=== PATIENT | female | born 1965 | race Caucasian/White ===

== ENCOUNTER 2017-05-16 00:21 | Emergency (ER) | payer BC, OTHER ==
[~2017-05-16] VITALS: Ht 149.9 cm; Wt 63.5 kg
[~2017-05-16 00:21] MED LIST: ACETAMINOPHEN325 M1 PO; AMITIZA8 MCG PO; AMOXICILLIN500 MG PO; AMPHETAMINE SAL10 MG PO; BENADRYL25 MG PO; BIOTIN5 MG PO; BUTALB-ACETAMI1 EACH PO; CANE1 EACH MISC; CETIRIZINE HCL10 MG PO; CHLORPROMAZINE25 MG PO; COREG3.125 MG PO; CYCLOBENZAPRINE10 MG PO; CYMBALTA20 MG PO; DICLOFENAC SODI75 MG PO; DULOXETINE HCL60 MG PO; ESTROVEN ENERG1 EACH PO; GABAPENTIN300 MG PO; IBUPROFEN600 MG PO; KEPPRA500 MG PO; LEVETIRACETAM1000 MG PO; LEVETIRACETAM500 MG PO; LEVOTHYROXINE88 MCG PO; LEVOXYL25 MCG PO; LIDODERM700 MG TOP; LOMOTIL TABLET1 EACH PO; LORATADINE10 MG PO; MELOXICAM15 MG PO; MULTIVITAMINS1 EAC7 PO; MULTIVITAMINS1 EAC8 PO; NAPROXEN500 MG PO; NITROFURANTOIN100 MG PO; NORCO 5-325 TA1 EACH PO; POTASSIUM CHLO10 MEQ PO; PREDNISONE20 MG PO; PROMETHAZINE HC25 M1 PO; RANITIDINE HCL150 MG PO; RANITIDINE HCL300 MG PO; SUMATRIPTAN SU100 MG PO; SUMATRIPTAN SUC50 MG PO; TRAMADOL HCL50 MG PO; TRAZODONE HCL100 MG PO; TRIAMCINOLONE A15 G3 TOP; TRIAMCINOLONE A15 GM TOP; VENTOLIN HFA18 GM IH; VITAMIN B-121000 MCG PO; VITAMIN C500 M1 PO; ZITHROMAX250 MG PO; ZOFRAN ODT4 MG PO
[2017-05-16] MEDS ORDERED: ZANAFLEX4 MG PO (00:46)
[2017-05-16] MEDS ORDERED: RIZATRIPTAN10 M1 PO (00:46)
--- NOTE | 2017-05-16 15:33 | EKG ---
[facility] [address] [place] [address] Signed Sinus bradycardia Moderate voltage criteria for LVH, may be normal variant Borderline ECG When compared with ECG of 26-NOV-2016 21:39, Vent. rate has decreased BY 32 BPM Confirmed by FIFI IBRAHIM MD ([id number]) on 05/16/2017 3:33:26 PM Electronically Signed By: FIFI IBRAHIM MD 05/16/17 1533 PATIENT NAME: DOMINIQUE CARMICHAEL Electrocardiogram DATE OF : 61 PHYSICIAN: FIFI IBRAHIM MD REPORT #: [id number] REPORT IS CONFIDENTIAL AND NOT TO BE RELEASED WITHOUT AUTHORIZATION
[2017-09-03] MEDS ORDERED: DICLOFENAC SODI75 MG PO (21:14)
== END 2017-05-16 02:59 | disposition home or self-care (01) ==
LOC: ED 00:21
DX: M79.622 Pain in left upper arm (principal); Z87.891 Personal history of nicotine dependence; Z88.1 Allergy status to other antibiotic agents; Z88.8 Allergy status to other drugs, medicaments and biological substances; Z79.899 Other long term (current) drug therapy
CPT/HCPCS: 80053; 81001; 84484; 85025; 93005; 93010; 96360; 99284; J7030

== ENCOUNTER 2017-07-23 11:36 | Emergency (ER) | payer BC ==
[~2017-07-23] VITALS: Ht 149.9 cm; Wt 59.9 kg
[~2017-07-23 11:36] MED LIST changes: +RIZATRIPTAN10 M1 PO; +ZANAFLEX4 MG PO
[2017-07-23] MEDS ORDERED: PERCOCET 5-3251 EACH PO (15:18)
[2017-07-23] MEDS ORDERED: ZOFRAN ODT4 MG PO (15:18)
[2017-09-03] MEDS ORDERED: DICLOFENAC SODI75 MG PO (21:14)
== END 2017-07-23 15:28 | disposition home or self-care (01) ==
LOC: ED 11:36
DX: G43.909 Migraine, unspecified, not intractable, without status migrainosus (principal); I25.2 Old myocardial infarction; G40.909 Epilepsy, unspecified, not intractable, without status epilepticus; Z98.51 Tubal ligation status; Z88.1 Allergy status to other antibiotic agents; Z88.8 Allergy status to other drugs, medicaments and biological substances; Z79.899 Other long term (current) drug therapy
CPT/HCPCS: 70450; 96372; 99284; J3030

== ENCOUNTER 2017-08-02 15:52 | Emergency (ER) | payer BC ==
[~2017-08-02] VITALS: Ht 149.9 cm; Wt 59.9 kg
[~2017-08-02 15:52] MED LIST changes: +PERCOCET 5-3251 EACH PO
[2017-08-02] MEDS ORDERED: LEVOTHYROXINE125 MCG PO (16:11)
[2017-08-02] MEDS ORDERED: METHYLPREDNISOLO4 M1 PO (17:09)
[2017-08-02] MEDS ORDERED: KETOROLAC TROME10 MG PO (17:09)
[2017-09-03] MEDS ORDERED: DICLOFENAC SODI75 MG PO (21:14)
== END 2017-08-02 17:18 | disposition home or self-care (01) ==
LOC: ED 15:52
DX: G89.29 Other chronic pain (principal); M79.671 Pain in right foot; G40.909 Epilepsy, unspecified, not intractable, without status epilepticus; F90.9 Attention-deficit hyperactivity disorder, unspecified type; K21.9 Gastro-esophageal reflux disease without esophagitis; Z98.51 Tubal ligation status; Z88.8 Allergy status to other drugs, medicaments and biological substances; Z88.1 Allergy status to other antibiotic agents; Z91.048 Other nonmedicinal substance allergy status; Z79.899 Other long term (current) drug therapy
CPT/HCPCS: 73630; 99283

== ENCOUNTER → 2017-09-03 | Emergency (ER) | payer BC ==
[~2017-09-03] VITALS: Ht 152.4 cm; Wt 61.2 kg
[~2017-09-03] MED LIST changes: +KETOROLAC TROME10 MG PO; +LEVOTHYROXINE125 MCG PO; +METHYLPREDNISOLO4 M1 PO
--- OUTSIDE RECORDS SUMMARY | ~2017-09-03 | XMS | Clinical Summary ---
Demographics + + + | Address | [address] | | | [place] [address] | + + + | Home Phone | | + + + | Preferred Language | Unknown | + + + | Marital Status | Single | + + + | Sabianism Affiliation | LUTHERAN | + + + | Race | White | + + + | Ethnic Group | Not or | + + + Author + + + | Author | [facility] | + + + | Organization | [facility] | + + + | Address | Unknown | + + + | Phone | Unavailable | + + + Support + + +---------+ + | Name | Relationship | Address | Phone | + + +---------+ + | AMOL DONNA | ECON | Unknown | | + + +---------+ + Care Team Providers + +------+ + | Care Java Security Engineer Name | Role | Phone | + +------+ + PP | Unavailable | + +------+ + Allergies + + + + + + | Active Allergy | Reactions | Severity | Noted | Comments | | | | | Date | | + + + + + + | Ciprofloxacin | | | 08/06/20 | | | | | | 12 | | + + + + + + | Prochlorperazine | | | 08/06/20 | | | | | | 12 | | + + + + + + Current Medications + + +-------+---------+------+------+-------+ | Prescription | Sig. | Disp. | Refills | Star | End | Statu | | | | | | t | Date | s | | | | | | Date | | | + + +-------+---------+------+------+-------+ | DULoxetine | Take 60 mg by mouth | | | | | Activ | | (CYMBALTA) 60 mg | Daily. | | | | | e | | capsule | | | | | | | + + +-------+---------+------+------+-------+ | levetiracetam | Take 500 mg by mouth | | | | | Activ | | (KEPPRA) 500 mg | 2 Times Daily. | | | | | e | | tablet | | | | | | | + + +-------+---------+------+------+-------+ | levothyroxine | Take 25 mcg by mouth | | | | | Activ | | (SYNTHROID) 25 mcg | Every Morning | | | | | e | | tablet | (Before Breakfast). | | | | | | + + +-------+---------+------+------+-------+ | amoxicillin | Take 500 mg by mouth | | | | | Activ | | (AMOXIL) 500 mg | 3 Times Daily. | | | | | e | | capsule | | | | | | | + + +-------+---------+------+------+-------+ | | Take 1 tablet by | | | | | Activ | | HYDROcodone-acetamin | mouth Every 4 Hours. | | | | | e | | ophen (VICODIN) | | | | | | | | 5-500 mg Tab | | | | | | | + + +-------+---------+------+------+-------+ | traZODone | Take 50 mg by mouth | | | | | Activ | | (DESYREL) 50 mg | At Bedtime. | | | | | e | | tablet | | | | | | | + + +-------+---------+------+------+-------+ | potassium chloride | Take 10 mEq by mouth | | | | | Activ | | (KLOR-CON M) 10 mEq | 2 Times Daily. | | | | | e | | tablet ER | | | | | | | + + +-------+---------+------+------+-------+ | cyclobenzaprine | Take 10 mg by mouth | | | | | Activ | | (FLEXERIL) 10 mg | 3 Times Daily As | | | | | e | | tablet | Needed. | | | | | | + + +-------+---------+------+------+-------+ | docusate sodium | Take 100 mg by mouth | | | | | Activ | | (COLACE) 100 mg | 2 Times Daily. | | | | | e | | capsule | | | | | | | + + +-------+---------+------+------+-------+ | ranitidine | Take 150 mg by mouth | | | | | Activ | | (ZANTAC) 75 mg | 2 Times Daily. | | | | | e | | tablet | | | | | | | + + +-------+---------+------+------+-------+ | carvedilol (COREG) | Take 25 mg by mouth | | | | | Activ | | 25 mg tablet | 2 Times Daily (with | | | | | e | | | Meals). | | | | | | + + +-------+---------+------+------+-------+ | aspirin 81 mg | Take 81 mg by mouth | | | | | Activ | | chewable tablet | Daily. | | | | | e | + + +-------+---------+------+------+-------+ | naproxen | Take 375 mg by mouth | | | | | Activ | | (NAPROSYN) 375 mg | 2 Times Daily (with | | | | | e | | tablet | Meals). | | | | | | + + +-------+---------+------+------+-------+ Active Problems Not on file Social History + +-------+ +--------+------+ | Tobacco Use | Types | Packs/Day | Years | Date | | | | | Used | | + +-------+ +--------+------+ | Never Smoker | | | | | + +-------+ +--------+------+ + + +---------+ + | Alcohol Use | Drinks/We | oz/Week | Comments | | | ek | | | + + +---------+ + | Yes | | | occasionally | + + +---------+ + + + + | Sex Assigned at | Date Recorded | | | | + + + | Not on file | | + + + Last Filed Vital Signs + + + + | Vital Sign | Reading | Time Taken | + + + + | Blood Pressure | 136/97 | 08/06/2012 1:45 AM PDT | + + + + | Pulse | 82 | 08/06/2012 1:45 AM PDT | + + + + | Temperature | 37 C (98.6 F) | 08/06/2012 1:45 AM PDT | + + + + | Respiratory Rate | 16 | 08/06/2012 1:45 AM PDT | + + + + | Oxygen Saturation | 100% | 08/06/2012 1:45 AM PDT | + + + + | Inhaled Oxygen | - | - | | Concentration | | | + + + + | Weight | - | - | + + + + | Height | - | - | + + + + | Body Mass Index | - | - | + + + + Plan of Treatment + + + + + | Health Maintenance | Due Date | Last Done | Comments | + + + + + | HIV Screening | | | | | | 8 | | | + + + + + | Tetanus | | | | | | 2 | | | + + + + + | Cervical Cancer | | | | | Screening | 4 | | | + + + + + | Breast Cancer | | | | | Screening | 3 | | | + + + + + | Colon Cancer | | | | | Screening | 3 | | | + + + + + | IMM Influenza (#1) | | | | | | 7 | | | + + + + + Results Not on filefrom Last 3 Months"
--- OUTSIDE RECORDS SUMMARY | ~2017-09-03 | XMS | Clinical Summary ---
Demographics + + + | Address | [address] | | | [place] [address] | + + + | Home Phone | | + + + | Preferred Language | Unknown | + + + | Marital Status | Single | + + + | Bahai Affiliation | SYNAGOGUE | + + + | Race | [...] Team Providers + +------+ + | Care Cut Out Worker Name | Role | Phone | [...]
== END ==
LOC: ED 18:27
DX: M25.512 Pain in left shoulder (principal); G89.29 Other chronic pain; I95.1 Orthostatic hypotension; I25.2 Old myocardial infarction; Z79.84 Long term (current) use of oral hypoglycemic drugs; Z91.048 Other nonmedicinal substance allergy status; Z88.1 Allergy status to other antibiotic agents; Z88.8 Allergy status to other drugs, medicaments and biological substances; Z98.890 Other specified postprocedural states; Z98.51 Tubal ligation status; Z79.52 Long term (current) use of systemic steroids; Z79.899 Other long term (current) drug therapy; R56.9 Unspecified convulsions; K21.9 Gastro-esophageal reflux disease without esophagitis
CPT/HCPCS: 73030; 80053; 81001; 85025; 96361; 96374; 99283; J1885; J7030

== ENCOUNTER 2018-01-09 20:59 | Emergency (ER) | payer BC ==
[~2018-01-09] VITALS: Ht 152.4 cm; Wt 60.3 kg
--- OUTSIDE RECORDS SUMMARY | ~2018-01-09 | XMS | Clinical Summary ---
Demographics + + + | Address | [address] | | | [place] [address] | + + + | Home Phone | | + + + | Preferred Language | Unknown | + + + | Marital Status | Single | + + + | Zoroastrian Affiliation | ANABAPTIST | + + + | Race | [...] Phone | + + +---------+ + | RUEL CARMICHAEL | ECON | Unknown | | + + +---------+ + Care Team Providers + +------+ + | Care Oil Dipper Name | Role | Phone | + [...] | + + + + + | Hep C Ab Screening | | | | | | 3 | | | + + [...]
--- OUTSIDE RECORDS SUMMARY | ~2018-01-09 | XMS | Clinical Summary ---
Demographics + + + | Address | [address] | | | [place] [address] | + + + | Home Phone | | + + + | Preferred Language | Unknown | + + + | Marital Status | Single | + + + | Religion Affiliation | SHINTO | + + + | Race | [...] Team Providers + +------+ + | Care Boiler Room Operator Name | Role | Phone | [...]
[2018-01-09] MEDS ORDERED: GUAIFENESIN AC473 ML PO (22:10)
[2018-01-09] MEDS ORDERED: ZITHROMAX250 MG PO (22:10)
[2018-01-09] MEDS ORDERED: BENZONATATE100 MG PO (22:10)
[2018-01-10] MEDS ORDERED: PREDNISONE10 MG PO (01:56)
== END 2018-01-10 02:29 | disposition home or self-care (01) ==
LOC: ED 20:59
DX: J20.9 Acute bronchitis, unspecified (principal); J67.9 Hypersensitivity pneumonitis due to unspecified organic dust; K21.9 Gastro-esophageal reflux disease without esophagitis; F20.9 Schizophrenia, unspecified; Z87.891 Personal history of nicotine dependence; Z88.0 Allergy status to penicillin; Z88.8 Allergy status to other drugs, medicaments and biological substances; Z88.1 Allergy status to other antibiotic agents; Z79.899 Other long term (current) drug therapy
CPT/HCPCS: 71046; 87502; 94640; 99283; J7512

== ENCOUNTER 2018-12-01 23:01 | Emergency (ER) | payer BC ==
[~2018-12-01] VITALS: Ht 152.4 cm; Wt 66.7 kg
[~2018-12-01 23:01] MED LIST changes: +BENZONATATE100 MG PO; +GUAIFENESIN AC473 ML PO; +PREDNISONE10 MG PO
--- OUTSIDE RECORDS SUMMARY | 2018-12-01 23:04 | XMS ---
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 No recent Security Events currently on file CRITERIA MET - Group Notification CARE PROVIDERS LIAM PORTER Nurse Practitioner: Family Current PHONE: [phone] Oneil Reyez Internal Medicine: Pulmonary Disease 08/15/2018-Current PHONE: Unknown QUITA MURPHY Family Medicine: Geriatric Medicine Current PHONE: Unknown PCP_Unattributed Primary Care Current PHONE: Unknown LIAM PORTER Primary Care 10/25/2016-Current PHONE: [phone] PANCHO OVERTON Primary Care 10/25/2016-Current PHONE: [phone] DR QUITA MURPHY Primary Care 01/22/2017-Current PHONE: [phone] Teofilo has no Care Guidelines for this patient. Mary VISIT COUNT (12 MO.) Javi Finch TOTAL 3 NOTE: Visits indicate total known visits. 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
== END 2018-12-02 02:30 | disposition home or self-care (01) ==
LOC: ED 23:01
DX: R10.11 Right upper quadrant pain (principal); F90.9 Attention-deficit hyperactivity disorder, unspecified type; I25.2 Old myocardial infarction; K21.9 Gastro-esophageal reflux disease without esophagitis; Z88.0 Allergy status to penicillin; Z88.1 Allergy status to other antibiotic agents; Z91.09 Other allergy status, other than to drugs and biological substances; Z88.8 Allergy status to other drugs, medicaments and biological substances; Z79.899 Other long term (current) drug therapy
CPT/HCPCS: 74176; 76705; 80053; 81001; 83690; 85025; 99284-25; J1885; J2405

== ENCOUNTER 2019-02-19 22:48 | Emergency (ER) | payer BC ==
[~2019-02-19] VITALS: Ht 152.4 cm; Wt 62.1 kg
--- OUTSIDE RECORDS SUMMARY | ~2019-02-19 | XMS | Encounter Summary ---
Demographics + + + | Address | [address] | | | [place] [address] | + + + | Home Phone | | + + + | Preferred Language | Unknown | + + + | Marital Status | Single | + + + | Christian Affiliation | 1009 | + + + | Race | Unknown | + + + | Ethnic Group | Unknown | + + + Author + + + | Author | [facility] | | | and [place] | + + + | Organization | [facility] | | | and [place] | + + + | Address | Unknown | + + + | Phone | Unavailable | + + + Support + + + + + | Name | Relationship | Address | Phone | + + + + + | Magalys Hurley | ECON | [address] | | | | | [place] [address] | | + + + + + Care Team Providers + +------+ + | Care Head Charger Name | Role | Phone | + +------+ + | Aisha Carrington DO | PCP | Unavailable | + +------+ + Reason for Visit + + + | Reason | Comments | + + + | Medication Refill | | + + + Encounter Details +--------+--------+ + + + | Date | Type | Department | Care Team | Description | +--------+--------+ + + + | 02/01/ | Refill | [facility] | Aisha Carrington, | Medication Refill | | 2019 | | [facility] | DO [address] | | | | | CLIN[address] | [place] [address] | | | | | DR [place], | [phone] | | | | | [place] [address] | | | | | | [phone] | | | +--------+--------+ + + + [...] on file | | + + + + + + + | Job Start Date | Occupation | Industry | + + + + | Not on file | Not on file | Not on file | + + + + + + + + | Travel History | Travel Start | Travel End | + + + + + + | No recent travel history available. | + + documented as of this encounter Plan of Treatment +--------+---------+ + + + | Date | Type | Specialty | Care Team | Description | +--------+---------+ + + + | 03/07/ | Office | Neurology | Brock Hammond MD | | | 2019 | Visit | | [address] | | | | | | [place] | | | | | | [phone] | | | | | | | | +--------+---------+ + + + documented as of this encounter Visit Diagnoses Not on filedocumented in this encounter"
--- OUTSIDE RECORDS SUMMARY | ~2019-02-19 | XMS | Encounter Summary ---
Demographics + + + | Address | [address] | | | [place] [address] | + + + | Home Phone | | + + + | Preferred Language | Unknown | + + + | Marital Status | Single | + + + | Quaker Affiliation | 1009 | + + + | Race | Unknown | + + + | Ethnic Group | Unknown | + + + Author + + + | Author | [facility] | | | and [place] | + + + | Organization | [facility] | | [...] [place] | | | | | [place] [address] | | + + + + + Care Team Providers + +------+ + | Care Aerial Hurricane Hunter Name | Role | Phone | + [...] [id number] | | | | | [place] [address] | | | | | | [phone] | | | +--------+--------+ + + + [...] [place] | | | | | | [address] | | | | | | | | +--------+---------+ + + + documented as of this encounter Visit Diagnoses Not on filedocumented in this encounter"
--- OUTSIDE RECORDS SUMMARY | ~2019-02-19 | XMS | Encounter Summary ---
Demographics + + + | Address | [address] | | | [place] [address] | + + + | Home Phone [...] [address] | | | | | [place] [address] | | + + + + + Care Team Providers + +------+ + | Care Acls Nurse Name | Role | Phone | + [...] [id number] | | | | | [place] [address] | | | | | | [phone] | | | +--------+--------+ + + + [...] [place] | | | | | | [address] | | | | | | | | +--------+---------+ + + + documented as of this encounter Visit Diagnoses Not on filedocumented in this encounter"
--- OUTSIDE RECORDS SUMMARY | ~2019-02-19 | XMS | Encounter Summary ---
Demographics + + + | Address | [address] | | | [place] [address] | + + + | Home Phone [...] [place] | | | | | [place] [address] | | + + + + + Care Team Providers + +------+ + | Care Casing Tier Name | Role | Phone | + +------+ + | Aisha Carringotn DO | PCP | Unavailable | + [...] [id number] | | | | | [place] [address] | | | | | | [phone] | | | +--------+--------+ + + + [...] [place] | | | | | | [address] | | | | | | | | +--------+---------+ + + + documented as of this encounter Visit Diagnoses Not on filedocumented in this encounter"
--- OUTSIDE RECORDS SUMMARY | ~2019-02-19 | XMS | Encounter Summary ---
Demographics + + + | Address | [address] | | | [place] [address] | + + + | Home Phone [...] [place] | | | | | [place] [address] | | + + + + + Care Team Providers + +------+ + | Care Linseed Cake Trimmer Name | Role | Phone | [...] [id number] | | | | | [place] [address] | | | | | | [phone] | | | +--------+--------+ + + + [...] [place] | | | | | | [address] | | | | | | | | +--------+---------+ + + + documented as of this encounter Visit Diagnoses Not on filedocumented in this encounter"
--- OUTSIDE RECORDS SUMMARY | ~2019-02-19 | XMS | Clinical Summary ---
Demographics + + + | Address | [address] | | | [place] [address] | + + + | Home Phone | | + + + | Preferred Language | Unknown | + + + | Marital Status | Single | + + + | Spiritism Affiliation | Unknown | + + + | Race | Unknown | + + + | Ethnic Group | Unknown | + + + Author + + + | Author | [id number] | + + + | Organization | [facility] | + + + | Address | Unknown | + + + | Phone | Unavailable | + + + Support + + +---------+ + | Name | Relationship | Address | Phone | + + +---------+ + | Message,Detailed | ECON | Unknown | | + + +---------+ + Care Team Providers + +------+ + | Care Dust Collector Attendant Name | Role | Phone | + +------+ + | Galen Portillo MD | PP | | + +------+ + Allergies + + + + + + | Active Allergy | Reactions | Severity | Noted | Comments | | | | | Date | | + + + + + + | Ciprofloxacin | Other (See Comments) | Medium | 03/17/20 | Angry | | | | | 16 | | + + + + + + | Prochlorperazine | Anxiety, Agitation, | Medium | 03/17/20 | | | | Hallucinations | | 16 | | + + + + + + Current Medications + + +-------+---------+------+------+-------+ | Prescription | Sig. | Disp. | Refills | Star | End | Statu | | | | | | t | Date | s | | | | | | Date | | | + + +-------+---------+------+------+-------+ | betamethasone | Apply topically 2 | | | | | Activ | | dipropionate | (two) times daily. | | | | | e | | (DIPROLENE) 0.05 % | | | | | | | | ointment | | | | | | | + + +-------+---------+------+------+-------+ | Biotin 5 MG CAPS | Take by mouth. | | | | | Activ | | | | | | | | e | + + +-------+---------+------+------+-------+ | cyclobenzaprine | Take 10 mg by mouth | | | | | Activ | | (FLEXERIL) 10 MG | 3 (three) times | | | | | e | | tablet | daily as needed for | | | | | | | | Muscle spasms. | | | | | | + + +-------+---------+------+------+-------+ | DULoxetine | Take 60 mg by mouth | | | | | Activ | | (CYMBALTA) [address] | daily. | | | | | e | | capsule | | | | | | | + + +-------+---------+------+------+-------+ | diclofenac | Take 75 mg by mouth | | | | | Activ | | (VOLTAREN) 75 MG EC | 2 (two) times daily. | | | | | e | | tablet | | | | | | | + + +-------+---------+------+------+-------+ | cetirizine | Take 10 mg by mouth | | | | | Activ | | (ZYRTEC) 10 MG | daily. | | | | | e | | tablet | | | | | | | + + +-------+---------+------+------+-------+ | lubiprostone | Take 8 mcg by mouth | | | | | Activ | | (AMITIZA) 8 MCG | 2 (two) times daily | | | | | e | | capsule | with meals. | | | | | | + + +-------+---------+------+------+-------+ | levothyroxine | Take by mouth every | | | | | Activ | | (SYNTHROID) 100 MCG | morning before | | | | | e | | tablet | breakfast. | | | | | | + + +-------+---------+------+------+-------+ | levETIRAcetam | Take 500 mg by mouth | | | | | Activ | | (KEPPRA) 500 MG | 2 (two) times | | | | | e | | tablet | daily. | | | | | | + + +-------+---------+------+------+-------+ | ranitidine | Take by mouth | | | | | Activ | | (ZANTAC) 300 MG | nightly. | | | | | e | | tablet | | | | | | | + + +-------+---------+------+------+-------+ | | Take 1 capsule by | | | | | Activ | | butalbital-acetamino | mouth every 4 (four) | | | | | e | | phen-caffeine | hours as needed for | | | | | | | (FIORICET WITH | Headaches. | | | | | | | CODEINE) | | | | | | | | [phone] MG per | | | | | | | | capsule | | | | | | | + + +-------+---------+------+------+-------+ Active Problems No known active problems Social History + +-------+ +--------+------+ | Tobacco [...] + + + | Blood Pressure | - | - | + + + + | Pulse | - | - | + + + + | Temperature | - | - | + + + + | Respiratory Rate | - | - | + + + + | Oxygen Saturation | - | - | + + + + | Inhaled Oxygen | - | - | | Concentration | | | + + + + | Weight | 59 kg (130 lb) | 04/17/2016 9:22 AM PDT | + + + + | Height | 149.9 cm (4' 11") | 04/17/2016 9:22 AM PDT | + + + + | Body Mass Index | 26.26 | 04/17/2016 9:22 AM PDT | + + + + Plan of Treatment + + + + + | Health Maintenance | Due Date | Last Done | Comments | + + + + + | Vaccine: | | | | | Dtap/Tdap/Td (1 - | 2 | | | | Tdap) | | | | + + + + + | Cervical Cancer | | | | | Screening (Pap) | 3 | | | + + + + + | Breast Cancer | | | | | Screening | 3 | | | | (Mammogram) | | | | + + + + + | Colon Cancer | | | | | Screening | 3 | | | | (Colonoscopy) | | | | + + + + + | Vaccine: Zoster (1 | | | | | of 2) | 3 | | | + + + + + | Vaccine: Influenza | | | | | (Season Ended) | 9 | | | + + + + + Results Not on filefrom Last 3 Months Insurance + +--------+ +------+-------+---------+ | Payer | Benefi | Subscriber | Type | Phone | Address | | | t Plan | ID | | | | | | / | | | | | | | Group | | | | | + +--------+ +------+-------+---------+ | [employer] | [employer]DS | [id number] | | | | | | HEALTH | | | | | | | PLAN | | | | | + +--------+ +------+-------+---------+ + +--------+ +--------+ + + | Guarantor Name | Accoun | Relation to | Date | Phone | Billing Address | | | t Type | Patient | of | | | | | | | | | | + +--------+ +--------+ + + | KOKI RAZA | Person | Self [birth year] Work: | [address] | | | al/James | | [phone] | [phone] | [place] | | | juliet | | | [address] Home: | [address] | | | | | | | | | | | | [phone] | | | | | | [phone] | | + +--------+ +--------+ + +
--- OUTSIDE RECORDS SUMMARY | ~2019-02-19 | XMS | Encounter Summary ---
Demographics + + + | Address | [address] | | | [place] [address] | + + + | Home Phone [...] [place] | | | | | [place] [address] | | + + + + + Care Team Providers + +------+ + | Care Picking Belt Operator Name | Role | Phone | [...] [id number] | | | | | [place] [address] | | | | | | [phone] | | | +--------+--------+ + + + [...] [place] | | | | | | [address] | | | | | | | | +--------+---------+ + + + documented as of this encounter Visit Diagnoses Not on filedocumented in this encounter"
--- OUTSIDE RECORDS SUMMARY | ~2019-02-19 | XMS | Encounter Summary ---
Demographics + + + | Address | [address] | | | [place] [address] | + + + | Home Phone [...] [place] | | | | | [place] [address] | | + + + + + Care Team Providers + +------+ + | Care School Psychologist Name | Role | Phone | + [...] [id number] | | | | | [place] [address] | | | | | | [phone] | | | +--------+--------+ + + + [...] [place] | | | | | | [address] | | | | | | | | +--------+---------+ + + + documented as of this encounter Visit Diagnoses Not on filedocumented in this encounter"
--- OUTSIDE RECORDS SUMMARY | ~2019-02-19 | XMS | Clinical Summary ---
Demographics + + + | Address | [address] | | | [place] [address] | + + + | Home Phone [...] | | | | | [place] [address] | | + + + + + Care Team Providers + +------+ + | Care It Support Specialist Name | Role | Phone | + +------+ + | Aisha Carrington DO | PP | Unavailable | + +------+ + [...] + + + +---------+------+------+-------+ | gabapentin | Take 1 tablet by | 90 | 4 | 02/2 | | Activ | | (NEURONTIN) 600 MG | mouth 3 times daily. | tablet | | 8/20 | | e | | tablet | | | | 18 | | | + + + +---------+------+------+-------+ [...] tablet by | 30 | 11 | 04/2 | | Activ | | (SYNTHROID) 125 mcg | mouth once daily | tablet | | 7/20 | | e | | tablet | | | | 18 | | | + + + +---------+------+------+-------+ | tiZANidine | take 1 tablet by | 30 | 0 | 04/2 | | Activ | | (ZANAFLEX) 4 mg | mouth three times a | tablet | | 7/20 | | e | | tablet | day for 10 days MAY | | | 18 | | | | | CUT TABLETS IN HALF | | | | | | + + + +---------+------+------+-------+ | DULoxetine | take 1 capsule by | 60 | 11 | 04/1 | | Activ | | (CYMBALTA) [address] | mouth twice a day | capsule | | 0/20 | | e | | capsule | | | | 19 | | | + + + +---------+------+------+-------+ | levETIRAcetam | take 1 tablet by | 60 | 0 | 04/1 | | Activ | | (KEPPRA) 500 mg | mouth twice a day | tablet | | 0/20 | | e | | tablet | | | | 19 | | | + + + +---------+------+------+-------+ | SUMAtriptan | take 1 tablet by | 12 | 0 | 04/1 | | Activ | | (IMITREX) 100 mg | mouth AT ONSET OF | tablet | | 3/20 | | e | | tablet | HEADACHE may repeat | | | 19 | | | | | ONCE AFTER 45 | | | | | | | | MINUTES; not more | | | | | | | | than 2 tablets daily | | | | | | + + + +---------+------+------+-------+ | DULoxetine | take 1 capsule by | 60 | 11 | 02/2 | 04/1 | Disco | | (CYMBALTA) [address] | mouth twice a day | capsule | | 7/20 | 0/20 | ntinu | | capsule | | | | 18 | 19 | ed | + + + +---------+------+------+-------+ | levETIRAcetam | take 1 tablet by | 60 | 0 | 02/1 | 04/ | Disco | | (KEPPRA) 500 mg | mouth twice a day | tablet | | 1/20 | 0/20 | ntinu | | tablet | | | | 19 | 19 | ed | + + + +---------+------+------+-------+ | SUMAtriptan | take 1 tablet by | 12 | 0 | 02/1 | 04/1 | Disco | | (IMITREX) 100 mg | mouth AT ONSET OF | tablet | | 20 | 3/20 | ntinu | | tablet | HEADACHE MAY REPEAT | | | 19 | 19 | ed | | | ONCE AFTER 45 | | | | | | | | MINUTES; MAXIMUM OF | | | | | | | | 2 TABLETS DAILY | | | | | | + + + +---------+------+------+-------+ Active Problems + + + | Problem | Noted Date | + + + | Chronic anemia [...] | 10/28/2015 | + + + | Essential hypertension [...] + + + + + | Overview: 04/12/17: Currently on Keppra 500 mg BID. She | | has been seizure free x 1 year. | + + + + + | GERD (gastroesophageal reflux disease) | 03/25/2011 | + + + | Hypothyroid | 03/25/2011 | + + + | Migraine | 03/25/2011 | + + + + + | Overview: 04/12/18: Sumatriptan ineffective. Transition to | | Rizatriptan. | + + + + + | Unspecified hearing loss, unspecified ear | 03/25/2011 | + + + Encounters +--------+--------+ + + + | Date | Type | Specialty | Care Team | Description | +--------+--------+ + + + | 02/04/ | Refill | | Brock Hammond MD | Medication Refill | | 2018 | | | | | +--------+--------+ + + + | 02/01/ | Refill | | Brock Hammond MD | Medication Refill | | 2018 | | | | | +--------+--------+ + + + | 02/01/ | Refill | | Aisha Carrington, | Medication Refill | | 2018 | | | DO | | +--------+--------+ + + + | 12/04/ | Refill | | Brock Hammond MD | Medication Refill | | 2018 | | | | | +--------+--------+ + + + from Last 3 Months Immunizations + + + + | Name | Dates Previously Given | Next Due | + + + + | INFLUENZA PF | 10/08/2010, 08/01/2008 | | | TRIVALENT(PED/ADOL/A | | | | DULT)PRADEEPKT | | | + + + + [...] recent travel history available. | + + Last Filed Vital Signs + + + + | Vital Sign | Reading | Time Taken | + + + + | Blood Pressure | 110/80 | 07/21/20171355 PDT | + + + + | Pulse | 82 | 07/21/20171355 PDT | + + + + | Temperature | 36.1 C (97 F) | 03/23/20171302 PDT | + + + + | Respiratory Rate | 18 | 07/21/20171355 PDT | + + + + | Oxygen Saturation | 98% | 07/21/20171355 PDT | + + + + | Inhaled Oxygen | - | - | | Concentration | | | + + + + | Weight | 59.7 kg (131 lb 9.9 | 07/21/20171355 PDT | | | oz) | | + + + + | Height | 152 cm (4' 11.84") | 07/21/20171355 PDT | + + + + | Body Mass Index | 25.84 | 07/21/20171355 PDT | + + + + Plan of Treatment +--------+---------+ + + + | Date | Type | Specialty | Care Team | Description | +--------+---------+ + + + | 03/07/ | Office | | Brock Hammond MD | | | 2019 | Visit | | [address] | | | | | | [place] | | | | | | [address] | | | | | | | | +--------+---------+ + + + + + + + + | Health Maintenance | Due Date | Last Done | Comments | + + + + + | Hepatitis C | | | | | Screening | 3 | | | + + + + + | Primary Care | | | | | Outreach (Intense | 3 | | | | Risk) | | | | + + + [...] + + + | Vaccine: | | 08/01/2008 | | | Dtap/Tdap/Td (2 - | 8 | | | | Td) | | | | + + + + + | Breast Cancer | | 03/03/2017 | | | Screening (Ages | 9 | | | | 50-74) | | | | + + + + + | Vaccine: Influenza | | 10/08/2010, 08/01/2008 | | | (Season Ended) | 9 [...] +-------+--------+ +--------+-------+---------+------+ | BCBS | BCBS | [id number] | 10/25/19 | | | PPO | [...] Person | Self | [birth year] | [address] | | | barb/James | | 1965 | [phone] | | | [place] | | | [address] (Home) | [place] [address] | + +--------+ +--------+ + + Advance Directives Patient has advance care planning documents on file. For more information, please contact:[facility] [place] [address]
--- OUTSIDE RECORDS SUMMARY | ~2019-02-19 | XMS | Clinical Summary ---
Demographics + + + | Address | [address] | | | [place] [address] | + + + | Home Phone [...] | | | | | [place] [address] | | + + + + + Care Team Providers + +------+ + | Care Data Compiler Name | Role | Phone | + [...] [place] | | | | | | [address] | | | | | | | [...] +-------+--------+ +--------+-------+---------+------+ | BCBS | BCBS | [id number] | 10/25/19 | | | PPO | [...] | | 7 (Home) | [place] [address] | + +--------+ +--------+ + + Advance Directives Patient has advance care planning documents on file. For more information, please contact:[facility] and [facility] [place] [address]
--- OUTSIDE RECORDS SUMMARY | ~2019-02-19 | XMS | Encounter Summary ---
Demographics + + + | Address | [address] | | | [place] [address] | + + + | Home Phone [...] HU | | | | | [place] [address] | | + + + + + Care Team Providers + +------+ + | Care Pocket Setter Lockstitch Name | Role | Phone | + [...] | CLINIC [address] | [place] [address] | | | | | [address] [place], | [phone] | | | | | [place] [address] | | | | | | [phone] | | | +--------+--------+ + + + [...] [place] | | | | | | [phone] | | | | | | | | +--------+---------+ + + + documented as of this encounter Visit Diagnoses Not on filedocumented in this encounter"
--- OUTSIDE RECORDS SUMMARY | ~2019-02-19 | XMS | Clinical Summary ---
Demographics + + + | Address | [address] | | | [place] [address] | + + + | Home Phone | | + + + | Preferred Language | Unknown | + + + | Marital Status | Single | + + + | Evangelical Affiliation | Unknown | + + + | Race | Unknown | + + + | Ethnic Group | Unknown | + + + Author + + + | Author | [facility] [employer] | + + + | Organization | [facility] [employer] | + + + | Address | Unknown | + + + | Phone | Unavailable | + + + Support + + +---------+ + | Name | Relationship | Address | Phone | + + +---------+ + | Message,Detailed | ECON | Unknown | | + + +---------+ + Care Team Providers + +------+ + | Care Motor Vehicle Light Assembler Name | Role | Phone | [...] | | | | | | | [phone] MG per | | | | | [...] | [employer] | ODS | [id number] | | | | | | HEALTH [...] [place] | | | [address]: | [phone] | | | | | | | | | | | | [phone] | | | | | | [phone] | | + +--------+ +--------+ + +
--- OUTSIDE RECORDS SUMMARY | 2019-02-19 22:50 | XMS ---
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 No recent Security Events currently on file CRITERIA MET - Group Notification - [facility] CARE PROVIDERS LIAM PORTER Nurse Practitioner: Family Current PHONE: [phone] PRATIK PALMER Nurse Practitioner: Family Current PHONE: Unknown Oneil Reyez Internal Medicine: Pulmonary Disease 08/15/2018-Current PHONE: Unknown QUITA MURPHY Family Medicine: Geriatric Medicine Current PHONE: Unknown KATHERINE Christy Primary Care Current PHONE: Unknown LIAM PORTER Primary Care 10/25/2016-Current PHONE: [phone] PANCHO OVERTON Primary Care 10/25/2016-Current PHONE: [phone] DR QUITA MURPHY Primary Care 01/22/2017-Current PHONE: [phone] Teofilo has no Care Guidelines for this patient. Care History Medical/Surgical 12/02/2018 [facility] - Patient is currently established with [facility]. If patient is seen in the ED during business hours. Please contact [facility] at [facility]. Care Recommendation: This patient has had 5 or more Emergency Department visits in the last 12 months.\T\nbsp; Patient requires education on the scope and purpose of the ED as an acute care provider not a Primary Care Provider and should not be utilized for chronic conditions.\T\nbsp; These are guidelines and the provider should exercise clinical judgment when providing care. E.D. VISIT COUNT (12 MO.) 3 SHAILA Finch TOTAL 3 NOTE: Visits indicate total known visits. ED/UCC VISIT TRACKING (12 MO.) 02/19/2019 22:48 [facility] [place] TYPE: Emergency COMPLAINT: - L RIB PAIN 12/01/2018 23:02 [facility] [place] TYPE: Emergency COMPLAINT: - FLANK PAIN,NAUSEA DIAGNOSES: - Other fci (current) drug therapy - Right upper quadrant pain - Other allergy status, other than to drugs and biological substances - Attention-deficit hyperactivity disorder, unspecified type - Allergy status to other drugs, medicaments and biological substances status - Old myocardial infarction - Gastro-esophageal reflux disease without esophagitis - Allergy status to penicillin - Allergy status to other antibiotic agents status 08/14/2018 23:25 [facility] [place] TYPE: Emergency COMPLAINT: - HEAD/NECK PAIN,NON INJURY DIAGNOSES: - Gastro-esophageal reflux disease without esophagitis - long-term (current) use of oral hypoglycemic drugs - Other nonmedicinal substance allergy status - Allergy status to penicillin - Allergy status to other antibiotic agents status - Cervicalgia - Pain in left shoulder - Other fci (current) drug therapy - Attention-deficit hyperactivity disorder, unspecified type INPATIENT VISIT TRACKING (12 MO.) No inpatient visits to display in this time frame [id number]
[2019-02-19] MEDS ORDERED: ZOFRAN4 MG PO (23:08)
[2019-02-19] MEDS ORDERED: NAPROXEN500 MG PO (23:56)
[2019-02-19] MEDS ORDERED: TRAMADOL HCL50 MG PO (23:56)
== END 2019-02-20 00:11 | disposition home or self-care (01) ==
LOC: ED 22:48
DX: S29.012A Strain of muscle and tendon of back wall of thorax, initial encounter (principal); I25.2 Old myocardial infarction; F90.9 Attention-deficit hyperactivity disorder, unspecified type; K21.9 Gastro-esophageal reflux disease without esophagitis; E03.9 Hypothyroidism, unspecified; Z87.891 Personal history of nicotine dependence; Z88.0 Allergy status to penicillin; Z88.8 Allergy status to other drugs, medicaments and biological substances; Z88.1 Allergy status to other antibiotic agents; Z91.09 Other allergy status, other than to drugs and biological substances; Z79.899 Other long term (current) drug therapy; X58.XXXA Exposure to other specified factors, initial encounter; Y93.E2 Activity, laundry
CPT/HCPCS: 71101; 99283-25

== ENCOUNTER 2019-04-10 22:54 | Emergency (ER) | payer BC ==
[~2019-04-10] VITALS: Ht 152.4 cm; Wt 62.1 kg
[~2019-04-10 22:54] MED LIST changes: +ZOFRAN4 MG PO
--- OUTSIDE RECORDS SUMMARY | 2019-04-10 22:58 | XMS ---
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 Security Miniature Set Constructor Events No recent Security Events currently on file CRITERIA MET - Group Notification - [facility] LIAM PORTER Nurse Practitioner: Family Current PHONE: [phone] PRATIK PALMER Nurse Practitioner: Family Current PHONE: Unknown Oneil Reyez Internal Medicine: Pulmonary Disease 08/15/2018-Current PHONE: Unknown QUITA MURPHY Family Medicine: Geriatric Medicine Current PHONE: Unknown KATHERINE Christy Primary Care Current PHONE: Unknown LIAM PORTER Primary Care 10/25/2016-Current PHONE: [phone] PANCHO OVERTON Primary Care 10/25/2016-Current PHONE: [phone] DR QUITA MUPRHY Primary Care 01/22/2017-Current PHONE: [phone] Teofilo has no Care Guidelines for this patient. Care History Medical/Surgical 12/02/2018 [facility] - PATIENT HAS AN APT TO ESTABLISH CARE ON 03/01/[address] REYEZ. - Patient is currently established with [facility]. If patient is seen in the ED during business hours. Please contact CHWs at [facility]. Care Recommendation: This patient has had 5 [...] providing care. E.D. VISIT COUNT (12 MO.) [address] [facility] TOTAL 4 NOTE: Visits indicate total known visits. 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 - Pleurodynia - Activity, laundry - Old myocardial infarction - Strain of muscle and tendon of back wall of thorax, initial encounter - Exposure to other specified factors, initial encounter - Other allergy status, other than to drugs and biological substances - Gastro-esophageal reflux disease without esophagitis - Attention-deficit hyperactivity disorder, unspecified type - Personal history of nicotine dependence - Allergy status to penicillin - Hypothyroidism, unspecified 12/01/2018 23:02 [facility] [place] TYPE: Emergency COMPLAINT: - FLANK PAIN,NAUSEA DIAGNOSES: - Other senior living (current) drug therapy - Right upper quadrant pain - Other allergy status, other than to drugs and biological substances - Attention-deficit hyperactivity disorder, unspecified type - Allergy status to other drugs, medicaments and biological substances status - Old myocardial infarction - Gastro-esophageal reflux disease without esophagitis - Allergy status to penicillin - Allergy status to other antibiotic agents status 08/14/2018 23:[address] 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
[2019-04-10] MEDS ORDERED: ZANAFLEX4 MG PO (23:09)
[2019-04-10] MEDS ORDERED: GABAPENTIN600 MG PO (23:10)
== END 2019-04-11 01:04 | disposition home or self-care (01) ==
LOC: ED 22:54
DX: S16.1XXA Strain of muscle, fascia and tendon at neck level, initial encounter (principal); G44.309 Post-traumatic headache, unspecified, not intractable; E03.9 Hypothyroidism, unspecified; K21.9 Gastro-esophageal reflux disease without esophagitis; Z88.0 Allergy status to penicillin; Z91.048 Other nonmedicinal substance allergy status; Z88.1 Allergy status to other antibiotic agents; Z88.8 Allergy status to other drugs, medicaments and biological substances; Z79.899 Other long term (current) drug therapy; W01.198A Fall on same level from slipping, tripping and stumbling with subsequent striking against other object, initial encounter
CPT/HCPCS: 70450; 72125; 99284-25

== ENCOUNTER 2020-05-02 16:39 | Emergency (ER) | payer BC ==
[~2020-05-02] VITALS: Ht 152.4 cm; Wt 62.1 kg
--- OUTSIDE RECORDS SUMMARY | ~2020-05-02 | XMS | Encounter Summary ---
Demographics + + + | Address | [address] | | | [address] | | | [place] [address] | + + + | Home Phone | | + + + | Preferred Language | Unknown | + + + | Marital Status | Single | + + + | Sikhism Affiliation | 1009 | + + + | Race | Unknown | + + + | Ethnic Group | Unknown | + + + Author + + + | Author | [facility] | | | and [place] | + + + | Organization | [facility] | | | and [...] | | | | | [place] [address] | | + + + + + | Allegra Raza | ECON | Unknown | | + + + + + | Emily Fuller | ECON | Unknown | | + + + + + Care Team Providers + +------+ + | Care Screwhead Polisher Name | Role | Phone | + +------+ + PCP | Unavailable | + +------+ + Encounter Details +--------+ + + + + | Date | Type | Department | Care Team | Description | +--------+ + + + + | 11/19/ | Hospital | [place] [facility] | Emmanuelle Frank | | | 2008 | Encounter | HOSPITAL XRAY [address] | Sandra Alvarez MD [address] | | | | [address] | [facility], | | | | | [facility], [place] | [place] [address] | | | | | [address] | [phone] | | | | | [phone] | | | +--------+ + + + [...] Description | +--------+---------+ + + + | 05/14/ | Office | Neurology | [place], | | | 2019 | Visit | | [address] | | | | | [address] [place], | | | | | | [place] [address] | | | | | | [phone] | | | | | | | | +--------+---------+ + + + | 01/21/ | Office | Neurology | Brock Hammond MD | | | 2020 | Visit | | [address] | | | | | | [place] | | | | | | [address] | | | | | | | | +--------+---------+ + + + documented as of this encounter Visit Diagnoses Not on filedocumented in this encounter"
--- OUTSIDE RECORDS SUMMARY | ~2020-05-02 | XMS | Encounter Summary ---
Demographics + + + | Address | [address] | | | [address] | | | [place] [address] | + + + | Home Phone | | + + + | Preferred Language | Unknown | + + + | Marital Status | Single | + + + | Rastafari Affiliation | 1009 | + + + | Race | Unknown | + + + | Ethnic Group | Unknown | + + + Author + + + | Author | [facility] | | | and [place] | + + + | Organization | [facility] | | | [...] | | | | | [place] [address] | | + + + + + | Allegra Raaz | ECON | Unknown | | + + + + + | Emily Fuller | ECON | Unknown | | + + + + + Care Team Providers + +------+ + | Care Fruit Canner Name | Role | Phone | + +------+ + | Aisha Carrington DO | PCP | | + +------+ + Reason for Visit + +--------+ + | Reason | Onset | Comments | | | Date | | + +--------+ + | Medication Question | 04/25/ | | | | 2018 | | + +--------+ + Encounter Details +--------+ + + + + | Date | Type | Department | Care Team | Description | +--------+ + + + + | 04/25/ | Telephone | [facility] | Brock Hammond MD | Medication Question | | 2018 | | HOSPITAL NEUROLOGY | [address] | | | | | CLINIC [address] | [place] | | | | | [address] [place], | [address] | | | | | [place] [address] | | | | | | [phone] | | | +--------+ + + + [...] + + documented as of this encounter Miscellaneous Notes Telephone Encounter - Kristen Rodriguez RN - 04/25/2018 11:39 AM PDTDid you want to prescribe ? /ELOINA Jones elephone Encounter - Isis Marie - 04/25/2018 11:12 AM PDTPt stated that she talked with Dr. Hammond on Wednesday and he said he'd prescribe Ibuprofen 800 and something for nausea. She has not gotte n any word as of yet. Please advise. Thank you, Isis documented in this encounte r Plan of Treatment +--------+---------+ + + + | Date | Type | Specialty | Care Team | Description | +--------+---------+ + + + | 05/14/ | Office | Neurology | [place], | | | 2019 | Visit | | [address] | | | | [address] [place], | | | | | | [place] [address] | | | | | | [phone] | | | | | | | | +--------+---------+ + + + | 01/21/ | Office | Neurology | Borck Hammond MD | | | 2020 | Visit | | [address] | | | | | | [place] | | | | | | [address] | | | | | | | | +--------+---------+ + + + documented as of this encounter Visit Diagnoses Not on filedocumented in this encounter"
--- OUTSIDE RECORDS SUMMARY | ~2020-05-02 | XMS | Encounter Summary ---
Demographics + + + | Address | [address] | | | [address] | | | [place] [address] | + + + | Home Phone | | + + + | Preferred Language | Unknown | + + + | Marital Status | Single | + + + | Shinto Affiliation | 1009 | + + + | Race | Unknown | + + + | Ethnic Group | Unknown | + + + Author + + + | Author | [facility] | | | and [place]ana | + + + | Organization | [facility] | | | [...] | | | | | [place] [address] | | + + + + + | Allegra Raza | ECON | Unknown | | + + + + + | Emily Fuller | ECON | Unknown | | + + + + + Care Team Providers + +------+ + | Care Corporate Treasurer Name | Role | Phone | + +------+ + | Aisha Carrington DO | PCP | | + +------+ + Reason for Visit + + + | Reason | Comments | + + + | Medication Refill | | + + + Encounter Details +--------+--------+ + + + | Date | Type | Department | Care Team | Description | +--------+--------+ + + + | 02/18/ | Refill | [place] [facility] | Aisha Carrington, | Medication Refill | | 2017 | | [facility] | DO [address] | | | | | CLINIC [address] | [place] [address] | | | | | [address] [place], | [phone] | | | | | [place] [address] | | | | | | [phone] | | | +--------+--------+ + + + Social History + +-------+ [...] this encounter Miscellaneous Notes Telephone Encounter - Dipti Mesa CC CMA - 02/18/2018 1:16 PM PDT07/21/2017-3.9 TSH documented in th is encounter Plan of Treatment +--------+---------+ + + + | Date | Type | Specialty | Care Team | Description | +--------+---------+ + + + | 05/14/ | Office | Neurology | [place], | | | 2019 | Visit | | [address] | | | | [address] [place], | | | | | | [place] [address] | | | | | | [phone] | | | | | | | | +--------+---------+ + + + | 01/21/ | Office | Neurology | Brock Hammond MD | | | 2020 | Visit | | [address] | | | | | | [place], [place] | | | | | | [address] | | | | | | | | +--------+---------+ + + + documented as of this encounter Visit Diagnoses Not on filedocumented in this encounter"
--- OUTSIDE RECORDS SUMMARY | ~2020-05-02 | XMS | Encounter Summary ---
Demographics + + + | Address | [address] | | | [address] | | | [place] [address] | + + + | Home Phone | | + + + | Preferred Language | Unknown | + + + | Marital Status | Single | + + + | Islam Affiliation | 1009 | + + + [...] | | | | | [place] [address] | | + + + + + | Allegra Raza | ECON | Unknown | | + + + + + | Emily Fuller | ECON | Unknown | | + + + + + Care Team Providers + +------+ + | Care Histology Manager Name | Role | Phone | + +------+ + PCP | Unavailable | + +------+ + Encounter Details +--------+ + + + + | Date | Type | Department | Care Team | Description | +--------+ + + + + | 01/05/ | Hospital | [facility] | Mar Suarez | | | 2017 | Encounter | HOSPITAL XRAY [address] | [address] | | | | | [address] | [address] [facility], | | | | | [facility], [place] | [place] [address] | | | | | [address] | [phone] | | | | | [phone] | | | +--------+ + + + [...] | | | | | | [place] [address] | | | | | | [phone] | | | | | | | | +--------+---------+ + + + | 01/21/ | Office | Neurology | Brock Hammond MD | | | 2020 | Visit | | [address] | | | | | | [place] | | | | | | [address] | | | | | | | | +--------+---------+ + + + documented as of this encounter Procedures + +--------+ + + + | Procedure Name | Priori | Date/Time | Associated Diagnosis | Comments | | | ty | | | | + +--------+ + + + | XR CHEST 2 VIEWS | Routin | 01/05/2017 | | Results for this | | | e | 1:22 PM | | procedure are in the | | | | PDT | | results section. | + +--------+ + + + documented in this encounter Results XR Chest 2 VW (01/05/2017 1:22 PM PDT) + + | Specimen | + + | | + + + + + | Narrative | Performed At | + + + | EXAMINATION: CHEST PA & LAT (2V) HISTORY: COUGHING | | | COMPARISON STUDY: May 11, 2011 FINDINGS: The lungs are well | | | ventilated. No pleural effusion. No pneumothorax. | | | Cardiomediastinal silhouette is normal. No acute osseous process. | | | Prior cervical spine fusion changes. IMPRESSION: No acute | | | cardiopulmonary process. JOB #: [id number] Digitally Released by: | | | Sven Bello Read By: SVEN BELLO MD Date: | | | 01/05/2017 13:49 | | + + + + + | Procedure Note | + + | Leandro, Rad Results In - 11/04/2017 11:52 AM PST EXAMINATION: | | CHEST PA & LAT (2V) | | | | HISTORY: | | COUGHING | | | | COMPARISON STUDY: | | May 11, 2011 | | | | FINDINGS: | | The lungs are well ventilated. No pleural effusion. No pneumothorax. | | Cardiomediastinal silhouette is normal. No acute osseous process. Prior | | cervical spine fusion changes. | | | | IMPRESSION: | | No acute cardiopulmonary process. | | | | | | JOB #: [id number] | | Digitally Released by: Sven Bello | | | | | | Read By: SVEN BELLO MD | | Date: 01/05/2017 13:49 | | | + + documented in this encounter Visit Diagnoses Not on filedocumented in this encounter"
--- OUTSIDE RECORDS SUMMARY | ~2020-05-02 | XMS | Encounter Summary ---
Demographics + + + | Address | [address] | | | [address] | | | [place] [address] | + + + | Home Phone | | + + + | Preferred Language | Unknown | + + + | Marital Status | Single | + + + | Zoroastrianism Affiliation | 1009 | + + + | Race | Unknown | + + + | Ethnic Group | Unknown | + + + Author + + + | Author | [facility] | | | and [place] | + + + | Organization | [facility] | | | and [...] | | | | | [place] [address] | | + + + + + | Allegra Raza | ECON | Unknown | | + + + + + | Emily Fuller | ECON | Unknown | | + + + + + Care Team Providers + +------+ + | Care Instruction Dean Name | Role | Phone | + +------+ + PCP | Unavailable | + +------+ + Encounter Details +--------+ + + + + | Date | Type | Department | Care Team | Description | +--------+ + + + + | 01/09/ | Hospital | [facility] | Ruel Connelly | | | 2010 | Encounter | HOSPITAL EMERGENCY | MD [address] | | | | | [address] | [place] | | | | | [place] | [address] | | | | | [address] | [phone] | | | | | [phone] | | | +--------+ + + + [...] | | | | | | [place] [address] | | | | | | [phone] | | | | | | | | +--------+---------+ + + + | 01/21/ | Office | Neurology | Brock Hammond MD | | | 2020 | Visit | | [address] | | | | | | [place], [place] | | | | | | [address] | | | | | | | | +--------+---------+ + + + documented as of this encounter Visit Diagnoses Not on filedocumented in this encounter"
--- OUTSIDE RECORDS SUMMARY | ~2020-05-02 | XMS | Encounter Summary ---
Demographics + + + | Address | [address] | | | [address] | | | [place] [address] | + + + | Home Phone | | + + + | Preferred Language | Unknown | + + + | Marital Status | Single | + + + | Samaritan Affiliation | 1009 | + + + | Race | Unknown | + + + | Ethnic Group | Unknown | + + + Author + + + | Author | [facility] | | | and [place]ana | + + + | Organization | [facility] | | | and [...] | | | | | [place] [address] | | + + + + + | Allegra Raza | ECON | Unknown | | + + + + + | Emily Fuller | ECON | Unknown | | + + + + + Care Team Providers + +------+ + | Care Black Leather Trimmer Name | Role | Phone | + +------+ + PCP | Unavailable | + +------+ + Encounter Details +--------+ + + + + | Date | Type | Department | Care Team | Description | +--------+ + + + + | 06/30/ | Hospital | [facility] | Lamonte Akins | | | 2017 | Encounter | HOSPITAL NEUROLOGY | Goins, DENTAL ASSISTING INSTRUCTOR [address] | | | | | CL[address] | [address] [place], [place] | | | | | [address] [place], | [address] | | | | | [place] [address] | | | | | | [phone] | | | +--------+ + + + [...] | | | | | | [place] [address] | | | | | | [phone] | | | | | | | | +--------+---------+ + + + | 01/21/ | Office | Neurology | Brock Hammond MD | | | 2020 | Visit | | [address] | | | | | | [place] | | | | | | [address] | | | | | | | | +--------+---------+ + + + documented as of this encounter Visit Diagnoses Not on filedocumented in this encounter"
--- OUTSIDE RECORDS SUMMARY | ~2020-05-02 | XMS | Encounter Summary ---
Demographics + + + | Address | [address] | | | [address] | | | [place] [address] | + + + | Home Phone | | + + + | Preferred Language | Unknown | + + + | Marital Status | Single | + + + | Rastafarian Affiliation | 1009 | + + + | Race | Unknown | + + + | Ethnic Group | Unknown | + + + Author + + + | Author | [facility] | | | and [place] | + + + | Organization | [facility] | | | and [place] | + + + | Address | Unknown | + + + | Phone | Unavailable | + + + Support + + + + + | Name | Relationship | Address | Phone | + + + + + | Magalys Hurley | ECON | [address] | | | | | [place] [address] | | + + + + + | Allegra Raza | ECON | Unknown | | + + + + + | Emily Fuller | ECON | Unknown | | + + + + + Care Team Providers + +------+ + | Care Architectural Engineer Name | Role | Phone | + +------+ + | Luna Cyr | PCP | | + +------+ + Reason for Visit + + + | Reason | Comments | + + + | Medication Refill | | + + + Encounter Details +--------+--------+ + + + | Date | Type | Department | Care Team | Description | +--------+--------+ + + + | 04/15/ | Refill | [facility] | Aisha Carrington, | Medication Refill | | 2020 | | [facility] | DO [address] | | | | | CLIN[address] | [place] [address] | | | | | [address] [place], | [phone] | | | | | [place] [address] | | | | | | [phone] | | | +--------+--------+ + + + Social History + + + +--------+ + | Tobacco Use | Types | Packs/Day | Years | Date | | | | | Used | | + + + +--------+ + | Former Smoker | Cigarettes | 3 | 10 | Quit: 2000 | + + + +--------+ + + +---+---+---+ | Smokeless Tobacco: | | | | | Never Used | | | | + +---+---+---+ + + +---------+ + | Alcohol Use | Drinks/Week | oz/Week | Comments | + + +---------+ + | Yes | 1 Glasses of wine | 1.0 | rarely | + + +---------+ + + + + + | Alcohol Habits | Answer | Date Recorded | + + + + | How often do you have a drink containing | Monthly or less | 03/07/2019 | | alcohol? | | | + + + + | How many drinks containing alcohol do you | 1 or 2 | 03/07/2019 | | have on a typical day when you are | | | | drinking? | | | + + + + | How often do you have six or more drinks on | Less than monthly | 03/07/2019 | | one occasion? | | | + + + + + + + | Sex Assigned at | Date Recorded | | | | + + + | Not on file | | + + + documented as of this encounter Miscellaneous Notes Telephone Encounter - Regis Carlson DO - 04/16/2020 4:39 PM PDTHer pcp is in [place]. Genesis hernandez Norris elephone Bernardo noe - Florencia Randolph CC CMA - 04/15/2020 3:02 PM PDT Requested Prescriptions Pending Prescriptions Disp Refills DULoxetine (CYMBALTA) [address] capsule [Pharmacy Med Name: DULOXETINE HCL DR 60 MG CAP] 60 capsule Sig: take 1 capsule by mouth twice a day Patient was last seen on Recent Visits 01/22/2020 Complex partial seizures with consciousness impaired (HCC) [facility] ROXIE Rodriguez Office Visit 03/07/2019 Arthritis [facility] Brock Hammond MD Office Visit . Outpatient Morphine Equivalent Daily Dose (MEDD) None No results found for: AMPH, METHAMPHQUAL, CANNIBSCR, THC, MDMA, METHADSCR, METHADONE, LABOP IA, OPIATESCR, OPIATES, OPIATESINTER, MORPHINE, HYDROC, LABBENZ, TRICYCLICUR, BARBITURATE, P CP, AMPHEQUAL, OXYCODONEUR, OXYCODONE, OXYCOD, OXYMOR, PROPOX MAR Tapia CMA documented in this encounter Plan of Treatment +--------+---------+ + + + | Date | Type | Specialty | Care Team | Description | +--------+---------+ + + + | 05/14/ | Office | Neurology | Romeo, | | | 2019 | Visit | | [address] | | | | | | [address] [place], | | | | | | [place] [address] | | | | | | [phone] | | | | | | | | +--------+---------+ + + + | 01/21/ | Office | Neurology | Brock Hammond MD | | | 2020 | Visit | | [address] | | | | | | [place] | | | | | | [address] | | | | | | | | +--------+---------+ + + + documented as of this encounter Visit Diagnoses Not on filedocumented in this encounter"
--- OUTSIDE RECORDS SUMMARY | ~2020-05-02 | XMS | Encounter Summary ---
Demographics + + + | Address | [address] | | | [address] | | | [place] [address] | + + + | Home Phone | | + + + | Preferred Language | Unknown | + + + | Marital Status | Single | + + + | Mu-Ism Affiliation | 1009 | + + + | Race | Unknown | + + + | Ethnic Group | Unknown | + + + Author + + + | Author | [facility] | | | and [place] | + + + | Organization | [facility] | | | [...] | | | | | [place] [address] | | + + + + + | Allegra Raza | ECON | Unknown | | + + + + + | Emily Fuller | ECON | Unknown | | + + + + + Care Team Providers + +------+ + | Care Edging Machine Setter Name | Role | Phone | + +------+ + PCP | Unavailable | + +------+ + Encounter Details +--------+ + + + + | Date | Type | Department | Care Team | Description | +--------+ + + + + | 12/09/ | Hospital | [facility] | Brock Hammond MD | | | 2011 | Encounter | HOSPITAL LABORATORY | [address] | | | | | [address] | [place] | | | | | [place] | [address] | | | | | [address] | | | | | | [phone] | | | +--------+ + + + [...] | | | | | [address] [place], | | | | | | [place] [address] | | | | | | [phone] | | | | | | | | +--------+---------+ + + + | 01/21/ | Office | Neurology | Brock Hammond MD | | | 2020 | Visit | | [address] | | | | | | [place], [place] | | | | | | [address] | | | | | | | | +--------+---------+ + + + documented as of this encounter Visit Diagnoses Not on filedocumented in this encounter"
--- OUTSIDE RECORDS SUMMARY | ~2020-05-02 | XMS | Encounter Summary ---
Demographics + + + | Address | [address] | | | [address] | | | [place] [address] | + + + | Home Phone | | + + + | Preferred Language | Unknown | + + + | Marital Status | Single | + + + | Adventism Affiliation | 1009 | + + + | Race | Unknown | + + + | Ethnic Group | Unknown | + + + Author + + + | Author | [facility] | | | and [place] | + + + | Organization | [facility] | | | [...] | | | | | [place] [address] | | + + + + + | Allegra Raza | ECON | Unknown | | + + + + + | Emily Fuller | ECON | Unknown | | + + + + + Care Team Providers + +------+ + | Care Autocutter Name | Role | Phone | + [...] Description | +--------+--------+ + + + | 09/01/ | Refill | [facility] | Brock Hammond MD | Medication Refill | | 2017 | | HOSPITAL NEUROLOGY | [address] | | | | | CLIN[address] | [place] | | | | | [address] [place], | [address] | | | | | [place] [address] | | | | | | [phone] | | | +--------+--------+ + + + [...] this encounter Miscellaneous Notes Telephone Encounter - Janay Javier CC CMA - 09/01/2018 3:39 PM PSTFormatting of thi s note might be different from the original. Rx -Sumatriptan 100 mg , Last fill- 06/29/18, #12, none-RF Last OV- 04/12/17 with Hammond Next OV- 01/30/19 with Hammond Last labs- Lab Results Component Value Date CREA 0.91 03/23/2017 BUN 10 03/23/2017 NA 141 03/23/2017 K 3.6 03/23/2017 CL 105 03/23/2017 CO2 27 03/23/2017 documented in this encounter Plan of Treatment +--------+---------+ + + + | Date | Type | Specialty | Care Team | Description | +--------+---------+ + + + | 05/14/ | Office | Neurology | Romeo, | | | 2019 | Visit | | [address] | | | | | [address] [place], | | | | | | [place] [address] | | | | | | [phone] | | | | | | | | +--------+---------+ + + + | 01/21/ | Office | Neurology | Brock Hammond MD | | | 2020 | Visit | | [address] | | | | | | [place] | | | | | | [address] | | | | | | | | +--------+---------+ + + + documented as of this encounter Visit Diagnoses Not on filedocumented in this encounter"
--- OUTSIDE RECORDS SUMMARY | ~2020-05-02 | XMS | Encounter Summary ---
Demographics + + + | Address | [address] | | | [address] | | | [place] [address] | + + + | Home Phone | | + + + | Preferred Language | Unknown | + + + | Marital Status | Single | + + + | Faith Affiliation | 1009 | + + + | Race | Unknown | + + + | Ethnic Group | Unknown | + + + Author + + + | Author | [facility] | | | and [place] | + + + | Organization | [facility] | | | and [place] | + + + | Address | Unknown | + + + | Phone | Unavailable | + + + Support + + + + + | Name | Relationship | Address | Phone | + + + + + | Magalys Hurley | ECON | [address] | | | | | [place] [address] | | + + + + + | Allegra Raza | ECON | Unknown | | + + + + + | Emily Fuller | ECON | Unknown | | + + + + + Care Team Providers + +------+ + | Care Weatherstrip Machine Operator Name | Role | Phone | + +------+ + PCP | Unavailable | + +------+ + Encounter Details +--------+ + + + + | Date | Type | Department | Care Team | Description | +--------+ + + + + | 02/26/ | Hospital | [facility] | | | | 2009 | Encounter | HOSPITAL GENERIC OP | | | | | | CONVERSION | | | | | | DEPARTMENT [address] | | | | | | [place] | | | | | | [address] | | | | | | [phone] | | | +--------+ + + + [...] | | | | | | [place] [address] | | | | | | [phone] | | | | | | | | +--------+---------+ + + + | 01/21/ | Office | Neurology | Brock Hammond MD | | | 2020 | Visit | | [address] | | | | | | [place] | | | | | | [address] | | | | | | | | +--------+---------+ + + + documented as of this encounter Visit Diagnoses Not on filedocumented in this encounter"
--- OUTSIDE RECORDS SUMMARY | ~2020-05-02 | XMS | Encounter Summary ---
Demographics + + + | Address | [address] | | | [address] | | | [place] [address] | + + + | Home Phone | | + + + | Preferred Language | Unknown | + + + | Marital Status | Single | + + + | Confucianism Affiliation | 1009 | + + + | Race | Unknown | + + + | Ethnic Group | Unknown | + + + Author + + + | Author | [facility] | | | and [place]ana | + + + | Organization | [facility] | | | [...] | | | | | [place] [address] | | + + + + + | Allegra Raza | ECON | Unknown | | + + + + + | Emily Fuller | ECON | Unknown | | + + + + + Care Team Providers + +------+ + | Care Telecommunication Operator Name | Role | Phone | + +------+ + PCP | Unavailable | + +------+ + Encounter Details +--------+ + + + + | Date | Type | Department | Care Team | Description | +--------+ + + + + | 05/30/ | Hospital | [facility] | Emmanuelle Frank | | | 2009 | Encounter | HOSPITAL LABORATORY | Sandra Alvarez MD [address] | | | | | [address] | [facility], | | | | | [facility], [place] | [place] [address] | | | | | [address] | [phone] | | | | | [phone] | | | +--------+ + + + [...] | | | | | | [place] [address] | | | | | | [phone] | | | | | | | | +--------+---------+ + + + | 01/21/ | Office | Neurology | Brock Hammond MD | | | 2020 | Visit | | [address] | | | | | | [place] | | | | | | [address] | | | | | | | | +--------+---------+ + + + documented as of this encounter Visit Diagnoses Not on filedocumented in this encounter"
--- OUTSIDE RECORDS SUMMARY | ~2020-05-02 | XMS | Encounter Summary ---
Demographics + + + | Address | [address] | | | [address] | | | [place] [address] | + + + | Home Phone | | + + + | Preferred Language | Unknown | + + + | Marital Status | Single | + + + | Gnosticist Affiliation | 1009 | + + + [...] | | | | | [place] [address] | | + + + + + | Allegra Raza | ECON | Unknown | | + + + + + | Emily Fuller | ECON | Unknown | | + + + + + Care Team Providers + +------+ + | Care Enterprise Mobility Architect Name | Role | Phone | + +------+ + PCP | Unavailable | + +------+ + Encounter Details +--------+ + + + + | Date | Type | Department | Care Team | Description | +--------+ + + + + | 04/12/ | Hospital | [facility] | Brock Hammond MD | | | 2017 | Encounter | HOSPITAL NEUROLOGY | [address] | | | | | CLIN[address] | [place] | | | | | [address] [place], | [address] | | | | | [place] [address] | | | | | | [phone] | | | +--------+ + + + [...] | | | | | | [place] [address] | | | | | | [phone] | | | | | | | | +--------+---------+ + + + | 01/21/ | Office | Neurology | Brock Hammond MD | | | 2020 | Visit | | [address] | | | | | | [place] | | | | | | [address] | | | | | | | | +--------+---------+ + + + documented as of this encounter Visit Diagnoses Not on filedocumented in this encounter"
--- OUTSIDE RECORDS SUMMARY | ~2020-05-02 | XMS | Encounter Summary ---
Demographics + + + | Address | [address] | | | [address] | | | [place] [address] | + + + | Home Phone | | + + + | Preferred Language | Unknown | + + + | Marital Status | Single | + + + | Caodaism Affiliation | 1009 | + + + | Race | Unknown | + + + | Ethnic Group | Unknown | + + + Author + + + | Author | [facility] | | | and [place]ana | + + + | Organization | [facility] | | [...] | | | | | [place] [address] | | + + + + + | Allegra Raza | ECON | Unknown | | + + + + + | Emily Fuller | ECON | Unknown | | + + + + + Care Team Providers + +------+ + | Care Glass Beveller Name | Role | Phone | + +------+ + PCP | Unavailable | + +------+ + Encounter Details +--------+ + + + + | Date | Type | Department | Care Team | Description | +--------+ + + + + | 02/19/ | Hospital | [facility] | Lamonte Akins | | | 2013 | Encounter | HOSPITAL LABORATORY | [address] | | | | | [address] | [address] [place], [place] | | | | | [place] | [address] | | | | | [address] | | | | | | [phone] | | | +--------+ + + + [...] | | | | | | [place] [address] | | | | | | [phone] | | | | | | | | +--------+---------+ + + + | 01/21/ | Office | Neurology | Brock Hammond MD | | | 2020 | Visit | | [address] | | | | | | [place] | | | | | | [address] | | | | | | | | +--------+---------+ + + + documented as of this encounter Visit Diagnoses Not on filedocumented in this encounter"
--- OUTSIDE RECORDS SUMMARY | ~2020-05-02 | XMS | Encounter Summary ---
Demographics + + + | Address | [address] | | | [address] | | | [place] [address] | + + + | Home Phone | | + + + | Preferred Language | Unknown | + + + | Marital Status | Single | + + + | Scientology Affiliation | 1009 | + + + | Race | Unknown | + + + | Ethnic Group | Unknown | + + + Author + + + | Author | [facility] | | | and [place]ana | + + + | Organization | [facility] | | | [...] | | | | | [place] [address] | | + + + + + | Allegra Raza | ECON | Unknown | | + + + + + | Emily Fuller | ECON | Unknown | | + + + + + Care Team Providers + +------+ + | Care Hawk Missile System Crewmember Name | Role | Phone | + +------+ + | Luna Cyr | PCP | | + +------+ + Reason for Visit + +--------+ + | Reason | Onset | Comments | | | Date | | + +--------+ + | Medication Question | 01/28/ | | | | 2019 | | + +--------+ + Encounter Details +--------+ + + + + | Date | Type | Department | Care Team | Description | +--------+ + + + + | 01/28/ | Telephone | [facility] | Romeo, | Medication Question | | 2019 | | [facility] | Barak, FIRE SUPPRESSION [address] | | | | | CL[address] | [address] [facility] [place], | | | | | [address] [place], | [place] [address] | | | | | [place] [address] | [phone] | | | | | [phone] | | | +--------+ + + + + Social History + + [...] this encounter Miscellaneous Notes Telephone Encounter - Megha Contreras - 01/29/2020 3:38 PM PDTPt stated that Barak asked her to tell us when she needed to take an extra Kepra pill.She just took an extra pill just now (01/28/2002 15:41) because she was feeling extra shaky. She took Kepra 500mg because she had a few of those left and Barak just increased her to the 750mg. (Kepra 500mg & 75 0mg) [id number] signed by Megha Contreras at 01/29/2020 3:42 PM PDTdocumented in this encounter Plan of Treatment +--------+---------+ + + + | Date | Type | Specialty | Care Team | Description | +--------+---------+ + + + | 05/14/ | Office | Neurology | Romeo, | | | 2019 | Visit | | [address] | | | | | [address] [place], | | | | | | [place] [address] | | | | | | [phone] | | | | | | | | +--------+---------+ + + + | 01/21/ | Office | Neurology | Brock Hammond MD | | | 2020 | Visit | | [address] | | | | | | [place], [place] | | | | | | [address] | | | | | | | | +--------+---------+ + + + documented as of this encounter Visit Diagnoses Not on filedocumented in this encounter"
--- OUTSIDE RECORDS SUMMARY | ~2020-05-02 | XMS | Encounter Summary ---
Demographics + + + | Address | [address] | | | [address] | | | [place] [address] | + + + | Home Phone | | + + + | Preferred Language | Unknown | + + + | Marital Status | Single | + + + | Protestant Affiliation | 1009 | + + + | Race | Unknown | + + + | Ethnic Group | Unknown | + + + Author + + + | Author | [facility] | | | and [place]ana | + + + | Organization | [facility] | | | [...] | | | | | [place] [address] | | + + + + + | Allegra Raza | ECON | Unknown | | + + + + + | Emily Fuller | ECON | Unknown | | + + + + + Care Team Providers + +------+ + | Care Supervisor Files Name | Role | Phone | + +------+ + PCP | Unavailable | + +------+ + Encounter Details +--------+ + + + + | Date | Type | Department | Care Team | Description | +--------+ + + + + | 01/26/ | Hospital | [facility] | Lamonte Akins | | | 2016 | Encounter | [facility] | [facility] [address] | | | | | MEDICAL CLIN[facility] [address] | [address] [place], [place] | | | | | [address] [facility] [place], | [address] | | | | | [place] [address] | | | | | | [phone] | | | +--------+ + + + [...] | | | | | | [place] [address] | | | | | | [phone] | | | | | | | | +--------+---------+ + + + | 01/21/ | Office | Neurology | Brock Hammond MD | | | 2020 | Visit | | [address] | | | | | | [place] | | | | | | [address] | | | | | | | | +--------+---------+ + + + documented as of this encounter Visit Diagnoses Not on filedocumented in this encounter"
--- OUTSIDE RECORDS SUMMARY | ~2020-05-02 | XMS | Encounter Summary ---
Demographics + + + | Address | [address] | | | [address] | | | [place] [address] | + + + | Home Phone | | + + + | Preferred Language | Unknown | + + + | Marital Status | Single | + + + | Pentecostal Affiliation | 1009 | + + + | Race | Unknown | + + + | Ethnic Group | Unknown | + + + Author + + + | Author | [facility] | | | and Danielana | + + + | Organization | [facility] | | | and [...] | | | | | [place] [address] | | + + + + + | Allegra Raza | ECON | Unknown | | + + + + + | Emily Fuller | ECON | Unknown | | + + + + + Care Team Providers + +------+ + | Care Manufacturer'S Representative Name | Role | Phone | + +------+ + | No, Physician | PCP | Unavailable | + +------+ + Reason for Visit + + + | Reason | Comments | + + + | Medication Refill | | + + + Encounter Details +--------+--------+ + + + | Date | Type | Department | Care Team | Description | +--------+--------+ + + + | 03/26/ | Refill | [facility] | Radha, | Medication Refill | | 2019 | | [facility] | [facility] ACCOUNTING [facility] EX[address] | | | | | [address] | [facility] | | | | | [address] [place], | [place] [address] | | | | | [place] [address] | [phone] | | | | | [phone] | | | +--------+--------+ + + + Social History + +-------+ +--------+------+ | Tobacco Use | Types | Packs/Day | Years | Date | | | | | Used | | + +-------+ +--------+------+ | Former Smoker | | | | | + +-------+ +--------+------+ + +---+---+---+ | Smokeless Tobacco: | | [...] this encounter Miscellaneous Notes Telephone Encounter - Marie Lorenzo LPN - 04/04/2019 6:[address] Carrington pt has moved out of the area and was no longer a patient at our clinic. I tried to call pt and le ft her a mssg with my call back number. RX denied for reasons "Needs to contact provider". Thanks [facility] elepho ne Encounter - Marie Lorenzo LPN - 04/04/2019 2:15 PM PDTThis pt was a Dr. Carrington harjinder ent but the last time she saw Dr. Carrington was January of 2017. That also looks like about the time she has her last TSH lab. Routing note to Dr. Carrington to see if we should deny refill r equest for Levothyroxine or if we should give maybe a 30 day supply with notes that she must be seen before this runs out? Please advise. Thanks [facility] documented in this encounter Plan of Treatment +--------+---------+ + + + | Date | Type | Specialty | Care Team | Description | +--------+---------+ + + + | 05/14/ | Office | Neurology | Romeo, | | | 2019 | Visit | | [address] | | | | | | [address] [place], | | | | | | [place] [address] | | | | | | [phone] | | | | | | | | +--------+---------+ + + + | 01/21/ | Office | Neurology | Brock Hammond MD | | | 2020 | Visit | | [address] | | | | | | [place], [place] | | | | | | [address] | | | | | | | | +--------+---------+ + + + documented as of this encounter Visit Diagnoses Not on filedocumented in this encounter
--- OUTSIDE RECORDS SUMMARY | ~2020-05-02 | XMS | Encounter Summary ---
Demographics + + + | Address | [address] | | | [address] | | | [place] [address] | + + + | Home Phone | | + + + | Preferred Language | Unknown | + + + | Marital Status | Single | + + + | Rastafari Affiliation | 1009 | + + + | Race | Unknown | + + + | Ethnic Group | Unknown | + + + Author + + + | Author | [facility] | | | and Danielana | + + + | Organization | [facility] | | [...] HU | | | | | [place] [address] | | + + + + + | Allegra Raza | ECON | Unknown | | + + + + + | Emily Fuller | ECON | Unknown | | + + + + + Care Team Providers + +------+ + | Care Raftsman Name | Role | Phone | + +------+ + PCP | Unavailable | + +------+ + Encounter Details +--------+ + + + + | Date | Type | Department | Care Team | Description | +--------+ + + + + | 07/21/ | [facility] | [facility] | Blessing Mccoy | | | 2016 | Encounter | [facility] | [facility] | | | | | MEDICAL CLIN[facility] [address] | | | | | | [facility], | | | | | | [place] [address] | | | | | | [phone] | | | +--------+ + + + [...] | | | | | | [place] [address] | | | | | | [phone] | | | | | | | | +--------+---------+ + + + | 01/21/ | Office | Neurology | Brock Hammond MD | | | 2020 | Visit | | [address] | | | | | | [place] | | | | | | [address] | | | | | | | | +--------+---------+ + + + documented as of this encounter Visit Diagnoses Not on filedocumented in this encounter"
--- OUTSIDE RECORDS SUMMARY | ~2020-05-02 | XMS | Encounter Summary ---
Demographics + + + | Address | [address] | | | [address] | | | [place] [address] | + + + | Home Phone | | + + + | Preferred Language | Unknown | + + + | Marital Status | Single | + + + | Yazidi Affiliation | 1009 | + + + [...] | | | | | [place] [address] | | + + + + + | Allegra Raza | ECON | Unknown | | + + + + + | Emily Fuller | ECON | Unknown | | + + + + + Care Team Providers + +------+ + | Care Tie Carrier Name | Role | Phone | + [...] Description | +--------+--------+ + + + | 01/20/ | Refill | [facility] [facility] | Aisha Carrington, | Medication Refill | | 2017 | | [facility] | [address] | | | | | MEDICAL CLIN[address] | [facility] [place] [address] | | | | | [address] [place], | [phone] | | | | | [place] [address] | | | | | | [phone] | | | +--------+--------+ + + + [...] | Neurology | Romeo, | | | 2020 | Visit | | [address] | | | | | | [address] [place], | | | | | | [place] [address] | | | | | | [phone] | | | | | | | | +--------+---------+ + + + | 01/21/ | Office | Neurology | Brock Hammond MD | | | 2020 | Visit | | [address] | | | | | | [place] | | | | | | [address] | | | | | | | | +--------+---------+ + + + documented as of this encounter Visit Diagnoses + + | Diagnosis | + + | Asthma, unspecified asthma severity, unspecified whether complicated, unspecified | | whether persistent - Primary | + + documented in this encounter"
--- OUTSIDE RECORDS SUMMARY | ~2020-05-02 | XMS | Encounter Summary ---
Demographics + + + | Address | [address] | | | [address] | | | [place] [address] | + + + | Home Phone | | + + + | Preferred Language | Unknown | + + + | Marital Status | Single | + + + | Yazdanism Affiliation | 1009 | + + + | Race | Unknown | + + + | Ethnic Group | Unknown | + + + Author + + + | Author | [facility] | | | and Danielana | + + + | Organization | [facility] [...] | | | | | [place] [address] | | + + + + + | Allegra Raza | ECON | Unknown | | + + + + + | Emily Fuller | ECON | Unknown | | + + + + + Care Team Providers + +------+ + | Care Supervisor Film Processing Name | Role | Phone | + +------+ + PCP | Unavailable | + +------+ + Encounter Details +--------+ + + + + | Date | Type | Department | Care Team | Description | +--------+ + + + + | 01/04/ | Hospital | [facility] | Catie Powell | | | 2012 | Encounter | [facility] | [address] | | | | | MEDICAL CLINIC [address] | [address] [place] [address], | | | | | [address] [place] [address], | [place] [address] | | | | | [place] [address] | [phone] | | | | | [phone] | | | +--------+ + + + [...] | | | | | | [place] [address] | | | | | | [phone] | | | | | | | | +--------+---------+ + + + | 01/21/ | Office | Neurology | Brock Hammond MD | | | 2020 | Visit | | [address] | | | | | | [place] | | | | | | [address] | | | | | | | | +--------+---------+ + + + documented as of this encounter Visit Diagnoses Not on filedocumented in this encounter"
--- OUTSIDE RECORDS SUMMARY | ~2020-05-02 | XMS | Encounter Summary ---
Demographics + + + | Address | [address] | | | [address] | | | [place] [address] | + + + | Home Phone | | + + + | Preferred Language | Unknown | + + + | Marital Status | Single | + + + | Mandaen Affiliation | 1009 | + + + | Race | Unknown | + + + | Ethnic Group | Unknown | + + + Author + + + | Author | [facility] | | | and Danielana | + + + | Organization | [facility] | | | [...] | | | | | [place] [address] | | + + + + + | Allegra Raza | ECON | Unknown | | + + + + + | Emily Fuller | ECON | Unknown | | + + + + + Care Team Providers + +------+ + | Care Underground Heavy Equipment Operator Name | Role | Phone | + +------+ + | Aisha Carrington DO | PCP | | + +------+ + Reason for Visit + +--------+ + | Reason | Onset | Comments | | | Date | | + +--------+ + | Medication Refill | 05/23/ | | | | 2017 | | + +--------+ + Encounter Details +--------+ + + + + | Date | Type | Department | Care Team | Description | +--------+ + + + + | 05/23/ | Telephone | [facility] | Brock Hammond MD | Medication Refill | | 2017 | | HOSPITAL [facility] | [address] | | | | | [address] | [place] | | | | | [address] [place], | [address] | | | | | [place] [address] | | | | | | [phone] | | | +--------+ + + + [...] Telephone Encounter - Kristen Rodriguez RN - 05/23/2018 1:08 PM PDTSpoke with pt and her new PCP is Dr. Reyez in [facility]. Pt will call her to get new prescription./ELOINA JonesElectro nically signed by Kristen Rodriguez RN at 05/23/2018 1:12 PM PDTTelephone Encounter - Francheska Pichardo - 05/23/2018 1:05 PM PDTThe patient no longer sees Dr. Carrington, per patient. Marybeth ctronically signed by Francheska Garcia at 05/23/2018 1:05 PM PDTTelephone Encounter - Kristen Keenan RN - 05/23/2018 1:00 PM PDTTried to call pt, no answer unable to leave message . Appears Dr. Carrington prescribes this medication /ELOINA Jones elephone Encounter - Claudia Elliott - 05/23/2018 12 :41 PM PDTRequesting refill of tiZANidine (ZANAFLEX) 4 mg tablet documented in this encounter Plan of Treatment +--------+---------+ + + + | Date | Type | Specialty | Care Team | Description | +--------+---------+ + + + | 05/14/ | Office | Neurology | Romeo, | | | 2019 | Visit | | [address] | | | | | | [address] [place] [place], | | | | | | [place] [address] | | | | | | [phone] | | | | | | | | +--------+---------+ + + + | 01/21/ | Office | Neurology | Brock Hammond MD | | | 2020 | Visit | | [address] | | | | | | [place] | | | | | | [address] | | | | | | | | +--------+---------+ + + + documented as of this encounter Visit Diagnoses Not on filedocumented in this encounter"
--- OUTSIDE RECORDS SUMMARY | ~2020-05-02 | XMS | Encounter Summary ---
Demographics + + + | Address | [address] | | | [address] | | | [place] [address] | + + + | Home Phone [...] + | Author | [facility] | | | and Danielana | + + + | Organization | [facility] | | | and [...] | | | | | [place] [address] | | + + + + + | Allegra Raza | ECON | Unknown | | + + + + + | Emily Fuller | ECON | Unknown | | + + + + + Care Team Providers + +------+ + | Care Tag Maker Name | Role | Phone | + +------+ + PCP | Unavailable | + +------+ + Encounter Details +--------+ + + + + | Date | Type | Department | Care Team | Description | +--------+ + + + + | 10/30/ | Hospital | [facility] | Hasmukh Hosea | | | 2002 | Encounter | MED CTR XRAY [address] | [address] | | | | | [place] | updated address | | | | | [place] [address] | | | | | | [phone] | | | +--------+ + + + [...] | | | | | | [place] [address] | | | | | | [phone] | | | | | | | | +--------+---------+ + + + | 01/21/ | Office | Neurology | Brock Hammond MD | | | 2020 | Visit | | [address] | | | | | | [place] | | | | | | [id number] | | | | | | | | +--------+---------+ + + + documented as of this encounter Visit Diagnoses Not on filedocumented in this encounter"
--- OUTSIDE RECORDS SUMMARY | ~2020-05-02 | XMS | Encounter Summary ---
Demographics + + + | Address | [address] | | | [address] | | | [place] [address] | + + + | Home Phone [...] | | | | | [place] [address] | | + + + + + | Allegra Raza | ECON | Unknown | | + + + + + | Emily Fuller | ECON | Unknown | | + + + + + Care Team Providers + +------+ + | Care Early Childhood Associate Teacher Name | Role | Phone | + [...] Description | +--------+--------+ + + + | 05/21/ | Refill | [facility] | Brock Hammond MD | Medication Refill | | 2019 | | HOSPITAL [facility] | [address] | | | | | [address] | [place] | | | | | [address] [place], | [address] | | | | | [place] [address] | | | | | | [phone] | | | +--------+--------+ + + + [...] Telephone Encounter - Kristen Rodriguez RN - 05/22/2019 9:54 AM PDTLast filled Keppra 9 Last filled Imitrex 02/04/19 Last seen 03/07/19 Next appt 09/18/19 ELOINA Jones documented i n this encounter Plan of Treatment +--------+---------+ + + + | Date | Type | Specialty | Care Team | Description | +--------+---------+ + + + | 05/14/ | Office | Neurology | Romeo, | | | 2019 | Visit | | [address] | | | | | | [address] [place], | | | | | | [place] [address] | | | | | | [phone] | | | | | | | | +--------+---------+ + + + | 01/21/ | Office | Neurology | Brock Hammond MD | | | 2020 | Visit | | [address] | | | | | | [place] | | | | | | [address] | | | | | | | | +--------+---------+ + + + documented as of this encounter Visit Diagnoses Not on filedocumented in this encounter"
--- OUTSIDE RECORDS SUMMARY | ~2020-05-02 | XMS | Encounter Summary ---
Demographics + + + | Address | [address] | | | [address] | | | [place] [address] | + + + | Home Phone | | + + + | Preferred Language | Unknown | + + + | Marital Status | Single | + + + | Shinto Affiliation | 1009 | + + + | Race | Unknown | + + + | Ethnic Group | Unknown | + + + Author + + + | Author | [facility] | | | and Danielana | + + + | Organization | [facility] | | | [...] | | | | | [place] [address] | | + + + + + | Allegra Raza | ECON | Unknown | | + + + + + | Emily Fuller | ECON | Unknown | | + + + + + Care Team Providers + +------+ + | Care Fire Information Officer Name | Role | Phone | + +------+ + PCP | Unavailable | + +------+ + Encounter Details +--------+ + + + + | Date | Type | Department | Care Team | Description | +--------+ + + + + | 02/24/ | Hospital | [place] [facility] | Emmanuelle Frank | | | 2009 | Encounter | HOSPITAL LAB[facility]ORY | Sandra Alvarez MD [address] | | | | | [address] | [facility], | | | | | [facility], [place] | [place] [address] | | | | | [address] | [phone] | | | | | [phone] | | | +--------+ + + + [...] | | | | | | [place] [address] | | | | | | [phone] | | | | | | | | +--------+---------+ + + + | 01/21/ | Office | Neurology | Brock Hammond MD | | | 2020 | Visit | | [address] | | | | | | [place] | | | | | | [address] | | | | | | | | +--------+---------+ + + + documented as of this encounter Visit Diagnoses Not on filedocumented in this encounter"
--- OUTSIDE RECORDS SUMMARY | ~2020-05-02 | XMS | Encounter Summary ---
Demographics + + + | Address | [address] | | | [address] | | | [place] [address] | + + + | Home Phone | | + + + | Preferred Language | Unknown | + + + | Marital Status | Single | + + + | Holiness Affiliation | 1009 | + + + | Race | Unknown | + + + | Ethnic Group | Unknown | + + + Author + + + | Author | [facility] | | | and Danielana | + + + | Organization | [facility] | | [...] | | | | | [place] [address] | | + + + + + | Allegra Raza | ECON | Unknown | | + + + + + | Emily Fuller | ECON | Unknown | | + + + + + Care Team Providers + +------+ + | Care Metal Patternmaker Name | Role | Phone | + +------+ + PCP | Unavailable | + +------+ + Encounter Details +--------+ + + + + | Date | Type | Department | Care Team | Description | +--------+ + + + + | 02/20/ | Hospital | [facility] | Emmanuelle Frank | | | 2009 | Encounter | HOSPITAL LABORATORY | Sandra Alvarez MD [address] | | | | | [address] | [facility], | | | | | [facility], [place] | [place] [address] | | | | | [address] | [phone] | | | | | [phone] | | | +--------+ + + + [...] | | | | | | [place] [address] | | | | | | [phone] | | | | | | | | +--------+---------+ + + + | 01/21/ | Office | Neurology | Brock Hammond MD | | | 2020 | Visit | | [address] | | | | | | [place] | | | | | | [address] | | | | | | | | +--------+---------+ + + + documented as of this encounter Visit Diagnoses Not on filedocumented in this encounter"
--- OUTSIDE RECORDS SUMMARY | ~2020-05-02 | XMS | Encounter Summary ---
Demographics + + + | Address | [address] | | | [address] | | | [place] [address] | + + + | Home Phone | | + + + | Preferred Language | Unknown | + + + | Marital Status | Single | + + + | Moravian Affiliation | 1009 | + + + | Race | Unknown | + + + | Ethnic Group | Unknown | + + + Author + + + | Author | [facility] | | | and Danielana | + + + | Organization | [facility] | | [...] | | | | | [place] [address] | | + + + + + | Allegra Raza | ECON | Unknown | | + + + + + | Emily Fuller | ECON | Unknown | | + + + + + Care Team Providers + +------+ + | Care Linux Server Engineer Name | Role | Phone | + +------+ + PCP | Unavailable | + +------+ + Encounter Details +--------+ + + + + | Date | Type | Department | Care Team | Description | +--------+ + + + + | 02/20/ | Hospital | [facility] | Zac Emmanuelle | | | 2009 | Encounter | [facility] | Sandra Alvarez MD [address] | | | | | MEDICAL CLIN[address] | [facility], | | | | | [address]TH [facility], | [place] [address] | | | | | [place] [address] | [phone] | | | | | [phone] | | | +--------+ + + + [...] | | | | | | [place] [address] | | | | | | [phone] | | | | | | | | +--------+---------+ + + + | 01/21/ | Office | Neurology | Brock Hammond MD | | | 2020 | Visit | | [address] | | | | | | [place] | | | | | | [address] | | | | | | | | +--------+---------+ + + + documented as of this encounter Visit Diagnoses Not on filedocumented in this encounter"
--- OUTSIDE RECORDS SUMMARY | ~2020-05-02 | XMS | Encounter Summary ---
Demographics + + + | Address | [address] | | | [address] | | | [place] [address] | + + + | Home Phone | | + + + | Preferred Language | Unknown | + + + | Marital Status | Single | + + + | Oriental Orthodox Affiliation | 1009 | + + + [...] | | | | | [place] [address] | | + + + + + | Allegra Raza | ECON | Unknown | | + + + + + | Emily Fuller | ECON | Unknown | | + + + + + Care Team Providers + +------+ + | Care Loan Closer Name | Role | Phone | + +------+ + PCP | Unavailable | + +------+ + Encounter Details +--------+ + + + + | Date | Type | Department | Care Team | Description | +--------+ + + + + | 03/23/ | Hospital | [facility] | Blessing Mccoy | | | 2017 | Encounter | [facility] | G, INDUSTRIAL HIRE SALES ASSISTANT | | | | | MEDICAL [address] | | | | | | [address]TH [facility], | | | | | | [place] [address] | | | | | | [phone] | | | +--------+ + + + [...] | | | | | | [place] [address] | | | | | | [phone] | | | | | | | | +--------+---------+ + + + | 01/21/ | Office | Neurology | Brock Hammond MD | | | 2020 | Visit | | [address] | | | | | | [place] | | | | | | [address] | | | | | | | | +--------+---------+ + + + documented as of this encounter Visit Diagnoses Not on filedocumented in this encounter"
--- OUTSIDE RECORDS SUMMARY | ~2020-05-02 | XMS | Encounter Summary ---
Demographics + + + | Address | [address] | | | [address] | | | [place] [address] | + + + | Home Phone | | + + + | Preferred Language | Unknown | + + + | Marital Status | Single | + + + | Yarsani Affiliation | 1009 | + + + | Race | Unknown | + + + | Ethnic Group | Unknown | + + + Author + + + | Author | [facility] | | | and Danielana | + + + | Organization | [facility] | | [...] | | | | | [place] [address] | | + + + + + | Allegra Raza | ECON | Unknown | | + + + + + | Emily Fuller | ECON | Unknown | | + + + + + Care Team Providers + +------+ + | Care Business Analysis Analyst Name | Role | Phone | + +------+ + PCP | Unavailable | + +------+ + Encounter Details +--------+ + + + + | Date | Type | Department | Care Team | Description | +--------+ + + + + | 12/07/ | Hospital | [facility] | | | | 2002 | Encounter | MED CTR LABORATORY | | | | | | [address] [place] | | | | | | [place] | | | | | | [address] | | | | | | [phone] | | | +--------+ + + + [...] | | | | | | [place] [address] | | | | | | [phone] | | | | | | | [...]
--- OUTSIDE RECORDS SUMMARY | ~2020-05-02 | XMS | Encounter Summary ---
Demographics + + + | Address | [address] | | | [address] | | | [place] [address] | + + + | Home Phone | | + + + | Preferred Language | Unknown | + + + | Marital Status | Single | + + + | Alevism Affiliation | 1009 | + + + [...] | | | | | [place] [address] | | + + + + + | Allegra Raza | ECON | Unknown | | + + + + + | Emily Fuller | ECON | Unknown | | + + + + + Care Team Providers + +------+ + | Care Filters Assembler Name | Role | Phone | + +------+ + PCP | Unavailable | + +------+ + Encounter Details +--------+ + + + + | Date | Type | Department | Care Team | Description | +--------+ + + + + | 03/11/ | Hospital | [facility] | Tashi Lamonte | | | 2015 | Encounter | [facility] | [facility] [address] | | | | | MEDICAL CLINIC [address] | [address] [place], [place] | | | | | [address] [facility], | [address] | | | | | [place] [address] | | | | | | [phone] | | | +--------+ + + + [...] | | | | | | [place] [address] | | | | | | [phone] | | | | | | | | +--------+---------+ + + + | 01/21/ | Office | Neurology | Brock Hammond MD | | | 2020 | Visit | | [address] | | | | | | [place] | | | | | | [address] | | | | | | | | +--------+---------+ + + + documented as of this encounter Visit Diagnoses Not on filedocumented in this encounter"
--- OUTSIDE RECORDS SUMMARY | ~2020-05-02 | XMS | Encounter Summary ---
Demographics + + + | Address | [address] | | | [address] | | | [place] [address] | + + + | Home Phone | | + + + | Preferred Language | Unknown | + + + | Marital Status | Single | + + + | Judaism Affiliation | 1009 | + + + | Race | Unknown | + + + | Ethnic Group | Unknown | + + + Author + + + | Author | [facility] | | | and Danielana | + + + | Organization | [facility] | | | [...] | | | | | [place] [address] | | + + + + + | Allegra Raza | ECON | Unknown | | + + + + + | Emily Fuller | ECON | Unknown | | + + + + + Care Team Providers + +------+ + | Care Concrete Handler Name | Role | Phone | + +------+ + | No, Physician | PCP | Unavailable | + +------+ + Encounter Details +--------+ + + + + | Date | Type | Department | Care Team | Description | +--------+ + + + + | 03/07/ | Hospital | [facility] | Brock Hammond MD | Bilateral shoulder | | 2019 | Encounter | HOSPITAL XRAY [facility] | [address] | pain, unspecified | | | | [address] | [place] | chronicity | | | | [place] | [id number] | | | | | [address] | | | | | | [phone] | | | +--------+ + + + [...] + + + +---------+ + + | ondansetron | | | 0 | 12/05/19 | | | (ZOFRAN) 4 mg tablet | | | | 19 | | + + + +---------+ + + | VENTOLIN HFA 108 | inhale 2 puffs by | 18 g | 11 | 01/21/20 | | | (90 Base) MCG/ACT | mouth every 4 to 6 | | | 18 | | | inhalerIndications: | hours if needed for | | | | | | Asthma, unspecified | cough and shortness | | | | | | asthma severity, | of breath | | | | | | unspecified whether | | | | | | | complicated, | | | | | | | unspecified whether | | | | | | | persistent | | | | | | + + + +---------+ + + | DULoxetine | take 1 capsule by | 60 | 11 | 02/02/20 | | | (CYMBALTA) [address] | mouth twice a day | capsule | | 19 | 9 | | capsule | | | | | | + + + +---------+ + + | gabapentin | Take 1 tablet by | 90 | 11 | 03/07/20 | | | (NEURONTIN) 600 MG | mouth 3 times daily | tablet | | 19 | 9 | | tablet | for 30 days. | | | | | + + + +---------+ + + | levETIRAcetam | take 1 tablet by | 60 | 0 | 02/02/20 | | | (KEPPRA) 500 mg | mouth twice a day | tablet | | 19 | 9 | | tablet | | | | | | + + + +---------+ + + | levothyroxine | take 1 tablet by | 30 | 11 | 02/19/20 | | | (SYNTHROID) 125 mcg | mouth once daily | tablet | | 18 | 9 | | tablet | | | | | | + + + +---------+ + + | ondansetron | Take 1 tablet by | 30 | 2 | 04/25/20 | | | (ZOFRAN) 4 mg tablet | mouth every 8 hours | tablet | | 18 | 9 | | | as needed for Nausea | | | | | | | for up to 30 days. | | | | | + + + +---------+ + + | SUMAtriptan | take 1 tablet by | 12 | 0 | 02/05/20 | | | (IMITREX) 100 mg | mouth AT ONSET OF | tablet | | 19 | 9 | | tablet | HEADACHE may repeat | | | | | | | ONCE AFTER 45 | | | | | | | MINUTES; not more | | | | | | | than 2 tablets daily | | | | | + + + +---------+ + + | tiZANidine | Take 1 tablet by | 60 | 4 | 03/07/20 | | | (ZANAFLEX) 4 mg | mouth Twice daily | tablet | | 19 | 9 | | tablet | as needed for up to | | | | | | | 30 days. | | | | | + + [...] | | | | | | [place] [address] | | | | | | [phone] | | | | | | | | +--------+---------+ + + + | 01/21/ | Office | Neurology | Brock Hammond MD | | | 2020 | Visit | | [address] | | | | | | [place] | | | | | | [address] | | | | | | | | +--------+---------+ + + + documented as of this encounter Procedures + +--------+ + + + | Procedure Name | Priori | Date/Time | Associated Diagnosis | Comments | | | ty | | | | + +--------+ + + + | XR SHOULDER RIGHT 2 | Routin | 03/07/2019 | Bilateral shoulder | Results for this | | + VW | e | 9:59 AM | pain, unspecified | procedure are in the | | | | PDT | chronicity | results section. | + +--------+ + + + documented in this encounter Results XR Shoulder Right 2 + Vw (03/07/2019 9:59 AM PDT) + + | Specimen | + + | | + + + + + | Impressions | Performed At | + + + | IMPRESSION: 1. Left glenohumeral osteoarthritis. 2. Right calcific | [facility] | | tendinitis. 3. Age-indeterminate T5 compression, new compared to | | | January 05, 2017. Correlation with history and exam is recommended. | | | Dictated by: Sven Etienne | | + + + + + + | Narrative | Performed At | + + + | EXAMINATION: XR SHOULDER RIGHT 2 + VW; XR SHOULDER LEFT 2 + VW | [facility] | | HISTORY: persistent right shoulder; persistent left sholder pain | | | COMPARISON STUDY: None FINDINGS: The acromioclavicular joint are | | | normal. The right glenohumeral joint is normal. The left | | | glenohumeral joint has productive change. Calcification is noted at | | | the superolateral margin of the right humeral head. No glenohumeral | | | subluxation or dislocation. Normal bone density. Visualized thorax | | | and ribs demonstrate compression of T5. Lower cervical anterior and | | | posterior fusion change. | | + + + + + | Procedure Note | + + | Leandro, Rad Results In - 03/07/2019 11:17 AM PDT EXAMINATION:XR SHOULDER RIGHT 2 + VW; | | XR SHOULDER LEFT 2 + VWHISTORY:persistent right shoulder; persistent left sholder | | painCOMPARISON STUDY:NoneFINDINGS:The acromioclavicular joint are normal.The right | | glenohumeral joint is normal. The left glenohumeral joint has productive | | change.Calcification is noted at the superolateral margin of the right humeral head.No | | glenohumeral subluxation or dislocation.Normal bone density.Visualized thorax and ribs | | demonstrate compression of T5.Lower cervical anterior and posterior fusion | | change.IMPRESSION: IMPRESSION:1. Left glenohumeral osteoarthritis.2. Right calcific | | tendinitis.3. Age-indeterminate T5 compression, new compared to January 05, 2017. | | Correlation with history and exam is recommended.Dictated by: Sven | | Jose Franciscoam | |The right glenohumeral joint is normal. The left glenohumeral joint has productive change. | |Calcification is noted at the superolateral margin of the right humeral head. | |No glenohumeral subluxation or dislocation. | |Normal bone density. | |Visualized thorax and ribs demonstrate compression of T5. | |Lower cervical anterior and posterior fusion change. | | | |IMPRESSION: | |IMPRESSION: | |1. Left glenohumeral osteoarthritis. | |2. Right calcific tendinitis. | |3. Age-indeterminate T5 compression, new compared to January 05, 2017. Correlation with hist ory and exam is recommended. | | | |Dictated by: Sven Etienne | | | | | + + + +---------+ + + | Performing | Address | City/State/Zipcode | Phone Number | | Organization | | | | + +---------+ + + | [facility] | | | | + +---------+ + + documented in this encounter Visit Diagnoses + + | Diagnosis | + + | Bilateral shoulder pain, unspecified chronicity | + + documented in this encounter"
--- OUTSIDE RECORDS SUMMARY | ~2020-05-02 | XMS | Encounter Summary ---
Demographics + + + | Address | [address] | | | [address] | | | [place] [address] | + + + | Home Phone | | + + + | Preferred Language | Unknown | + + + | Marital Status | Single | + + + | Muslim Affiliation | 1009 | + + + | Race | Unknown | + + + | Ethnic Group | Unknown | + + + Author + + + | Author | [facility] | | | and Danielana | + + + | Organization | [facility] | | | [...] | | | | | [place] [address] | | + + + + + | Allegra Raza | ECON | Unknown | | + + + + + | Emily Fuller | ECON | Unknown | | + + + + + Care Team Providers + +------+ + | Care Salvage Supervisor Name | Role | Phone | + +------+ + | Aisha Carrington DO | PCP | | + +------+ + Encounter Details +--------+ + + + + | Date | Type | Department | Care Team | Description | +--------+ + + + + | 12/22/ | Orders Only | [facility] | Lamonte Akins | Chronic migraine | | 2018 | | [facility] | Goins, [address] | 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
--- OUTSIDE RECORDS SUMMARY | ~2020-05-02 | XMS | Encounter Summary ---
Demographics + + + | Address | [address] | | | [address] | | | [place] [address] | + + + | Home Phone [...] | | | | | [place] [address] | | + + + + + | Allegra Raza | ECON | Unknown | | + + + + + | Emily Fuller | ECON | Unknown | | + + + + + Care Team Providers + +------+ + | Care Entry Level Electrical Engineer Name | Role | Phone | [...] Description | +--------+--------+ + + + | 10/10/ | Refill | [facility] | Mireille Leary NP | Medication Refill | | 2016 | | [facility] | [address] [place] | | | | | MEDICAL CL[facility] [address] | [facility], [place] | | | | | [address] [facility], | [address] | | | | | [place] [address] | [phone] | | | | | [phone] | | | +--------+--------+ + + + [...] | | | | | | [place] [address] | | | | | | [phone] | | | | | | | | +--------+---------+ + + + | 01/21/ | Office | Neurology | Brock Hammond MD | | | 2020 | Visit | | [address] | | | | | | [place] | | | | | | [address] | | | | | | | | +--------+---------+ + + + documented as of this encounter Visit Diagnoses Not on filedocumented in this encounter"
--- OUTSIDE RECORDS SUMMARY | ~2020-05-02 | XMS | Encounter Summary ---
Demographics + + + | Address | [address] | | | [address] | | | [place] [address] | + + + | Home Phone | | + + + | Preferred Language | Unknown | + + + | Marital Status | Single | + + + | Confucianist Affiliation | 1009 | + + + | Race | Unknown | + + + | Ethnic Group | Unknown | + + + Author + + + | Author | [facility] | | | and Danielana | + + + | Organization | [facility] | | [...] | | | | | [place] [address] | | + + + + + | Allegra Raza | ECON | Unknown | | + + + + + | Emily Fuller | ECON | Unknown | | + + + + + Care Team Providers + +------+ + | Care Trash Collector Truck Driver Name | Role | Phone | + +------+ + PCP | Unavailable | + +------+ + Encounter Details +--------+ + + + + | Date | Type | Department | Care Team | Description | +--------+ + + + + | 07/28/ | Hospital | [facility] | Emmanuelle Frank | | | 2009 | Encounter | HOSPITAL LABORATORY | Sandra Alvarez MD [address] | | | | | [address] | [facility], | | | | | [facility], [place] | [place] [address] | | | | | [address] | [phone] | | | | | [phone] | | | +--------+ + + + [...] | | | | | | [place] [address] | | | | | | [phone] | | | | | | | | +--------+---------+ + + + | 01/21/ | Office | Neurology | Brock Hammond MD | | | 2020 | Visit | | [address] | | | | | | [place] | | | | | | [address] | | | | | | | | +--------+---------+ + + + documented as of this encounter Visit Diagnoses Not on filedocumented in this encounter"
--- OUTSIDE RECORDS SUMMARY | ~2020-05-02 | XMS | Encounter Summary ---
Demographics + + + | Address | [address] | | | [address] | | | [place] [address] | + + + | Home Phone | | + + + | Preferred Language | Unknown | + + + | Marital Status | Single | + + + | Christianity Affiliation | 1009 | + + + | Race | Unknown | + + + | Ethnic Group | Unknown | + + + Author + + + | Author | [facility] | | | and Danielana | + + + | Organization | [facility] | | [...] | | | | | [place] [address] | | + + + + + | Allegra Raza | ECON | Unknown | | + + + + + | Emily Fuller | ECON | Unknown | | + + + + + Care Team Providers + +------+ + | Care Factory Expert Name | Role | Phone | + +------+ + PCP | Unavailable | + +------+ + Encounter Details +--------+ + + + + | Date | Type | Department | Care Team | Description | +--------+ + + + + | 07/15/ | Hospital | [facility] | Blessing Mccoy | | | 2016 | Encounter | [facility] | [facility] | | | | | [facility]ICAL [facility] [address] | | | | | | [address] [facility], | | | | | | [place] [address] | | | | | | [phone] | | | +--------+ + + + [...] | | | | | | [place] [address] | | | | | | [phone] | | | | | | | | +--------+---------+ + + + | 01/21/ | Office | Neurology | Brock Hammond MD | | | 2020 | Visit | | [address] | | | | | | [place] | | | | | | [address] | | | | | | | | +--------+---------+ + + + documented as of this encounter Visit Diagnoses Not on filedocumented in this encounter"
--- OUTSIDE RECORDS SUMMARY | ~2020-05-02 | XMS | Encounter Summary ---
Demographics + + + | Address | [address] | | | [address] | | | [place] [address] | + + + | Home Phone | | + + + | Preferred Language | Unknown | + + + | Marital Status | Single | + + + | Church Affiliation | 1009 | + + + | Race | Unknown | + + + | Ethnic Group | Unknown | + + + Author + + + | Author | [facility] | | | and Danielana | + + + | Organization | [facility] | | [...] | | | | | [place] [address] | | + + + + + | Allegra Raza | ECON | Unknown | | + + + + + | Emily Fuller | ECON | Unknown | | + + + + + Care Team Providers + +------+ + | Care Reception Specialist Name | Role | Phone | + +------+ + PCP | Unavailable | + +------+ + Encounter Details +--------+ + + + + | Date | Type | Department | Care Team | Description | +--------+ + + + + | 05/11/ | Hospital | [facility] | William Harp | | | 2010 | Encounter | HOSPITAL EMERGENCY | [address] | | | | | CENTER [address] | [facility] | | | | | DR [place], [place] | [employer] [address] | | | | | [address] | [phone] | | | | | [phone] | | | +--------+ + + + [...] [address] | | | | | | [phone] | | | | | | | | +--------+---------+ + + + | 01/21/ | Office | Neurology | Brock Hammond MD | | | 2020 | Visit | | [address] | | | | | | [place] | | | | | | [address] | | | | | | | | +--------+---------+ + + + documented as of this encounter Visit Diagnoses Not on filedocumented in this encounter"
--- OUTSIDE RECORDS SUMMARY | ~2020-05-02 | XMS | Encounter Summary ---
Demographics + + + | Address | [address] | | | [address] | | | [place] [address] | + + + | Home Phone [...] | | | | | [place] [address] | | + + + + + | Allegra Raza | ECON | Unknown | | + + + + + | Emily Fuller | ECON | Unknown | | + + + + + Care Team Providers + +------+ + | Care Motor Room Controller Name | Role | Phone | + +------+ + PCP | Unavailable | + +------+ + Encounter Details +--------+ + + + + | Date | Type | Department | Care Team | Description | +--------+ + + + + | 07/15/ | Hospital | [facility] | Koki Valdez | | | 2010 | Encounter | HOSPITAL LABORATORY | [address] | | | | | [address] | [facility], | | | | | [place], [place] | [place] [address] | | | | | [address] | [phone] | | | | | [phone] | | | +--------+ + + + [...] | | | | | | [place] [address] | | | | | | [phone] | | | | | | | | +--------+---------+ + + + | 01/21/ | Office | Neurology | Brock Hammond MD | | | 2020 | Visit | | [address] | | | | | | [place] | | | | | | [address] | | | | | | | | +--------+---------+ + + + documented as of this encounter Visit Diagnoses Not on filedocumented in this encounter"
--- OUTSIDE RECORDS SUMMARY | ~2020-05-02 | XMS | Encounter Summary ---
Demographics + + + | Address | [address] | | | [address] | | | [place] [address] | + + + | Home Phone | | + + + | Preferred Language | Unknown | + + + | Marital Status | Single | + + + | Evangelical Affiliation | 1009 | + + + [...] | | | | | [place] [address] | | + + + + + | Allegra Raza | ECON | Unknown | | + + + + + | Emily Fuller | ECON | Unknown | | + + + + + Care Team Providers + +------+ + | Care Bilingual Branch Manager Name | Role | Phone | + +------+ + PCP | Unavailable | + +------+ + Encounter Details +--------+ + + + + | Date | Type | Department | Care Team | Description | +--------+ + + + + | 03/19/ | Hospital | [facility] | Emmanuelle Frank | | | 2010 | Encounter | HOSPITAL LABORATORY | Sandra Alvarez MD [address] | | | | | [address] | [facility], | | | | | [facility], [place] | [place] [address] | | | | | [address] | [phone] | | | | | [phone] | | | +--------+ + + + [...] | | | | | | [place] [address] | | | | | | [phone] | | | | | | | | +--------+---------+ + + + | 01/21/ | Office | Neurology | Brock Hammond MD | | | 2020 | Visit | | [address] | | | | | | [place] | | | | | | [address] | | | | | | | | +--------+---------+ + + + documented as of this encounter Visit Diagnoses Not on filedocumented in this encounter"
--- OUTSIDE RECORDS SUMMARY | ~2020-05-02 | XMS | Encounter Summary ---
Demographics + + + | Address | [address] | | | [address] | | | [place] [address] | + + + | Home Phone | | + + + | Preferred Language | Unknown | + + + | Marital Status | Single | + + + | Presybeterian Affiliation | 1009 | + + + | Race | Unknown | + + + | Ethnic Group | Unknown | + + + Author + + + | Author | [facility] | | | and [place]ana | + + + | Organization | [facility] | | | and [place] | + + + | Address | Unknown | + + + | Phone | Unavailable | + + + Support + + + + + | Name | Relationship | Address | Phone | + + + + + | Magalys Hurley | ECON | [address] | | | | | [place] [address] | | + + + + + | Allegra Raza | ECON | Unknown | | + + + + + | Emily Fuller | ECON | Unknown | | + + + + + Care Team Providers + +------+ + | Care Robotic Welding Operator Name | Role | Phone | [...] Description | +--------+--------+ + + + | 12/04/ | Refill | [facility] | Brock Hammond MD | Medication Refill | | 2019 | | HOSPITAL NEUROLOGY | [address] | | | | | CLINIC [address] | [place] | | | | | [address] [place], | [address] | | | | | [place] [address] | | | | | | [phone] | | | +--------+--------+ + + + [...] this encounter Miscellaneous Notes Telephone Encounter - Zenon Garcia CC CMA - 12/05/2018 8:24 AM PSTLast filled leveti racetam: 10/13/18 Last filled sumatriptan: 09/01/18 Last seen: 04/12/17 Next appt: 01/30/19 Pt has not been seen for over a year. Do you want to fill? Has f/up in January. Zenon Garcia CMA documented in t his encounter Plan of Treatment +--------+---------+ + + + | Date | Type | Specialty | Care Team | Description | +--------+---------+ + + + | 05/14/ | Office | Neurology | Romeo, | | | 2019 | Visit | | [address] | | | | | [address] [place], | | | | | | [place] [address] | | | | | | [phone] | | | | | | | | +--------+---------+ + + + | 01/21/ | Office | Neurology | Brock Hammond MD | | | 2020 | Visit | | [address] | | | | | | [place] | | | | | | [address] | | | | | | | | +--------+---------+ + + + documented as of this encounter Visit Diagnoses Not on filedocumented in this encounter"
--- OUTSIDE RECORDS SUMMARY | ~2020-05-02 | XMS | Encounter Summary ---
Demographics + + + | Address | [address] | | | [address] | | | [place] [address] | + + + | Home Phone | | + + + | Preferred Language | Unknown | + + + | Marital Status | Single | + + + | Alevism Affiliation | 1009 | + + + | Race | Unknown | + + + | Ethnic Group | Unknown | + + + Author + + + | Author | [facility] | | | and Danielana | + + + | Organization | [facility] | | | [...] | | | | | [place] [address] | | + + + + + | Allegra Raza | ECON | Unknown | | + + + + + | Emily Fuller | ECON | Unknown | | + + + + + Care Team Providers + +------+ + | Care Supervisor Phosphatic Fertilizer Name | Role | Phone | + +------+ + PCP | Unavailable | + +------+ + Encounter Details +--------+ + + + + | Date | Type | Department | Care Team | Description | +--------+ + + + + | 11/13/ | Hospital | [facility] | Emmanuelle Frank | | | 2010 | Encounter | HOSPITAL LABORATORY | Sandra Alvarez MD [address] | | | | | [address] | [facility], | | | | | [facility], [place] | [place] [address] | | | | | [address] | [phone] | | | | | [phone] | | | +--------+ + + + [...] | | | | | | [place] [address] | | | | | | [phone] | | | | | | | | +--------+---------+ + + + | 01/21/ | Office | Neurology | Brock Hammond MD | | | 2020 | Visit | | [address] | | | | | | [place] | | | | | | [address] | | | | | | | | +--------+---------+ + + + documented as of this encounter Visit Diagnoses Not on filedocumented in this encounter"
--- OUTSIDE RECORDS SUMMARY | ~2020-05-02 | XMS | Encounter Summary ---
Demographics + + + | Address | [address] | | | [address] | | | [place] [address] | + + + | Home Phone | | + + + | Preferred Language | Unknown | + + + | Marital Status | Single | + + + | Orthodoxy Affiliation | 1009 | + + + | Race | Unknown | + + + | Ethnic Group | Unknown | + + + Author + + + | Author | [facility] | | | and Danielana | + + + | Organization | [facility] | | [...] | | | | | [place] [address] | | + + + + + | Allegra Raza | ECON | Unknown | | + + + + + | Emily Fuller | ECON | Unknown | | + + + + + Care Team Providers + +------+ + | Care Deburring Machine Operator Name | Role | Phone [...] 04/15/ | Refill | [facility] | Brock Hammond MD | Medication Refill | | 2020 | | HOSPITAL NEUROLOGY | [address] | | | | | CLINIC [address] | [place] | | | | | [address] [place], | [address] | | | | | [place] [address] | | | | | | [phone] | | | +--------+--------+ + + + [...] Telephone Encounter - Kristen Rodriguez RN - 04/15/2020 2:45 PM PDTLast filled 01/16/20 Gabap elann Last seen 01/22/20 Next appt 05/14/20 ELOINA Jones documented i n this encounter Plan of Treatment +--------+---------+ + + + | Date | Type | Specialty | Care Team | Description | +--------+---------+ + + + | 05/14/ | Office | Neurology | Romeo, | | 2019 | Visit | | [address] | | | | | [address] [place], | | | | | | [place] [address] | | | | | | [phone] | | | | | | | | +--------+---------+ + + + | 01/21/ | Office | Neurology | Brock Hammond MD | | | 2020 | Visit | | [address] | | | | | | [place] | | | | | | [id number] | | | | | | | | +--------+---------+ + + + documented as of this encounter Visit Diagnoses Not on filedocumented in this encounter"
--- OUTSIDE RECORDS SUMMARY | ~2020-05-02 | XMS | Encounter Summary ---
Demographics + + + | Address | [address] | | | [address] | | | [place] [address] | + + + | Home Phone [...] + + + | Author | [facility] | | | and Danielana | + + + | Organization | [facility] | | | [...] | | | | | [place] [address] | | + + + + + | Allegra Raza | ECON | Unknown | | + + + + + | Emily Fuller | ECON | Unknown | | + + + + + Care Team Providers + +------+ + | Care Hospice Music Therapy Name | Role | Phone | + +------+ + | No, Physician | PCP | Unavailable | + +------+ + Encounter Details +--------+ + + + + | Date | Type | Department | Care Team | Description | +--------+ + + + + | 03/07/ | Hospital | [facility] | Brock Hammond MD | Bilateral shoulder | | 2019 | Encounter | [facility] [address] | [address] | pain, unspecified | | | | [address] | [place] | chronicity | | | | [place] | [id number] | | | | | [address] | | | | | | [phone] | | | +--------+ + + + [...] | | | | | | [place] [address] | | | | | | [phone] | | | | | | | | +--------+---------+ + + + | 01/21/ | Office | Neurology | Brock Hammond MD | | | 2020 | Visit | | [address] | | | | | | [place] | | | | | | [address] | | | | | | | | +--------+---------+ + + + documented as of this encounter Procedures + +--------+ + + + | Procedure Name | Priori | Date/Time | Associated Diagnosis | Comments | | | ty | | | | + +--------+ + + + | XR SHOULDER LEFT 2 + | Routin | 03/07/2019 | Bilateral shoulder | Results for this | | VW | e | 9:59 AM | pain, unspecified | procedure are in the | | | | PDT | chronicity | results section. | + +--------+ + + + documented in this encounter Results XR Shoulder Left 2 + Vw (03/07/2019 9:59 AM PDT) [...]
--- OUTSIDE RECORDS SUMMARY | ~2020-05-02 | XMS | Encounter Summary ---
Demographics + + + | Address | [address] | | | [address] | | | [place] [address] | + + + | Home Phone [...] | | | | | [place] [address] | | + + + + + | Allegra Raza | ECON | Unknown | | + + + + + | Emily Fuller | ECON | Unknown | | + + + + + Care Team Providers + +------+ + | Care Environmental Services Attendant Name | Role | Phone | + +------+ + | Aisha Carrington DO | PCP | | + +------+ + Reason for Visit + +--------+ + | Reason | Onset | Comments | | | Date | | + +--------+ + | Incisional Pain | 02/14/ | incision sight swollen and sore | | | 2017 | | + +--------+ + Encounter Details +--------+ + + + + | Date | Type | Department | Care Team | Description | +--------+ + + + + | 02/14/ | Telephone | [facility] | Aisha Carrington, | Incisional Pain | | 2018 | | [facility] | DO [address] | (incision sight | | | | [facility] | [place] [address] | swollen and sore) | | | [address] [place], | [phone] | | | | | [place] [address] | | | | | | [phone] | | | +--------+ + + + [...] this encounter Miscellaneous Notes Telephone Encounter - Germaine Fenton LPN - 02/14/2018 11:09 AM PDTCall to patient, funmi curtisd she be seen, she states she has to work today, but will go to Urgent care in [facility] tomorrow. Germaine B. Moffit, LPNElectronically signed by Germaine Fenton LPN at 02/14 11:10 AM PDTTelephone Encounter - Jeaneth Bradley - 02/14/2018 10:35 AM PDTPatient crystal d neck surgery in 2008 and they took bone from her [place] to put in neck which she's not crystal d any problems however starting last night she noticed swelling on incision sight and painfu l. Needs to know if she needs seen or what to do as lives in [place]? Please call back today and advise Jeaneth Bradley documented in this encou nter Plan of Treatment +--------+---------+ + + + | Date | Type | Specialty | Care Team | Description | +--------+---------+ + + + | 05/14/ | Office | Neurology | [place], | | | 2019 | Visit | | [address] | | | | | | [address] [place], | | | | | | [place] [address] | | | | | | [phone] | | | | | | | | +--------+---------+ + + + | 01/21/ | Office | Neurology | Brock Hammond MD | | | 2020 | Visit | | [address] | | | | | | [place] | | | | | | [address] | | | | | | | | +--------+---------+ + + + documented as of this encounter Visit Diagnoses Not on filedocumented in this encounter"
--- OUTSIDE RECORDS SUMMARY | ~2020-05-02 | XMS | Encounter Summary ---
Demographics + + + | Address | [address] | | | [address] | | | [place] [address] | + + + | Home Phone | | + + + | Preferred Language | Unknown | + + + | Marital Status | Single | + + + | Temple Affiliation | [id number] | + + + | Race | Unknown | + + + | Ethnic Group | Unknown | + + + Author + + + | Author | [facility] | | | and Danielana | + + + | Organization | [facility] | | [...] | | | | | [place] [address] | | + + + + + | Allegra Raza | ECON | Unknown | | + + + + + | Emily Fuller | ECON | Unknown | | + + + + + Care Team Providers + +------+ + | Care Retail Sales Representative Name | Role | Phone | + +------+ + PCP | Unavailable | + +------+ + Encounter Details +--------+ + + + + | Date | Type | Department | Care Team | Description | +--------+ + + + + | 06/25/ | Hospital | [facility] | William Harp | | | 2008 | Encounter | [facility] | [address] | | | | | [address] [facility] | | | | | [address] [place], [place] | [place], [place] [address] | | | | | [address] | [phone] | | | | | [phone] | | | +--------+ + + + [...] | | | | | | [place] [address] | | | | | | [phone] | | | | | | | | +--------+---------+ + + + | 01/21/ | Office | Neurology | Brock Hammond MD | | | 2020 | Visit | | [address] | | | | | | [place] | | | | | | [address] | | | | | | | | +--------+---------+ + + + documented as of this encounter Visit Diagnoses Not on filedocumented in this encounter"
--- OUTSIDE RECORDS SUMMARY | ~2020-05-02 | XMS | Encounter Summary ---
Demographics + + + | Address | [address] | | | [address] | | | [place] [address] | + + + | Home Phone [...] + + + | Author | [facility] | | | and Danielana | + + + | Organization | [facility] | | [...] | | | | | [place] [address] | | + + + + + | Allegra Raza | ECON | Unknown | | + + + + + | Emily Fuller | ECON | Unknown | | + + + + + Care Team Providers + +------+ + | Care Finishing Supervisor Name | Role | Phone | + +------+ + | Luna Cyr | PCP | | + +------+ + Reason for Visit + + + | Reason | Comments | + + + | Seizures | | + + + Encounter Details +--------+---------+ + + + | Date | Type | Department | Care Team | Description | +--------+---------+ + + + | 01/21/ | Office | [facility] | [place]o, | Complex partial | | 2020 | Visit | [facility]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[place], 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 with | | | | [facility] [address], | consciousness | | | | [address] [place], | [place] [address] | impaired (HCC); | | | | [place] [address] | [phone] | Chronic neck and | | | | [phone] | | back pain; Migraine | | | | | | with aura and | | | | | | without status | | | | | | migrainosus, not | | | | | | intractable | +--------+---------+ + + + Social History + + [...] + + documented as of this encounter Last Filed Vital Signs + + + + + | Vital Sign | Reading | Time Taken | Comments | + + + + + | Blood Pressure | 122/92 | 01/22/2020 2:06 PM | | | | | PDT | | + + + + + | Pulse | 86 | 01/22/2020 2:06 PM | | | | | PDT | | + + + + + | Temperature | 36.9 C (98.5 F) | 01/22/2020 2:06 PM | | | | | PDT | | + + + + + | Respiratory Rate | 16 | 01/22/2020 2:06 PM | | | | | PDT | | + + + + + | Oxygen Saturation | 97% | 01/22/2020 2:06 PM | | | | | PDT | | + + + + + | Inhaled Oxygen | - | - | | | Concentration | | | | + + + + + | Weight | 60.8 kg (134 lb) | 01/22/2020 2:06 PM | | | | | PDT | | + + + + + | Height | 143.5 cm (4' 8.5") | 01/22/2020 2:06 PM | | | | | PDT | | + + + + + | Body Mass Index | 29.51 | 01/22/2020 2:06 PM | | | | | PDT | | + + + + + documented in this encounter Patient Instructions Patient Instructions Barak Walters FNP - 01/22/2020 2:00 PM PDT General Neck and Back Pain Both neck and back pain are usually caused by injury to the muscles or ligaments of the spi ne. Sometimes the disks that separate each bone of the spine may cause pain by pressing on a nearby nerve. Back and neck pain may appear after a sudden twisting or bending force (such as in a car accident), or sometimes after a simple awkward movement. In either case, muscle spasm is often present and adds to the pain. Acute neck and back pain usually gets better in 1 to 2 weeks. Pain related to disk disease, arthritis in the spinal joints or spinal stenosis (narrowing of the spinal canal) can becom e chronic and last for months or years. Back and neck pain are common problems. Most people feel better in 1 or 2 weeks, and most o f the rest in 1 to 2 months. Most people can remain active. People have anddescribe pain differently. Pain can be sharp, stabbing, shooting, aching, cramping, or burning Movement, standing, bending, lifting, sitting, or walking may worsen the pain Pain can be localized to one spot or area, or it can be more generalized Pain can spread or radiate upwards, downwards, to the front, or go down your arms Muscle spasm may occur. Most of the time mechanical problems with the muscles or spine cause the pain. it is usuall y caused by an injury, whether known or not, to the muscles or ligaments. While illnesses ca n cause back pain, it is usually not caused by a serious illness. Pain is usually related to physical activity, whether sports, exercise, work, or normal activity. Sometimes it can occ ur without an identifiable cause. This can happen simply by stretching or moving wrong, with out noting pain at the time. Other causes include: Overexertion, lifting, pushing, pulling incorrectly or too aggressively. Sudden twisting, bending or stretching from an accident (car or fall), or accidental mov ement. Poor posture Poor conditioning, lack of regular exercise Spinal disc disease or arthritis Stress , or illness like appendicitis, bladder or kidney infection, pelvic infections Home care Forneck pain:Use a comfortable pillow that supports the head and keeps the spine in a neutral position. The position of the head should not be tilted forward or backward. When in bed, try to find a position of comfort. A firm mattress is best. Try lying flat on your back with pillows under your knees. You can also try lying on your side with your kn ees bent up towards your chest and a pillow between your knees. At first, do not try to stretch out the sore spots. If there is a strain, it is not like the good soreness you get after exercising without an injury. In this case, stretching may make it worse. Don't sit for long periods, as inlong car rides orother travel. This puts more stres s on the lower back than standing or walking. During the first 24 to 72 hours after an injury, apply an ice pack to the painful area f or 20 minutes and then remove it for 20 minutes over a period of 60 to 90 minutes or several times a day. You can alternate ice and heat therapies. Talk with your healthcare provider about the b est treatment for your back or neck pain. As a safety precaution, do not use a heating pad a t bedtime. Sleeping with a heating pad can lead to skin garcia or tissue damage. Therapeutic massage can help relax the back and neck muscles without stretching them. Be aware of safe lifting methods and do not lift anything over 15 pounds until all the p ain is gone. Medicines Talk to your healthcare provider before using medicine, especially if you have other medica l problems or are taking other medicines. You may use yqvd-wmd-dxbgngw medicine to control pain, unless another pain medicine was prescribed. If you have chronic conditions like diabetes, liver or kidney disease, stomach u lcers, gastrointestinal bleeding, or are taking blood thinner medicines. Be careful if you are given pain medicines, narcotics, or medicine for muscle spasm. The y can cause drowsiness, and can affect your coordination, reflexes, and judgment. Do not dri ve or operate heavy machinery. Follow-up care Follow up with your healthcare provider, or as advised. Physical therapy or further tests m ay be needed. If X-rays were taken, you will be notified of any new findings that may affect your care. Call 911 Call 911 if any of the following occur: Trouble breathing Confusion Very drowsy or trouble awakening Fainting or loss of consciousness Rapid or very slow heart rate Loss of bowel or bladder control When to seek medical advice Call your healthcare provider right away if any of these occur: Pain becomes worse or spreads into your arms or legs Weakness, numbness or pain in one or both arms or legs Numbness in the groin area Difficulty walking Fever of 100.4F (38C) or higher, or as directed by your healthcare provider Date Last Reviewed: 04/24/201619991821-0623 [employer] [place] [address]. All righ ts reserved. This information is not intended as a substitute for professional medical care. Always follow your healthcare professional's instructions. Nonsurgical Treatment of Cervical Spine Problems Cervical spine problems can often be treated without surgery.Choices may include rest, me dicines, or injections. Yourhealthcare providermay also suggest physical therapy or cert ain exercises. These treatments may all help to relieve your symptoms and are often successf ul. If your symptoms don t subside, talk with your healthcare provider who may recommend s urgery as your best treatment option. Relieving your symptoms Your healthcare provider may recommend: Medicines. These help to reduce pain and inflammation. Epidural steroid injections. These are injections into the spinal canal near the spinal cord. They may relieve severe pain and reduce inflammation. Restricting aggravatingactivities. This can help to give your cervical spine time to h eal. A soft cervical collar. This can help to support and immobilize your neck while keeping your cervical spine aligned. Traction. This may help relieve pressure on the irritated nerves. Restoring mobility and strength Your healthcare provider may recommend that you work with a physical therapist, an osteopat hic doctor, or a chiropractor. This can help you regain mobility and strength in your neck. Physical therapy may last for4 to 8weeks. It may include: Exercises to improve your neck s range of motion and strength. Evaluation and correction of posture and body movements. This can correct problems that affect your cervical spine. Heat, massage, and traction to help relieve your symptoms. Self-care You ll take an active role in your own therapy. To protect your neck from further injury: Follow any exercise program given to you by your healthcare provideror physical therap ist. Practice good posture while sitting, standing, or moving. Have your workspace evaluated. Rearrange it if needed. When lying down, support your neck. You can use a special cervical pillow or rolled-up t owel. Date Last Reviewed: 02/22/201819990475-5531 [employer] [address] [place] [address]. All righ ts reserved. This information is not intended as a substitute for professional medical care. Always follow your healthcare professional's instructions. documented in this encounter Progress Notes Janay Javier CC CMA - 01/22/2020 2:00 PM PDTAfter obtaining consent, and per orders of Barak Walters NP , injection of Toradol 60 mg was given by MAR Gonzalez CMA. Patient tolerated well with no difficulties. Patient instructed to report any adverse r eaction to me immediately. Total Vial Size: 2 ml Amount Wasted: none Expiration Date: 09/24/21 Diagnosis: back pain Patient's own med: no Injection education declined by patient. MAR Gonzalez CMA pangler[place]ash[place], RAIL TECHNICIAN - 01/22/2020 2:00 PM PDT . Patient: Koki Raza Medical Record: [id number] Date of Services: 01/22/2020 Referring Doctor: Galen Portillo MD Chief Complaint: Seizures, chronic neck and back pain, headaches History of Present Illness: The patient presents to the Neurology Clinic today for follow u p. The patient has a longstanding history of seizures, complex partial with secondary generali zation. The patient has been taking Keppra 500 mg twice a day. She is unaware of any break through seizures at this time. The patient does report that she works nights in the [employer] but reports that she is getting adequate rest. She reports that she will feel a "niki y feeling" and will become confused. When this happens she will take another Keppra and her symptoms resolved. She reports that this has been happening several times per week. The patient also has a history of chronic neck and low back pain due to degenerative spine disease. Patient did have x-rays of the cervical region done in February 2019. These x-rays lance wed no acute process. She does have a prior C5-C7 anterior fusion. The patient reports zaria t she did fall recently and injured her neck again. She reports that she has been working w ith her primary care provider to manage the symptoms. She has been getting physical therapy in the near future. The patient also has a history of migraine headaches. The patient takes gabapentin 600 mg 3 times daily and duloxetine for headache prophylaxis. The patient reports that her headach es have improved significantly since her last visit and are no longer bothersome to her. Irineo rivas reports that when she does rarely get a headache it responds well to sumatriptan. Encounter Problem List Complex partial seizures with consciousness impaired (HCC) Overview: Seizures, complex partial with secondary generalization 04/12/17: Currently on Keppra 500 mg BID. She has been seizure free x 3 year. Orders: - levETIRAcetam (KEPPRA) 750 MG tablet; Take 1 tablet by mouth 2 times daily. Dispense : 60 tablet; Refill: 11 - CBC no Differential; Future - Comprehensive Metabolic Panel - Levetiracetam Level; Future Chronic neck and back pain Overview: Current Treatment: PT/OT in [facility] in [place] 03/07/19 Cervical XR:No acute process.Prior C5-C7 anterior posterior fusion.Age-indeterm inate T5 compression. Orders: - ketorolac (TORADOL) injection 60 mg Migraine with aura and without status migrainosus, not intractable Overview: Current Treatment: sumatriptan, gabapentin, Cymbalta History reviewed. No pertinent surgical history. Allergies Allergen Reactions Prochlorperazine Other (See Comments), Anxiety and Hallucination Ciprofloxacin Other (See Comments) Angry Peanut Butter Photosensitivity Adhesive & Tape Rash diclofenac docusate sodium DULoxetine gabapentin levETIRAcetam levothyroxine lidocaine losartan ondansetron ondansetron SUMAtriptan tiZANidine VENTOLIN HFA ketorolac, 60 mg, Intramuscular, Once Review of Symptoms: CONSTITUTIONAL: No weight loss, fever, chills, weakness or fatigue. HEENT: Eyes: No visual loss, blurred vision, double vision or yellow sclerae. Ears, Nose, Throat: No hearing loss, sneezing, congestion, runny nose or sore throat. SKIN: No rash or itching. CARDIOVASCULAR: No chest pain, chest pressure or chest discomfort. No palpitations or edema . RESPIRATORY: No shortness of breath, cough or sputum. GASTROINTESTINAL: No anorexia, nausea, vomiting or diarrhea. No abdominal pain or blood. GENITOURINARY: No burning on urination. NEUROLOGICAL: No headache, dizziness, syncope, paralysis, ataxia, numbness or tingling in t he extremities. No change in bowel or bladder control. + History of seizures MUSCULOSKELETAL: No muscle, joint pain or stiffness. + Chronic neck and back pain PSYCHIATRIC: No depression or anxiety. Neurological Examination: Vitals: 01/22/20 1406 BP: (!) 122/92 Pulse: 86 Resp: 16 Temp: 36.9 C (98.5 F) PainSc: 8 PainLoc: Rib Cage General Appearance: The patient is alert and in no acute distress. Mental status: The patient is alert, attentive, and oriented. Speech is clear and fluent with good repetit ion, comprehension, and naming. Cranial nerves: CN II: Visual basurto are full to confrontation. Fundoscopic exam is normal with sharp discs and no vascular changes. Pupils are 4 mm and briskly reactive to light with accomodation. CN III, IV, : Gaze in conjugate. No blurred or double vision. No visual field cuts. EOM intact. CN V: Facial sensation is intact. CN VII: Face is symmetric with normal eye closure and smile. CN VII: Hearing is normal to rubbing fingers CN IX, X: Palate elevates symmetrically. Phonation is normal. CN XI: Head turning and shoulder shrug are intact CN XII: Tongue is midline with normal movements and no atrophy. Motor: There is no pronator drift of out-stretched arms. Muscle bulk and tone are normal. Strength is 5/5 bilaterally. Guarded due to pain. Reflexes: Reflexes are trace to absent throughout. Sensory: Light touch, pinprick, position sense, and vibration sense are intact in fingers and toes. Coordination: Rapid alternating movements and fine finger movements are intact. There is no dysmetria on qvkwzu-ju-ffns and vhjz-icmo-onuj. There are no abnormal or extraneous movements. Romberg is absent. Gait/Stance: Posture is normal. Gait is steady with normal steps, base, arm swing, and turning. Heel and toe walking with mild difficulty. Clinical Impression: ICD-10-CM ICD-9-CM 1. Complex partial seizures with consciousness impaired (HCC) G40.209 345.40 levETIRAcetam (KEPPRA) 750 MG tablet CBC no Differential Comprehensive Metabolic Panel Levetiracetam Level 2. Chronic neck and back pain M54.2 723.1 ketorolac (TORADOL) injection 60 mg M54.9 724.5 G89.29 338.29 3. Migraine with aura and without status migrainosus, not intractable G43.109 346.00 Plan: Chronic neck and back pain: The patient should begin physical therapy as previously planned with her PCP for chronic pain symptoms. Toradol 60 mg IM administered in clinic today for an acute flare of her chronic pain. The patient was instructed not to take any additional N SAIDs including her prescribed diclofenac for 24 hours. Seizure disorder: Increase dose of Keppra to 750 mg twice daily due to the need to take 1/3 tablet of Keppra daily several times per week for worsening confusion which resolves after taking additional dose of Keppra. Labs including CBC, CMP and Keppra level to be done today . We discussed that [place] law states that the patient should not drive until episode free for 3 months. She should not drive, operate heavy machinery, swim, climb heights, etc. She should not do any acitvity where She could harm themself or others if She were to have an e vent. Once your medical team has determined that your seizures are well controlled, you can resume your normal activity. Migraine headaches: Continue taking gabapentin and duloxetine for headache prophylaxis. Ens ure proper headache hygiene. This includes: ? Avoiding skipping meals or foods that may trigger a headache for you. ? Ensure adequate sleep (6-8 hours per night). Avoid changes in sleeping pattern such as o chaya sleeping, napping, or sleep deprivation. ? Manage stressors at home, work and with your family/friends that can contribute to headac he development. ? Avoid environmental triggers such as pollution, bright light, or extreme temperature frances ges. ? Ensure adequate hydration. ? Exercise regularly. For example, aerobic exercise for at least 30 minutes three times a w emmonak will help reduce frequency or severity of migraine. ? Avoid alcohol and caffeine. Follow-up in 3-4 months and next available with Dr. Hammond. ROXIE Rodriguez Electronically signed This note was transcribed using voice recognition software. There may be speech recognitio n errors which escaped detection during review. documented in thi s encounter Plan of Treatment +--------+---------+ + + + | Date | Type | Specialty | Care Team | Description | +--------+---------+ + + + | 05/14/ | Office | Neurology | [place], | | 2019 | Visit | | [address] | | | | | | [address] [facility], | | | | | | [place] [address] | | | | | | [phone] | | | | | | | | +--------+---------+ + + + | 01/21/ | Office | Neurology | Brock Hammond MD | | | 2020 | Visit | | [address] | | | | | | [place] | | | | | | [address] | | | | | | | | +--------+---------+ + + + documented as of this encounter Procedures + +--------+ + + + | Procedure Name | Priori | Date/Time | Associated Diagnosis | Comments | | | ty | | | | + +--------+ + + + | COMPREHENSIVE | Routin | 01/22/2020 | Complex partial | Results for this | | METABOLIC PANEL | e | 2:55 PM | seizures with | procedure are in the | | | | PDT | consciousness | results section. | | | | | impaired (HCC) | | + +--------+ + + + documented in this encounter Results Levetiracetam Level (01/22/2020 2:55 PM PDT) + + + + + + | Component | Value | Ref Range | Performed | Pathologist | | | | | At | Signature | + + + + + + | LEVETIRACET | 13.1Comment: Toxic | 12.0 - 46.0 | REFERENCE | | | AM | level is not well | mcg/mL | [facility] | | | | established. | | [facility] | | | | Interpretation should | | - JEAN | | | | include a clinical | | CRAIG | | | | evaluation. For | | | | | | additional information, | | | | | | please refer to | | | | | | [email or web address].[employer] | | | | | | [employer]/faq/XRS123 | | | | | | (This link is being | | | | | | provided for | | | | | | informational/educationa | | | | | | l purposes only.) This | | | | | | test was developed and | | | | | | its analytical | | | | | | performance | | | | | | characteristics have | | | | | | been determined by [facility] | | | | | | [facility] | | | | | | [facility] | | | | | [place]. It has not | | | | | | been cleared or approved | | | | | | by the USFood and Drug | | | | | | Administration. This | | | | | | assay has been validated | | | | | | pursuant to the CLIA | | | | | | regulations and is used | | | | | | for clinical purposes. | | | | | | @ Test Performed By: | | | | | | [facility] | | | | | | Jean Harrison Hathaway | | | | | | Lee Eng M.D., | | | | | | Ph.D., Laboratory | | | | | | Director [id number] | | | | | | [facility] | | | | | | [place] [address] | | | | | | CLIA #[id number] | | | | + + + + + + + + | Specimen | + + | Blood | + + + + + + + | Performing | Address | City/State/Zipcode | Phone Number | | Organization | | | | + + + + + | REFERENCE LAB | [address] | [place], [place] | | | [facility] - | | [address] | | | MIRANDA CRAIG | | | | + + + + + Comprehensive Metabolic Panel (01/22/2020 2:55 PM PDT) + + + + + + | Component | Value | Ref Range | Performed | Pathologist | | | | | At | Signature | + + + + + + | Na | 144 (H) | 132 - 143 | [facility] | | | | | mmol/L | [facility] | | | | | | [facility] | | + + + + + + | K | 3.6 | 3.3 - 4.9 | [facility] | | | | | mmol/L | [facility] | | | | | | [facility] | | + + + + + + | Cl | 106 | 95 - 108 mmol/L | [facility] | | | | | | [facility] | | | | | | [facility] | | + + + + + + | CO2 | 29 | 23 - 34 mmol/L | [facility] | | | | | | [facility] | | | | | | [facility] | | + + + + + + | Anion Gap | 9 | 7 - 16 mmol/L | [facility] | | | | | | [facility] | | | | | | [facility] | | + + + + + + | Glucose | 116 (H) | 70 - 110 mg/dL | [facility] | | | | | | [facility] | | | | | | [facility] | | + + + + + + | BUN | 12 | 5 - 26 mg/dL | [facility] | | | | | | [facility] | | | | | | [facility] | | + + + + + + | Creatinine | 0.85 | 0.60 - 1.30 | [facility] | | | | | mg/dL | [facility] | | | | | | [facility] | | + + + + + + | eGFR if not | >60Comment: GLOMERULAR | >=60 | [facility] | | | | FILTRATION | mL/min/1.73m2 | [facility] | | | [facility] | RATE,ESTIMATED | | [facility]OS[facility]ITAL | | | | mL/min/1.27c9Ziqv than | | LABORATORY | | | | 60 Chronic kidney | | | | | | disease,if found over a | | | | | | 3-month period.Less than | | | | | | 15 Kidney failureFor | | | | | | | | | | | | Americans,multiply the | | | | | | calculated GFR by 1.21. | | | | | | | | | | + + + + + + | Calcium | 8.6 | 8.3 - 10.0 | [facility] | | | | | mg/dL | [facility] | | | | | | [facility] | | + + + + + + | Albumin | 3.8 | 3.0 - 4.5 g/dL | [facility] | | | | | | [facility] | | | | | | [facility] | | + + + + + + | Bilirubin | 0.3 | 0.0 - 1.2 mg/dL | [facility] | | | Total | | | [facility] | | | | | | [facility] | | + + + + + + | Total | 7.1 | 6.6 - 8.5 g/dL | [facility] | | | Protein | | | [facility] | | | | | | [facility] | | + + + + + + | AST | 21 | 0 - 38 U/L | [facility] | | | | | | [facility] | | | | | | [facility] | | + + + + + + | ALT | 38 | 14 - 59 U/L | [facility] | | | | | | [facility] | | | | | | [facility] | | + + + + + + | Alkaline | 109 | 46 - 116 U/L | [facility] | | | Phosphatase | | | [facility] | | | | | | [facility] | | + + + + + + | Globulin | 3.3 | 2.4 - 4.5 g/dL | [facility] | | | | | | [facility] | | | | | | [facility] | | + + + + + + | Albumin/Paige | 1.2 | 0.8 - 2.0 | [facility] | | | bulin Ratio | | | [facility] | | | | | | [facility] | | + + + + + + | BUN/Creatin | 14.1 | 7.0 - 24.0 | [facility] | | | ine Ratio | | | [facility] | | | | | | [facility] | | + + + + + + + + | Specimen | + + | Blood | + + + + + + + | Performing | Address | City/State/Zipcode | Phone Number | | Organization | | | | + + + + + | [facility] | [address] | [place] | [phone] | | [facility] | | [address] | | + + + + + CBC no Differential (01/22/2020 2:55 PM PDT) + + + + + + | Component | Value | Ref Range | Performed | Pathologist | | | | | At | Signature | + + + + + + | White Blood | 5.9 | 4.3 - 10.4 K/uL | [facility] | | | Cells | | | [facility] | | | | | | [facility] | | + + + + + + | Red Blood | 3.88 (L) | 4.12 - 5.30 | [facility] | | | Cells | | M/uL | [facility] | | | | | | HOSPITAL | | | | | | LABORATORY | | + + + + + + | Hemoglobin | 12.0 (L) | 12.4 - 15.7 | [facility] | | | | | g/dL | [facility] | | | | | | LABORATORY | | + + + + + + | Hematocrit | 35.3 (L) | 37.7 - 47.0 % | [facility] | | | | | | [facility] | | | | | | LABORATORY | | + + + + + + | MCV | 91.0 | 82.0 - 97.0 fL | [facility] | | | | | [facility] | | | | | | LABORATORY | | + + + + + + | MCH | 30.9 | 27.1 - 32.3 pg | [facility] | | | | | | [facility] | | | | | | LABORATORY | | + + + + + + | MCHC | 34.0 | 32.0 - 36.9 | [facility] | | | | | g/dL | [facility] | | | | | | LABORATORY | | + + + + + + | RDW-CV | 12.4 | 0.0 - 17.0 % | [facility] | | | | | | [facility] | | | | | | LABORATORY | | + + + + + + | Platelet | 260 | 150 - 450 K/uL | [facility] | | | Count | | | [facility] | [facility] | | | | | | LABORATORY | | + + + + + + | MPV | 10.5 | 9.4 - 12.3 fL | [facility] | | | | | | [facility] | | | | | | LABORATORY | | + + + + + + + + | Specimen | + + | Blood | + + + + + + + | Performing | Address | City/State/Zipcode | Phone Number | | Organization | | | | + + + + + | [facility] | [address] | [place] | [phone] | | [facility]OSP[facility] LAB[facility]ATORY | | [address] | | + + + + + documented in this encounter Visit Diagnoses + + | Diagnosis | + + | 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, | | without mention of intractable epilepsy | + + | Chronic neck and back pain | + + | Migraine with aura and without status migrainosus, not intractable Migraine with | | aura, without mention of intractable migraine without mention of status migrainosus | + + documented in this encounter Administered Medications + +--------+ +-------+------+ + | Medication Order | MAR | Action | Dose | Rate | Site | | | Action | Date | | | | + +--------+ +-------+------+ + | ketorolac (TORADOL) injection | Given | 01/22/20 | 60 mg | | Glut-Rig | | 60 mg 60 mg, Intramuscular, | | 20 2:53 | | | ht | | ONCE, 01/22/20 at 1445, For 1 | | PM PDT | | | | | dose | | | | | | + +--------+ +-------+------+ + +---+---+ | | | +---+---+ documented in this encounter
--- OUTSIDE RECORDS SUMMARY | ~2020-05-02 | XMS | Encounter Summary ---
Demographics + + + | Address | [address] | | | [address] | | | [place] [address] | + + + | Home Phone | | + + + | Preferred Language | Unknown | + + + | Marital Status | Single | + + + | Mormon Affiliation | 1009 | + + + | Race | Unknown | + + + | Ethnic Group | Unknown | + + + Author + + + | Author | [facility] | | | and Danielana | + + + | Organization | [facility] | | | and [...] | | | | | [place] [address] | | + + + + + | Allegra Raza | ECON | Unknown | | + + + + + | Emily Fuller | ECON | Unknown | | + + + + + Care Team Providers + +------+ + | Care Critical Care Cns Name | Role | Phone | + +------+ + PCP | Unavailable | + +------+ + Encounter Details +--------+ + + + + | Date | Type | Department | Care Team | Description | +--------+ + + + + | 01/05/ | Hospital | [facility] | Mar Suarez | | | 2017 | Encounter | [facility] | [address] | | | | | W[facility] [address] | [facility], | | | | | [address] [facility], | [place] [address] | | | | | [place] [address] | [phone] | | | | | [phone] | | | +--------+ + + + [...] | | | | | | [place] [address] | | | | | | [phone] | | | | | | | | +--------+---------+ + + + | 01/21/ | Office | Neurology | Brock Hammond MD | | | 2020 | Visit | | [address] | | | | | | [place] | | | | | | [address] | | | | | | | | +--------+---------+ + + + documented as of this encounter Visit Diagnoses Not on filedocumented in this encounter"
--- OUTSIDE RECORDS SUMMARY | ~2020-05-02 | XMS | Encounter Summary ---
Demographics + + + | Address | [address] | | | [address] | | | [place] [address] | + + + | Home Phone [...] + + + | Author | [facility] | | | and Danielana | + + + | Organization | [facility] | | | [...] | | | | | [place] [address] | | + + + + + | Allegra Raza | ECON | Unknown | | + + + + + | Emily Fuller | ECON | Unknown | | + + + + + Care Team Providers + +------+ + | Care Liquor Gallery Operator Name | Role | Phone | [...] Description | +--------+--------+ + + + | 06/29/ | Refill | [facility] | Lamonte Akins | Medication Refill | | 2017 | | [facility] | Goins, EARLY CHILDHOOD TEACHER ASSISTANT [address] | | | | | CL[address] | [address] [place], [place] | | | | | [address] [place] [place], | [address] | | | | | [place] [address] | | | | | | [phone] | | | +--------+--------+ + + + [...] Telephone Encounter - Kristen Rodriguez RN - 06/29/2018 11:39 AM PDTLast filled 03/03/18, last seen 04/12/17 /ELOINA Jones P DTdocumented in this encounter Plan of Treatment +--------+---------+ + + + | Date | Type | Specialty | Care Team | Description | +--------+---------+ + + + | 05/14/ | Office | Neurology | Romeo, | | | 2019 | Visit | | [address] | | | | | | [address] [place], | | | | | | [place] [address] | | | | | | [phone] | | | | | | | | +--------+---------+ + + + | 01/21/ | Office | Neurology | Brock Hammond MD | | | 2020 | Visit | | [address] | | | | | | [place] | | | | | | [address] | | | | | | | | +--------+---------+ + + + documented as of this encounter Visit Diagnoses Not on filedocumented in this encounter"
--- OUTSIDE RECORDS SUMMARY | ~2020-05-02 | XMS | Encounter Summary ---
Demographics + + + | Address | [address] | | | [address] | | | [place] [address] | + + + | Home Phone | | + + + | Preferred Language | Unknown | + + + | Marital Status | Single | + + + | Hindu Affiliation | 1009 | + + + | Race | Unknown | + + + | Ethnic Group | Unknown | + + + Author + + + | Author | [facility] | | | and Danielana | + + + | Organization | [facility] | | | and [...] | | | | | [place] [address] | | + + + + + | Allegra Raza | ECON | Unknown | | + + + + + | Emily Fuller | ECON | Unknown | | + + + + + Care Team Providers + +------+ + | Care Dump Motorman Name | Role | Phone | + +------+ + PCP | Unavailable | + +------+ + Encounter Details +--------+ + + + + | Date | Type | Department | Care Team | Description | +--------+ + + + + | 12/03/ | Hospital | [facility] | Emmanuelle Frank | | | 2010 | Encounter | HOSPITAL DIETARY | Sandra Alvarez MD [address] | | | | | [address] [place] | [facility], | | | | | [facility] [place] | [place] [address] | | | | | [address] | [phone] | | | | | [phone] | | | +--------+ + + + [...] | | | | | | [place] [address] | | | | | | [phone] | | | | | | | | +--------+---------+ + + + | 01/21/ | Office | Neurology | Brock Hammond MD | | | 2020 | Visit | | [address] | | | | | | [place] | | | | | | [address] | | | | | | | | +--------+---------+ + + + documented as of this encounter Visit Diagnoses Not on filedocumented in this encounter"
--- OUTSIDE RECORDS SUMMARY | ~2020-05-02 | XMS | Encounter Summary ---
Demographics + + + | Address | [address] | | | [address] | | | [place] [address] | + + + | Home Phone [...] | | | | | [place] [address] | | + + + + + | Allegra Raza | ECON | Unknown | | + + + + + | Emily Fuller | ECON | Unknown | | + + + + + Care Team Providers + +------+ + | Care In Mold Coater Name | Role | Phone | + +------+ + PCP | Unavailable | + +------+ + Encounter Details +--------+ + + + + | Date | Type | Department | Care Team | Description | +--------+ + + + + | 08/21/ | Hospital | [facility] | Emmanuelle Frank | | | 2009 | Encounter | HOSPITAL LABORATORY | Sandra Alvarez MD [address] | | | | | [address] [place] | [facility], | | | | | [facility], [place] | [place] [address] | | | | | [address] | [phone] | | | | | [phone] | | | +--------+ + + + [...] | | | | | | [place] [address] | | | | | | [phone] | | | | | | | | +--------+---------+ + + + | 01/21/ | Office | Neurology | Brock Hammond MD | | | 2020 | Visit | | [address] | | | | | | [place] | | | | | | [address] | | | | | | | | +--------+---------+ + + + documented as of this encounter Visit Diagnoses Not on filedocumented in this encounter"
--- OUTSIDE RECORDS SUMMARY | ~2020-05-02 | XMS | Encounter Summary ---
Demographics + + + | Address | [address] | | | [address] | | | [place] [address] | + + + | Home Phone [...] | | | | | [place] [address] | | + + + + + | Allegra Raza | ECON | Unknown | | + + + + + | Emily Fuller | ECON | Unknown | | + + + + + Care Team Providers + +------+ + | Care Services Advisor Name | Role | Phone | + +------+ + PCP | Unavailable | + +------+ + Encounter Details +--------+ + + + + | Date | Type | Department | Care Team | Description | +--------+ + + + + | 02/25/ | Hospital | [facility] | Brock Fenton MD | | | 2009 | Encounter | HOSPITAL RESPIRATORY | [address] | | | | | THERAPY [address] | [place] | | | | | [place] | [id number] | | | | | [address] | | | | | | [phone] | | | +--------+ + + + [...] + + documented as of this encounter Progress Notes Brock Fenton MD - 02/25/2010 12:24 PM PDTDictating Physician: Brock Fenton MD ELECTROENCEPHALOGRAM Date of Service:February 25, 2010 INTRODUCTION: This is a digital 24 hour ambulatory EEG recording of a 45-year-old female with a history of seizure disorder. This study was performed to ascertain the nature of the above. This study utilized 20 channels of EEG derived from 21 scalp electrodes placed over the frontal, temporal, parietal, occipital, and central regions. The international 10-20 system electrode placement was used. The recording was started at 2:53 p.m. on 02/25/2010 and ended at 10:45 a.m. on 02/26/2010 for a total recording duration of approximately 21 hours. RESULTS: The study was reviewed using the Gaikai digital system. During the wakeful portion of the recording, a normal background pattern consisting of 8 to 9 Hz was noted. The patient went to bed at approximately 12 o'clock a.m. and woke up at approximately 9 o'clock a.m. on 02/26/2010. ABNORMAL POTENTIALS: There were occasional spike and slow pattern noted in the frontal temporal regions bilaterally occurring about once every 4-5 hours. These bursts of spike and slow pattern were not noted during sleep. PUSH BUTTON VOICE ENTRY EVENTS: There were none. IMPRESSION: Abnormal ambulatory EEG study. There was electrographic evidence of seizure disorder during the 21 hour duration of the study. Authenticated and Edited by Brock Fenton MD On 03/17/10 8:40:31 AM [facility] Signed and Approved by: BROCK FENTON MD 03/17/2010 08:40:00 documented in this enc ounter Plan of Treatment +--------+---------+ + + + | Date | Type | Specialty | Care Team | Description | +--------+---------+ + + + | 05/14/ | Office | Neurology | Romeo, | | | 2019 | Visit | | [address] | | | | | | [address] [place] | | | | | | [place] [address] | | | | | | [phone] | | | | | | | | +--------+---------+ + + + | 01/21/ | Office | Neurology | Brock Fenton MD | | | 2020 | Visit | | [address] | | | | | | [place] | | | | | | [address] | | | | | | | | +--------+---------+ + + + documented as of this encounter Visit Diagnoses Not on filedocumented in this encounter"
--- OUTSIDE RECORDS SUMMARY | ~2020-05-02 | XMS | Encounter Summary ---
Demographics + + + | Address | [address] | | | [address] | | | [place] [address] | + + + | Home Phone [...] | | | | | [place] [address] | | + + + + + | Allegra Raza | ECON | Unknown | | + + + + + | Emily Fuller | ECON | Unknown | | + + + + + Care Team Providers + +------+ + | Care Sledger Name | Role | Phone | + +------+ + PCP | Unavailable | + +------+ + Encounter Details +--------+ + + + + | Date | Type | Department | Care Team | Description | +--------+ + + + + | 11/28/ | Hospital | [facility] | Brock Hammond MD | | | 2009 | Encounter | H[facility]PITAL REG[facility] | [address] | | | | | [facility] [address] | [place], [place] | | | | | [address]TH [facility], | [address] | | | | | [place] [address] | | | | | | [phone] | | | +--------+ + + + [...] | | | | | | [place] [address] | | | | | | [phone] | | | | | | | | +--------+---------+ + + + | 01/21/ | Office | Neurology | Brock Hammond MD | | | 2020 | Visit | | [address] | | | | | | [place], [place] | | | | | | [address] | | | | | | | | +--------+---------+ + + + documented as of this encounter Visit Diagnoses Not on filedocumented in this encounter"
--- OUTSIDE RECORDS SUMMARY | ~2020-05-02 | XMS | Encounter Summary ---
Demographics + + + | Address | [address] | | | [address] | | | [place] [address] | + + + | Home Phone | | + + + | Preferred Language | Unknown | + + + | Marital Status | Single | + + + | Gnosticism Affiliation | 1009 | + + + [...] | | | | | [place] [address] | | + + + + + | Allegra Raza | ECON | Unknown | | + + + + + | Emily Fuller | ECON | Unknown | | + + + + + Care Team Providers + +------+ + | Care Mechanical Manufacturing Technician Name | Role | Phone | [...] Description | +--------+--------+ + + + | 02/04/ | Refill | [facility] | Brock Hammond MD | Medication Refill | | 2019 | | HOSPITAL NEUROLOGY | [address] | | | | | CLIN[address] | [place] | | | | | [address] [place], | [address] | | | | | [place] [address] | | | | | | [phone] | | | +--------+--------+ + + + [...] Encounter - Zenon Garcia CC CMA - 02/04/2019 1:56 PM PDTLast filled: 12/05 Last seen: 04/12/17; Pt cancelled appts in February 2018, and January 2019. Pt has not been seen f or over a year. Would you like to still fill? Pt has upcoming appt in February. Next appt: 03/07/19 Zenon Garcia CMA documented in t his [...] | | | | | | [place] [address] | | | | | | [phone] | | | | | | | | +--------+---------+ + + + | 01/21/ | Office | Neurology | Brock Hammond MD | | | 2020 | Visit | | [address] | | | | | | [place] | | | | | | [address] | | | | | | | | +--------+---------+ + + + documented as of this encounter Visit Diagnoses Not on filedocumented in this encounter"
--- OUTSIDE RECORDS SUMMARY | ~2020-05-02 | XMS | Encounter Summary ---
Demographics + + + | Address | [address] | | | [address] | | | [place] [address] | + + + | Home Phone | | + + + | Preferred Language | Unknown | + + + | Marital Status | Single | + + + | Sabianism Affiliation | 1009 | + + + | Race | Unknown | + + + | Ethnic Group | Unknown | + + + Author + + + | Author | [facility] | | | and Danielana | + + + | Organization | [facility] | | [...] | | | | | [place] [address] | | + + + + + | Allegra Raza | ECON | Unknown | | + + + + + | Emily Fuller | ECON | Unknown | | + + + + + Care Team Providers + +------+ + | Care Oven Operator Automatic Name | Role | Phone | + [...] Description | +--------+--------+ + + + | 05/31/ | Refill | [facility] | Brock Hammond MD | Medication Refill | | 2017 | | HOSPITAL NEUROLOGY | [address] | | | | | CLIN[address] | [place] | | | | | [address] [place], | [address] | | | | | [place] [address] | | | | | | [phone] | | | +--------+--------+ + + + [...] this encounter Miscellaneous Notes Telephone Encounter - Eve Newman - 05/31/2018 4:09 PM PDTPatient scheduled for f/up i n Janett homar/ Manish elephone En counter - Jg Seo RN - 05/31/2018 12:00 PM PDTLast seen: March 2017 Last refill: 02/18/18 Isis - please call patient to schedule her yearly follow up with neuro. She was last seen 04/12/[address] Hammond for seizures. 1 2:05 PM PDTdocumented in this encounter Plan of [...] | | | | | | [place] [address] | | | | | | [phone] | | | | | | | [...]
--- OUTSIDE RECORDS SUMMARY | ~2020-05-02 | XMS | Encounter Summary ---
Demographics + + + | Address | [address] | | | [address] | | | [place] [address] | + + + | Home Phone [...] + + + | Author | [facility] | | | and Danielana | + + + | Organization | [facility] | | [...] | | | | | [place] [address] | | + + + + + | Allegra Raza | ECON | Unknown | | + + + + + | Emily Fuller | ECON | Unknown | | + + + + + Care Team Providers + +------+ + | Care Rn Telephonic Name | Role | Phone | + [...] Description | +--------+--------+ + + + | 04/26/ | Refill | [facility] | Aisha Carrington, | Medication Refill | | 2020 | | [facility] | DO [address] [place] | | | | | CLIN[address] | [place] [address] | | | | | [address] [place], | [phone] | | | | | [place] [address] | | | | | | [phone] | | | +--------+--------+ + + + [...] Encounter - Florencia Randolph CC CMA - 04/30/2020 5:47 PM PDTPatient notified via Online Agility message. P M PDTTelephone Encounter - Regis Carlson DO - 04/29/2020 10:48 PM PDTPlease contact this pat ient and let her know she needs to contact her PCP's office ([place]) for this refill.Elec tronically signed by Regis Carlson DO at 04/29/2020 10:48 PM PDTTelephone Encounter - Florencia Randolph CC [facility] - 04/29/2020 12:05 PM PDT Requested Prescriptions Pending Prescriptions Disp [...] | | | | | | [place] [address] | | | | | | [phone] | | | | | | | | +--------+---------+ + + + | 01/21/ | Office | Neurology | Brock Hammond MD | | | 2020 | Visit | | [address] | | | | | | [place] | | | | | | [address] | | | | | | | | +--------+---------+ + + + documented as of this encounter Visit Diagnoses Not on filedocumented in this encounter"
--- OUTSIDE RECORDS SUMMARY | ~2020-05-02 | XMS | Encounter Summary ---
Demographics + + + | Address | [address] | | | [address] | | | [place] [address] | + + + | Home Phone [...] | | | | | [place] [address] | | + + + + + | Allegra Raza | ECON | Unknown | | + + + + + | Emily Fuller | ECON | Unknown | | + + + + + Care Team Providers + +------+ + | Care Irrigation Pump Installer Name | Role | Phone | + +------+ + PCP | Unavailable | + +------+ + Encounter Details +--------+ + + + + | Date | Type | Department | Care Team | Description | +--------+ + + + + | 02/28/ | Hospital | [facility] | Brock Fenton MD | | | 2012 | Encounter | HOSPITAL XRAY 900 | [address] | | | | | [address] | [place] | | | | | [place] | [address] | | | | | [address] | | | | | | [phone] | | | +--------+ + + + [...] of this encounter Progress Notes Brock Fenton - 02/28/2013 12:23 PM [facility] Dictating Practitioner: BROCK FENTON MD Patient Name: KOKI RAZA Patient Date of : 1965 Visit Number: [id number] ELECTROENCEPHALOGRAM Date of Service:02/28/2013 Ms. Raza was a 48-year-old young lady with a significant history of seizures complex partial with secondary generalization. The background rhythm consists of 7 to 8 Hz of moderate to high voltage activity consisting mostly of Theta rhythms seen posteriorly. There were a fair amount of muscle and eye movement artifact noted throughout the whole EEG. There were occasional intermittent spikes noted bilateral parietotemporal region becoming diffuse occurring intermittently. Photic stimulation was performed showing an adequate photic driving response. CLINICAL IMPRESSION: Abnormal EEG. Mild bilateral diffuse cerebral dysfunction. There were occasional spike and slow wave pattern noted in the bilateral parietotemporal regions suggestive of epileptiform discharges. Clinical correlation indicated. [id number] / [id number] Dictation Date/Time: March 02, 2013 07:22AM Dental Amalgam Processor Date/Time: March 03, 2013 02:04PM Authenticated and Edited by Brock Fenton MD On 03/04/13 9:44:26 AM [facility] Signed and Approved by: BROCK FENTON MD 03/04/2013 09:44:00 [facility] Plan of Treatment +--------+---------+ + + + | Date | Type | Specialty | Care Team | Description | +--------+---------+ + + + | 05/14/ | Office | Neurology | Romeo, | | | 2019 | Visit | | [address] | | | | | [address] [place], | | | | | | [place] [address] | | | | | | [phone] | | | | | | | [...]
--- OUTSIDE RECORDS SUMMARY | ~2020-05-02 | XMS | Encounter Summary ---
Demographics + + + | Address | [address] | | | [address] | | | [place] [address] | + + + | Home Phone | | + + + | Preferred Language | Unknown | + + + | Marital Status | Single | + + + | Hoahaoism Affiliation | 1009 | + + + [...] [address] | | | | | [place] [address] | | + + + + + | Allegra Raza | ECON | Unknown | | + + + + + | Emily Fuller | ECON | Unknown | | + + + + + Care Team Providers + +------+ + | Care Content Developer Name | Role | Phone | [...] 12/21/ | Refill | [facility] | Tahsia Horton, | Medication Refill | | 2017 | | [facility] | BRANCH OPERATIONS MANAGER-HOTEL OPERATION MANAGER [address] | | | | | CL[address] | [facility] | | | | | [address] [place], | [place] [address] | | | | | [place] [address] | [phone] | | | | | [phone] | | | +--------+--------+ + + + [...] | | | | | | [place] [address] | | | | | | [phone] | | | | | | | | +--------+---------+ + + + | 01/21/ | Office | Neurology | Brock Hammond MD | | | 2020 | Visit | | [address] | | | | | | [place] | | | | | | [address] | | | | | | | | +--------+---------+ + + + documented as of this encounter Visit Diagnoses Not on filedocumented in this encounter"
--- OUTSIDE RECORDS SUMMARY | ~2020-05-02 | XMS | Encounter Summary ---
Demographics + + + | Address | [address] | | | [address] | | | [place] [address] | + + + | Home Phone | | + + + | Preferred Language | Unknown | + + + | Marital Status | Single | + + + | Christianity Affiliation | 1009 | + + + | Race | Unknown | + + + | Ethnic Group | Unknown | + + + Author + + + | Author | [facility] | | | and Danielana | + + + | Organization | [facility] | | [...] | | | | | [place] [address] | | + + + + + | Allegra Raza | ECON | Unknown | | + + + + + | Emily Fuller | ECON | Unknown | | + + + + + Care Team Providers + +------+ + | Care Certified Composites Technician Name | Role | Phone | + +------+ + PCP | Unavailable | + +------+ + Encounter Details +--------+ + + + + | Date | Type | Department | Care Team | Description | +--------+ + + + + | 12/16/ | Hospital | [facility] | Emmanuelle Frank | | | 2010 | Encounter | HOSPITAL RESPIRATORY | Sandra Alvarez MD [address] | | | | | THERAPY [address] | [facility], | | | | | [address] [place], [place] | [place] [address] | | | | | [address] | [phone] | | | | | [phone] | | | +--------+ + + + [...] | | | | | | [place] [address] | | | | | | [phone] | | | | | | | | +--------+---------+ + + + | 01/21/ | Office | Neurology | Brock Hammond MD | | | 2020 | Visit | | [address] | | | | | | [place] | | | | | | [address] | | | | | | | | +--------+---------+ + + + documented as of this encounter Visit Diagnoses Not on filedocumented in this encounter"
--- OUTSIDE RECORDS SUMMARY | ~2020-05-02 | XMS | Encounter Summary ---
Demographics + + + | Address | [address] | | | [address] | | | [place] [address] | + + + | Home Phone | | + + + | Preferred Language | Unknown | + + + | Marital Status | Single | + + + | Rastafarian Affiliation | 1009 | + + + | Race | Unknown | + + + | Ethnic Group | Unknown | + + + Author + + + | Author | [facility] | | | and [place] | + + + | Organization | [facility] | | | and [place] | + + + | Address | Unknown | + + + | Phone | Unavailable | + + + Support + + + + + | Name | Relationship | Address | Phone | + + + + + | Magalys Hurley | ECON | [address] | | | | | [place] [address] | | + + + + + | Allegra Raza | ECON | Unknown | | + + + + + | Emily Fuller | ECON | Unknown | | + + + + + Care Team Providers + +------+ + | Care Tour Director Name | Role | Phone | [...] Description | +--------+--------+ + + + | 07/25/ | Refill | [facility] | Brock Hammond MD | Medication Refill | | 2019 | | HOSPITAL NEUROLOGY | [address] | | | | | CLIN[address] | [place] | | | | | [address] [place], | [address] | | | | | [place] [address] | | | | | | [phone] | | | +--------+--------+ + + + [...] | | | | | | [place] [address] | | | | | | [phone] | | | | | | | | +--------+---------+ + + + | 01/21/ | Office | Neurology | Brock Hammond MD | | | 2020 | Visit | | [address] | | | | | | [place] | | | | | | [id number] | | | | | | | | +--------+---------+ + + + documented as of this encounter Visit Diagnoses Not on filedocumented in this encounter"
--- OUTSIDE RECORDS SUMMARY | ~2020-05-02 | XMS | Encounter Summary ---
Demographics + + + | Address | [address] | | | [address] | | | [place] [address] | + + + | Home Phone [...] | | | | | [place] [address] | | + + + + + | Allegra Raza | ECON | Unknown | | + + + + + | Emily Fuller | ECON | Unknown | | + + + + + Care Team Providers + +------+ + | Care Director Print Name | Role | Phone | + [...] | | | OFFICE [address] | [facility], | | | | | [place], [place] | [place] [address] | | | | | [address] | [phone] | | | | | [phone] | | | +--------+ + + + [...] | | | | | | [place] [address] | | | | | | [phone] | | | | | | | | +--------+---------+ + + + | 01/21/ | Office | Neurology | Brock Hammond MD | | | 2020 | Visit | | [address] | | | | | | [place] | | | | | | [address] | | | | | | | | +--------+---------+ + + + documented as of this encounter Visit Diagnoses Not on filedocumented in this encounter"
--- OUTSIDE RECORDS SUMMARY | ~2020-05-02 | XMS | Encounter Summary ---
Demographics + + + | Address | [address] | | | [address] | | | [place] [address] | + + + | Home Phone | | + + + | Preferred Language | Unknown | + + + | Marital Status | Single | + + + | Mosque Affiliation | 1009 | + + + | Race | Unknown | + + + | Ethnic Group | Unknown | + + + Author + + + | Author | [facility] | | | and [place] | + + + | Organization | [facility] | | | and [...] | | | | | [place] [address] | | + + + + + | Allegra Raza | ECON | Unknown | | + + + + + | Emily Fuller | ECON | Unknown | | + + + + + Care Team Providers + +------+ + | Care Finisher Brush Name | Role | Phone | + +------+ + PCP | Unavailable | + +------+ + Encounter Details +--------+ + + + + | Date | Type | Department | Care Team | Description | +--------+ + + + + | 02/20/ | Hospital | [facility] | Brock Hammond MD | | | 2016 | Encounter | [facility]ITAL [facility] | [address] | | | | | [facility] | [place], [place] | | | | | [address] [facility], | [address] | | | | | [place] [address] | | | | | | [phone] | | | +--------+ + + + [...] | | | | | | [place] [address] | | | | | | [phone] | | | | | | | | +--------+---------+ + + + | 01/21/ | Office | Neurology | Brock Hammond MD | | | 2020 | Visit | | [address] | | | | | | [place], [place] | | | | | | [address] | | | | | | | | +--------+---------+ + + + documented as of this encounter Visit Diagnoses Not on filedocumented in this encounter"
--- OUTSIDE RECORDS SUMMARY | ~2020-05-02 | XMS | Encounter Summary ---
Demographics + + + | Address | [address] | | | [address] | | | [place] [address] | + + + | Home Phone | | + + + | Preferred Language | Unknown | + + + | Marital Status | Single | + + + | Alevism Affiliation | 1009 | + + + | Race | Unknown | + + + | Ethnic Group | Unknown | + + + Author + + + | Author | [facility] | | | and [place] | + + + | Organization | [facility] | | [...] | | | | | [place] [address] | | + + + + + | Allegra Raza | ECON | Unknown | | + + + + + | Emily Fuller | ECON | Unknown | | + + + + + Care Team Providers + +------+ + | Care Rotary Filter Operator Name | Role | Phone | + +------+ + | Luna Cyr | PCP | | + +------+ + Reason for Visit + +--------+ + | Reason | Onset | Comments | | | Date | | + +--------+ + | Medication Question | 03/06/ | | | | 2019 | | + +--------+ + Encounter Details +--------+ + + + + | Date | Type | Department | Care Team | Description | +--------+ + + + + | 03/06/ | Telephone | [facility] | Brock Hammond MD | Medication Question | | 2019 | | HOSPITAL NEUROLOGY | [address] | | | | | CLIN[address] | [place] | | | | | [address] [place], | [address] | | | | | [place] [address] | | | | | | [phone] | | | +--------+ + + + [...] Telephone Encounter - Kristen Rodriguez RN - 03/06/2020 4:14 PM PDTCalled and left message./ ELOINA Jones elephone Enc staceynter - Kristen Rodriguez RN - 03/06/2020 2:17 PM PDTPlease advise/ELOINA Jones elephone Encounter - Donna Garcia - 03/06/2020 1:43 PM PDTThe patient has left her Imitrex at home and is wondering if th ere is something she can buy over the counter? documented in this encounter Plan of Treatment +--------+---------+ + + + | Date | Type | Specialty | Care Team | Description | +--------+---------+ + + + | 05/14/ | Office | Neurology | Romeo, | | | 2019 | Visit | | [address] | | | | | | [address] [place], | | | | | | [place] [address] | | | | | | [phone] | | | | | | | | +--------+---------+ + + + | 01/21/ | Office | Neurology | Brock Hammond MD | | | 2020 | Visit | | [address] | | | | | | [place] | | | | | | [address] | | | | | | | | +--------+---------+ + + + documented as of this encounter Visit Diagnoses Not on filedocumented in this encounter"
--- OUTSIDE RECORDS SUMMARY | ~2020-05-02 | XMS | Encounter Summary ---
Demographics + + + | Address | [address] | | | [address] | | | [place] [address] | + + + | Home Phone [...] | | | | | [place] [address] | | + + + + + | Allegra Raza | ECON | Unknown | | + + + + + | Emily Fuller | ECON | Unknown | | + + + + + Care Team Providers + +------+ + | Care Card Placer Name | Role | Phone | + +------+ + PCP | Unavailable | + +------+ + Encounter Details +--------+ + + + + | Date | Type | Department | Care Team | Description | +--------+ + + + + | 04/15/ | Hospital | [facility] | Emmanuelle Frank | | | 2009 | Encounter | HOSPITAL XRAY 900 | Sandra Alvarez MD [address] | | | | [address] | [facility], | | | | | [facility], [place] | [place] [address] | | | | | [address] | [phone] | | | | | [phone] | | | +--------+ + + + [...] | | | | | | [place] [address] | | | | | | [phone] | | | | | | | | +--------+---------+ + + + | 01/21/ | Office | Neurology | Brock Hammond MD | | | 2020 | Visit | | [address] | | | | | | [place] | | | | | | [address] | | | | | | | | +--------+---------+ + + + documented as of this encounter Visit Diagnoses Not on filedocumented in this encounter"
--- OUTSIDE RECORDS SUMMARY | ~2020-05-02 | XMS | Encounter Summary ---
Demographics + + + | Address | [address] | | | [address] | | | [place] [address] | + + + | Home Phone [...] | | | | | [place] [address] | | + + + + + | Allegra Raza | ECON | Unknown | | + + + + + | Emily Fuller | ECON | Unknown | | + + + + + Care Team Providers + +------+ + | Care Rail Car Repair Carman Name | Role | Phone | + [...] Medication Refill | | 2017 | | [facility] | [address] | | | | | CLIN[address] | [address] [place], [place] | | | | | [address] [place], | [address] | | | | | [place] [address] | | | | | | [phone] | | | +--------+--------+ + + + [...] this encounter Miscellaneous Notes Telephone Encounter - Viviana Starr CC CMA - 03/02/2018 3:11 PM [...] | | | | | | [place] [address] | | | | | | [phone] | | | | | | | | +--------+---------+ + + + | 01/21/ | Office | Neurology | Brock Hammond MD | | | 2020 | Visit | | [address] | | | | | | [place] | | | | | | [address] | | | | | | | [...]
--- OUTSIDE RECORDS SUMMARY | ~2020-05-02 | XMS | Encounter Summary ---
Demographics + + + | Address | [address] | | | [address] | | | [place] [address] | + + + | Home Phone | | + + + | Preferred Language | Unknown | + + + | Marital Status | Single | + + + | Sabianist Affiliation | 1009 | + + + | Race | Unknown | + + + | Ethnic Group | Unknown | + + + Author + + + | Author | [facility] | | | and [place] | + + + | Organization | [facility] | | [...] | | | | | [place] [address] | | + + + + + | Allegra Raza | ECON | Unknown | | + + + + + | Emily Fuller | ECON | Unknown | | + + + + + Care Team Providers + +------+ + | Care Manager Strategy & Account Name | Role | Phone | + +------+ + PCP | Unavailable | + +------+ + Encounter Details +--------+ + + + + | Date | Type | Department | Care Team | Description | +--------+ + + + + | 12/27/ | Hospital | [facility] | Nidia Diaz, | | | 2010 | Encounter | HOSPITAL EMERGENCY | HIDE AND SKIN PROCESSING WORKER [address] | | | | | CENTER [address] | [place] | | | | | [place] | [address] | | | | | [address] | | | | | | [phone] | | | +--------+ + + + [...] | | | | | | [place] [address] | | | | | | [phone] | | | | | | | | +--------+---------+ + + + | 01/21/ | Office | Neurology | Brock Hammond MD | | | 2020 | Visit | | [address] | | | | | | [place] | | | | | | [address] | | | | | | | | +--------+---------+ + + + documented as of this encounter Visit Diagnoses Not on filedocumented in this encounter"
--- OUTSIDE RECORDS SUMMARY | ~2020-05-02 | XMS | Encounter Summary ---
Demographics + + + | Address | [address] | | | [address] | | | [place] [address] | + + + | Home Phone [...] | | | | | [place] [address] | | + + + + + | Allegra Raza | ECON | Unknown | | + + + + + | Emily Fuller | ECON | Unknown | | + + + + + Care Team Providers + +------+ + | Care Fire Engine Operator Name | Role | Phone | [...] [address] | | | | | [place] [address] | | | | | | [phone] | | | +--------+ + + + [...] | | | | | | [facility] | | | | | | [place] [address] | | | | | | [phone] | | | | | | | | +--------+---------+ + + + | 01/21/ | Office | Neurology | Brock Hammond MD | | | 2020 | Visit | | [address] | | | | | | [place] | | | | | | [id number] | | | | | | | | +--------+---------+ + + + documented as of this encounter Visit Diagnoses Not on filedocumented in this encounter"
--- OUTSIDE RECORDS SUMMARY | ~2020-05-02 | XMS | Encounter Summary ---
Demographics + + + | Address | [address] | | | [address] | | | [place] [address] | + + + | Home Phone | | + + + | Preferred Language | Unknown | + + + | Marital Status | Single | + + + | Anabaptism Affiliation | 1009 | + + + [...] | | | | | [place] [address] | | + + + + + | Allegra Raza | ECON | Unknown | | + + + + + | Emily Fuller | ECON | Unknown | | + + + + + Care Team Providers + +------+ + | Care Sliding Joint Maker Name | Role | Phone | [...] Description | +--------+--------+ + + + | 08/03/ | Refill | [facility] | Janell De La Paz | Medication Refill | | 2017 | | [facility] | MD Ayes[address] | | | | | CLIN[address] | [address] [place] | | | | | [address] [place], | [place] [address] | | | | | [place] [address] | [phone] | | | | | [phone] | | | +--------+--------+ + + + [...] Telephone Encounter - Kristen Rodriguez RN - 08/03/2018 4:33 PM PDTLast filled 05/31/18, Last seen 04/12/17, needs f/u appointment. /ELOINA JonesElectronically signed by Kristen Rodriguez RN a t 08/03/2018 4:35 PM PDTdocumented in this encounter Plan of [...] | | | | | | [place] [address] | | | | | | [phone] | | | | | | | | +--------+---------+ + + + | 01/21/ | Office | Neurology | Brock Hammond MD | | | 2020 | Visit | | [address] | | | | | | [place] | | | | | | [address] | | | | | | | | +--------+---------+ + + + documented as of this encounter Visit Diagnoses Not on filedocumented in this encounter"
--- OUTSIDE RECORDS SUMMARY | ~2020-05-02 | XMS | Encounter Summary ---
Demographics + + + | Address | [address] | | | [address] | | | [place] [address] | + + + | Home Phone | | + + + | Preferred Language | Unknown | + + + | Marital Status | Single | + + + | Methodist Affiliation | 1009 | + + + | Race | Unknown | + + + | Ethnic Group | Unknown | + + + Author + + + | Author | [facility] | | | and [place] | + + + | Organization | [facility] | | | [...] | | | | | [place] [address] | | + + + + + | Allegra Raza | ECON | Unknown | | + + + + + | Emily Fuller | ECON | Unknown | | + + + + + Care Team Providers + +------+ + | Care Hospitality Coordinator Name | Role | Phone | + +------+ + PCP | Unavailable | + +------+ + Encounter Details +--------+ + + + + | Date | Type | Department | Care Team | Description | +--------+ + + + + | 03/31/ | Hospital | [facility] | Aisha Carrington, | | | 2017 | Encounter | HOSPITAL REGIONAL | [address] | | | | | MEDICAL CLIN[address] | [facility] [address] | | | | | [address] [place], | [phone] | | | | | [place] [address] | | | | | | [phone] | | | +--------+ + + + [...] | | | | | | [place] [address] | | | | | | [phone] | | | | | | | [...]
--- OUTSIDE RECORDS SUMMARY | ~2020-05-02 | XMS | Encounter Summary ---
Demographics + + + | Address | [address] | | | [address] | | | [place] [address] | + + + | Home Phone | | + + + | Preferred Language | Unknown | + + + | Marital Status | Single | + + + | Jew Affiliation | 1009 | + + + | Race | Unknown | + + + | Ethnic Group | Unknown | + + + Author + + + | Author | [facility] | | | and [place] | + + + | Organization | [facility] | | [...] | | | | | [place] [address] | | + + + + + | Allegra Raza | ECON | Unknown | | + + + + + | Emily Fuller | ECON | Unknown | | + + + + + Care Team Providers + +------+ + | Care Framing Inspector Name | Role | Phone | + +------+ + PCP | Unavailable | + +------+ + Encounter Details +--------+ + + + + | Date | Type | Department | Care Team | Description | +--------+ + + + + | 11/14/ | Hospital | [facility] | | | | 2002 - | Encounter | MED CTR [facility] | | | | | | [address] | | | | 12/13/ | | [place] [address] | | | | 2002 | | [phone] | | | +--------+ + + + [...] | | | | | | [place] [address] | | | | | | [phone] | | | | | | | [...]
--- OUTSIDE RECORDS SUMMARY | ~2020-05-02 | XMS | Encounter Summary ---
Demographics + + + | Address | [address] | | | [address] | | | [place] [address] | + + + | Home Phone [...] + + | Author | [facility] | | | and [place] | + + + | Organization | [facility] | | | [...] | | | | | [place] [address] | | + + + + + | Allegra Raza | ECON | Unknown | | + + + + + | Emily Fuller | ECON | Unknown | | + + + + + Care Team Providers + +------+ + | Care Equipment Cleaner Name | Role | Phone | + [...] [place] | | | | | | [address] | | | | | | [phone] | | | +--------+ + + + [...] | | | | | | [place] [address] | | | | | | [phone] | | | | | | | | +--------+---------+ + + + | 01/21/ | Office | Neurology | Brock Hammond MD | | | 2020 | Visit | | [address] | | | | | | [place] | | | | | | [address] | | | | | | | [...]
--- OUTSIDE RECORDS SUMMARY | ~2020-05-02 | XMS | Encounter Summary ---
Demographics + + + | Address | [address] | | | [address] | | | [place] [address] | + + + | Home Phone [...] | | | | | [place] [address] | | + + + + + | Allegra Raza | ECON | Unknown | | + + + + + | Emily Fuller | ECON | Unknown | | + + + + + Care Team Providers + +------+ + | Care Signal Intelligence Analyst Name | Role | Phone | + +------+ + | Aisha Carrington DO | PCP | | + +------+ + Reason for Visit + +--------+ + | Reason | Onset | Comments | | | Date | | + +--------+ + | Neurology | 08/17/ | | | Appointment | 2018 | | + +--------+ + Encounter Details +--------+ + + + + | Date | Type | Department | Care Team | Description | +--------+ + + + + | 08/17/ | Telephone | [facility] | Brock Hammond MD | Neurology | | 2018 | | HOSPITAL NEUROLOGY | [address] | Appointment | | | | CLINIC [address] | [place] | | | | | [address] [place] [place], | [address] | | | | | [place] [address] | | | | | | [phone] | | | +--------+ + + + [...] this encounter Miscellaneous Notes Telephone Encounter - Isis Marie - 08/17/2018 11:51 AM Yin called Pt, and left rama hodges to schedule a f/up OV with Barak in . documented in this encounter Plan of Treatment +--------+---------+ + + + | Date | Type | Specialty | Care Team | Description | +--------+---------+ + + + | 05/14/ | Office | Neurology | Romeo, | | | 2019 | Visit | | [address] | | | | | | [address] [place], | | | | | | [place] [address] | | | | | | [phone] | | | | | | | | +--------+---------+ + + + | 01/21/ | Office | Neurology | Brock Hammond MD | | | 2020 | Visit | | [address] | | | | | | [place], [place] | | | | | | [address] | | | | | | | | +--------+---------+ + + + documented as of this encounter Visit Diagnoses Not on filedocumented in this encounter"
--- OUTSIDE RECORDS SUMMARY | ~2020-05-02 | XMS | Encounter Summary ---
Demographics + + + | Address | [address] | | | [address] | | | [place] [address] | + + + | Home Phone | | + + + | Preferred Language | Unknown | + + + | Marital Status | Single | + + + | Orthodoxy Affiliation | 1009 | + + + | Race | Unknown | + + + | Ethnic Group | Unknown | + + + Author + + + | Author | [facility] | | | and [place] | + + + | Organization | [facility] | | | [...] | | | | | [place] [address] | | + + + + + | Allegra Raza | ECON | Unknown | | + + + + + | Emily Fuller | ECON | Unknown | | + + + + + Care Team Providers + +------+ + | Care Check Pilot Name | Role | Phone | + +------+ + PCP | Unavailable | + +------+ + Encounter Details +--------+ + + + + | Date | Type | Department | Care Team | Description | +--------+ + + + + | 11/15/ | Hospital | [facility] | Catie Powell | | | 2012 | Encounter | HOSPITAL LABORATORY | [address] | | | | | [address] | [address] [facility], | | | | | [facility], [place] | [place] [address] | | | | | [address] | [phone] | | | | | [phone] | | | +--------+ + + + [...] | | | | | | [place] [address] | | | | | | [phone] | | | | | | | | +--------+---------+ + + + | 01/21/ | Office | Neurology | Brock Hammond MD | | | 2020 | Visit | | [address] | | | | | | [place] | | | | | | [address] | | | | | | | | +--------+---------+ + + + documented as of this encounter Visit Diagnoses Not on filedocumented in this encounter"
--- OUTSIDE RECORDS SUMMARY | ~2020-05-02 | XMS | Encounter Summary ---
Demographics + + + | Address | [address] | | | [address] | | | [place] [address] | + + + | Home Phone | | + + + | Preferred Language | Unknown | + + + | Marital Status | Single | + + + | Sabianism Affiliation | 1009 | + + + | Race | Unknown | + + + | Ethnic Group | Unknown | + + + Author + + + | Author | [facility] | | | and [place]ana | + + + | Organization | [facility] | | | [...] | | | | | [place] [address] | | + + + + + | Allegra Raza | ECON | Unknown | | + + + + + | Emily Fuller | ECON | Unknown | | + + + + + Care Team Providers + +------+ + | Care Medical Secretary Teacher Name | Role | Phone | + +------+ + PCP | Unavailable | + +------+ + Encounter Details +--------+ + + + + | Date | Type | Department | Care Team | Description | +--------+ + + + + | 05/16/ | Hospital | [facility] | Ruel Junior, | | | 2008 | Encounter | HOSPITAL THERAPY PT | MD [address]ba [address] Davion | | | | | [address] | [address] | | | | | [facility], [place] | [place] [address] | | | | | [address] | [phone] | | | | | [phone] | | | +--------+ + + + [...] | | | | | | [place] [address] | | | | | | [phone] | | | | | | | | +--------+---------+ + + + | 01/21/ | Office | Neurology | Brock Hammond MD | | | 2020 | Visit | | [address] | | | | | | [place], [place] | | | | | | [address] | | | | | | | | +--------+---------+ + + + documented as of this encounter Visit Diagnoses Not on filedocumented in this encounter"
--- OUTSIDE RECORDS SUMMARY | ~2020-05-02 | XMS | Encounter Summary ---
Demographics + + + | Address | [address] | | | [address] | | | [place] [address] | + + + | Home Phone | | + + + | Preferred Language | Unknown | + + + | Marital Status | Single | + + + | Orthodox Affiliation | 1009 | + + [...] | | | | | [place] [address] | | + + + + + | Allegra Raza | ECON | Unknown | | + + + + + | Emily Fuller | ECON | Unknown | | + + + + + Care Team Providers + +------+ + | Care Human Resources Leader Name | Role | Phone | + [...] [address] | | | | | [place] [address] | | | | | | [phone] | | | +--------+--------+ + + + [...] RN - 02/01/2019 1:52 PM PDTLast filled [facility] Last seen 04/12/17 Next appt 03/07/19 [...] | | | | | | [place] [address] | | | | | | [phone] | | | | | | | | +--------+---------+ + + + | 01/21/ | Office | Neurology | Brock Hammond MD | | | 2020 | Visit | | [address] | | | | | | [place] | | | | | | [address] | | | | | | | | +--------+---------+ + + + documented as of this encounter Visit Diagnoses Not on filedocumented in this encounter"
--- OUTSIDE RECORDS SUMMARY | ~2020-05-02 | XMS | Encounter Summary ---
Demographics + + + | Address | [address] | | | [address] | | | [place] [address] | + + + | Home Phone [...] | | | | | [place] [address] | | + + + + + | Allegra Raza | ECON | Unknown | | + + + + + | Emily Fuller | ECON | Unknown | | + + + + + Care Team Providers + +------+ + | Care Wage And Salary Specialist Name | Role | Phone | [...] | | [address] | [facility], | | | | | [facility], [place] | [place] [address] | | | | | [address] | [phone] | | | | | [phone] | | | +--------+ + + + [...] | | | | | | [place] [address] | | | | | | [phone] | | | | | | | | +--------+---------+ + + + | 01/21/ | Office | Neurology | Brock Hammond MD | | | 2020 | Visit | | [address] | | | | | | [place] | | | | | | [address] | | | | | | | | +--------+---------+ + + + documented as of this encounter Visit Diagnoses Not on filedocumented in this encounter"
--- OUTSIDE RECORDS SUMMARY | ~2020-05-02 | XMS | Encounter Summary ---
Demographics + + + | Address | [address] | | | [address] | | | [place] [address] | + + + | Home Phone | | + + + | Preferred Language | Unknown | + + + | Marital Status | Single | + + + | Anabaptism Affiliation | 1009 | + + + | Race | Unknown | + + + | Ethnic Group | Unknown | + + + Author + + + | Author | [facility] | | | and Danielana | + + + | Organization | [facility] | | [...] | | | | | [place] [address] | | + + + + + | Allegra Raza | ECON | Unknown | | + + + + + | Emily Fuller | ECON | Unknown | | + + + + + Care Team Providers + +------+ + | Care Substance Abuse Rn Name | Role | Phone | + +------+ + PCP | Unavailable | + +------+ + Encounter Details +--------+ + + + + | Date | Type | Department | Care Team | Description | +--------+ + + + + | 02/20/ | Hospital | [facility] | Catie Powell | | | 2013 | Encounter | [facility] | MD [address] | | | | | [facility] [address] | [address] [place] [address], | | | | | [address] [place] [address], | [place] [address] | | | | | [place] [address] | [phone] | | | | | [phone] | | | +--------+ + + + [...] | | | | | | [place] [address] | | | | | | [phone] | | | | | | | | +--------+---------+ + + + | 01/21/ | Office | Neurology | Brock Hammond MD | | | 2020 | Visit | | [address] | | | | | | [place] | | | | | | [address] | | | | | | | | +--------+---------+ + + + documented as of this encounter Visit Diagnoses Not on filedocumented in this encounter"
--- OUTSIDE RECORDS SUMMARY | ~2020-05-02 | XMS | Encounter Summary ---
Demographics + + + | Address | [address] | | | [address] | | | [place] [address] | + + + | Home Phone [...] Organization | [facility] | | | and [...] | | | | | [place] [address] | | + + + + + | Allegra Raza | ECON | Unknown | | + + + + + | Emily Fuller | ECON | Unknown | | + + + + + Care Team Providers + +------+ + | Care Rivet Hammer Machine Operator Name | Role | Phone | + +------+ + PCP | Unavailable | + +------+ + Encounter Details +--------+ + + + + | Date | Type | Department | Care Team | Description | +--------+ + + + + | 02/13/ | Hospital | [facility] | Brock Hammond MD | | | 2017 | Encounter | HOSPITAL NEUROLOGY | [address] | | | | | CLINIC [address] | [place] | | | | | [address] [place], | [address] | | | | | [place] [address] | | | | | | [phone] | | | +--------+ + + + [...] | | | | | | [place] [address] | | | | | | [phone] | | | | | | | | +--------+---------+ + + + | 01/21/ | Office | Neurology | Brock Hammond MD | | | 2020 | Visit | | [address] | | | | | | [place] | | | | | | [address] | | | | | | | | +--------+---------+ + + + documented as of this encounter Visit Diagnoses Not on filedocumented in this encounter"
--- OUTSIDE RECORDS SUMMARY | ~2020-05-02 | XMS | Encounter Summary ---
Demographics + + + | Address | [address] | | | [address] | | | [place] [address] | + + + | Home Phone [...] | | | | | [place] [address] | | + + + + + | Allegra Raza | ECON | Unknown | | + + + + + | Emily Fuller | ECON | Unknown | | + + + + + Care Team Providers + +------+ + | Care Packager Head Name | Role | Phone | + +------+ + PCP | Unavailable | + +------+ + Encounter Details +--------+ + + + + | Date | Type | Department | Care Team | Description | +--------+ + + + + | 08/13/ | Hospital | [facility] | Brock Hammond MD | | | 2009 | Encounter | HOSPITAL LABORATORY | [address] | | | | | [address] | [place] | | | | | [place] | [address] | | | | | [address] | | | | | | [phone] | | | +--------+ + + + [...] | | | | | | [place] [address] | | | | | | [phone] | | | | | | | | +--------+---------+ + + + | 01/21/ | Office | Neurology | Brock Hammond MD | | | 2020 | Visit | | [address] | | | | | | [place], [place] | | | | | | [address] | | | | | | | | +--------+---------+ + + + documented as of this encounter Visit Diagnoses Not on filedocumented in this encounter"
--- OUTSIDE RECORDS SUMMARY | ~2020-05-02 | XMS | Encounter Summary ---
Demographics + + + | Address | [address] | | | [address] | | | [place] [address] | + + + | Home Phone [...] Organization | [facility] [...] | | | | | [place] [address] | | + + + + + | Allegra Raza | ECON | Unknown | | + + + + + | Emily Fuller | ECON | Unknown | | + + + + + Care Team Providers + +------+ + | Care Satellite Tv Technician Installer Name | Role | Phone | + +------+ + PCP | Unavailable | + +------+ + Encounter Details +--------+ + + + + | Date | Type | Department | Care Team | Description | +--------+ + + + + | 07/29/ | Hospital | [facility] | | | | 2002 | Encounter | MED CTR EMERGENCY | | | | | | CENTER [address] | | | | | | [place] | | | | | | [address] | | | | | | [phone] | | | +--------+ + + + [...] | | | | | | [place] [address] | | | | | | [phone] | | | | | | | [...]
--- OUTSIDE RECORDS SUMMARY | ~2020-05-02 | XMS | Encounter Summary ---
Demographics + + + | Address | [address] | | | [address] | | | [place] [address] | + + + | Home Phone [...] | Author | [facility] | | | and Danielana | + + + | Organization | [facility] | | [...] | | | | | [place] [address] | | + + + + + | Allegra Raza | ECON | Unknown | | + + + + + | Emily Fuller | ECON | Unknown | | + + + + + Care Team Providers + +------+ + | Care Retail Service Representative Name | Role | Phone | + +------+ + PCP | Unavailable | + +------+ + Encounter Details +--------+ + + + + | Date | Type | Department | Care Team | Description | +--------+ + + + + | 07/21/ | Hospital | [facility] | Blessing Mccoy | | | 2016 | Encounter | HOSPITAL LABORATORY | SHUKRI Haines | | | | | [address] | | | | | | [place] | | | | | | [address] | | | | | | [phone] | | | +--------+ + + + [...] | | | | | | [place] [address] | | | | | | [phone] | | | | | | | | +--------+---------+ + + + | 01/21/ | Office | Neurology | Brock Hammond MD | | | 2020 | Visit | | [address] | | | | | | [place] | | | | | | [address] | | | | | | | | +--------+---------+ + + + documented as of this encounter Procedures + +--------+ + + + | Procedure Name | Priori | Date/Time | Associated Diagnosis | Comments | | | ty | | | | + +--------+ + + + | TSH | Routin | 07/21/2017 | | Results for this | | | e | 2:28 PM | | procedure are in the | | | | PDT | | results section. | + +--------+ + + + documented in this encounter Results TSH (07/21/2017 2:28 PM PDT) + +-------+ + + + | Component | Value | Ref Range | Performed | Pathologist | | | | | At | Signature | + +-------+ + + + | TSH | 3.9 | 0.36 - 3.74 | EXTERNAL | | | | | mIU/L | LAB | | + +-------+ + [...]
--- OUTSIDE RECORDS SUMMARY | ~2020-05-02 | XMS | Encounter Summary ---
Demographics + + + | Address | [address] | | | [address] | | | [place] [address] | + + + | Home Phone [...] | | | | | [place] [address] | | + + + + + | Allegra Raza | ECON | Unknown | | + + + + + | Emily Fuller | ECON | Unknown | | + + + + + Care Team Providers + +------+ + | Care Communications Assistant Name | Role | Phone | + +------+ + PCP | Unavailable | + +------+ + Encounter Details +--------+ + + + + | Date | Type | Department | Care Team | Description | +--------+ + + + + | 07/08/ | Hospital | [facility] | Emmanuelle Frank | | | 2009 | Encounter | HOSPITAL LABORATORY | Sandra Alvarez MD [address] | | | | | [address] | [facility], | | | | | [facility], [place] | [place] [address] | | | | | [address] | [phone] | | | | | [phone] | | | +--------+ + + + [...] | | | | | | [place] [address] | | | | | | [phone] | | | | | | | | +--------+---------+ + + + | 01/21/ | Office | Neurology | Brock Hammond MD | | | 2020 | Visit | | [address] | | | | | | [place] | | | | | | [address] | | | | | | | | +--------+---------+ + + + documented as of this encounter Visit Diagnoses Not on filedocumented in this encounter"
--- OUTSIDE RECORDS SUMMARY | ~2020-05-02 | XMS | Encounter Summary ---
Demographics + + + | Address | [address] | | | [address] | | | [place] [address] | + + + | Home Phone [...] + + + | Author | [facility] | | | and Danielana | + + + | Organization | [facility] | | | [...] | | | | | [place] [address] | | + + + + + | Allegra Raza | ECON | Unknown | | + + + + + | Emily Fuller | ECON | Unknown | | + + + + + Care Team Providers + +------+ + | Care Coding Consultant Name | Role | Phone | + +------+ + PCP | Unavailable | + +------+ + Encounter Details +--------+ + + + + | Date | Type | Department | Care Team | Description | +--------+ + + + + | 10/28/ | Hospital | [facility] | Brock Hammond MD | | | 2016 | Encounter | HOSPITAL REG[facility] | [address] | | | | | MEDICAL CLIN[facility] [address] | [place], [place] | | | | | [facility] [facility], | [address] | | | | | [place] [address] | | | | | | [phone] | | | +--------+ + + + [...] | | | | | [address] [place], | | | | | | [place] [address] | | | | | | [phone] | | | | | | | | +--------+---------+ + + + | 01/21/ | Office | Neurology | Brock Hammond MD | | | 2020 | Visit | | [address] | | | | | | [place], [place] | | | | | | [address] | | | | | | | | +--------+---------+ + + + documented as of this encounter Visit Diagnoses Not on filedocumented in this encounter"
--- OUTSIDE RECORDS SUMMARY | ~2020-05-02 | XMS | Encounter Summary ---
Demographics + + + | Address | [address] | | | [address] | | | [place] [address] | + + + | Home Phone [...] | | | | | [place] [address] | | + + + + + | Allegra Raza | ECON | Unknown | | + + + + + | Emily Fuller | ECON | Unknown | | + + + + + Care Team Providers + +------+ + | Care Commercial Lawn Specialist Name | Role | Phone | + +------+ + PCP | Unavailable | + +------+ + Encounter Details +--------+ + + + + | Date | Type | Department | Care Team | Description | +--------+ + + + + | 02/26/ | Hospital | [facility] | Ruel Junior, | | | 2010 | Encounter | HOSPITAL LABORATORY | MD Jameson Ricardo | | | | | [address] | [address] | | | | | [facility], [place] | [place] [address] | | | | | [address] | [phone] | | | | | [phone] | | | +--------+ + + + [...] | | | | | | [place] [address] | | | | | | [phone] | | | | | | | | +--------+---------+ + + + | 01/21/ | Office | Neurology | Brock Hammond MD | | | 2020 | Visit | | [address] | | | | | | [place], [place] | | | | | | [address] | | | | | | | | +--------+---------+ + + + documented as of this encounter Visit Diagnoses Not on filedocumented in this encounter"
--- OUTSIDE RECORDS SUMMARY | ~2020-05-02 | XMS | Encounter Summary ---
Demographics + + + | Address | [address] | | | [address] | | | [place] [address] | + + + | Home Phone [...] + + + | Author | [facility] | | | and Danielana | + + + | Organization | [facility] | | | [...] | | | | | [place] [address] | | + + + + + | Allegra Raza | ECON | Unknown | | + + + + + | Emily Fuller | ECON | Unknown | | + + + + + Care Team Providers + +------+ + | Care Icing Maker Name | Role | Phone | + +------+ + PCP | Unavailable | + +------+ + Encounter Details +--------+ + + + + | Date | Type | Department | Care Team | Description | +--------+ + + + + | 07/19/ | Hospital | [facility] | Nidia Diaz, | | | 2010 | Encounter | HOSPITAL EMERGENCY | WORKFORCE DEVELOPMENT SPECIALIST [address] | | | | | CENTER [address] | [place] | | | | | [place] | [address] | | | | | [address] | | | | | | [phone] | | | +--------+ + + + [...] | | | | | | [place] [address] | | | | | | [phone] | | | | | | | | +--------+---------+ + + + | 01/21/ | Office | Neurology | Brock Hammond MD | | | 2020 | Visit | | [address] | | | | | | [place] | | | | | | [address] | | | | | | | | +--------+---------+ + + + documented as of this encounter Visit Diagnoses Not on filedocumented in this encounter"
--- OUTSIDE RECORDS SUMMARY | ~2020-05-02 | XMS | Encounter Summary ---
Demographics + + + | Address | [address] | | | [address] | | | [place] [address] | + + + | Home Phone | | + + + | Preferred Language | Unknown | + + + | Marital Status | Single | + + + | Hinduism Affiliation | 1009 | + + + [...] | | | | | [place] [address] | | + + + + + | Allegra Raza | ECON | Unknown | | + + + + + | Emily Fuller | ECON | Unknown | | + + + + + Care Team Providers + +------+ + | Care Condominium Manager Name | Role | Phone | [...] Medication Refill | | 2017 | | [facility] | [address] | | | | | MEDICAL CLIN[address] | [facility] [place] [address] | | | | | [facility] [facility], | [phone] | | | | | [place] [address] | | | | | | [phone] | | | +--------+--------+ + + + [...] | | | | | | [place] [address] | | | | | | [phone] | | | | | | | | +--------+---------+ + + + | 01/21/ | Office | Neurology | Brock Hammond MD | | | 2020 | Visit | | [address] | | | | | | [place], [place] | | | | | | [address] | | | | | | | | +--------+---------+ + + + documented as of this encounter Visit Diagnoses Not on filedocumented in this encounter"
--- OUTSIDE RECORDS SUMMARY | ~2020-05-02 | XMS | Encounter Summary ---
Demographics + + + | Address | [address] | | | [address] | | | [place] [address] | + + + | Home Phone [...] | | | | | [place] [address] | | + + + + + | Allegra Raza | ECON | Unknown | | + + + + + | Emily Fuller | ECON | Unknown | | + + + + + Care Team Providers + +------+ + | Care Pulp Roller Name | Role | Phone | + [...] [address] | | | | | [place] [address] | | | | | | [phone] | | | +--------+--------+ + + + [...] of: [employer] [employer] [place] [id number] signed by Megha Contreras at 02/28/2020 4:59 [...] | | | | | | [place] [address] | | | | | | [phone] | | | | | | | | +--------+---------+ + + + | 01/21/ | Office | Neurology | Brock Hammond MD | | | 2020 | Visit | | [address] | | | | | | [place], [place] | | | | | | [address] | | | | | | | | +--------+---------+ + + + documented as of this encounter Visit Diagnoses Not on filedocumented in this encounter"
--- OUTSIDE RECORDS SUMMARY | ~2020-05-02 | XMS | Encounter Summary ---
Demographics + + + | Address | [address] | | | [address] | | | [place] [address] | + + + | Home Phone [...] | | | | | [place] [address] | | + + + + + | Allegra Raza | ECON | Unknown | | + + + + + | Emily Fuller | ECON | Unknown | | + + + + + Care Team Providers + +------+ + | Care Geriatric Social Worker Name | Role | Phone | + [...] [address] | | | | | [place] [address] | | | | | | [phone] | | | +--------+--------+ + + + [...] | | | | | | [address]TH [facility], | | | | | | [place] [address] | | | | | | [phone] | | | | | | | [...]
--- OUTSIDE RECORDS SUMMARY | ~2020-05-02 | XMS | Encounter Summary ---
Demographics + + + | Address | [address] | | | [address] | | | [place] [address] | + + + | Home Phone | | + + + | Preferred Language | Unknown | + + + | Marital Status | Single | + + + | Congregation Affiliation | 1009 | + + + [...] | | | | | [place] [address] | | + + + + + | Allegra Raza | ECON | Unknown | | + + + + + | Emily Fuller | ECON | Unknown | | + + + + + Care Team Providers + +------+ + | Care Hydraulic Press In Operator Name | Role | Phone | [...] Description | +--------+--------+ + + + | 02/25/ | Refill | [facility] | Lamonte Akins | Medication Refill | | 2017 | | [facility] | Goins, GENERAL LEDGER BOOKKEEPER [address] | | | | | CLINIC [address] | [address] [place], [place] | | | | | [address] [place], | [address] | | | | | [place] [address] | | | | | | [phone] | | | +--------+--------+ + + + [...] Encounter - Elana Reeves CC CMA - 02/28/2018 7:21 AM PDTFormatting of thi s note might be different from the original. Recent Visits None last seen 04/11/17 documented in this encounter Plan of Treatment +--------+---------+ + + + | Date | Type | Specialty | Care Team | Description | +--------+---------+ + + + | 05/14/ | Office | Neurology | Romeo, | | | 2019 | Visit | | [address] | | | | | | [address] [place], | | | | | | [place] [address] | | | | | | [phone] | | | | | | | | +--------+---------+ + + + | 01/21/ | Office | Neurology | Brock Hammond MD | | | 2020 | Visit | | [address] | | | | | | [place] | | | | | | [address] | | | | | | | | +--------+---------+ + + + documented as of this encounter Visit Diagnoses Not on filedocumented in this encounter"
--- OUTSIDE RECORDS SUMMARY | ~2020-05-02 | XMS | Encounter Summary ---
Demographics + + + | Address | [address] | | | [address] | | | [place] [address] | + + + | Home Phone [...] | | | | | [place] [address] | | + + + + + | Allegra Raza | ECON | Unknown | | + + + + + | Emily Fuller | ECON | Unknown | | + + + + + Care Team Providers + +------+ + | Care Labor Conciliator Name | Role | Phone | + [...] | | | | [place] | [address] | | | | | [address] | | | | | | [phone] | | | +--------+ + + + [...] | | | | | | [place] [address] | | | | | | [phone] | | | | | | | | +--------+---------+ + + + | 01/21/ | Office | Neurology | Brock Hammond MD | | | 2020 | Visit | | [address] | | | | | | [place], [place] | | | | | | [address] | | | | | | | [...]
--- OUTSIDE RECORDS SUMMARY | ~2020-05-02 | XMS | Encounter Summary ---
Demographics + + + | Address | [address] | | | [address] | | | [place] [address] | + + + | Home Phone [...] | | | | | [place] [address] | | + + + + + | Allegra Raza | ECON | Unknown | | + + + + + | Emily Fuller | ECON | Unknown | | + + + + + Care Team Providers + +------+ + | Care Chainer Name | Role | Phone | + [...] | | | OFFICE [address] | [facility], | | | | | [place], [place] | [place] [address] | | | | | [address] | [phone] | | | | | [phone] | | | +--------+ + + + [...] | | | | | | [place] [address] | | | | | | [phone] | | | | | | | | +--------+---------+ + + + | 01/21/ | Office | Neurology | Brock Hammond MD | | | 2020 | Visit | | [address] | | | | | | [place] | | | | | | [address] | | | | | | | | +--------+---------+ + + + documented as of this encounter Visit Diagnoses Not on filedocumented in this encounter"
--- OUTSIDE RECORDS SUMMARY | ~2020-05-02 | XMS | Encounter Summary ---
Demographics + + + | Address | [address] | | | [address] | | | [place] [address] | + + + | Home Phone [...] + + + | Author | [facility] | | | and Danielana | + + + | Organization | [facility] | | | and [...] | | | | | [place] [address] | | + + + + + | Allegra Raza | ECON | Unknown | | + + + + + | Emily Fuller | ECON | Unknown | | + + + + + Care Team Providers + +------+ + | Care Assurance Sourcing Manager Name | Role | Phone | [...] [place] | | | | | | [address] | | | | | | [phone] | | | +--------+ + + + [...] | | | | | | [place] [address] | | | | | | [phone] | | | | | | | | +--------+---------+ + + + | 01/21/ | Office | Neurology | Brock Hammond MD | | | 2020 | Visit | | [address] | | | | | | [place] | | | | | | [address] | | | | | | | | +--------+---------+ + + + documented as of this encounter Visit Diagnoses Not on filedocumented in this encounter"
--- OUTSIDE RECORDS SUMMARY | ~2020-05-02 | XMS | Encounter Summary ---
Demographics + + + | Address | [address] | | | [address] | | | [place] [address] | + + + | Home Phone [...] | | | | | [place] [address] | | + + + + + | Allegra Raza | ECON | Unknown | | + + + + + | Emily Fuller | ECON | Unknown | | + + + + + Care Team Providers + +------+ + | Care Auth Specialist Name | Role | Phone | + +------+ + | No, Physician | PCP | Unavailable | + +------+ + Reason for Visit + +--------+ + | Reason | Onset | Comments | | | Date | | + +--------+ + | Lab Results | 03/10/ | | | | 2018 | | + +--------+ + Encounter Details +--------+ + + + + | Date | Type | Department | Care Team | Description | +--------+ + + + + | 03/10/ | Telephone | [facility] | Brock Hammond MD | Lab Results | | 2018 | | HOSPITAL NEUROLOGY | [address] | | | | | CLINIC [address] | [place] | | | | | [address] [place], | [address] | | | | | [place] [address] | | | | | | [phone] | | | +--------+ + + + [...] Telephone Encounter - Brock Hammond MD - 03/10/2019 10:24 AM PDTCalled and gave blood marcos t results documented in this encounter Plan of Treatment +--------+---------+ + + + | Date | Type | Specialty | Care Team | Description | +--------+---------+ + + + | 05/14/ | Office | Neurology | Romeo, | | | 2019 | Visit | | [address] | | | | | | [address] [place], | | | | | | [place] [address] | | | | | | [phone] | | | | | | | | +--------+---------+ + + + | 01/21/ | Office | Neurology | Brock Hammond MD | | | 2020 | Visit | | [address] | | | | | | [place] | | | | | | [address] | | | | | | | | +--------+---------+ + + + documented as of this encounter Visit Diagnoses Not on filedocumented in this encounter"
--- OUTSIDE RECORDS SUMMARY | ~2020-05-02 | XMS | Encounter Summary ---
Demographics + + + | Address | [address] | | | [address] | | | [place] [address] | + + + | Home Phone [...] | | | | | [place] [address] | | + + + + + | Allegra Raza | ECON | Unknown | | + + + + + | Emily Fuller | ECON | Unknown | | + + + + + Care Team Providers + +------+ + | Care Pipe Finisher Name | Role | Phone | [...] | | | CENTER [address] | [facility] | | | | | [address] [place], [place] | [employer], [place] [address] | | | | | [address] | [phone] | | | | | [phone] | | | +--------+ + + + [...] | | | | | | [place] [address] | | | | | | [phone] | | | | | | | | +--------+---------+ + + + | 01/21/ | Office | Neurology | Brock Hammond MD | | | 2020 | Visit | | [address] | | | | | | [place] | | | | | | [address] | | | | | | | | +--------+---------+ + + + documented as of this encounter Visit Diagnoses Not on filedocumented in this encounter"
--- OUTSIDE RECORDS SUMMARY | ~2020-05-02 | XMS | Encounter Summary ---
Demographics + + + | Address | [address] | | | [address] | | | [place] [address] | + + + | Home Phone [...] | | | | | [place] [address] | | + + + + + | Allegra Raza | ECON | Unknown | | + + + + + | Emily Fuller | ECON | Unknown | | + + + + + Care Team Providers + +------+ + | Care General Warehouse Worker Name | Role | Phone | + +------+ + PCP | Unavailable | + +------+ + Encounter Details +--------+ + + + + | Date | Type | Department | Care Team | Description | +--------+ + + + + | 04/18/ | Hospital | [facility] | | | | 1998 | Encounter | MED CTR GENERIC OP | | | | | | CONV DEPT [address] | | | | | | [place], | | | | | | [place] [address] | | | | | | [phone] | | | +--------+ + + + [...] | | | | | | [place] [address] | | | | | | [phone] | | | | | | | | +--------+---------+ + + + | 01/21/ | Office | Neurology | Brock Hammond MD | | | 2020 | Visit | | [address] | | | | | | [place] | | | | | | [address] | | | | | | | | +--------+---------+ + + + documented as of this encounter Visit Diagnoses Not on filedocumented in this encounter"
--- OUTSIDE RECORDS SUMMARY | ~2020-05-02 | XMS | Encounter Summary ---
Demographics + + + | Address | [address] | | | [address] | | | [place] [address] | + + + | Home Phone [...] + + + | Author | [facility] | | | and Danielana | + + + | Organization | [facility] | | | [...] | | | | | [place] [address] | | + + + + + | Allegra Raza | ECON | Unknown | | + + + + + | Emily Fuller | ECON | Unknown | | + + + + + Care Team Providers + +------+ + | Care Route Salesperson Name | Role | Phone | [...] | | | CENTER [address] | [facility] | | | | | DR [place], [place] | [employer] [place] [address] | | | | | [address] | [phone] | | | | | [phone] | | | +--------+ + + + [...] | 2019 | Visit | | [address] | | | | | | [address] [place], | | | | | | [place] [address] | | | | | | [phone] | | | | | | | | +--------+---------+ + + + | 01/21/ | Office | Neurology | Brock Hammond MD | | | 2020 | Visit | | [address] | | | | | | [place] | | | | | | [address] | | | | | | | | +--------+---------+ + + + documented as of this encounter Visit Diagnoses Not on filedocumented in this encounter"
--- OUTSIDE RECORDS SUMMARY | ~2020-05-02 | XMS | Encounter Summary ---
Demographics + + + | Address | [address] | | | [address] | | | [place] [address] | + + + | Home Phone | | + + + | Preferred Language | Unknown | + + + | Marital Status | Single | + + + | Pentecostalism Affiliation | 1009 | + + + | Race | Unknown | + + + | Ethnic Group | Unknown | + + + Author + + + | Author | [facility] | | | and Danielana | + + + | Organization | [facility] | | | [...] | | | | | [place] [address] | | + + + + + | Allegra Raza | ECON | Unknown | | + + + + + | Emily Fuller | ECON | Unknown | | + + + + + Care Team Providers + +------+ + | Care Keno Dealer Name | Role | Phone | + +------+ + PCP | Unavailable | + +------+ + Encounter Details +--------+ + + + + | Date | Type | Department | Care Team | Description | +--------+ + + + + | 05/29/ | Hospital | [facility] | Emmanuelle Frank | | | 2009 | Encounter | HOSPITAL XRAY [address] | Sandra Alvarez MD [address] | | | | | [address] | [facility], | | | | | [facility], [place] | [place] [address] | | | | | [address] | [phone] | | | | | [phone] | | | +--------+ + + + [...] | | | | | | [place] [address] | | | | | | [phone] | | | | | | | | +--------+---------+ + + + | 01/21/ | Office | Neurology | Brock Hammond MD | | | 2020 | Visit | | [address] | | | | | | [place] | | | | | | [address] | | | | | | | | +--------+---------+ + + + documented as of this encounter Visit Diagnoses Not on filedocumented in this encounter"
--- OUTSIDE RECORDS SUMMARY | ~2020-05-02 | XMS | Encounter Summary ---
Demographics + + + | Address | [address] | | | [address] | | | [place] [address] | + + + | Home Phone [...] | | | | | [place] [address] | | + + + + + | Allegra Raza | ECON | Unknown | | + + + + + | Emily Fuller | ECON | Unknown | | + + + + + Care Team Providers + +------+ + | Care Day Porter Name | Role | Phone | + +------+ + PCP | Unavailable | + +------+ + Encounter Details +--------+ + + + + | Date | Type | Department | Care Team | Description | +--------+ + + + + | 04/20/ | Hospital | [facility] | Brock Hammond MD | | | 2016 | Encounter | [facility] | [address] | | | | | [facility] | [place], [place] | | | | | [address] [facility], | [address] | | | | | [place] [address] | | | | | | [phone] | | | +--------+ + + + [...] | | | | | | [place] [address] | | | | | | [phone] | | | | | | | | +--------+---------+ + + + | 01/21/ | Office | Neurology | Brock Hammond MD | | | 2020 | Visit | | [address] | | | | | | [place], [place] | | | | | | [address] | | | | | | | | +--------+---------+ + + + documented as of this encounter Visit Diagnoses Not on filedocumented in this encounter"
--- OUTSIDE RECORDS SUMMARY | ~2020-05-02 | XMS | Encounter Summary ---
Demographics + + + | Address | [address] | | | [address] | | | [place] [address] | + + + | Home Phone [...] [facility] | | | | | [place] [address] | | + + + + + | Allegra Raza | ECON | Unknown | | + + + + + | Emily Fuller | ECON | Unknown | | + + + + + Care Team Providers + +------+ + | Care Splunk Developer Name | Role | Phone | [...] Medication Refill | | 2019 | | [facility] | DO [address] | | | | | CLINIC [address] | [place] [address] | | | | | [address] [place], | [phone] | | | | | [place] [address] | | | | | | [phone] | | | +--------+--------+ + + + [...] | | | | | | [place] [address] | | | | | | [phone] | | | | | | | | +--------+---------+ + + + | 01/21/ | Office | Neurology | Brock Hammond MD | | | 2020 | Visit | | [address] | | | | | | [place] | | | | | | [address] | | | | | | | | +--------+---------+ + + + documented as of this encounter Visit Diagnoses Not on filedocumented in this encounter"
--- OUTSIDE RECORDS SUMMARY | ~2020-05-02 | XMS | Encounter Summary ---
Demographics + + + | Address | [address] | | | [address] | | | [place] [address] | + + + | Home Phone [...] | | | | | [place] [address] | | + + + + + | Allegra Raza | ECON | Unknown | | + + + + + | Emily Fuller | ECON | Unknown | | + + + + + Care Team Providers + +------+ + | Care Customer Field Representative Name | Role | Phone | [...] 10/10/ | Refill | [facility] | Lamonte Akins | Medication Refill | | 2016 | | [facility] | Goins, PROPELLANT CHARGE ZONE ASSEMBL[address] | | | | | CLINIC [address] | [address] [place], [place] | | | | | [address] [place] [place], | [address] | | | | | [place] [address] | | | | | | [phone] | | | +--------+--------+ + + + [...] | | | | | | [place] [address] | | | | | | [phone] | | | | | | | [...]
--- OUTSIDE RECORDS SUMMARY | ~2020-05-02 | XMS | Encounter Summary ---
Demographics + + + | Address | [address] | | | [address] | | | [place] [address] | + + + | Home Phone | | + + + | Preferred Language | Unknown | + + + | Marital Status | Single | + + + | Adventism Affiliation | 1009 | + + + | Race | Unknown | + + + | Ethnic Group | Unknown | + + + Author + + + | Author | [facility] | | | and Danielana | + + + | Organization | [facility] | | | [...] | | | | | [place] [address] | | + + + + + | Allegra Raza | ECON | Unknown | | + + + + + | Emily Fuller | ECON | Unknown | | + + + + + Care Team Providers + +------+ + | Care Live Truck Technician Name | Role | Phone | [...] | | | | [place], [place] | [address] | | | | | [address] | | | | | | [phone] | | | +--------+ + + + [...] | | | | | | [place] [address] | | | | | | [phone] | | | | | | | | +--------+---------+ + + + | 01/21/ | Office | Neurology | Brock Hammond MD | | | 2020 | Visit | | [address] | | | | | | [place], [place] | | | | | | [address] | | | | | | | | +--------+---------+ + + + documented as of this encounter Visit Diagnoses Not on filedocumented in this encounter"
--- OUTSIDE RECORDS SUMMARY | ~2020-05-02 | XMS | Encounter Summary ---
Demographics + + + | Address | [address] | | | [address] | | | [place] [address] | + + + | Home Phone [...] | | | | | [place] [address] | | + + + + + | Allegra Raza | ECON | Unknown | | + + + + + | Emily Fuller | ECON | Unknown | | + + + + + Care Team Providers + +------+ + | Care Used Building Materials Yard Worker Name | Role | Phone | + +------+ + PCP | Unavailable | + +------+ + Encounter Details +--------+ + + + + | Date | Type | Department | Care Team | Description | +--------+ + + + + | 04/24/ | Hospital | [facility] | | | | 2002 | Encounter | MED CTR XRAY [address] | | | | | | [place] [address] | | | | | | [place] [address] | | | | | | [phone] | | | +--------+ + + + [...] | | | | | | [place] [address] | | | | | | [phone] | | | | | | | [...]
--- OUTSIDE RECORDS SUMMARY | ~2020-05-02 | XMS | Encounter Summary ---
Demographics + + + | Address | [address] | | | [address] | | | [place] [address] | + + + | Home Phone [...] + + + | Author | [facility] | | | and Danielana | + + + | Organization | [facility] | | [...] | | | | | [place] [address] | | + + + + + | Allegra Raza | ECON | Unknown | | + + + + + | Emily Fuller | ECON | Unknown | | + + + + + Care Team Providers + +------+ + | Care Industrial Electrician Name | Role | Phone | + +------+ + PCP | Unavailable | + +------+ + Encounter Details +--------+ + + + + | Date | Type | Department | Care Team | Description | +--------+ + + + + | 07/09/ | Hospital | [facility] | Ruel Connelly | | | 2010 | Encounter | HOSPITAL EMERGENCY | MD [address] | | | | | [address] | [place] | | | | | [place] | [address] | | | | | [address] | [phone] | | | | | [phone] | | | +--------+ + + + [...] | | | | | | [place] [address] | | | | | | [phone] | | | | | | | | +--------+---------+ + + + | 01/21/ | Office | Neurology | Brock Hammond MD | | | 2020 | Visit | | [address] | | | | | | [place], [place] | | | | | | [address] | | | | | | | | +--------+---------+ + + + documented as of this encounter Visit Diagnoses Not on filedocumented in this encounter"
--- OUTSIDE RECORDS SUMMARY | ~2020-05-02 | XMS | Encounter Summary ---
Demographics + + + | Address | [address] | | | [address] | | | [place] [address] | + + + | Home Phone [...] | | | | | [place] [address] | | + + + + + | Allegra Raza | ECON | Unknown | | + + + + + | Emily Fuller | ECON | Unknown | | + + + + + Care Team Providers + +------+ + | Care Artillery Maintenance Supervisor Name | Role | Phone | + +------+ + PCP | Unavailable | + +------+ + Encounter Details +--------+ + + + + | Date | Type | Department | Care Team | Description | +--------+ + + + + | 10/31/ | Hospital | [facility] | William Harp | | | 2010 | Encounter | HOSPITAL EMERGENCY | [address] | | | | | CENTER [address] | [facility] | | | | | [address] [place], [place] | [employer] [address] | | | | | [address] | [phone] | | | | | [phone] | | | +--------+ + + + [...] | | | | | | [place] [address] | | | | | | [phone] | | | | | | | | +--------+---------+ + + + | 01/21/ | Office | Neurology | Brock Hammond MD | | | 2020 | Visit | | [address] | | | | | | [place] | | | | | | [address] | | | | | | | | +--------+---------+ + + + documented as of this encounter Visit Diagnoses Not on filedocumented in this encounter"
--- OUTSIDE RECORDS SUMMARY | ~2020-05-02 | XMS | Encounter Summary ---
Demographics + + + | Address | [address] | | | [address] | | | [place] [address] | + + + | Home Phone [...] | | | | | [place] [address] | | + + + + + | Allegra Raza | ECON | Unknown | | + + + + + | Emily Fuller | ECON | Unknown | | + + + + + Care Team Providers + +------+ + | Care Rotary Machine Operator Name | Role | Phone | + +------+ + | Aisha Carrington DO | PCP | | + +------+ + Reason for Visit + +--------+ + | Reason | Onset | Comments | | | Date | | + +--------+ + | Results, Imaging | 10/07/ | | | | 2016 | | + +--------+ + Encounter Details +--------+ + + + + | Date | Type | Department | Care Team | Description | +--------+ + + + + | 10/07/ | Telephone | [facility] | Aisha Carrington, | Results, Imaging | | 2016 | | [facility] | [address] | | | | | MEDICAL CLIN[address] | [place] [address] | | | | | [address], | [phone] | | | | | [place] [address] | | | | | | [phone] | | | +--------+ + + + [...] encounter Miscellaneous Notes Telephone Encounter - Megha Tariq RN - 10/07/2017 9:25 AM PSTLeft message for patient. Megha Tariq RN elephone Encounter - Megha Tariq RN - 10/07/2017 9:25 AM PST----- Message from SHUKRI Hernández sent at 10/07/2017 8:02 PST ----- Please let patient know that the ultrasound of her thyroid was normal. Electronically daniel d by Megha Tariq RN at 10/07/2017 9:25 AM PSTdocumented in this encounter Plan of Treatment +--------+---------+ + + + | Date | Type | Specialty | Care Team | Description | +--------+---------+ + + + | 05/14/ | Office | Neurology | Romeo, | | | 2019 | Visit | | [address] | | | | | [address] [place] | | | | | | [place] [address] | | | | | | [phone] | | | | | | | | +--------+---------+ + + + | 01/21/ | Office | Neurology | Brock Hammond MD | | | 2020 | Visit | | [address] | | | | | | [place] | | | | | | [address] | | | | | | | | +--------+---------+ + + + documented as of this encounter Visit Diagnoses Not on filedocumented in this encounter"
--- OUTSIDE RECORDS SUMMARY | ~2020-05-02 | XMS | Encounter Summary ---
Demographics + + + | Address | [address] | | | [address] | | | [place] [address] | + + + | Home Phone [...] | | | | | [place] [address] | | + + + + + | Allegra Raza | ECON | Unknown | | + + + + + | Emily Fuller | ECON | Unknown | | + + + + + Care Team Providers + +------+ + | Care Telephone Advice Nurse Name | Role | Phone | + +------+ + PCP | Unavailable | + +------+ + Encounter Details +--------+ + + + + | Date | Type | Department | Care Team | Description | +--------+ + + + + | 04/29/ | Hospital | [facility] | Conversion | | | 2009 | Encounter | HOSPITAL EMERGENCY | Transaction, | | | | | CENTER [address] | Provider Unknown | | | | | [place] | | | | | | [address] | (Fax) | | | | | [phone] | | | +--------+ + + + [...] | | | | | | [place] [address] | | | | | | [phone] | | | | | | | | +--------+---------+ + + + | 01/21/ | Office | Neurology | Brock Hammond MD | | | 2020 | Visit | | [address] | | | | | | [place] | | | | | | [id number] | | | | | | | | +--------+---------+ + + + documented as of this encounter Visit Diagnoses Not on filedocumented in this encounter"
--- OUTSIDE RECORDS SUMMARY | ~2020-05-02 | XMS | Encounter Summary ---
Demographics + + + | Address | [address] | | | [address] | | | [place] [address] | + + + | Home Phone [...] | Author | [facility] | | | and Danielana | + + + | Organization | [facility] | | | and [...] | | | | | [place] [address] | | + + + + + | Allegra Raza | ECON | Unknown | | + + + + + | Emily Fuller | ECON | Unknown | | + + + + + Care Team Providers + +------+ + | Care Exposure Machine Operator Name | Role | Phone [...] [address] | [place] [address] | | | | | [place], [place] | [phone] | | | | | [address] | | | | | | [phone] | | | +--------+ + + + [...] | | | | | | [place] [address] | | | | | | [phone] | | | | | | | [...]
--- OUTSIDE RECORDS SUMMARY | ~2020-05-02 | XMS | Encounter Summary ---
Demographics + + + | Address | [address] | | | [address] | | | [place] [address] | + + + | Home Phone [...] | | | | | [place] [address] | | + + + + + | Allegra Raza | ECON | Unknown | | + + + + + | Emily Fuller | ECON | Unknown | | + + + + + Care Team Providers + +------+ + | Care Scaling Machine Operator Name | Role | Phone | + +------+ + PCP | Unavailable | + +------+ + Encounter Details +--------+ + + + + | Date | Type | Department | Care Team | Description | +--------+ + + + + | 07/27/ | Hospital | [facility] | William Harp | | | 2009 | Encounter | HOSPITAL EMERGENCY | [address] | | | | | C[address] | [facility] | | | | | DR [place], [place] | [employer] [address] | | | | | [address] | [phone] | | | | | [phone] | | | +--------+ + + + [...] | | | | | | [place] [address] | | | | | | [phone] | | | | | | | | +--------+---------+ + + + | 01/21/ | Office | Neurology | Brock Hammond MD | | | 2020 | Visit | | [address] | | | | | | [place] | | | | | | [address] | | | | | | | | +--------+---------+ + + + documented as of this encounter Visit Diagnoses Not on filedocumented in this encounter"
--- OUTSIDE RECORDS SUMMARY | ~2020-05-02 | XMS | Encounter Summary ---
Demographics + + + | Address | [address] | | | [address] | | | [place] [address] | + + + | Home Phone [...] | | | | | [place] [address] | | + + + + + | Allegra Raza | ECON | Unknown | | + + + + + | Emily Fuller | ECON | Unknown | | + + + + + Care Team Providers + +------+ + | Care Secretary Specialist Name | Role | Phone | + +------+ + PCP | Unavailable | + +------+ + Encounter Details +--------+ + + + + | Date | Type | Department | Care Team | Description | +--------+ + + + + | 01/03/ | Hospital | [facility] | Bassem Hammond MD | | | 2010 | Encounter | HOSPITAL MED SURG | [address] | | | | | [address] | [place] | | | | | [place] | [address] | | | | | [address] | | | | | | [phone] | | | +--------+ + + + [...] Bassem Hammond MD - 01/03/2011 1:00 PM [facility] Dictating Practitioner: BASSEM HAMMOND MD Patient Name: KOKI RAZA Patient Date of : 1965 Visit Number: [id number] HISTORY AND PHYSICAL DATE OF SERVICE: 01/03/2011 CHIEF COMPLAINT: Change in mental status. HISTORY OF PRESENT ILLNESS: Ms. Raza was a 46-year-old lady who is well known to me seen in the [facility] with onset of change in mental [...] lives by herself and apparently in the halfway. She apparently claims she stopped smoking cigarettes [...] Trace throughout. CEREBELLAR EXAMINATION: Able to perform jrnqvj-[id number] with mild tremors to hands outstretched, but [...] up closely. Cc:Emmanuelle Frank MD [email or web address] / [id number] Dictation Date/Time: January 03, 2011 12:11PM Architectural Designer Date/Time: January 03, 2011 03:06PM Authenticated and [...] an outpatient. This morning the patient called global product manager and when they arrived at her home [...] ly in the upper and lower extremities. Vfelzq-ks-rfxy was sluggish and halting. LABORATORY DATA: Complete [...] oxygen saturations on rElectronically signed by Leandro, Architectural Designer Conversion at 1 12:18 PM PDTdocumented in [...] | | | | | | [place] [address] | | | | | | [phone] | | | | | | | [...]
--- OUTSIDE RECORDS SUMMARY | ~2020-05-02 | XMS | Encounter Summary ---
Demographics + + + | Address | [address] | | | [address] | | | [place] [address] | + + + | Home Phone [...] | | | | | [place] [address] | | + + + + + | Allegra Raza | ECON | Unknown | | + + + + + | Emily Fuller | ECON | Unknown | | + + + + + Care Team Providers + +------+ + | Care [employer] Teacher Name | Role | Phone | [...] [place] | | | | | | [address] | | | | | | [phone] | | | +--------+ + + + [...] | | | | | | [place] [address] | | | | | | [phone] | | | | | | | | +--------+---------+ + + + | 01/21/ | Office | Neurology | Brock Hammond MD | | | 2020 | Visit | | [address] | | | | | | [place] | | | | | | [address] | | | | | | | | +--------+---------+ + + + documented as of this encounter Visit Diagnoses Not on filedocumented in this encounter"
--- OUTSIDE RECORDS SUMMARY | ~2020-05-02 | XMS | Encounter Summary ---
Demographics + + + | Address | [address] | | | [address] | | | [place] [address] | + + + | Home Phone [...] | | | | | [place] [address] | | + + + + + | Allegra Raza | ECON | Unknown | | + + + + + | Emily Fuller | ECON | Unknown | | + + + + + Care Team Providers + +------+ + | Care Cook Pickled Meat Name | Role | Phone | + +------+ + | No, Physician | PCP | Unavailable | + +------+ + Reason for Referral Self-referral (Routine) +--------+ + + + + + | Status | Reason | Specialty | Diagnoses / | Referred By | Referred To | | | | | Procedures | Contact | Contact | +--------+ + + + + + | Closed | Specialty | Physical | Diagnoses | [facility] | [facility] | | | Services | Therapy | Chronic | [facility], | [facility] | | | Required | | pain of both | MD [address] | PHYSICAL | | | | | shoulders | [address], | [address] | | | | | | [address] | [place] | | | | | | [place], [place] | [place], [place] | | | | | | [address] | [address] | | | | | | Phone: | Phone: | | | | | | [phone] | [phone] | | | | | | Fax: | Fax: | | | | | | [phone] | [phone] | +--------+ + + + + + Reason for Visit + + + | Reason | Comments | + + + | Seizures | | + + + Encounter Details +--------+---------+ + + + | Date | Type | Department | Care Team | Description | +--------+---------+ + + + | 03/07/ | Office | [facility] | Brock Hammond MD | Arthritis (Primary | | 2019 | Visit | [facility] | [address] | Dx); Migraine with | | | | CLIN[facility] [address] | [place], [place] | aura and without | | | | [address] [place], | [address] | status migrainosus, | | | | [place] [address] | | not intractable; | | | | [phone] | | Chronic midline low | | | | | | back pain without | | | | | | sciatica; Myalgia; | | | | | | Neck pain, | | | | | | bilateral; Seizure | | | | | | ([facility]); Chronic pain | | | | | | of both shoulders; | | | | | | Bilateral shoulder | | | | | | pain, unspecified | | | | | | chronicity | +--------+---------+ + + + Social History + +-------+ [...] + + + | Blood Pressure | 120/84 | 03/07/2019 8:37 AM | | | | | PDT | | + + + + + | Pulse | 66 | 03/07/2019 8:37 AM | | | | | PDT | | + + + + + | Temperature | - | - | | + + + + + | Respiratory Rate | 20 | 03/07/2019 8:37 AM | | | | | PDT | | + + + + + | Oxygen Saturation | 98% | 03/07/2019 8:37 AM | | | | | PDT | | + + + + + | Inhaled Oxygen | - | - | | | Concentration | | | | + + + + + | Weight | 62.1 kg (137 lb) | 03/07/2019 8:37 AM | | | | | PDT | | + + + + + | Height | 143.5 cm (4' 8.5") | 03/07/2019 8:37 AM | | | | | PDT | | + + + + + | Body Mass Index | 30.17 | 03/07/2019 8:37 AM | | | | | PDT | | + + + + + documented in this encounter Patient Instructions Patient Instructions Brock Hammond MD - 03/07/2019 8:30 AM PDTFormatting of this note mi ght be different from the original. Patient Instructions [facility] Dr. Brock Hammond, Neurologist Date:03/07/2019 Name:Koki Hurtado Raza :..1965 Please schedule next follow up appt with Dr. Hammond in 6-7 months for Seizures, complex partia l with secondary generalization Bilateral shoulder pain due to osteoarthritis Cervical and lumbosacral spine strain due to multilevel degenerative spine disease Migraine headache, with aura, non intractable, non status migranous Chronic pain syndrome You have the following tests/procedures ordered: Orders Placed This Encounter Procedures XR Cervical Spine 2 or 3 Views XR Shoulder Right 2 + Vw XR Shoulder Left 2 + Vw CBC with Differential Comprehensive Metabolic Panel Levetiracetam Level [facility] Physical Therapy, External - AMB Referral Treatment Option- massage, Acupuncture, Over the counter heat patches (icy hot, thermacare, salonpas) , over the counter creams (aspercream, bengay cream, emu oi l), Relaxation therapy, Water therapy, Cortisone shots, Toradol Injections Suggest reading newspapers. magazines, perform word find exercises such as cross word puzz le, and scrabble, other puzzle games like Hoonto, Advaliantng. Play computer/mobile applications such as [employer] Toradol 60 mg IM for intractable neck and low back pain, bilateral shoulder pain Tizanidine 4 mg twice a day for spasms Continue Keprra 500 mg twice a day Any Questions please call ELOINA Peterson or Dr. Hammond at [facility] Neu[facility] Clinic General Neck and Back Pain Both neck [...] are taking other medicines. You may use csdb-rph-hgwmchb medicine to control pain, unless another pain [...] by your healthcare provider Date Last Reviewed: 04/24/201619995697-0514 [employer]. [address] [place] [address], [place] [address]. All righ ts reserved. This information is not intended as a substitute for professional medical care. Always follow your healthcare professional's instructions. Relieving Back Pain Back pain is a common problem. You can strain back muscles by lifting too much weight or ju st by moving the wrong way. Back strain can be uncomfortable, even painful. And it can take weeks or monthsto improve. To help yourself feel better and prevent future back strains, t ry these tips. Important: Don't give aspirin to children or teens without first discussing it with your [facility] healthcare provider. Ice Ice reduces muscle pain and swelling. It helps most during the first 24 to 48 hours after a n injury. Wrap an ice pack or a bag of frozen peas in a thin towel. Never put ice directly on your skin. Place the ice where your back hurts the most. Don t ice for more than 20 minutes at a time. You can use ice several times a day. Medicines Ibew-niw-fwilaeq pain relieversincludeacetaminophen and anti-inflammatory medicines, wh ich includes aspirin, naproxen,or ibuprofen. They can help ease discomfort. Some also redu ce swelling. Tell your healthcare provider about any medicines you are already taking. Take medicines only as directed. Manipulation and massage Having manipulation by an osteopathic doctor or chiropractor may be helpful. Getting a mass age also may help. Heat After the first 48 hours, heat can relax sore muscles and improve blood flow. Try a warm bath or shower. Or use a heating pad set on low. To prevent a burn, keep a cl oth between you and the heating pad. Don t use a heating pad for more than 15 minutes at a time. Never sleep on a heating p ad. Date Last Reviewed: 03/25/2018 [employer]. [address] [place] [address], [place] [address]. All [facility] ts reserved. This information is not intended as a substitute for professional medical care. Always follow your healthcare professional's instructions. Managing Chronic Pain Being in pain can be exhausting. You may find you have trouble working, sleeping, or just d oing day-to-day tasks. But you can learn to manage pain, feel better, and regain control of your life. Understanding chronic pain Chronic pain is a serious medical problem. It is defined as pain that lasts longer than 3 m onths. Chronic pain includes pain that you feel regularly, even if it comes and goes. The pa in may be from an ongoing injury or health problem. Or it may be because of a chronic pain s yndrome, such as fibromyalgia. Sometimes pain persists when no cause can be found. Pain should be treated You have a right to have your pain treated. Untreated chronic pain can affect your overall health. It can lead to depression, anxiety, anger, and personality changes. It can also disr upt work, sleep, relationships, and other aspects of normal life. It may not be possible to relieve all of your pain. But it can be reduced to a level you can cope with. Your role in treatment Your healthcare provider will work closely with you on a plan to manage your pain. But it s up to you to put this plan into action. Control of chronic pain is done mainly through se lf-management. This means that you take an active role in your care. Getting support from fa haroon and friends is important too. Planning your treatment Your healthcare provider will first look for a cause of your pain that can be treated. He o r she will also assess your pain level. This may be done by asking you to rate your pain on a scale from 1 (low pain) to 10 (severe pain). Your provider will also ask you to describe t he pain. For example, is your pain sharp or dull? Is it constant or does it come and go? You may be asked to keep a pain log. This is a diary in which you track your pain. It may help identify things that tend to make your pain worse. You and your healthcare provider can make a plan to help prevent and cope with pain on a daily basis. In some cases, you may be refer red to a special pain program or clinic. Your treatment plan may include: Medicines Complementary therapies Mind and body therapies Other medical treatments Getting physical activity Medicines Medicine will most likely be a part of your treatment plan. Your provider will evaluate whi ch are the best medicines for your pain. You may use bqel-tmv-khzfkfq or prescription medici tracie. You may need to take more than one medicine. It may take some time to find the best med icine or combination of medicines for your pain. Take all medicines as directed. Pain medici tracie can be used in many ways. You may take medicines: Every day to help stay ahead of the pain so that it doesn t flare up At times when pain is worse than usual Before activities that tend to trigger pain To decrease sensitivity to pain Medicines for chronic pain include: Nonsteroidal anti-inflammatory medicines (NSAIDs) for pain from swelling and inflammatio n. Your provider may prescribe a type of NSAID called a MANCILLA inhibitor. Acetaminophen Anticonvulsants to treat nerve pain called neuropathy Antidepressants to treat neuropathy Muscle relaxants for muscle spasms Topical medicines. These are put on the skin. Opioids, or narcotics, to treat severe pain. These very strong medicines can help ease c ertain kinds of pain. They most often are used for short periods of time. Your provider will monitor your care very closely if you take opioids. Complementary therapies These are treatments that can be used along with medical care to help relieve pain. Tam dumont a licensed practitioner with experience treating chronic pain. Talk with your healthcare p gm about using complementary therapies such as: Massage Acupuncture and acupressure Chiropractic Vitamins or herbal supplements Mind/body therapies The brain and the body are both part of the pain response. The brain reads the pain signals from the body. This means that your mind has some control over how pain signals are process ed. Mind/body therapies may help change how your brain reads pain signals. They may be learn ed with the help of a trained therapist or in a class. They include: Deep breathing Distraction Visualization Meditation Biofeedback Other medical treatments If other treatments don t work for you, one of these procedures or devices may help: Nerve blocks to numb nerves in a painful area Trigger point injections for painful muscles Steroid injections for joint pain Transcutaneous electrical nerve stimulation (TENS) to block pain signals to the brain Spinal stimulation to block spinal pain Implanted spinal pump that contains pain medicine Ablation using heat, cold, or chemicals to destroy painful nerves Getting physical activity Being physically active has many benefits. It can improve your ability to cope with pain. I t may also help improve your mood, sleep, and overall health. Your healthcare provider can h elp you plan an exercise program that s right for your needs. This may include: Stretching and vusjl-xb-wcxpav exercises Low-impact exercise such as walking, biking, swimming, and other water exercise Strength training using light weights Walking up the stairs instead of taking the elevator Riding a bike instead of driving Parking your car farther from your destination You may need to not do high-impact activities. These involve jumping, running, or sudden st arts, stops, or changes of direction. If you haven t exercised in a long time or you have physical limitations, your healthcare provider may refer you to a physical therapist. He or she can teach you stretches and exercises that fit your condition and fitness level. Being active and healthy A healthier lifestyle makes it easier to cope with pain and function better. Follow these t ips: Choose a balance of healthy foods and drinks. Limit alcohol and caffeine. Go to bed at about the same time each day. Don t let pain keep you from others. Spend time with friends and family. Keep your mind active. Read books or take classes. If you re not working, volunteer or join a club or social group. Getting support A support group lets you talk with others who also have chronic pain. Chronic pain support groups can help you feel less isolated. They can also give you tips for coping with pain. To find a local support group, contact your nearest hospital or pain clinic. You may also want to try counseling. Counseling can help you learn coping skills and method s such as visualization. It can also help with mood problems. When choosing a counselor, loo k for someone who has worked with people who have chronic pain. See your provider for regular visits and let him or her know how well treatments are workin g for you. Also reach out to family and friends for help and support. For more support and information, contact these groups: [place] [employer], www.aapainmanage.org [place] [employer], www.painmed.org [place] [employer], www.theacpa.org National Pain Foundation, www.thenationalpainfoundation.org Date Last Reviewed: 09/24/201719999684-4093 [employer]. [address] [id number]. All righ ts reserved. This information is not intended as a substitute for professional medical care. Always follow your healthcare professional's instructions. Preventing Migraine Headaches: Triggers Red wine is a common migraine trigger. The first step in preventing migraines is to learn what triggers them. You may then be able to control your triggers to avoid or reduce the severity of your migraines. Know your triggers Be aware that you may have more thanone trigger, and that some triggers may work together . Common migraine triggers include: Food and nutrition. Skipping meals or not drinking enough water can trigger headaches. S o can certain foods, such as caffeine, chocolate, artificial sweeteners, monosodium glutamat e (MSG),aged cheese, or sausage. Alcohol. Red wine and other alcoholic beverages are common migraine triggers. Chemicals. Scents, cleaning products, gasoline, glue, perfume, and paint can be triggers . So can tobacco smoke, including secondhand smoke. Emotions. Stress can trigger headaches or make them worse once they start. Sleep disruption. Staying up late, sleeping late, and traveling across time zones can di srupt your sleep cycle, triggering headaches. Hormones. Many women notice that migraines tend tohappen at a certain point in their m enstrual cycle. control pills or hormone replacement therapy may also trigger migraine s. Environment and weather. Air travel, changes in altitude, air pressure changes, hot sun, or bright or flashing lights can be triggers. Medicine overuse. Frequent use of pain medicines for headache pain can also cause a head ache. This may also be called rebound headache. Control your triggers These are some of the things you can do to try to control triggers: Avoid triggers if you can. For example, stay clear of alcohol and foods that trigger you r headaches. Use unscented household products. Keep regular sleep habits. Manage stress to h elp control emotional triggers. Change your behavior at times when triggers can't be avoided. For example, make sure to get enough rest and drink plenty of water while you're traveling. Make sure to carry a hat, sunglasses, and your medicines. Be alert for migraine symptoms, so you can treat a migraine early if it happens. Date Last Reviewed: 02/22/201819998805-9043 [employer]. [address] [place] [address]. All righ ts reserved. This information is not intended as a substitute for professional medical care. Always follow your healthcare professional's instructions. Preventing Migraine Headaches: Medicines and Lifestyle Changes Going to bed and getting up at the same time each day, including weekends, may help prevent migraines. A migraine is a type of severe headache. Having a migraine can be very painful. But there a re steps you can take to help prevent migraines. Medicines to help prevent migraines Your healthcare provider may prescribe certain medicines to help prevent migraines. Thes e medicines may need to be taken daily. Or they may only need to be taken at times when you re likely to have a migraine. Common medicines used to help prevent migraines include: ? Triptans (serotonin receptor agonists) ? Nonsteroidal anti-inflammatory drugs (such as ibuprofen, available ykig-yjn-ndwixlw) ? Beta-blockers ? Anticonvulsants ? Tricyclic antidepressants ? Calcium channel blockers ? Certain vitamins, minerals, and plant extracts ? Botulinum toxin injection for certain chronic migraines ? CGRP (calcitonin gene-related peptide) agnonists are being reviewed by the Food and Drug Administration (FDA) Lifestyle changes for long-term prevention Here are some suggestions: Exercise. Regular exercise can help prevent migraines and improve your health. (If exerc ise triggers your migraines, talk to your healthcare provider.) Keep regular habits. Don t skip or delay meals. Drink plenty of water. And go to bed a nd get up at about the same time each day. This includes weekends. Try alternative treatments. These are treatments that don't involve the use of medicines or surgery. They may help relieve symptoms and prevent migraines. Some treatment options in clude biofeedback and acupuncture. Ask yourhealthcare providerto tell you more about the se treatments if you have questions. Limit caffeine. You may find that caffeine helps relieve pain during an attack. But too much caffeine can also trigger migraines. So, limit the amount of caffeine you consume. Date Last Reviewed: 02/22/201819997999-2207 [employer]. [address] [place] [address]. All righ ts reserved. This information is not intended as a substitute for professional medical care. Always follow your healthcare professional's instructions. Epilepsy: Safety During a Seizure Safety during a seizure Let family and friends know what to expect and how to react when youhave a seizure. This helps keep them calm and you safe. All seizures should be treated with care. But seizures th at cause you to lose consciousness (tonic-clonic seizures) require more attention. Think abo ut wearing a medical alert bracelet in case you are not around family members. This can aler t other people to your condition. Here are some tips for loved ones. What to know Seizures typically last less than 3 minutes, but it will feel like it is longer.People re cover safely from most seizures. During a tonic-clonic seizure, the person may appear to sto p breathing or turn slightly blue. This may be scary for you, but try to stay calm. Afterwar d, the person may be tired, confused, and achy. He or she may need to sleep for several hour s to fully recover. What to do During any seizure, stay with the personuntil it is over. Note the time when the seizure starts and ends.Don t try to stop the seizure. During a tonic-clonic seizure, also do th e following: Move hard or sharp objects out of the way. Lay the person on a flat surface and turn them on their side. Place a flat, soft object under their head. Don t try to restrain the person. Both of you could get hurt. Don t put anything in the person s mouth. The person can t swallow their tongue, a nd you risk breaking their teeth or being bitten. Don t give the person medicines during a seizure, unless you ve been trained [facility] a [facility]. Speak quietly to the person as they recover. There is no need to call 911 if the person has a well-known cause of the seizures (such as epilepsy) and the seizure is very typical.If you are not sure or the person's condition is not known, call 911. Call 911 if any of the following occur: The seizure lasts longer than 5 minutes The person is not conscious between 2 seizures Several seizures happen in a row These things could mean the person has status epilepticus. This is a medical emergency. Hos pital treatment for this condition includes benzodiazepine medicines given by IV (intravenou s). A form of this medicine (a rectal diazepam gel) may be prescribed for at-home use. Other causes of seizures and situations that need immediate medical care include: The person has diabetes The person has a braininfection The person has heat exhaustion The person is Poisoning is known or suspected The person has low blood sugar A seizure happens after or during a high fever A head injury immediately after or within a few days after the injury happened Multiple seizures happen in a short period of time The person stops breathing A seizure that happens in water The person hit their head during a seizure and becomes difficult to wake up, is vomiting ,or complains of blurry vision It is the first time a seizure happens It is differentthan the typical seizuresfor that person The person is difficult to arouse after the seizure Alcohol or drug abuse Alcohol or drug withdrawal Date Last Reviewed: 08/25/201719991898-7878 [employer]. [address] [place] [address]. All righ ts reserved. This information is not intended as a substitute for professional medical care. Always follow your healthcare professional's instructions. documented in this encounter Progress Notes [facility] - 03/07/2019 8:30 AM PDTToradol injection given 60 mg IM left ve ntrogluteal muscle, no adverse reactions noted, per pt has had medication before. Electronically signed by: MAR Morse CMA 03/07/2019 9:19 Brock Izquierdo MD - 0 03/07/2019 8:30 AM PDT Patient: Koki Raza Medical Record: [id number] Date of Services: 03/07/2019 Referring Doctor: Aisha Carrington DO Chief Complaint: Seizures, complex partial History of Present Illness: Miss Raza was a 54-year-old right-handed lady, seen for neurologic evaluation, treated for seizures, complex partial with secondary generalization, controlled on Keppra 500 mg by memo th twice a day, seizure free for at least 3 years now. She was given medical education to a void sleep deprivation, alcohol, stimulants, or any type of head trauma. I discussed with Elisa Hicks in detail that she has an option of tapering her medications if she remains seizure free however, she prefers to stay in the medication at this time. In addition, she complains of significant neck and low back pain, likely due to the due to degenerative spine disease and bilateral shoulder pain, likely due to osteoarthritis. Leonidas heard was given treatment options such as acupuncture treatments, massage therapy, relaxation t herapy, lbhq-lxk-nmoyesw creams and patches, CBD, and cortisone shots. She elected to under go PT/OT in [facility] in [place]. In the meantime, we will perform x-rays of the cervical spine and bilateral shoulders. Her pain syndrome today's possibly 7 06/03 1 given Toradol 60 mg IM stat dose. Her migraine headaches have been quite stable occurring at least once every 2 weeks, respon ding well with sumatriptan. She receives gabapentin for headache prophylaxis. In addition stress his Cymbalta for underlying depression. She has other past medical history of hypothyroidism. Review of Systems: Denies headache, earache, nasal catarrh, diplopia, blurring of vision, d ysphagia, odynophagia, sore throat, neck masses, hearing loss, chest pain, palpitations, lance rtness of breath, cough, hemoptysis, abdominal pain, diarrhea, constipation, bowel or bladde r dysfunction, hematuria, dysuria, lymphadenopathies, echhymoses, rashes, gait ataxia, and h omicidal or suicidal ideations. Present Medication: Current Outpatient Medications Medication Sig Dispense Refill DULoxetine (CYMBALTA) [address] capsule take 1 capsule by mouth twice a day 60 capsule 1 1 gabapentin (NEURONTIN) 600 MG tablet Take 1 tablet by mouth 3 times daily for 30 days. 90 tablet 11 levETIRAcetam (KEPPRA) 500 mg tablet take 1 tablet by mouth twice a day 60 tablet 0 levothyroxine (SYNTHROID) 125 mcg tablet take 1 tablet by mouth once daily 30 tablet 11 ondansetron (ZOFRAN) 4 mg tablet 0 SUMAtriptan (IMITREX) 100 mg tablet take 1 tablet by mouth AT ONSET OF HEADACHE may rep eat ONCE AFTER 45 MINUTES; not more than 2 tablets daily 12 tablet 0 tiZANidine (ZANAFLEX) 4 mg tablet Take 1 tablet by mouth Twice daily as needed for up to 30 days. 60 tablet 4 VENTOLIN HFA 108 (90 Base) MCG/ACT inhaler inhale 2 puffs by mouth every 4 to 6 hours i f needed for cough and shortness of breath 18 g 11 Current Facility-Administered Medications Medication Dose Route Frequency Provider Last Rate Last Dose ketorolac (TORADOL) injection 60 mg 60 mg Intramuscular Once Brock Hammond MD Patient's Allergies: Allergies Allergen Reactions Prochlorperazine Other (See Comments), Anxiety and Hallucination Ciprofloxacin Other (See Comments) Angry Peanut Butter Photosensitivity Adhesive & Tape Rash Neurological Examination: Vitals: 03/07/19 0837 BP: 120/84 Pulse: 66 Resp: 20 PainSc: 6 PainLoc: Back MENTAL STATUS: The patient is awake, alert, and oriented to time, place, and person. Spee is fluent. Memory, attention, comprehension, and general fund of knowledge are intact. CRANIAL NERVES: Funduscopy revealed distinct disc margins. There are no exudates or hemor rhages noted. Pupils are 3-4 mm, equal and reactive to light and accommodation. Extraocular muscle movements are intact. There are no visual field cuts. There is no nystagmus. There is no facial asymmetry. Facial sensation is intact. Palate elevates symmetrically. Streng th in the trapezius and sternocleidomastoid muscles is normal. Tongue is midline on protrusi on. MOTOR EXAMINATION: Strength is 5/5 throughout. Tone is normal. SENSORY EXAMINATION: Intact to light touch, pin prick, vibration, and proprioception. The re is no extinction on double simultaneous stimulation. DEEP TENDON REFLEXES: 2+ and symmetric. PLANTAR RESPONSES: Downgoing bilaterally GAIT: Gait and station are normal. Able to tandem gait, Romberg was negative CEREBELLAR EXAMINATION: There is no dysmetria on cmpktj-wf-gzyz test. MISCELLANEOUS EXAM: Atraumatic, no evidence of frontal or maxillary sinus tenderness, no ne ck masses, tenderness in the paraspinal cervical spine, trapezius, and suprascapular muscles with the decrease with decreased range of motion space on flexion and extension at 5-10, tenderness in the paraspinal lumbosacral spine with increased pain upon flexion and extensio n at 5-10, abdomen is soft and nontender, extremities equally palpable pulses Clinical Impression: Seizures, complex partial with secondary generalization, stable Bilateral shoulder pain due to osteoarthritis Cervical and lumbosacral spine strain due to multilevel degenerative spine disease Migraine headache, with aura, non intractable, non status migranous Chronic pain syndrome Plan: Patient Instructions [facility] Neurology Clinic Dr. Brock Hammond, Neurologist Date:03/07/2019 Name:Koki Raza :..1965 Please schedule next follow up appt with Dr. Hammond in 6-7 months for Seizures, complex partia l with secondary generalization Bilateral shoulder pain due to osteoarthritis Cervical and lumbosacral spine strain due to multilevel degenerative spine disease Migraine headache, with aura, non intractable, non status migranous Chronic pain syndrome You have the following tests/procedures ordered: Orders Placed This Encounter Procedures XR Cervical Spine 2 or 3 Views XR Shoulder Right 2 + Vw XR Shoulder Left 2 + Vw CBC with Differential Comprehensive Metabolic Panel Levetiracetam Level [facility] Physical Therapy, External - AMB Referral Treatment Option- massage, Acupuncture, Over the counter heat patches (icy hot, thermacare, salonpas) , over the counter creams (aspercream, bengay cream, emu oi l), Relaxation therapy, Water therapy, Cortisone shots, Toradol Injections Suggest reading newspapers. magazines, perform word find exercises such as cross word puzz le, and scrabble, other puzzle games like Hoonto, Clipboard. Play computer/mobile applications such as ME[employer]AN[employer] and [employer] GAMES Toradol 60 mg IM for intractable neck and low back pain, bilateral shoulder pain Tizanidine 4 mg twice a day for spasms Continue Keprra 500 mg twice a day Any Questions please call ELOINA Peterson or Dr. Hammond at [facility] Neurology Clinic General Neck and Back Pain Both neck [...] are taking other medicines. You may use xqpb-mba-qhmgkjf medicine to control pain, unless another pain [...] by your healthcare provider Date Last Reviewed: 04/24/201619994627-[address] [employer] [place] [address], [place] [address]. All righ ts reserved. This information is not intended as a substitute for professional medical care. Always follow your healthcare professional's instructions. Relieving Back Pain Back pain is a common problem. You can strain back muscles by lifting too much weight or ju st by moving the wrong way. Back strain can be uncomfortable, even painful. And it can take weeks or monthsto improve. To help yourself feel better and prevent future back strains, t ry these tips. Important: Don't give aspirin to children or teens without first discussing it with your [facility] healthcare provider. Ice Ice reduces muscle pain and swelling. It helps most during the first 24 to 48 hours after a n injury. Wrap an ice pack or a bag of frozen peas in a thin towel. Never put ice directly on your skin. Place the ice where your back hurts the most. Don t ice for more than 20 minutes at a time. You can use ice several times a day. Medicines Bfzw-yzm-rqiepay pain relieversincludeacetaminophen and anti-inflammatory medicines, wh ich includes aspirin, naproxen,or ibuprofen. They can help ease discomfort. Some also redu ce swelling. Tell your healthcare provider about any medicines you are already taking. Take medicines only as directed. Manipulation and massage Having manipulation by an osteopathic doctor or chiropractor may be helpful. Getting a mass age also may help. Heat After the first 48 hours, heat can relax sore muscles and improve blood flow. Try a warm bath or shower. Or use a heating pad set on low. To prevent a burn, keep a cl oth between you and the heating pad. Don t use a heating pad for more than 15 minutes at a time. Never sleep on a heating p ad. Date Last Reviewed: 03/25/201819998486-1469 [employer]. [address] [place] [address]. All righ ts reserved. This information is not intended as a substitute for professional medical care. Always follow your healthcare professional's instructions. Managing Chronic Pain Being in pain can be exhausting. You may find you have trouble working, sleeping, or just d oing day-to-day tasks. But you can learn to manage pain, feel better, and regain control of your life. Understanding chronic pain Chronic pain is a serious medical problem. It is defined as pain that lasts longer than 3 m onths. Chronic pain includes pain that you feel regularly, even if it comes and goes. The pa in may be from an ongoing injury or health problem. Or it may be because of a chronic pain s yndrome, such as fibromyalgia. Sometimes pain persists when no cause can be found. Pain should be treated You have a right to have your pain treated. Untreated chronic pain can affect your overall health. It can lead to depression, anxiety, anger, and personality changes. It can also disr upt work, sleep, relationships, and other aspects of normal life. It may not be possible to relieve all of your pain. But it can be reduced to a level you can cope with. Your role in treatment Your healthcare provider will work closely with you on a plan to manage your pain. But it s up to you to put this plan into action. Control of chronic pain is done mainly through se lf-management. This means that you take an active role in your care. Getting support from fa haroon and friends is important too. Planning your treatment Your healthcare provider will first look for a cause of your pain that can be treated. He o r she will also assess your pain level. This may be done by asking you to rate your pain on a scale from 1 (low pain) to 10 (severe pain). Your provider will also ask you to describe t he pain. For example, is your pain sharp or dull? Is it constant or does it come and go? You may be asked to keep a pain log. This is a diary in which you track your pain. It may help identify things that tend to make your pain worse. You and your healthcare provider can make a plan to help prevent and cope with pain on a daily basis. In some cases, you may be refer red to a special pain program or clinic. Your treatment plan may include: Medicines Complementary therapies Mind and body therapies Other medical treatments Getting physical activity Medicines Medicine will most likely be a part of your treatment plan. Your provider will evaluate whi ch are the best medicines for your pain. You may use dffw-gci-tbvysdi or prescription medici tracie. You may need to take more than one medicine. It may take some time to find the best med icine or combination of medicines for your pain. Take all medicines as directed. Pain medici tracie can be used in many ways. You may take medicines: Every day to help stay ahead of the pain so that it doesn t flare up At times when pain is worse than usual Before activities that tend to trigger pain To decrease sensitivity to pain Medicines for chronic pain include: Nonsteroidal anti-inflammatory medicines (NSAIDs) for pain from swelling and inflammatio n. Your provider may prescribe a type of NSAID called a MANCILLA inhibitor. Acetaminophen Anticonvulsants to treat nerve pain called neuropathy Antidepressants to treat neuropathy Muscle relaxants for muscle spasms Topical medicines. These are put on the skin. Opioids, or narcotics, to treat severe pain. These very strong medicines can help ease c ertain kinds of pain. They most often are used for short periods of time. Your provider will monitor your care very closely if you take opioids. Complementary therapies These are treatments that can be used along with medical care to help relieve pain. Tam dumont a licensed practitioner with experience treating chronic pain. Talk with your healthcare hai worrell about using complementary therapies such as: Massage Acupuncture and acupressure Chiropractic Vitamins or herbal supplements Mind/body therapies The brain and the body are both part of the pain response. The brain reads the pain signals from the body. This means that your mind has some control over how pain signals are process ed. Mind/body therapies may help change how your brain reads pain signals. They may be learn ed with the help of a trained therapist or in a class. They include: Deep breathing Distraction Visualization Meditation Biofeedback Other medical treatments If other treatments don t work for you, one of these procedures or devices may help: Nerve blocks to numb nerves in a painful area Trigger point injections for painful muscles Steroid injections for joint pain Transcutaneous electrical nerve stimulation (TENS) to block pain signals to the brain Spinal stimulation to block spinal pain Implanted spinal pump that contains pain medicine Ablation using heat, cold, or chemicals to destroy painful nerves Getting physical activity Being physically active has many benefits. It can improve your ability to cope with pain. I t may also help improve your mood, sleep, and overall health. Your healthcare provider can h elp you plan an exercise program that s right for your needs. This may include: Stretching and grlbv-tf-kvxcep exercises Low-impact exercise such as walking, biking, swimming, and other water exercise Strength training using light weights Walking up the stairs instead of taking the elevator Riding a bike instead of driving Parking your car farther from your destination You may need to not do high-impact activities. These involve jumping, running, or sudden st arts, stops, or changes of direction. If you haven t exercised in a long time or you have physical limitations, your healthcare provider may refer you to a physical therapist. He or she can teach you stretches and exercises that fit your condition and fitness level. Being active and healthy A healthier lifestyle makes it easier to cope with pain and function better. Follow these t ips: Choose a balance of healthy foods and drinks. Limit alcohol and caffeine. Go to bed at about the same time each day. Don t let pain keep you from others. Spend time with friends and family. Keep your mind active. Read books or take classes. If you re not working, volunteer or join a club or social group. Getting support A support group lets you talk with others who also have chronic pain. Chronic pain support groups can help you feel less isolated. They can also give you tips for coping with pain. To find a local support group, contact your nearest hospital or pain clinic. You may also want to try counseling. Counseling can help you learn coping skills and method s such as visualization. It can also help with mood problems. When choosing a counselor, loo k for someone who has worked with people who have chronic pain. See your provider for regular visits and let him or her know how well treatments are workin g for you. Also reach out to family and friends for help and support. For more support and information, contact these groups: [place] [employer], www.aapainmanage.org [place] [employer], www.painmed.org [place] [employer], www.theacpa.org National Pain Foundation, www.thenationalpainfoundation.org Date Last Reviewed: 09/24/201719993506-[address] [employer] [place] [address], [place] [address]. All righ ts reserved. This information is not intended as a substitute for professional medical care. Always follow your healthcare professional's instructions. Preventing Migraine Headaches: Triggers Red wine is a common migraine trigger. The first step in preventing migraines is to learn what triggers them. You may then be able to control your triggers to avoid or reduce the severity of your migraines. Know your triggers Be aware that you may have more thanone trigger, and that some triggers may work together . Common migraine triggers include: Food and nutrition. Skipping meals or not drinking enough water can trigger headaches. S o can certain foods, such as caffeine, chocolate, artificial sweeteners, monosodium glutamat e (MSG),aged cheese, or sausage. Alcohol. Red wine and other alcoholic beverages are common migraine triggers. Chemicals. Scents, cleaning products, gasoline, glue, perfume, and paint can be triggers . So can tobacco smoke, including secondhand smoke. Emotions. Stress can trigger headaches or make them worse once they start. Sleep disruption. Staying up late, sleeping late, and traveling across time zones can di srupt your sleep cycle, triggering headaches. Hormones. Many women notice that migraines tend tohappen at a certain point in their m enstrual cycle. control pills or hormone replacement therapy may also trigger migraine s. Environment and weather. Air travel, changes in altitude, air pressure changes, hot sun, or bright or flashing lights can be triggers. Medicine overuse. Frequent use of pain medicines for headache pain can also cause a head ache. This may also be called rebound headache. Control your triggers These are some of the things you can do to try to control triggers: Avoid triggers if you can. For example, stay clear of alcohol and foods that trigger you r headaches. Use unscented household products. Keep regular sleep habits. Manage stress to h elp control emotional triggers. Change your behavior at times when triggers can't be avoided. For example, make sure to get enough rest and drink plenty of water while you're traveling. Make sure to carry a hat, sunglasses, and your medicines. Be alert for migraine symptoms, so you can treat a migraine early if it happens. Date Last Reviewed: 02/22/201819999557-3208 [employer]. [address] [place] [address]. All righ ts reserved. This information is not intended as a substitute for professional medical care. Always follow your healthcare professional's instructions. Preventing Migraine Headaches: Medicines and Lifestyle Changes Going to bed and getting up at the same time each day, including weekends, may help prevent migraines. A migraine is a type of severe headache. Having a migraine can be very painful. But there a re steps you can take to help prevent migraines. Medicines to help prevent migraines Your healthcare provider may prescribe certain medicines to help prevent migraines. Thes e medicines may need to be taken daily. Or they may only need to be taken at times when you re likely to have a migraine. Common medicines used to help prevent migraines include: ? Triptans (serotonin receptor agonists) ? Nonsteroidal anti-inflammatory drugs (such as ibuprofen, available efaz-mfr-efdkpsh) ? Beta-blockers ? Anticonvulsants ? Tricyclic antidepressants ? Calcium channel blockers ? Certain vitamins, minerals, and plant extracts ? Botulinum toxin injection for certain chronic migraines ? CGRP (calcitonin gene-related peptide) agnonists are being reviewed by the Food and Drug Administration (FDA) Lifestyle changes for long-term prevention Here are some suggestions: Exercise. Regular exercise can help prevent migraines and improve your health. (If exerc ise triggers your migraines, talk to your healthcare provider.) Keep regular habits. Don t skip or delay meals. Drink plenty of water. And go to bed a nd get up at about the same time each day. This includes weekends. Try alternative treatments. These are treatments that don't involve the use of medicines or surgery. They may help relieve symptoms and prevent migraines. Some treatment options in clude biofeedback and acupuncture. Ask yourhealthcare providerto tell you more about the se treatments if you have questions. Limit caffeine. You may find that caffeine helps relieve pain during an attack. But too much caffeine can also trigger migraines. So, limit the amount of caffeine you consume. Date Last Reviewed: 02/22/201819998495-4425 [employer]. [address] [place] [address], [place] [address]. All righ ts reserved. This information is not intended as a substitute for professional medical care. Always follow your healthcare professional's instructions. Epilepsy: Safety During a Seizure Safety during a seizure Let family and friends know what to expect and how to react when youhave a seizure. This helps keep them calm and you safe. All seizures should be treated with care. But seizures th at cause you to lose consciousness (tonic-clonic seizures) require more attention. Think abo ut wearing a medical alert bracelet in case you are not around family members. This can aler t other people to your condition. Here are some tips for loved ones. What to know Seizures typically last less than 3 minutes, but it will feel like it is longer.People re cover safely from most seizures. During a tonic-clonic seizure, the person may appear to sto p breathing or turn slightly blue. This may be scary for you, but try to stay calm. Afterwar d, the person may be tired, confused, and achy. He or she may need to sleep for several hour s to fully recover. What to do During any seizure, stay with the personuntil it is over. Note the time when the seizure starts and ends.Don t try to stop the seizure. During a tonic-clonic seizure, also do th e following: Move hard or sharp objects out of the way. Lay the person on a flat surface and turn them on their side. Place a flat, soft object under their head. Don t try to restrain the person. Both of you could get hurt. Don t put anything in the person s mouth. The person can t swallow their tongue, a nd you risk breaking their teeth or being bitten. Don t give the person medicines during a seizure, unless you ve been trained [facility] a [facility]. Speak quietly to the person as they recover. There is no need to call 911 if the person has a well-known cause of the seizures (such as epilepsy) and the seizure is very typical.If you are not sure or the person's condition is not known, call 911. Call 911 if any of the following occur: The seizure lasts longer than 5 minutes The person is not conscious between 2 seizures Several seizures happen in a row These things could mean the person has status epilepticus. This is a medical emergency. Hos pital treatment for this condition includes benzodiazepine medicines given by IV (intravenou s). A form of this medicine (a rectal diazepam gel) may be prescribed for at-home use. Other causes of seizures and situations that need immediate medical care include: The person has diabetes The person has a braininfection The person has heat exhaustion The person is Poisoning is known or suspected The person has low blood sugar A seizure happens after or during a high fever A head injury immediately after or within a few days after the injury happened Multiple seizures happen in a short period of time The person stops breathing A seizure that happens in water The person hit their head during a seizure and becomes difficult to wake up, is vomiting ,or complains of blurry vision It is the first time a seizure happens It is differentthan the typical seizuresfor that person The person is difficult to arouse after the seizure Alcohol or drug abuse Alcohol or drug withdrawal Date Last Reviewed: 08/25/201719993937-8472 [employer]. [address] [place] [address], [place] [address]. All righ ts reserved. This information is not intended as a substitute for professional medical care. Always follow your healthcare professional's instructions. Brock Hmamond MD03/07/20199:14 Electronically signed NOTE: Part of this report was transcribed using voice recognition software. Every effort was made to ensure accuracy. However, inadvertent computerize group insurance special agent errors may be present documented in this enc ounter Plan of Treatment +--------+---------+ + + + | Date | Type | Specialty | Care Team | Description | +--------+---------+ + + + | 05/14/ | Office | Neurology | [place], | | | 2019 | Visit | | ROXIE Cancino [address] | [address] [place] | | | | | | [place] [address] | | | | | | [phone] | | | | | | | | +--------+---------+ + + + | 01/21/ | Office | Neurology | Brock Hammond MD | | | 2020 | Visit | | [address] | | | | | | [place] | | | | | | [phone] | | | | | | | | +--------+---------+ + + + + + +--------+ + + | Name | Type | Priori | Associated Diagnoses | Order Schedule | | | | ty | | | + + +--------+ + + | [facility] | Outpatient | Routin | Chronic pain of | Ordered: 03/07/2019 | | Hospital Physical | Referral | e | both shoulders | | | Therapy, External - | | | | | | AMB Referral | | | | | + + +--------+ + + documented as of this encounter Results Levetiracetam Level (03/07/2019 10:00 AM PDT) + + + + + + | Component | Value | Ref Range | Performed | Pathologist | | | | | At | Signature | + + + + + + | LEVETIRACET | 8.2Comment: Therapeutic | mcg/mL | REFERENCE | | | AM | Levels: Drug Dosage | | [facility] | | | | Trough (mcg/mL) | | DIAGNOSTICS | | | | Peak (mcg/mL) 500 mg | | - JEAN | | | | BID 3.1 - | | ELLIS | | | | 10.0 10.0 - | | | | | | 25.0 1000 mg BID | | | | | | 4.9 - 37.1 | | | | | | 30.0 - 40.0 1500 mg | | | | | | BID 7.0 - 34.0 | | | | | | 36.1 - 70.0 | | | | | | Toxic level not | | | | | | established This test | | | | | | was developed and its | | | | | | analytical performance | | | | | | characteristics have | | | | | | been determined by [facility] | | | | [facility] | | | | | | [place]nie | | | | | | [place]. [...] purposes. | | | | | | For additional | | | | | | information, please | | | | | | refer to | | | | | | [email or web address] | | | | | | [email or web address] | | | | | | (This link is being | | | | | | provided for | | | | | | informational/educationa | | | | | | l purposes only.) @ Test | | | | | | Performed By: [facility] | | | | | | Ghada Jean | | | | | | Harrison King | | | | | Velasquez Hannah, Ph.D., | | | | | | [employer] Accessory Installer | | | | | | [address] [facility] | | | | | | [place] [address] | | | | | | RADHA #[id number] | | | | + + + + + + + + | Specimen | + + | Blood | + + + + + + + | Performing | Address | City/State/Zipcode | Phone Number | | Organization | | | | + + + + + | REFERENCE LAB | [address] [facility] | [place] | | | [facility] - | | [address] | | | [place] | | | | + + + + + Comprehensive Metabolic Panel (03/07/2019 10:00 AM PDT) + + + + + + | Component | Value | Ref Range | Performed | Pathologist | | | | | At | Signature | + + + + + + | Na | 140 | 132 - 143 | [facility] | | | | | mmol/L | [facility] | | | | | | [facility] | | + + + + + + | K | 4.5 | 3.3 - 4.9 | [facility] | | | | | mmol/L | [facility] | | | | | [facility] | | + + + + + + | Cl | 104 | 95 - 108 mmol/L | [facility] | | | | | | [facility] | [facility] | | [facility] | | + + + + + + | CO2 | 27 | 23 - 34 mmol/L | [facility] [...] + + + + | Glucose | 107 | 70 - 110 mg/dL | [facility] | | | | | | [facility] | | | | | | [facility] | | + + + + + + | BUN | 15 | 5 - 26 mg/dL | [facility] | | | | | | [facility] | | | | | [facility] | | + + + + + + | Creatinine | 0.93 | 0.60 - 1.30 | [facility] | | | | | mg/dL | [facility] | | | | | | [facility]ATORY | | + + + + + + | eGFR if not | >60Comment: GLOMERULAR | >=60 | [facility] | | | | FILTRATION | mL/min/1.73m2 | [facility] | | | [facility] | RATE,ESTIMATED | | [facility] | | | | mL/min/1.24z7Cznc than | | LABORATORY | | | [...] + + + + | Calcium | 9.2 | 8.3 - 10.0 | [facility] | | | | | mg/dL | [facility] | | | | | | [facility] | | + + + + + + | Albumin | 3.9 | 3.0 - 4.5 g/dL | [facility] | | | | | | [facility] | | | | | | [facility] | | + + + + + + | Bilirubin | 0.4 | 0.0 - 1.2 mg/dL | [facility] | | | Total | | | [facility] | | | | | | [facility] | | + + + + + + | Total | 7.5 | 6.6 - 8.5 g/dL | [facility] | | | Protein | | | [facility] | | | | | | [facility] | | + + + + + + | AST | 22 | 0 - 38 U/L | [facility] | | | | | | [facility] | | | | | | [facility] | | + + + + + + | ALT | 31 | 14 - 59 U/L | [facility] | | | | | | [facility] | | | | | | [facility] | | + + + + + + | Alkaline | 119 (H) | 46 - 116 U/L | [facility] | | | Phosphatase | | | [facility] | | | | | | [facility] | | + + + + + + | Globulin | 3.6 | 2.4 - 4.5 g/dL | [facility] | | | | | | [facility] | | | | | | [facility] | | + + + + + + | Albumin/Paige | 1.1 | 0.8 - 2.0 | [facility] | | | bulin Ratio | | | [facility] | | | | | | [facility] | | + + + + + + | BUN/Creatin | 16.1 | 7.0 - 24.0 | [facility] | [...] + + + + + | [facility] | [address] | [place], [place] | [phone] | | HOSPITAL [facility] | | [address] | | + + + + + CBC with Differential (03/07/2019 10:00 AM PDT) + + + + + + | Component | Value | Ref Range | Performed | Pathologist | | | | | At | Signature | + + + + + + | White Blood | 5.0 | 4.3 - 10.4 K/uL | [facility] | | | Cells | | | [facility] | | | | | | [facility] | | + + + + + + | Red Blood | 4.06 (L) | 4.12 - 5.30 | [facility] | | | Cells | | M/uL | [facility] | | | | | | [facility] | | + + + + + + | Hemoglobin | 12.5 | 12.4 - 15.7 | [facility] | | | | | g/dL | [facility] | | | | | | [facility] | | + + + + + + | Hematocrit | 37.2 (L) | 37.7 - 47.0 % | [facility] | | | | | | [facility] | | | | | | [facility] | | + + + + + + | MCV | 91.6 | 82.0 - 97.0 fL | [facility] | | | | | | [facility] | | | | | | [facility] | | + + + + + + | MCH | 30.8 | 27.1 - 32.3 pg | [facility] | | | | | | [facility] | | | | | | [facility] | | + + + + + + | MCHC | 33.6 | 32.0 - 36.9 | [facility] | | | | | g/dL | [facility] | | | | | | [facility] | | + + + + + + | RDW-CV | 12.6 | 0.0 - 17.0 % | [facility] | | | | | | [facility] | | | | | | [facility] | | + + + + + + | Platelet | 287 | 150 - 450 K/uL | [facility] | | | Count | | | [facility] | | | | | | [facility] | | + + + + + + | MPV | 10.8 | 9.4 - 12.3 fL | [facility] | | | | | | [facility] | | | | | | [facility] | | + + + + + + | % | 50.1 | 42.0 - 76.0 % | [facility] | | | Neutrophils | | | [facility] | | | | | | [facility] | | + + + + + + | % | 36.3 | 20.0 - 40.0 % | [facility] | | | Lymphocytes | | | [facility] | | | | | | [facility] | | + + + + + + | % Monocytes | 10.0 | 3.0 - 13.0 % | [facility] | | | | | | [facility] | | | | | | [facility] | | + + + + + + | % | 2.6 | 0.0 - 7.0 % | [facility] | | | Eosinophils | | | [facility] | | | | | | [facility] | | + + + + + + | % Basophils | 0.6 | 0.0 - 2.0 % | [facility] | | | | | | [facility] | | | | | | [facility] | | + + + + + + | % Immature | 0.4 | 0.0 - 0.5 % | [facility] | | | Granulocyte | | | [facility] | | | s | | | [facility] | | | | | | LAB[facility]ATORY | | + + + + + + | Absolute | 2.50 | 2.50 - 8.50 | [facility] | | | Neutrophils | | K/uL | [facility] | | | | | | [facility] | | + + + + + + | Absolute | 1.81 | 1.00 - 3.80 | [facility] | | | Lymphocytes | | K/uL | [facility] | | | | | | [facility] | | + + + + + + | Absolute | 0.50 | 0.00 - 0.80 | [facility] | | | Monocytes | | K/uL | [facility] | | | | | | [facility] | | + + + + + + | Absolute | 0.13 | 0.00 - 0.70 | [facility] | | | Eosinophils | | K/uL | [facility] | | | | | | [facility] | | + + + + + + | Absolute | 0.03 | 0.00 - 0.20 | [facility] | | | Basophils | | K/uL | [facility] | | | | | | [facility] | | + + + + + + | Absolute | 0.02 | 0.00 - 0.15 | [facility] | | | Immature | | K/uL | [facility] | | | Granulocyte | | | [facility]OSPITAL | | | s | | | LABORATORY | | + + + + + + | % nRBC | 0 | <=0 per 100 | [facility] | | | | | WBCs | [facility] | | | | | | [facility] | | + + + + + + | Absolute | 0.00 | 0.00 - 0.01 | [facility] | | | nRBC | | K/uL | [facility] | | | | | [...] + + + + + | [facility] | [address] | [place] | [phone] | | [facility]OSPITAL LAB[facility]ORY | | [address] | | + + + + + XR Shoulder Right 2 + Vw (03/07/2019 [...] | | | + +---------+ + + XR Cervical Spine 2 or 3 Views (03/07/2019 9:59 AM PDT) + + | Specimen | + + | | + + + + + | Impressions | Performed At | + + + | IMPRESSION: No acute process. Prior C5-C7 anterior posterior | [facility] | | fusion. Age-indeterminate T5 compression. Dictated by: Sven | | | Jaimie | | | 11:37 AM | | + + + + + + | Narrative | Performed At | + + + | EXAMINATION: XR CERVICAL SPINE 2 OR 3 VIEWS HISTORY: | [facility] | | persistent neck pain COMPARISON STUDY: None FINDINGS: | | | Cervical vertebral bodies are normally aligned. Normal cervical | | | lordosis. Disc heights are decreased at C4-5 and C5-6 End plate | | | degenerative change is minimal. There is postsurgical change of | | | anterior cervical fusion and discectomy C5-C7. Also C5-C7 posterior | | | fusion with pedicle screws and rods. No evidence of hardware | | | failure. The intervertebral disc spaces appear to have osseous | | | fusion. Multilevel uncovertebral hypertrophy No prevertebral soft | | | tissue swelling. No acute fracture or subluxation. The dens and | | | lateral masses are unremarkable. Lung apices are clear. T5 | | | compression fracture. | | + + + + + | Procedure Note | + + | Leandro, Rad Results In - 03/07/2019 11:41 AM PDT EXAMINATION:XR CERVICAL SPINE 2 OR 3 | | VIEWSHISTORY:persistent neck painCOMPARISON STUDY:NoneFINDINGS:Cervical vertebral bodies | | are normally aligned.Normal cervical lordosis.Disc heights are decreased at C4-5 and | | C5-6End plate degenerative change is minimal.There is postsurgical change of anterior | | cervical fusion and discectomy C5-C7. Also C5-C7 posterior fusion with pedicle screws | | and rods. No evidence of hardware failure. The intervertebral disc spaces appear to | | have osseous fusion.Multilevel uncovertebral hypertrophyNo prevertebral soft tissue | | swelling.No acute fracture or subluxation.The dens and lateral masses are | | unremarkable.Lung apices are clear.T5 compression fracture.IMPRESSION: IMPRESSION:No | | acute process.Prior C5-C7 anterior posterior fusion.Age-indeterminate T5 | | compression.Dictated by: Sven Ogdenectronically Signed by: Sven Etienne on | | 03/07/2019 11:37 AM | |Disc heights are decreased at C4-5 and C5-6 | |End plate degenerative change is minimal. | |There is postsurgical change of anterior cervical fusion and discectomy C5-C7. Also C5-C7 posterior fusion with pedicle screws and rods. No evidence of hardware failure. The interv ertebral disc spaces appear to have osseous fusion. | |Multilevel uncovertebral hypertrophy | |No prevertebral soft tissue swelling. | |No acute fracture or subluxation. | |The dens and lateral masses are unremarkable. | |Lung apices are clear. | |T5 compression fracture. | | | |IMPRESSION: | |IMPRESSION: | |No acute process. | |Prior C5-C7 anterior posterior fusion. | |Age-indeterminate T5 compression. | | | |Dictated by: Sven Etienne | | | | | + + + +---------+ + + | Performing | Address | City/State/Zipcode | Phone Number | | Organization | | | | + +---------+ + + | [facility] | | | | + +---------+ + + XR Shoulder Left 2 + Vw (03/07/2019 [...] + | Diagnosis | + + | Arthritis - Primary Arthropathy, unspecified, site unspecified | + + | Migraine with aura and without status migrainosus, not intractable Migraine with | | aura, without mention of intractable migraine without mention of status migrainosus | + + | Chronic midline low back pain without sciatica | + + | Myalgia Mylagia and myositis, unspecified | + + | Neck pain, bilateral Cervicalgia | + + | Seizure (HCC) Other convulsions | + + | Bilateral shoulder pain, unspecified chronicity | + + documented in this encounter Administered Medications + +--------+ +-------+------+ + | Medication Order | MAR | Action | Dose | Rate | Site | | | Action | Date | | | | + +--------+ +-------+------+ + | ketorolac (TORADOL) injection | Given | 03/07/20 | 60 mg | | Ventrogl | | 60 mg 60 mg, Intramuscular, | | 19 9:18 | | | uteal-Le | | ONCE, 03/07/19 at 0930, For 1 | | AM PDT | | | ft | | dose | | | | | | + +--------+ +-------+------+ + +---+---+ | | | +---+---+ documented in this encounter
--- OUTSIDE RECORDS SUMMARY | ~2020-05-02 | XMS | Encounter Summary ---
Demographics + + + | Address | [address] | | | [address] | | | [place] [address] | + + + | Home Phone [...] | | | | | [place] [address] | | + + + + + | Allegra Raza | ECON | Unknown | | + + + + + | Emily Fuller | ECON | Unknown | | + + + + + Care Team Providers + +------+ + | Care Chief Engineer Drilling And Recovery Name | Role | Phone | + [...] | | | | [place] | [address] | | | | | [address] | | | | | | [phone] | | | +--------+ + + + [...] | | | | | | [place] [address] | | | | | | [phone] | | | | | | | | +--------+---------+ + + + | 01/21/ | Office | Neurology | Brock Hammond MD | | | 2020 | Visit | | [address] | | | | | | [place] | | | | | | [address] | | | | | | | | +--------+---------+ + + + documented as of this encounter Visit Diagnoses Not on filedocumented in this encounter"
--- OUTSIDE RECORDS SUMMARY | ~2020-05-02 | XMS | Encounter Summary ---
Demographics + + + | Address | [address] | | | [address] | | | [place] [address] | + + + | Home Phone [...] + + + | Author | [facility] | | | and [place] | + + + | Organization | [facility] | | | [...] | | | | | [place] [address] | | + + + + + | Allegra Raza | ECON | Unknown | | + + + + + | Emily Fuller | ECON | Unknown | | + + + + + Care Team Providers + +------+ + | Care Human Resources Professional Name | Role | Phone | [...] | | | OFFICE [address] | [facility], | | | | | [place], [place] | [place] [address] | | | | | [address] | [phone] | | | | | [phone] | | | | | | | [place], | | | | | | [address] [facility] | | | | | | [...] | | | | | | [place] [address] | | | | | | [phone] | | | | | | | | +--------+---------+ + + + | 01/21/ | Office | Neurology | Brock Hammond MD | | | 2020 | Visit | | [address] | | | | | | [place] | | | | | | [address] | | | | | | | | +--------+---------+ + + + documented as of this encounter Visit Diagnoses Not on filedocumented in this encounter"
--- OUTSIDE RECORDS SUMMARY | ~2020-05-02 | XMS | Encounter Summary ---
Demographics + + + | Address | [address] | | | [address] | | | [place] [address] | + + + | Home Phone | | + + + | Preferred Language | Unknown | + + + | Marital Status | Single | + + + | Amish Affiliation | 1009 | + + + | Race | Unknown | + + + | Ethnic Group | Unknown | + + + Author + + + | Author | [facility] | | | and Danielana | + + + | Organization | [facility] | [...] | | | | | [place] [address] | | + + + + + | Allegra Raza | ECON | Unknown | | + + + + + | Emily Fuller | ECON | Unknown | | + + + + + Care Team Providers + +------+ + | Care Channel Marketing Specialist Name | Role | Phone | + +------+ + PCP | Unavailable | + +------+ + Encounter Details +--------+ + + + + | Date | Type | Department | Care Team | Description | +--------+ + + + + | 02/27/ | Hospital | [facility] | Ruel Junior, | | | 2010 | Encounter | HOSPITAL XRAY [facility] | MD Jameson Ricardo | | | | | [address] | [address] | | | | | [facility], [place] | [place] [address] | | | | | [address] | [phone] | | | | | [phone] | | | +--------+ + + + [...] | | | | | | [place] [address] | | | | | | [phone] | | | | | | | | +--------+---------+ + + + | 01/21/ | Office | Neurology | Brock Hammond MD | | | 2020 | Visit | | [address] | | | | | | [place] | | | | | | [address] | | | | | | | | +--------+---------+ + + + documented as of this encounter Visit Diagnoses Not on filedocumented in this encounter"
--- OUTSIDE RECORDS SUMMARY | ~2020-05-02 | XMS | Encounter Summary ---
Demographics + + + | Address | [address] | | | [address] | | | [place] [address] | + + + | Home Phone [...] | | | | | [place] [address] | | + + + + + | Allegra Raza | ECON | Unknown | | + + + + + | Emily Fuller | ECON | Unknown | | + + + + + Care Team Providers + +------+ + | Care Sand Screener Operator Name | Role | Phone | + +------+ + PCP | Unavailable | + +------+ + Encounter Details +--------+ + + + + | Date | Type | Department | Care Team | Description | +--------+ + + + + | 06/24/ | Hospital | [facility] | Koki Valdez | | | 2010 | Encounter | HOSPITAL LAB[facility]ATORY | [address] | | | | | [address] [place] | [facility], | | | | | [place], [place] | [place] [address] | | | | | [address] | [phone] | | | | | [phone] | | | +--------+ + + + [...] | | | | | | [place] [address] | | | | | | [phone] | | | | | | | | +--------+---------+ + + + | 01/21/ | Office | Neurology | Brock Hammond MD | | | 2020 | Visit | | [address] | | | | | | [place] | | | | | | [address] | | | | | | | | +--------+---------+ + + + documented as of this encounter Visit Diagnoses Not on filedocumented in this encounter"
--- OUTSIDE RECORDS SUMMARY | ~2020-05-02 | XMS | Encounter Summary ---
Demographics + + + | Address | [address] | | | [address] | | | [place] [address] | + + + | Home Phone [...] | | | | | [place] [address] | | + + + + + | Allegra Raza | ECON | Unknown | | + + + + + | Emily Fuller | ECON | Unknown | | + + + + + Care Team Providers + +------+ + | Care Educational/Development Assistant Name | Role | Phone | [...] [place] | | | | | | [address] | | | | | | [phone] | | | +--------+ + + + [...] | | | | | | [place] [address] | | | | | | [phone] | | | | | | | | +--------+---------+ + + + | 01/21/ | Office | Neurology | Brock Hammond MD | | | 2020 | Visit | | [address] | | | | | | [place] | | | | | | [address] | | | | | | | | +--------+---------+ + + + documented as of this encounter Visit Diagnoses Not on filedocumented in this encounter"
--- OUTSIDE RECORDS SUMMARY | ~2020-05-02 | XMS | Encounter Summary ---
Demographics + + + | Address | [address] | | | [address] | | | [place] [address] | + + + | Home Phone [...] | | | | | [place] [address] | | + + + + + | Allegra Raza | ECON | Unknown | | + + + + + | Emily Fuller | ECON | Unknown | | + + + + + Care Team Providers + +------+ + | Care Clinical Project Manager Name | Role | Phone | [...] | | | CENTER [address] | [facility] | | | | | [place], [place] | [place], [place] [address] | | | | | [address] | [phone] | | | | | [phone] | | | +--------+ + + + [...] | | | | | | [place] [address] | | | | | | [phone] | | | | | | | | +--------+---------+ + + + | 01/21/ | Office | Neurology | Brock Hammond MD | | | 2020 | Visit | | [address] | | | | | | [place] | | | | | | [address] | | | | | | | | +--------+---------+ + + + documented as of this encounter Visit Diagnoses Not on filedocumented in this encounter"
--- OUTSIDE RECORDS SUMMARY | ~2020-05-02 | XMS | Encounter Summary ---
Demographics + + + | Address | [address] | | | [address] | | | [place] [address] | + + + | Home Phone [...] + + | Author | [facility] | | | and Danielana | + + + | Organization | [facility] | | [...] | | | | | [place] [address] | | + + + + + | Allegra Raza | ECON | Unknown | | + + + + + | Emily Fuller | ECON | Unknown | | + + + + + Care Team Providers + +------+ + | Care Commissioning Agent Name | Role | Phone | + +------+ + PCP | Unavailable | + +------+ + Encounter Details +--------+ + + + + | Date | Type | Department | Care Team | Description | +--------+ + + + + | 08/19/ | Hospital | [facility] | | | | 2002 | Encounter | [facility] | | | | | | CENTER [address] | | | | | | [place], [place] | | | | | | [address] | | | | | | [phone] | | | +--------+ + + + [...] | | | | | | [place] [address] | | | | | | [phone] | | | | | | | [...]
--- OUTSIDE RECORDS SUMMARY | ~2020-05-02 | XMS | Encounter Summary ---
Demographics + + + | Address | [address] | | | [address] | | | [place] [address] | + + + | Home Phone [...] | | | | | [place] [address] | | + + + + + | Allegra Raza | ECON | Unknown | | + + + + + | Emily Fuller | ECON | Unknown | | + + + + + Care Team Providers + +------+ + | Care Relay Tester Name | Role | Phone | [...] | [place], [place] | [place], [place] [address] | | | | | [address] | [phone] | | | | | [phone] | | | +--------+ + + + [...] | | | | | | [place] [address] | | | | | | [phone] | | | | | | | | +--------+---------+ + + + | 01/21/ | Office | Neurology | Brock Hammond MD | | | 2020 | Visit | | [address] | | | | | | [place] | | | | | | [address] | | | | | | | | +--------+---------+ + + + documented as of this encounter Visit Diagnoses Not on filedocumented in this encounter"
--- OUTSIDE RECORDS SUMMARY | ~2020-05-02 | XMS | Encounter Summary ---
Demographics + + + | Address | [address] | | | [address] | | | [place] [address] | + + + | Home Phone | | + + + | Preferred Language | Unknown | + + + | Marital Status | Single | + + + | Advent Affiliation | 1009 | + + + [...] | | | | | [place] [address] | | + + + + + | Allegra Raza | ECON | Unknown | | + + + + + | Emily Fuller | ECON | Unknown | | + + + + + Care Team Providers + +------+ + | Care Hydroelectric Plant Mechanical Engineer Name | Role | Phone | + +------+ + | Aisha Carrington DO | PCP | | + +------+ + Reason for Visit +--------+--------+ + | Reason | Onset | Comments | | | Date | | +--------+--------+ + | Other | 10/01/ | test results and prescription | | | 2016 | | +--------+--------+ + Encounter Details +--------+ + + + + | Date | Type | Department | Care Team | Description | +--------+ + + + + | 10/01/ | Telephone | [facility] | Aisha Carrington, | Other (test results | | 2016 | | [facility] | DO [address] [place] | and prescription) | | | | [facility] | [place] [address] | | | | [address] [place], | [phone] | | | | | [place] [address] | | | | | | [phone] | | | +--------+ + + + [...] this encounter Miscellaneous Notes Telephone Encounter - Maria Quinonez LPN - 10/04/2017 3:33 PM PSTBelow msgs left as Vm . Maria Quinonez LPN eleDipti Connors, [facility] - 10/01/2017 3:06 PM PSTPt. Was notified about going to the [facility] but can you please call her about her thyroid thank. MAR Olivier CMAElectronic ally signed by MAR Wall CMA at 10/01/2017 3:06 PM PSTTelephone Encounter - Dipti Naqvi CC CMA - 10/01/2017 10:55 AM PSTPlease advise. MAR Olivier CMAElect ronically signed by MAR Wall CMA at 10/01/2017 10:55 AM PSTTelephone Encounter - Chris [place] - 10/01/2017 10:47 AM PSTPt had an US done on 09-24-17 in [place] on her thyroid and pt was asking about the results. Pt also believes she has a sinus inf, headache , congestion, and discolored mucous and was asking if a prescription could be called in to h er pharmacy, please call/robin documented in this encounter Plan of Treatment +--------+---------+ + + + | Date | Type | Specialty | Care Team | Description | +--------+---------+ + + + | 05/14/ | Office | Neurology | Romeo, | | | 2019 | Visit | | [address] | | | | | | [address] [facility], | | | | | | [place] [address] | | | | | | [phone] | | | | | | | | +--------+---------+ + + + | 01/21/ | Office | Neurology | Brock Hammond MD | | | 2020 | Visit | | [address] | | | | | | [place] | | | | | | [phone] | | | | | | | | +--------+---------+ + + + documented as of this encounter Visit Diagnoses Not on filedocumented in this encounter"
--- OUTSIDE RECORDS SUMMARY | ~2020-05-02 | XMS | Encounter Summary ---
Demographics + + + | Address | [address] | | | [address] | | | [place] [address] | + + + | Home Phone | | + + + | Preferred Language | Unknown | + + + | Marital Status | Single | + + + | Jewish Affiliation | 1009 | + + + | Race | Unknown | + + + | Ethnic Group | Unknown | + + + Author + + + | Author | [facility] | | | and Danielana | + + + | Organization | [facility] | | | [...] | | | | | [place] [address] | | + + + + + | Allegra Raza | ECON | Unknown | | + + + + + | Emily Fuller | ECON | Unknown | | + + + + + Care Team Providers + +------+ + | Care Photographer News Name | Role | Phone | + [...] [facility] | DO [address] [place] | call) | | | | [facility] [address] | [place] [address] | | | | | [address] [facility], | [phone] | | | | | [place] [address] | | | | | | [phone] | | | +--------+ + + + [...] | | | | | | [place] [address] | | | | | | [phone] | | | | | | | [...]
--- OUTSIDE RECORDS SUMMARY | ~2020-05-02 | XMS | Encounter Summary ---
Demographics + + + | Address | [address] | | | [address] | | | [place] [address] | + + + | Home Phone [...] | | | | | [place] [address] | | + + + + + | Allegra Raza | ECON | Unknown | | + + + + + | Emily Fuller | ECON | Unknown | | + + + + + Care Team Providers + +------+ + | Care Rehabilitation Specialist Name | Role | Phone | + +------+ + | Luna yCr | PCP | | + +------+ + Reason for Visit + + + | Reason | Comments | + + + | Medication Refill | | + + + Encounter Details +--------+--------+ + + + | Date | Type | Department | Care Team | Description | +--------+--------+ + + + | 12/21/ | Refill | [facility] | Lamonte Akins | Medication Refill | | 2017 | | [facility] | Goins, GRIDCAP MACHINE OPERATOR [address] | | | | | CLINIC [address] [place], [place] | | | | | [address] [place] [place], | [address] | | | | | [place] [address] | | | | | | [phone] | | | +--------+--------+ + + + [...] | | | | | | [place] [address] | | | | | | [phone] | | | | | | | [...]
--- OUTSIDE RECORDS SUMMARY | ~2020-05-02 | XMS | Encounter Summary ---
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
--- OUTSIDE RECORDS SUMMARY | ~2020-05-02 | XMS | Encounter Summary ---
Demographics + + + | Address | [address] | | | [address] | | | [place] [address] | + + + | Home Phone [...] + + | Author | [facility] | | | and Danielana | + + + | Organization | [facility] | | | [...] | | | | | [place] [address] | | + + + + + | Allegra Raza | ECON | Unknown | | + + + + + | Emily Fuller | ECON | Unknown | | + + + + + Care Team Providers + +------+ + | Care Stock Clerk Name | Role | Phone | [...] | | | [address] [place], [place] | [employer] [address] | | | | | [address] | [phone] | | | | | [phone] | | | +--------+ + + + [...] | | | | | | [place] [address] | | | | | | [phone] | | | | | | | | +--------+---------+ + + + | 01/21/ | Office | Neurology | Brock Hammond MD | | | 2020 | Visit | | [address] | | | | | | [place] | | | | | | [address] | | | | | | | | +--------+---------+ + + + documented as of this encounter Visit Diagnoses Not on filedocumented in this encounter"
--- OUTSIDE RECORDS SUMMARY | ~2020-05-02 | XMS | Encounter Summary ---
Demographics + + + | Address | [address] | | | [address] | | | [place] [address] | + + + | Home Phone [...] | | | | | [place] [address] | | + + + + + | Allegra Raza | ECON | Unknown | | + + + + + | Emily Fuller | ECON | Unknown | | + + + + + Care Team Providers + +------+ + | Care Space And Missile Operations Spacelift Name | Role | Phone | + +------+ + PCP | Unavailable | + +------+ + Encounter Details +--------+ + + + + | Date | Type | Department | Care Team | Description | +--------+ + + + + | 02/22/ | Hospital | [facility] | | | | 2002 | Encounter | MED CTR XRAY [address] | | | | | | [address] | | | | | | [place] [address] | | | | | | [phone] | | | +--------+ + + + [...] | | | | | | [place] [address] | | | | | | [phone] | | | | | | | [...]
--- OUTSIDE RECORDS SUMMARY | ~2020-05-02 | XMS | Encounter Summary ---
Demographics + + + | Address | [address] | | | [address] | | | [place] [address] | + + + | Home Phone [...] | | | | | [place] [address] | | + + + + + | Allegra Raza | ECON | Unknown | | + + + + + | Emily Fuller | ECON | Unknown | | + + + + + Care Team Providers + +------+ + | Care Video Network Engineer Name | Role | Phone | + +------+ + PCP | Unavailable | + +------+ + Encounter Details +--------+ + + + + | Date | Type | Department | Care Team | Description | +--------+ + + + + | 06/14/ | Hospital | [facility] | Nidia Diaz, | | | 2010 | Encounter | HOSPITAL EMERGENCY | [facility] [address] | | | | | CENTER [address] | [place] | | | | | [place] | [address] | | | | | [address] | | | | | | [phone] | | | +--------+ + + + [...] | | | | | | [place] [address] | | | | | | [phone] | | | | | | | | +--------+---------+ + + + | 01/21/ | Office | Neurology | Brock Hammond MD | | | 2020 | Visit | | [address] | | | | | | [place] | | | | | | [address] | | | | | | | | +--------+---------+ + + + documented as of this encounter Visit Diagnoses Not on filedocumented in this encounter"
--- OUTSIDE RECORDS SUMMARY | ~2020-05-02 | XMS | Encounter Summary ---
Demographics + + + | Address | [address] | | | [address] | | | [place] [address] | + + + | Home Phone [...] | | | | | [place] [address] | | + + + + + | Allegra Raza | ECON | Unknown | | + + + + + | Emily Fuller | ECON | Unknown | | + + + + + Care Team Providers + +------+ + | Care Manufacturers Representative Name | Role | Phone | + +------+ + PCP | Unavailable | + +------+ + Encounter Details +--------+ + + + + | Date | Type | Department | Care Team | Description | +--------+ + + + + | 02/23/ | Hospital | [facility] | Lamonte Akins | | | 2017 | Encounter | HOSPITAL NEUROLOGY | [address] | | | | | CLINIC [address] | [address] [place], [place] | | | | | [address] [place], | [address] | | | | | [place] [address] | | | | | | [phone] | | | +--------+ + + + [...] | | | | | | [place] [address] | | | | | | [phone] | | | | | | | | +--------+---------+ + + + | 01/21/ | Office | Neurology | Brock Hammond MD | | | 2020 | Visit | | [address] | | | | | | [place] | | | | | | [address] | | | | | | | | +--------+---------+ + + + documented as of this encounter Visit Diagnoses Not on filedocumented in this encounter"
--- OUTSIDE RECORDS SUMMARY | ~2020-05-02 | XMS | Encounter Summary ---
Demographics + + + | Address | [address] | | | [address] | | | [place] [address] | + + + | Home Phone [...] | | | | | [place] [address] | | + + + + + | Allegra Raza | ECON | Unknown | | + + + + + | Emily Fuller | ECON | Unknown | | + + + + + Care Team Providers + +------+ + | Care Workers Compensation Claims Examiner Name | Role | Phone | + +------+ + PCP | Unavailable | + +------+ + Encounter Details +--------+ + + + + | Date | Type | Department | Care Team | Description | +--------+ + + + + | 09/08/ | Hospital | [facility] | TashiLamonte cadena | | | 2016 | Encounter | [facility] | [facility] [address] | | | | | MEDICAL CLINIC [address] | [address] [place], [place] | | | | | 4TH [facility], | [address] | | | | | [place] [address] | | | | | | [phone] | | | +--------+ + + + [...] | | | | | | [place] [address] | | | | | | [phone] | | | | | | | | +--------+---------+ + + + | 01/21/ | Office | Neurology | Brock Hammond MD | | | 2020 | Visit | | [address] | | | | | | [place] | | | | | | [address] | | | | | | | | +--------+---------+ + + + documented as of this encounter Visit Diagnoses Not on filedocumented in this encounter"
--- OUTSIDE RECORDS SUMMARY | ~2020-05-02 | XMS | Encounter Summary ---
Demographics + + + | Address | [address] | | | [address] | | | [place] [address] | + + + | Home Phone [...] | | | | | [place] [address] | | + + + + + | Allegra Raza | ECON | Unknown | | + + + + + | Emily Fuller | ECON | Unknown | | + + + + + Care Team Providers + +------+ + | Care Buckle Attacher Name | Role | Phone | + [...] | | | | | CONVERSION | [facility], | | | | | DEPARTMENT [address] | [place] [address] | | | | | [address] | [phone] | | | | | [place] | | | | | | [address] | | | | | | [phone] | | | +--------+ + + + [...] | | | | | | [place] [address] | | | | | | [phone] | | | | | | | | +--------+---------+ + + + | 01/21/ | Office | Neurology | Brock Hammond MD | | | 2020 | Visit | | [address] | | | | | | [place] | | | | | | [address] | | | | | | | | +--------+---------+ + + + documented as of this encounter Visit Diagnoses Not on filedocumented in this encounter"
--- OUTSIDE RECORDS SUMMARY | ~2020-05-02 | XMS | Encounter Summary ---
Demographics + + + | Address | [address] | | | [address] | | | [place] [address] | + + + | Home Phone [...] | | | | | [place] [address] | | + + + + + | Allegra Raza | ECON | Unknown | | + + + + + | Emily Fuller | ECON | Unknown | | + + + + + Care Team Providers + +------+ + | Care Bobtail Driver Name | Role | Phone | + +------+ + PCP | Unavailable | + +------+ + Encounter Details +--------+ + + + + | Date | Type | Department | Care Team | Description | +--------+ + + + + | 01/05/ | Hospital | [facility] | Brock Hammond MD | | | 2010 | Encounter | HOSPITAL RESPIRATORY | [address] | | | | | THERAPY [address] | [place] | | | | | [address] [place] | [id number] | | | | | [address] | | | | | | [phone] | | | +--------+ + + + [...] Brock Hammond MD - 01/05/2011 8:18 AM [facility] Dictating Practitioner: BROCK HAMMOND MD Patient Name: KOKI RAZA Patient Date of : 1965 Visit Number: [id number] PROGRESS NOTE/DISCHARGE SUMMARY DATE OF SERVICE:January 04, [...] cogwheel rigidity. CEREBELLAR EXAMINATION: Able to perform [id number] without difficulty or decompensation. SENSORY: Intact. Withdraws [...] The patient is to followup in the [facility] clinic in about 2 to 3 weeks. [id number] / [id number] Dictation Date/Time: January 04, 2011 08:55AM Barrel Charrer Helper Date/Time: January 06, 2011 08:32AM Authenticated and Edited by Brock Hammond MD On 01/06/11 7:25:42 PM IF Signed and Approved by: BROCK HAMMOND MD 01/06/2011 19:25:00 [facility], Brock Dumont MD - 0 01/05/2011 8:18 AM [facility] Dictating Practitioner: BROCK HAMMOND MD Patient Name: KOKI RAZA Patient Date of : 1965 Visit Number: [id number] ELECTROENCEPHALOGRAM Date of Service: 01/05/11. Ms. Raza [...] is recommended. CC:Emmanuelle Frank MD [id number] / [id number] Dictation Date/Time: January 05, 2011 07:19PM Barrel Charrer Helper Date/Time: January 06, 2011 11:11AM Authenticated and [...] | | | | | | [place] [address] | | | | | | [phone] | | | | | | | | +--------+---------+ + + + | 01/21/ | Office | Neurology | Brock Hammond MD | | | 2020 | Visit | | [address] | | | | | | [place] | | | | | | [address] | | | | | | | | +--------+---------+ + + + documented as of this encounter Visit Diagnoses Not on filedocumented in this encounter"
--- OUTSIDE RECORDS SUMMARY | ~2020-05-02 | XMS | Encounter Summary ---
Demographics + + + | Address | [address] | | | [address] | | | [place] [address] | + + + | Home Phone [...] | | | | | [place] [address] | | + + + + + | Allegra Raza | ECON | Unknown | | + + + + + | Emily Fuller | ECON | Unknown | | + + + + + Care Team Providers + +------+ + | Care General Sales Manager Name | Role | Phone | [...] [address] | | | | | [place] [address] | | | | | | [phone] | | | +--------+--------+ + + + [...] | | | | | | [place] [address] | | | | | | [phone] | | | | | | | | +--------+---------+ + + + | 01/21/ | Office | Neurology | Brock Hammond MD | | | 2020 | Visit | | [address] | | | | | | [place] | | | | | | [address] | | | | | | | | +--------+---------+ + + + documented as of this encounter Visit Diagnoses Not on filedocumented in this encounter"
--- OUTSIDE RECORDS SUMMARY | ~2020-05-02 | XMS | Encounter Summary ---
Demographics + + + | Address | [address] | | | [address] | | | [place] [address] | + + + | Home Phone [...] | | | | | [place] [address] | | + + + + + | Allegra Raza | ECON | Unknown | | + + + + + | Emily Fuller | ECON | Unknown | | + + + + + Care Team Providers + +------+ + | Care Manufacturing Quality Engineer Name | Role | Phone | + +------+ + PCP | Unavailable | + +------+ + Encounter Details +--------+ + + + + | Date | Type | Department | Care Team | Description | +--------+ + + + + | 11/15/ | Hospital | [facility] | Catie Powell | | | 2012 | Encounter | [facility] | MD [address] | | | | | MEDICAL CLINIC [address] | [address] [place] [address], | | | | | [address] [place] [address], | [place] [address] | | | | | [place] [address] | [phone] | | | | | [phone] | | | +--------+ + + + [...] | | | | | | [place] [address] | | | | | | [phone] | | | | | | | | +--------+---------+ + + + | 01/21/ | Office | Neurology | Brock Hammond MD | | | 2020 | Visit | | [address] | | | | | | [place] | | | | | | [address] | | | | | | | | +--------+---------+ + + + documented as of this encounter Visit Diagnoses Not on filedocumented in this encounter"
--- OUTSIDE RECORDS SUMMARY | ~2020-05-02 | XMS | Encounter Summary ---
Demographics + + + | Address | [address] | | | [address] | | | [place] [address] | + + + | Home Phone | | + + + | Preferred Language | Unknown | + + + | Marital Status | Single | + + + | Tenriism Affiliation | 1009 | + + + | Race | Unknown | + + + | Ethnic Group | Unknown | + + + Author + + + | Author | [facility] | | | and Danielana | + + + | Organization | [facility] | | [...] | | | | | [place] [address] | | + + + + + | Allegra Raza | ECON | Unknown | | + + + + + | Emily Fuller | ECON | Unknown | | + + + + + Care Team Providers + +------+ + | Care Intervention Manager Name | Role | Phone | [...] | Letter | | 2016 | | [facility] | KERLINE HainesP | | | | | MEDICAL CLINIC [address] | | | | | | [address]TH [facility], | | | | | | [place] [address] | | | | | | [phone] | | | +--------+ + + + [...] her thyroid, it was originally scheduled in [place] and pt want ed it changed to [facility] in [place] and requested it to be changed over [...] | | | | | | [place] [address] | | | | | | [phone] | | | | | | | | +--------+---------+ + + + | 01/21/ | Office | Neurology | Brock Hammond MD | | | 2020 | Visit | | [address] | | | | | | [place] | | | | | | [address] | | | | | | | | +--------+---------+ + + + documented as of this encounter Visit Diagnoses Not on filedocumented in this encounter"
--- OUTSIDE RECORDS SUMMARY | ~2020-05-02 | XMS | Encounter Summary ---
Demographics + + + | Address | [address] | | | [address] | | | [place] [address] | + + + | Home Phone [...] | | | | | [place] [address] | | + + + + + | Allegra Raza | ECON | Unknown | | + + + + + | Emily Fuller | ECON | Unknown | | + + + + + Care Team Providers + +------+ + | Care Household Refrigerator Mechanic Name | Role | Phone | + +------+ + PCP | Unavailable | + +------+ + Encounter Details +--------+ + + + + | Date | Type | Department | Care Team | Description | +--------+ + + + + | 07/03/ | Hospital | [facility] | Nidia Diaz, | | | 2010 | Encounter | HOSPITAL EMERGENCY | ORE MINER BLASTING [address] | | | | | CENTER [address] | [place] | | | | | [place] | [address] | | | | | [address] | | | | | | [phone] | | | +--------+ + + + [...] | | | | | | [place] [address] | | | | | | [phone] | | | | | | | | +--------+---------+ + + + | 01/21/ | Office | Neurology | Brock Hammond MD | | | 2020 | Visit | | [address] | | | | | | [place] | | | | | | [address] | | | | | | | | +--------+---------+ + + + documented as of this encounter Visit Diagnoses Not on filedocumented in this encounter"
--- OUTSIDE RECORDS SUMMARY | ~2020-05-02 | XMS | Encounter Summary ---
Demographics + + + | Address | [address] | | | [address] | | | [place] [address] | + + + | Home Phone [...] | | | | | [place] [address] | | + + + + + | Allegra Raza | ECON | Unknown | | + + + + + | Emily Fuller | ECON | Unknown | | + + + + + Care Team Providers + +------+ + | Care Disability Manager Name | Role | Phone | + +------+ + PCP | Unavailable | + +------+ + Encounter Details +--------+ + + + + | Date | Type | Department | Care Team | Description | +--------+ + + + + | 04/14/ | Hospital | [facility] | Emmanuelle Frank | | | 2009 | Encounter | HOSPITAL LABORATORY | Sandra Alvarez MD [address] | | | | | [address] | [facility], | | | | | [facility], [place] | [place] [address] | | | | | [address] | [phone] | | | | | [phone] | | | +--------+ + + + [...] | | | | | | [place] [address] | | | | | | [phone] | | | | | | | | +--------+---------+ + + + | 01/21/ | Office | Neurology | Brock Hammond MD | | | 2020 | Visit | | [address] | | | | | | [place] | | | | | | [address] | | | | | | | | +--------+---------+ + + + documented as of this encounter Visit Diagnoses Not on filedocumented in this encounter"
--- OUTSIDE RECORDS SUMMARY | ~2020-05-02 | XMS | Encounter Summary ---
Demographics + + + | Address | [address] | | | [address] | | | [place] [address] | + + + | Home Phone | | + + + | Preferred Language | Unknown | + + + | Marital Status | Single | + + + | Nondenominational Affiliation | 1009 | + + + [...] | | | | | [place] [address] | | + + + + + | Allegra Raza | ECON | Unknown | | + + + + + | Emily Fuller | ECON | Unknown | | + + + + + Care Team Providers + +------+ + | Care Truck Driver'S Offsider Name | Role | Phone | + [...] | [place], [place] | [place], [place] [address] | | | | | [address] | [phone] | | | | | [phone] | | | +--------+ + + + [...] | | | | | | [place] [address] | | | | | | [phone] | | | | | | | | +--------+---------+ + + + | 01/21/ | Office | Neurology | Brock Hammond MD | | | 2020 | Visit | | [address] | | | | | | [place] | | | | | | [address] | | | | | | | | +--------+---------+ + + + documented as of this encounter Visit Diagnoses Not on filedocumented in this encounter"
--- OUTSIDE RECORDS SUMMARY | ~2020-05-02 | XMS | Encounter Summary ---
Demographics + + + | Address | [address] | | | [address] | | | [place] [address] | + + + | Home Phone [...] | | | | | [place] [address] | | + + + + + | Allegra Raza | ECON | Unknown | | + + + + + | Emily Fuller | ECON | Unknown | | + + + + + Care Team Providers + +------+ + | Care Hospital Laboratory Technician Name | Role | Phone | [...] | [address] | | | | | [address] | | | | | | [phone] | | | +--------+ + + + [...] | | | | | | [place] [address] | | | | | | [phone] | | | | | | | | +--------+---------+ + + + | 01/21/ | Office | Neurology | Brock Hammond MD | | | 2020 | Visit | | [address] | | | | | | [place] | | | | | | [address] | | | | | | | [...]
--- OUTSIDE RECORDS SUMMARY | ~2020-05-02 | XMS | Encounter Summary ---
Demographics + + + | Address | [address] | | | [address] | | | [place] [address] | + + + | Home Phone [...] | | | | | [place] [address] | | + + + + + | Allegra Raza | ECON | Unknown | | + + + + + | Emily Fuller | ECON | Unknown | | + + + + + Care Team Providers + +------+ + | Care Systems Test Analyst Name | Role | Phone | [...] | HOSPITAL NEUROLOGY | [address] | | | | | CLINIC [address] | [place] | | | | | [address] [place], | [address] | | | | | [place] [address] | | | | | | [phone] | | | +--------+ + + + [...] PM PST Pharmacy: [facility] [place] Prescription Request: GABAPENTIN 600 MG TAB Written: [...] | | | | | | [place] [address] | | | | | | [phone] | | | | | | | | +--------+---------+ + + + | 01/21/ | Office | Neurology | Brock Hammond MD | | | 2020 | Visit | | [address] | | | | | | [place] | | | | | | [address] | | | | | | | | +--------+---------+ + + + documented as of this encounter Visit Diagnoses Not on filedocumented in this encounter"
--- OUTSIDE RECORDS SUMMARY | ~2020-05-02 | XMS | Encounter Summary ---
Demographics + + + | Address | [address] | | | [address] | | | [place] [address] | + + + | Home Phone [...] | | | | | [place] [address] | | + + + + + | Allegra Raza | ECON | Unknown | | + + + + + | Emily Fuller | ECON | Unknown | | + + + + + Care Team Providers + +------+ + | Care Livestock Rancher Name | Role | Phone | + [...] | | | | [address] | [facility], | | | | | [facility], [place] | [place] [address] | | | | | [address] | [phone] | | | | | [phone] | | | +--------+ + + + [...] | | | | | | [place] [address] | | | | | | [phone] | | | | | | | | +--------+---------+ + + + | 01/21/ | Office | Neurology | Brock Hammond MD | | | 2020 | Visit | | [address] | | | | | | [place] | | | | | | [address] | | | | | | | | +--------+---------+ + + + documented as of this encounter Visit Diagnoses Not on filedocumented in this encounter"
--- OUTSIDE RECORDS SUMMARY | ~2020-05-02 | XMS | Encounter Summary ---
Demographics + + + | Address | [address] | | | [address] | | | [place] [address] | + + + | Home Phone [...] | | | | | [place] [address] | | + + + + + | Allegra Raza | ECON | Unknown | | + + + + + | Emily Fuller | ECON | Unknown | | + + + + + Care Team Providers + +------+ + | Care Building Construction Superintendent Name | Role | Phone | [...] | | [address] | [facility], | | | | | [facility] [place] | [place] [address] | | | | | [address] | [phone] | | | | | [phone] | | | +--------+ + + + [...] to the recovery room in stable condition. [facility] Signed and Approved by: MEL RILEY MD 08/15/2009 11:54:00 documented in this encounter Plan of Treatment +--------+---------+ + + + | Date | Type | Specialty | Care Team | Description | +--------+---------+ + + + | 05/14/ | Office | Neurology | Romeo, | | | 2019 | Visit | | [address] | | | | | | [address] [facility], | | | | | | [place] [address] | | | | | | [phone] | | | | | | | | +--------+---------+ + + + | 01/21/ | Office | Neurology | Brock Hammond MD | | | 2020 | Visit | | [address] | | | | | | [place] | | | | | | [id number] | | | | | | | | +--------+---------+ + + + documented as of this encounter Visit Diagnoses Not on filedocumented in this encounter"
--- OUTSIDE RECORDS SUMMARY | ~2020-05-02 | XMS | Encounter Summary ---
Demographics + + + | Address | [address] | | | [address] | | | [place] [address] | + + + | Home Phone [...] | | | | | [place] [address] | | + + + + + | Allegra Raza | ECON | Unknown | | + + + + + | Emily Fuller | ECON | Unknown | | + + + + + Care Team Providers + +------+ + | Care Application Packaging Consultant Name | Role | Phone | + +------+ + PCP | Unavailable | + +------+ + Encounter Details +--------+ + + + + | Date | Type | Department | Care Team | Description | +--------+ + + + + | 01/03/ | Hospital | [facility] | Elie[facility] Ballesteros | | | 2010 | Encounter | [facility] | [facility] [address] | | | | [address] | [address] | | | | | [address] [place], [place] | [place], [place] [address] | | | | | [address] | [phone] | | | | | [phone] | | | +--------+ + + + [...] | | | | | | [place] [address] | | | | | | [phone] | | | | | | | | +--------+---------+ + + + | 01/21/ | Office | Neurology | Brock Hammond MD | | | 2020 | Visit | | [address] | | | | | | [place] | | | | | | [address] | | | | | | | | +--------+---------+ + + + documented as of this encounter Visit Diagnoses Not on filedocumented in this encounter"
--- OUTSIDE RECORDS SUMMARY | ~2020-05-02 | XMS | Encounter Summary ---
Demographics + + + | Address | [address] | | | [address] | | | [place] [address] | + + + | Home Phone [...] | | | | | [place] [address] | | + + + + + | Allegra Raza | ECON | Unknown | | + + + + + | Emily Fuller | ECON | Unknown | | + + + + + Care Team Providers + +------+ + | Care Package Checker Name | Role | Phone | + +------+ + PCP | Unavailable | + +------+ + Encounter Details +--------+ + + + + | Date | Type | Department | Care Team | Description | +--------+ + + + + | 06/18/ | Hospital | [facility] | Koki Valdez | | | 2010 | Encounter | HOSPITAL [facility] | [address] | | | | | [address] | [facility], | | | | | [place], [place] | [place] [address] | | | | | [address] | [phone] | | | | | [phone] | | | +--------+ + + + [...] | | | | | | [place] [address] | | | | | | [phone] | | | | | | | | +--------+---------+ + + + | 01/21/ | Office | Neurology | Brock Hammond MD | | | 2020 | Visit | | [address] | | | | | | [place] | | | | | | [address] | | | | | | | | +--------+---------+ + + + documented as of this encounter Visit Diagnoses Not on filedocumented in this encounter"
--- OUTSIDE RECORDS SUMMARY | ~2020-05-02 | XMS | Encounter Summary ---
Demographics + + + | Address | [address] | | | [address] | | | [place] [address] | + + + | Home Phone [...] | | | | | [place] [address] | | + + + + + | Allegra Raza | ECON | Unknown | | + + + + + | Emily Fuller | ECON | Unknown | | + + + + + Care Team Providers + +------+ + | Care Container Filler Name | Role | Phone | + +------+ + PCP | Unavailable | + +------+ + Encounter Details +--------+ + + + + | Date | Type | Department | Care Team | Description | +--------+ + + + + | 02/14/ | Hospital | [facility] | Courtney Koki | | | 2009 | Encounter | [facility] | Jackelyn, FURNITURE MOVER HELPER [address] | | | | | [facility] [address] | [facility], | | | | | [address]TH [facility], | [place] [address] | | | | | [place] [address] | [phone] | | | | | [phone] | | | +--------+ + + + [...] | | | | | | [place] [address] | | | | | | [phone] | | | | | | | | +--------+---------+ + + + | 01/21/ | Office | Neurology | Brock Hammond MD | | | 2020 | Visit | | [address] | | | | | | [place], [place] | | | | | | [address] | | | | | | | | +--------+---------+ + + + documented as of this encounter Visit Diagnoses Not on filedocumented in this encounter"
--- OUTSIDE RECORDS SUMMARY | ~2020-05-02 | XMS | Encounter Summary ---
Demographics + + + | Address | [address] | | | [address] | | | [place] [address] | + + + | Home Phone [...] | | | | | [place] [address] | | + + + + + | Allegra Raza | ECON | Unknown | | + + + + + | Emily Fuller | ECON | Unknown | | + + + + + Care Team Providers + +------+ + | Care Boat Builder And Repairer Name | Role | Phone | [...] | | | OFFICE [address] | [facility], | | | | | [place], [place] | [place] [address] | | | | | [address] | [phone] | | | | | [phone] | | | +--------+ + + + [...] | | | | | | [place] [address] | | | | | | [phone] | | | | | | | | +--------+---------+ + + + | 01/21/ | Office | Neurology | Brock Hammond MD | | | 2020 | Visit | | [address] | | | | | | [place] | | | | | | [address] | | | | | | | | +--------+---------+ + + + documented as of this encounter Visit Diagnoses Not on filedocumented in this encounter"
--- OUTSIDE RECORDS SUMMARY | ~2020-05-02 | XMS | Encounter Summary ---
Demographics + + + | Address | [address] | | | [address] | | | [place] [address] | + + + | Home Phone | | + + + | Preferred Language | Unknown | + + + | Marital Status | Single | + + + | Uatsdin Affiliation | 1009 | + + + | Race | Unknown | + + + | Ethnic Group | Unknown | + + + Author + + + | Author | [facility] | | | and Danielana | + + + | Organization | [facility] | | | [...] | | | | | [place] [address] | | + + + + + | Allegra Raza | ECON | Unknown | | + + + + + | Emily Fuller | ECON | Unknown | | + + + + + Care Team Providers + +------+ + | Care Piece Maker Name | Role | Phone | [...] Description | +--------+--------+ + + + | 03/06/ | Refill | [facility] | Brock Hammond MD | Medication Refill | | 2019 | | HOSPITAL NEUROLOGY | [address] | | | | | CLINIC [address] | [place] | | | | | [address] [place], | [address] | | | | | [place] [address] | | | | | | [phone] | | | +--------+--------+ + + + [...] Telephone Encounter - Kristen Rodriguez RN - 03/06/2019 2:00 PM PDTLast filled 12/22/17 Last seen 04/12/17 Next appt hesham Jones RN documented i n this encounter Plan of [...] | | | | | | [place] [address] | | | | | | [phone] | | | | | | | | +--------+---------+ + + + | 01/21/ | Office | Neurology | Brock Hammond MD | | | 2020 | Visit | | [address] | | | | | | [place], [place] | | | | | | [address] | | | | | | | | +--------+---------+ + + + documented as of this encounter Visit Diagnoses Not on filedocumented in this encounter"
--- OUTSIDE RECORDS SUMMARY | ~2020-05-02 | XMS | Encounter Summary ---
Demographics + + + | Address | [address] | | | [address] | | | [place] [address] | + + + | Home Phone [...] | | | | | [place] [address] | | + + + + + | Allegra Raza | ECON | Unknown | | + + + + + | Emily Fuller | ECON | Unknown | | + + + + + Care Team Providers + +------+ + | Care Medical Radiation Tech Name | Role | Phone | [...] | | | | [place] | [address] | | | | | [address] | [phone] | | | | | [phone] | | | +--------+ + + + [...] | | | | | | [place] [address] | | | | | | [phone] | | | | | | | | +--------+---------+ + + + | 01/21/ | Office | Neurology | Brock Hammond MD | | | 2020 | Visit | | [address] | | | | | | [place], [place] | | | | | | [address] | | | | | | | | +--------+---------+ + + + documented as of this encounter Visit Diagnoses Not on filedocumented in this encounter"
--- OUTSIDE RECORDS SUMMARY | ~2020-05-02 | XMS | Encounter Summary ---
Demographics + + + | Address | [address] | | | [address] | | | [place] [address] | + + + | Home Phone [...] | | | | | [place] [address] | | + + + + + | Allegra Raza | ECON | Unknown | | + + + + + | Emily Fuller | ECON | Unknown | | + + + + + Care Team Providers + +------+ + | Care Manager Icu Name | Role | Phone | + [...] | CENTER [address] | [facility] | | | | | [place], [place] | [place], [place] [address] | | | | | [address] | [phone] | | | | | [phone] | | | +--------+ + + + [...] | | | | | | [place] [address] | | | | | | [phone] | | | | | | | | +--------+---------+ + + + | 01/21/ | Office | Neurology | Brock Hammond MD | | | 2020 | Visit | | [address] | | | | | | [place] | | | | | | [address] | | | | | | | | +--------+---------+ + + + documented as of this encounter Visit Diagnoses Not on filedocumented in this encounter"
--- OUTSIDE RECORDS SUMMARY | ~2020-05-02 | XMS | Clinical Summary ---
Demographics + + + | Address | [address] | | | [address] | | | [place] [address] | + + + | Home Phone [...] | | | | | [place] [address] | | + + + + + | Allegra Raza | ECON | Unknown | | + + + + + | Emily Fuller | ECON | Unknown | | + + + + + Care Team Providers + +------+ + | Care Pari Mutuel Clerk Name | Role | Phone | + +------+ + | Luna Cry | PIERRE | | + +------+ + [...] | 11 | 06/2 | 07/2 | Activ | | (NEURONTIN) 600 MG | mouth three times a | tablet | | 2/20 | 2/20 | e | | tablet | day | | | 20 | 20 | | + + + +---------+------+------+-------+ | gabapentin | take 1 tablet by | | 0 | 03/2 | 06/2 | Disco | | (NEURONTIN) 600 MG | mouth three times a | | | 4/20 | 2/20 | ntinu | | tablet | day | | | 20 | 20 | ed | + + + +---------+------+------+-------+ Active Problems + + + | Problem | Noted Date | + + + | Chronic neck and back pain | 01/18/2020 | + + + + + | Overview: Current Treatment: PT/OT in [facility] | | [facility] 03/07/19 Cervical XR:No acute | | process.Prior [...] | | IMO Problem List Replacement - 2017_Regulatory_1 | + + + + + | [...] | 04/15/ | Refill | Neurology | Aisha Carrington, [...] | | TRIVALENT(PED/ADOL/A | | | | DULT), PSKT | | | + + + + [...] | | | | | | [place] [address] | | | | | | [phone] | | | | | | | | +--------+---------+ + + + | 01/21/ | Office | Neurology | Brock Hammond MD | | | 2020 | Visit | | [address] | | | | | | [place] | | | | | | [address] | | | | | | | [...] +-------+--------+ +--------+-------+---------+------+ | BCBS | BCBS | [id number] | 10/25/19 | | | PPO | [...] | | [address] (Home) | [place] [address] | + +--------+ +--------+ + + Advance Directives + + + + + | Type | Date Recorded | Patient | Explanation | | | | Mulcher Operator | | + + + + + | Power of | | | | | Cook Night | | | | + + + + + | Advance | 01/22/2020 2:46 | | | | Directive | PM | | | + + + + +
--- OUTSIDE RECORDS SUMMARY | ~2020-05-02 | XMS | Encounter Summary ---
Demographics + + + | Address | [address] | | | [address] | | | [place] [address] | + + + | Home Phone [...] HU | | | | | [place] [address] | | + + + + + | Allegra Raza | ECON | Unknown | | + + + + + | Emily Fuller | ECON | Unknown | | + + + + + Care Team Providers + +------+ + | Care Hop Sorter Name | Role | Phone | + +------+ + PCP | Unavailable | + +------+ + Encounter Details +--------+ + + + + | Date | Type | Department | Care Team | Description | +--------+ + + + + | 02/16/ | Hospital | [facility] | Manpreet Cedeno MD | | | 2010 | Encounter | H[facility] XRAY [address] | [address] | | | | | [address] | [address] [place], | | | | | [place] | [place] [address] | | | | | [address] | [phone] | | | | | [phone] | (Fax) | | +--------+ + + + + [...] | | | | | | [place] [address] | | | | | | [phone] | | | | | | | | +--------+---------+ + + + | 01/21/ | Office | Neurology | Brock Hammond MD | | | 2020 | Visit | | [address] | | | | | | [place] | | | | | | [address] | | | | | | | | +--------+---------+ + + + documented as of this encounter Visit Diagnoses Not on filedocumented in this encounter"
--- OUTSIDE RECORDS SUMMARY | ~2020-05-02 | XMS | Encounter Summary ---
Demographics + + + | Address | [address] | | | [address] | | | [place] [address] | + + + | Home Phone [...] | | | | | [place] [address] | | + + + + + | Allegra Raza | ECON | Unknown | | + + + + + | Emily Fuller | ECON | Unknown | | + + + + + Care Team Providers + +------+ + | Care Motion Picture Director Name | Role | Phone | [...] | | [address] | [facility], | | | | | [place], [place] | [place] [address] | | | | | [address] | [phone] | | | | | [phone] | | | +--------+ + + + [...] | | | | | | [place] [address] | | | | | | [phone] | | | | | | | | +--------+---------+ + + + | 01/21/ | Office | Neurology | Brock Hammond MD | | | 2020 | Visit | | [address] | | | | | | [place] | | | | | | [address] | | | | | | | | +--------+---------+ + + + documented as of this encounter Visit Diagnoses Not on filedocumented in this encounter"
--- OUTSIDE RECORDS SUMMARY | ~2020-05-02 | XMS | Encounter Summary ---
Demographics + + + | Address | [address] | | | [address] | | | [place] [address] | + + + | Home Phone [...] | | | | | [place] [address] | | + + + + + | Allegra Raza | ECON | Unknown | | + + + + + | Emily Fuller | ECON | Unknown | | + + + + + Care Team Providers + +------+ + | Care Social And Political Studies Professor Name | Role | Phone | + +------+ + PCP | Unavailable | + +------+ + Encounter Details +--------+ + + + + | Date | Type | Department | Care Team | Description | +--------+ + + + + | 02/19/ | Hospital | [facility] | TashiLamonte cadena | | | 2014 | Encounter | [facility] | Goins [facility] [address] | | | | | MEDICAL CLIN[address] | [address] [place], [place] | | | | | [address] [facility], | [address] | | | | | [place] [address] | | | | | | [phone] | | | +--------+ + + + [...] | | | | | | [place] [address] | | | | | | [phone] | | | | | | | | +--------+---------+ + + + | 01/21/ | Office | Neurology | Brock Hammond MD | | | 2020 | Visit | | [address] | | | | | | [place] | | | | | | [address] | | | | | | | | +--------+---------+ + + + documented as of this encounter Visit Diagnoses Not on filedocumented in this encounter"
--- OUTSIDE RECORDS SUMMARY | ~2020-05-02 | XMS | Encounter Summary ---
Demographics + + + | Address | [address] | | | [address] | | | [place] [address] | + + + | Home Phone | | + + + | Preferred Language | Unknown | + + + | Marital Status | Single | + + + | Cheondoism Affiliation | 1009 | + + + | Race | Unknown | + + + | Ethnic Group | Unknown | + + + Author + + + | Author | [facility] | | | and Danielana | + + + | Organization | [facility] | | [...] | | | | | [place] [address] | | + + + + + | Allegra Raza | ECON | Unknown | | + + + + + | Emily Fuller | ECON | Unknown | | + + + + + Care Team Providers + +------+ + | Care Custom Framing Specialist Name | Role | Phone | [...] | [address] | [place] [address] | | | | | [place], [place] | [phone] | | | | | [address] | | | | | | [phone] | | | +--------+ + + + [...] | | | | | | [place] [address] | | | | | | [phone] | | | | | | | [...] 5 Highly suggestive for/of malignancy. JOB #: [id number] | | | Digitally Released by: Sven [...] | | | | | JOB #: [id number] | | Digitally Released by: Sven Bello | | | | | | Read By: SVEN BELLO MD | | Date: 03/03/2017 17:32 | | | + + documented in this encounter Visit Diagnoses Not on filedocumented in this encounter
--- OUTSIDE RECORDS SUMMARY | ~2020-05-02 | XMS | Encounter Summary ---
Demographics + + + | Address | [address] | | | [address] | | | [place] [address] | + + + | Home Phone [...] [facility] | | | and Danileana | + + + | Organization | [...] | | | | | [place] [address] | | + + + + + | Allegra Raza | ECON | Unknown | | + + + + + | Emily Fuller | ECON | Unknown | | + + + + + Care Team Providers + +------+ + | Care Process Safety Engineering Technologist Name | Role | Phone | + +------+ + PCP | Unavailable | + +------+ + Encounter Details +--------+ + + + + | Date | Type | Department | Care Team | Description | +--------+ + + + + | 01/04/ | Hospital | [facility] | Brock Hammond MD | | | 2013 | Encounter | [facility] | [address] | | | | | MEDICAL [address] | [place], [place] | | | | | [address]TH [facility], | [address] | | | | | [place] [address] | | | | | | [phone] | | | +--------+ + + + [...] | | | | | | [place] [address] | | | | | | [phone] | | | | | | | | +--------+---------+ + + + | 01/21/ | Office | Neurology | Brock Hammond MD | | | 2020 | Visit | | [address] | | | | | | [place], [place] | | | | | | [address] | | | | | | | | +--------+---------+ + + + documented as of this encounter Visit Diagnoses Not on filedocumented in this encounter"
--- OUTSIDE RECORDS SUMMARY | ~2020-05-02 | XMS | Encounter Summary ---
Demographics + + + | Address | [address] | | | [address] | | | [place] [address] | + + + | Home Phone [...] | | | | | [place] [address] | | + + + + + | Allegra Raza | ECON | Unknown | | + + + + + | Emily Fuller | ECON | Unknown | | + + + + + Care Team Providers + +------+ + | Care Technical Support Director Name | Role | Phone | + +------+ + PCP | Unavailable | + +------+ + Encounter Details +--------+ + + + + | Date | Type | Department | Care Team | Description | +--------+ + + + + | 02/05/ | Hospital | [facility] | Aisha Carrington, | | | 2016 | Encounter | [facility] | [address] [place] | | | | | MEDICAL CLIN[address] | [place] [address] | | | | | [address] [place], | [phone] | | | | | [place] [address] | | | | | | [phone] | | | +--------+ + + + [...] | | | | | | [place] [address] | | | | | | [phone] | | | | | | | [...]
--- OUTSIDE RECORDS SUMMARY | ~2020-05-02 | XMS | Encounter Summary ---
Demographics + + + | Address | [address] | | | [address] | | | [place] [address] | + + + | Home Phone [...] | | | | | [place] [address] | | + + + + + | Allegra Raza | ECON | Unknown | | + + + + + | Emily Fuller | ECON | Unknown | | + + + + + Care Team Providers + +------+ + | Care Oracle Consultant Name | Role | Phone | + +------+ + PCP | Unavailable | + +------+ + Encounter Details +--------+ + + + + | Date | Type | Department | Care Team | Description | +--------+ + + + + | 11/06/ | Hospital | [facility] | Tashi Lamonte | | | 2014 | Encounter | [facility] | Goins [facility] [address] | | | | | MEDICAL CLIN[address] | [address] [place], [place] | | | | | [address]TH [facility], | [address] | | | | | [place] [address] | | | | | | [phone] | | | +--------+ + + + [...] | | | | | | [place] [address] | | | | | | [phone] | | | | | | | | +--------+---------+ + + + | 01/21/ | Office | Neurology | Brock Hammond MD | | | 2020 | Visit | | [address] | | | | | | [place] | | | | | | [address] | | | | | | | | +--------+---------+ + + + documented as of this encounter Visit Diagnoses Not on filedocumented in this encounter"
--- OUTSIDE RECORDS SUMMARY | ~2020-05-02 | XMS | Encounter Summary ---
Demographics + + + | Address | [address] | | | [address] | | | [place] [address] | + + + | Home Phone [...] | | | | | [place] [address] | | + + + + + | Allegra Raza | ECON | Unknown | | + + + + + | Emily Fuller | ECON | Unknown | | + + + + + Care Team Providers + +------+ + | Care Claim Benefit Specialist Name | Role | Phone | [...] Treatment Order | | 2018 | | [facility] | | (Physical Therapy) | | | | CLINIC [address] | | | | | | [address] [place], | | | | | | [place] [address] | | | | | | [phone] | | | +--------+ + + + [...] on the 17thElectro nically signed by Claudia Elliott at 04/26/2019 1:01 PM PDTTelephone Encounter - Julia Rodriguez RN - 04/25/2019 4:19 PM PDTSpoke with pt and she states she has not reicieved any p natty calls regarding scheduling PT at [facility]. I asked her to call them to schedule appt, s he stated she would tomorrow. I also made sure with [facility] that they still had order and t fidel stated they did and would wait for her call./ELOINA Jones elephone Encounter - Kristen Rodriguez RN - 04/25/2019 11 :12 AM PDTCalled and left message for pt, to discuss Physical Therapy orders. Note sent to Harjeet Hammond stating, pt has not return call to [facility] PT department to schedule appointmen t, and [...] | | | | | | [place] [address] | | | | | | [phone] | | | | | | | | +--------+---------+ + + + | 01/21/ | Office | Neurology | Brock Hammond MD | | | 2020 | Visit | | [address] | | | | | | [place] | | | | | | [address] | | | | | | | | +--------+---------+ + + + documented as of this encounter Visit Diagnoses Not on filedocumented in this encounter"
--- OUTSIDE RECORDS SUMMARY | ~2020-05-02 | XMS | Encounter Summary ---
Demographics + + + | Address | [address] | | | [address] | | | [place] [address] | + + + | Home Phone [...] | | | | | [place] [address] | | + + + + + | Allegra Raza | ECON | Unknown | | + + + + + | Emily Fuller | ECON | Unknown | | + + + + + Care Team Providers + +------+ + | Care Converting Operator Name | Role | Phone | + +------+ + PCP | Unavailable | + +------+ + Encounter Details +--------+ + + + + | Date | Type | Department | Care Team | Description | +--------+ + + + + | 01/24/ | Hospital | [facility] | | | | 2002 | Encounter | MED CTR GENERIC IP | | | | | | CONV DEPT [address] | | | | | | [place], | | | | | | [place] [address] | | | | | | [phone] | | | +--------+ + + + [...] | | | | | | [place] [address] | | | | | | [phone] | | | | | | | | +--------+---------+ + + + | 01/21/ | Office | Neurology | Brock Hammond MD | | | 2020 | Visit | | [address] | | | | | | [place] | | | | | | [address] | | | | | | | | +--------+---------+ + + + documented as of this encounter Visit Diagnoses Not on filedocumented in this encounter"
--- OUTSIDE RECORDS SUMMARY | ~2020-05-02 | XMS | Encounter Summary ---
Demographics + + + | Address | [address] | | | [address] | | | [place] [address] | + + + | Home Phone [...] | | | | | [place] [address] | | + + + + + | Allegra Raza | ECON | Unknown | | + + + + + | Emily Fuller | ECON | Unknown | | + + + + + Care Team Providers + +------+ + | Care Mainframe Software Developer Name | Role | Phone | [...] Description | +--------+--------+ + + + | 06/06/ | Refill | [facility] [facility] | Radha, | Medication Refill | | 2019 | | [facility] | emani, [facility] [address] | | | | | CLINIC [address] | [facility] | | | | | [address] [place], | [place] [address] | | | | | [place] [address] | [phone] | | | | | [phone] | | | +--------+--------+ + + + [...] this encounter Miscellaneous Notes Telephone Encounter - Jessica Bolivar - 06/08/2019 5:44 PM PDTApril, This is a [facility] patient. Her last visit with Dr. Carrington was elephone Encounter - Janett Delvalle CC CMA - 019 2:52 PM PDTBarbie, can you find who patient's PCP is? This refill has been sitting in [employer] [facility] since yesterday. Thank you, MAR Monroe CMA documented in this encounter Plan of Treatment +--------+---------+ + + + | Date | Type | Specialty | Care Team | Description | +--------+---------+ + + + | 05/14/ | Office | Neurology | Romeo, | | | 2019 | Visit | | [address] | | | | | | [address] [facility], | | | | | | [place] [address] | | | | | | [phone] | | | | | | | [...]
--- OUTSIDE RECORDS SUMMARY | ~2020-05-02 | XMS | Encounter Summary ---
Demographics + + + | Address | [address] | | | [address] | | | [place] [address] | + + + | Home Phone [...] | | | | | [place] [address] | | + + + + + | Allegra Raza | ECON | Unknown | | + + + + + | Emily Fuller | ECON | Unknown | | + + + + + Care Team Providers + +------+ + | Care Steel Box Toe Inserter Name | Role | Phone | + [...] | CENTER [address] | [facility] | | | | | [address] [place], [place] | [facility], [place] [address] | | | | | [address] | [phone] | | | | | [phone] | | | +--------+ + + + [...] | | | | | | [place] [address] | | | | | | [phone] | | | | | | | | +--------+---------+ + + + | 01/21/ | Office | Neurology | Brock Hammond MD | | | 2020 | Visit | | [address] | | | | | | [place] | | | | | | [address] | | | | | | | | +--------+---------+ + + + documented as of this encounter Visit Diagnoses Not on filedocumented in this encounter"
--- OUTSIDE RECORDS SUMMARY | ~2020-05-02 | XMS | Encounter Summary ---
Demographics + + + | Address | [address] | | | [address] | | | [place] [address] | + + + | Home Phone [...] | | | | | [place] [address] | | + + + + + | Allegra Raza | ECON | Unknown | | + + + + + | Emily Fuller | ECON | Unknown | | + + + + + Care Team Providers + +------+ + | Care Liquor Tester Name | Role | Phone | + +------+ + PCP | Unavailable | + +------+ + Encounter Details +--------+ + + + + | Date | Type | Department | Care Team | Description | +--------+ + + + + | 12/05/ | Hospital | [facility] | Emmanuelle Frank | | | 2010 | Encounter | HOSPITAL XRAY 900 | Sandra Alvarez MD [address] | | | | | [address] | [facility], | | | | | [facility], [place] | [place] [address] | | | | | [address] | [phone] | | | | | [phone] | | | +--------+ + + + [...] | | | | | | [place] [address] | | | | | | [phone] | | | | | | | | +--------+---------+ + + + | 01/21/ | Office | Neurology | Brock Hammond MD | | | 2020 | Visit | | [address] | | | | | | [place] | | | | | | [address] | | | | | | | | +--------+---------+ + + + documented as of this encounter Visit Diagnoses Not on filedocumented in this encounter"
--- OUTSIDE RECORDS SUMMARY | ~2020-05-02 | XMS | Encounter Summary ---
Demographics + + + | Address | [address] | | | [address] | | | [place] [address] | + + + | Home Phone [...] + + + | Author | [facility] | | | and Danielana | + + + | Organization | [facility] | | | [...] | | | | | [place] [address] | | + + + + + | Allegra Raza | ECON | Unknown | | + + + + + | Emily Fuller | ECON | Unknown | | + + + + + Care Team Providers + +------+ + | Care Auto Painter Name | Role | Phone | + +------+ + PCP | Unavailable | + +------+ + Encounter Details +--------+ + + + + | Date | Type | Department | Care Team | Description | +--------+ + + + + | 02/20/ | Hospital | [facility] | Catie Powell | | | 2013 | Encounter | HOSPITAL LABORATORY | MD [address] | | | | | [address] | [facility] [facility], | | | | | [facility], [place] | [place] [address] | | | | | [address] | [phone] | | | | | [phone] | | | +--------+ + + + [...] | | | | | | [place] [address] | | | | | | [phone] | | | | | | | | +--------+---------+ + + + | 01/21/ | Office | Neurology | Brock Hammond MD | | | 2020 | Visit | | [address] | | | | | | [place] | | | | | | [address] | | | | | | | [...]
--- OUTSIDE RECORDS SUMMARY | ~2020-05-02 | XMS | Encounter Summary ---
Demographics + + + | Address | [address] | | | [address] | | | [place] [address] | + + + | Home Phone [...] | | | | | [place] [address] | | + + + + + | Allegra Raza | ECON | Unknown | | + + + + + | Emily Fuller | ECON | Unknown | | + + + + + Care Team Providers + +------+ + | Care Artists' Model Name | Role | Phone | + [...] 05/21/ | Refill | [facility] | Radha, | Medication Refill | | 2019 | | [facility] | [facility], WOOD PANEL INSPECTOR [address] | | | | | CLIN[address] | [facility] | | | | | [address] [place], | [place] [address] | | | | | [place] [address] | [phone] | | | | | [phone] | | | +--------+--------+ + + + [...] this encounter Miscellaneous Notes Telephone Encounter - Charissa Pitt CC CMA - 05/22/2019 7:54 AM PDTPhysician not at is practice documented in th is encounter Plan of Treatment +--------+---------+ + + + | Date | Type | Specialty | Care Team | Description | +--------+---------+ + + + | 05/14/ | Office | Neurology | Romeo, | | | 2019 | Visit | | [address] | | | | | | [address] [place], | | | | | | [place] [address] | | | | | | [phone] | | | | | | | | +--------+---------+ + + + | 01/21/ | Office | Neurology | Brock Hammond MD | | | 2020 | Visit | | [address] | | | | | | [place] | | | | | | [address] | | | | | | | | +--------+---------+ + + + documented as of this encounter Visit Diagnoses Not on filedocumented in this encounter"
--- OUTSIDE RECORDS SUMMARY | ~2020-05-02 | XMS | Encounter Summary ---
Demographics + + + | Address | [address] | | | [address] | | | [place] [address] | + + + | Home Phone | | + + + | Preferred Language | Unknown | + + + | Marital Status | Single | + + + | Jainism Affiliation | 1009 | + + + | Race | Unknown | + + + | Ethnic Group | Unknown | + + + Author + + + | Author | [facility] | | | and Danielana | + + + | Organization | [facility] | | [...] | | | | | [place] [address] | | + + + + + | Allegra Raza | ECON | Unknown | | + + + + + | Emily Fuller | ECON | Unknown | | + + + + + Care Team Providers + +------+ + | Care Conservation Engineer Name | Role | Phone | [...] | | | [place] | [id number] | | | | | [address] | | | | | | [phone] | | | +--------+ + + + [...] Brock Fenton MD On 02/08/10 9:15:31 AM [facility] Signed and Approved by: BROCK FENTON MD [...] | | | | | | [place] [address] | | | | | | [phone] | | | | | | | | +--------+---------+ + + + | 01/21/ | Office | Neurology | Brock Fenton MD | | | 2020 | Visit | | [address] | | | | | | [place] | | | | | | [address] | | | | | | | | +--------+---------+ + + + documented as of this encounter Visit Diagnoses Not on filedocumented in this encounter"
--- OUTSIDE RECORDS SUMMARY | ~2020-05-02 | XMS | Encounter Summary ---
Demographics + + + | Address | [address] | | | [address] | | | [place] [address] | + + + | Home Phone [...] | | | | | [place] [address] | | + + + + + | Allegra Raza | ECON | Unknown | | + + + + + | Emliy Fuller | ECON | Unknown | | + + + + + Care Team Providers + +------+ + | Care Maintenance Shop Clerk Name | Role | Phone | + +------+ + PCP | Unavailable | + +------+ + Encounter Details +--------+ + + + + | Date | Type | Department | Care Team | Description | +--------+ + + + + | 04/25/ | Hospital | [facility] | Jaime Gregorio | | | 2010 | Encounter | HOSPITAL EMERGENCY | MD [address] | | | | | C[address] | [place]an Michelle | | | | | [place] | [place] [address] | | | | | [address] | [phone] | | | | | [phone] | | | +--------+ + + + [...] | | | | | | [place] [address] | | | | | | [phone] | | | | | | | | +--------+---------+ + + + | 01/21/ | Office | Neurology | Brock Hammond MD | | | 2020 | Visit | | [address] | | | | | | [place] | | | | | | [address] | | | | | | | | +--------+---------+ + + + documented as of this encounter Visit Diagnoses Not on filedocumented in this encounter"
--- OUTSIDE RECORDS SUMMARY | ~2020-05-02 | XMS | Encounter Summary ---
Demographics + + + | Address | [address] | | | [address] | | | [place] [address] | + + + | Home Phone [...] | | | | | [place] [address] | | + + + + + | Allegra Raza | ECON | Unknown | | + + + + + | Emily Fuller | ECON | Unknown | | + + + + + Care Team Providers + +------+ + | Care Furnace Combustion Analyst Name | Role | Phone | [...] [address] | [address] [place], [place] | | | | | [place] | [address] | | | | | [address] | | | | | | [phone] | | | +--------+ + + + [...] | | | | | | [place] [address] | | | | | | [phone] | | | | | | | | +--------+---------+ + + + | 01/21/ | Office | Neurology | Brock Hammond MD | | | 2020 | Visit | | [address] | | | | | | [place] | | | | | | [address] | | | | | | | | +--------+---------+ + + + documented as of this encounter Visit Diagnoses Not on filedocumented in this encounter"
--- OUTSIDE RECORDS SUMMARY | ~2020-05-02 | XMS | Encounter Summary ---
Demographics + + + | Address | [address] | | | [address] | | | [place] [address] | + + + | Home Phone [...] | | | | | [place] [address] | | + + + + + | Allegra Raza | ECON | Unknown | | + + + + + | Emily Fuller | ECON | Unknown | | + + + + + Care Team Providers + +------+ + | Care County Program Technician Name | Role | Phone | [...] | | | [address] [place], | [id number] | | | | | [place] [address] | | | | | | [phone] | | | +--------+ + + + [...] | | | | | | [place] [address] | | | | | | [phone] | | | | | | | | +--------+---------+ + + + | 01/21/ | Office | Neurology | Brock Hammond MD | | | 2020 | Visit | | [address] | | | | | | [place] | | | | | | [address] | | | | | | | | +--------+---------+ + + + documented as of this encounter Visit Diagnoses Not on filedocumented in this encounter"
--- OUTSIDE RECORDS SUMMARY | ~2020-05-02 | XMS | Encounter Summary ---
Demographics + + + | Address | [address] | | | [address] | | | [place] [address] | + + + | Home Phone | | + + + | Preferred Language | Unknown | + + + | Marital Status | Single | + + + | Catholic Affiliation | 1009 | + + [...] | | | | | [place] [address] | | + + + + + | Allegra Raza | ECON | Unknown | | + + + + + | Emily Fuller | ECON | Unknown | | + + + + + Care Team Providers + +------+ + | Care Biometrics Analyst Name | Role | Phone | + +------+ + PCP | Unavailable | + +------+ + Encounter Details +--------+ + + + + | Date | Type | Department | Care Team | Description | +--------+ + + + + | 11/25/ | Hospital | [facility] | Jacky-Shepard, | | | 2010 | Encounter | HOSPITAL LABORATORY | Randee Pérez MD [address] | | | | | [address] | [facility] | | | | | [facility], [place] | [place] | | | | | [address] | [address] | | | | | [phone] | [phone] | | | | | | | [...] | | | | | | [place] [address] | | | | | | [phone] | | | | | | | | +--------+---------+ + + + | 01/21/ | Office | Neurology | Brock Hammond MD | | | 2020 | Visit | | [address] [place] | | | | | | [place] | | | | | | [address] | | | | | | | | +--------+---------+ + + + documented as of this encounter Visit Diagnoses Not on filedocumented in this encounter"
--- OUTSIDE RECORDS SUMMARY | ~2020-05-02 | XMS | Encounter Summary ---
Demographics + + + | Address | [address] | | | [address] | | | [place] [address] | + + + | Home Phone [...] | | | | | [place] [address] | | + + + + + | Allegra Raza | ECON | Unknown | | + + + + + | Emily Fuller | ECON | Unknown | | + + + + + Care Team Providers + +------+ + | Care Painter Supervisor Name | Role | Phone | + +------+ + PCP | Unavailable | + +------+ + Encounter Details +--------+ + + + + | Date | Type | Department | Care Team | Description | +--------+ + + + + | 04/10/ | Hospital | [facility] | William Harp | | | 2009 | Encounter | HOSPITAL EMERGENCY | MD [address] | | | | | CENTER [address] | [facility] | | | | | [address] [place], [place] | [place] [employer] [address] | | | | | [address] | [phone] | | | | | [phone] | | | +--------+ + + + [...] | | | | | | [place] [address] | | | | | | [phone] | | | | | | | | +--------+---------+ + + + | 01/21/ | Office | Neurology | Brock Hammond MD | | | 2020 | Visit | | [address] | | | | | | [place] | | | | | | [address] | | | | | | | | +--------+---------+ + + + documented as of this encounter Visit Diagnoses Not on filedocumented in this encounter"
--- OUTSIDE RECORDS SUMMARY | ~2020-05-02 | XMS | Encounter Summary ---
Demographics + + + | Address | [address] | | | [address] | | | [place] [address] | + + + | Home Phone [...] | | | | | [place] [address] | | + + + + + | Allegra Raza | ECON | Unknown | | + + + + + | Emily Fuller | ECON | Unknown | | + + + + + Care Team Providers + +------+ + | Care Strip Polisher Name | Role | Phone | [...] | | [address] | [facility], | | | | | [facility], [place] | [place] [address] | | | | | [address] | [phone] | | | | | [phone] | | | +--------+ + + + [...] | | | | | | [place] [address] | | | | | | [phone] | | | | | | | | +--------+---------+ + + + | 01/21/ | Office | Neurology | Brock Hammond MD | | | 2020 | Visit | | [address] | | | | | | [place] | | | | | | [address] | | | | | | | | +--------+---------+ + + + documented as of this encounter Visit Diagnoses Not on filedocumented in this encounter"
--- OUTSIDE RECORDS SUMMARY | ~2020-05-02 | XMS | Encounter Summary ---
Demographics + + + | Address | [address] | | | [address] | | | [place] [address] | + + + | Home Phone [...] | | | | | [place] [address] | | + + + + + | Allegra Raza | ECON | Unknown | | + + + + + | Emily Fuller | ECON | Unknown | | + + + + + Care Team Providers + +------+ + | Care Identification Technician Name | Role | Phone | + +------+ + PCP | Unavailable | + +------+ + Encounter Details +--------+ + + + + | Date | Type | Department | Care Team | Description | +--------+ + + + + | 02/26/ | Hospital | [facility] | John Saeed | | | 2009 | Encounter | HOSPITAL EMERGENCY | MD [address] | | | | | CENTER [address] | [facility] | | | | | [place], [place] | [employer], [place] [address] | | | | | [address] | [phone] | | | | | [phone] | | | +--------+ + + + [...] | | | | | | [place] [address] | | | | | | [phone] | | | | | | | | +--------+---------+ + + + | 01/21/ | Office | Neurology | Brock Hammond MD | | | 2020 | Visit | | [address] | | | | | | [place] | | | | | | [address] | | | | | | | | +--------+---------+ + + + documented as of this encounter Visit Diagnoses Not on filedocumented in this encounter"
--- OUTSIDE RECORDS SUMMARY | ~2020-05-02 | XMS | Encounter Summary ---
Demographics + + + | Address | [address] | | | [address] | | | [place] [address] | + + + | Home Phone [...] | | | | | [place] [address] | | + + + + + | Allegra Raza | ECON | Unknown | | + + + + + | Emily Fuller | ECON | Unknown | | + + + + + Care Team Providers + +------+ + | Care Associate Publisher Name | Role | Phone | + [...] | [address] | [facility], | | | | | [facility], [place] | [place] [address] | | | | | [address] | [phone] | | | | | [phone] | | | +--------+ + + + [...] | | | | | | [place] [address] | | | | | | [phone] | | | | | | | | +--------+---------+ + + + | 01/21/ | Office | Neurology | Brock Hammond MD | | | 2020 | Visit | | [address] | | | | | | [place] | | | | | | [address] | | | | | | | | +--------+---------+ + + + documented as of this encounter Visit Diagnoses Not on filedocumented in this encounter"
--- OUTSIDE RECORDS SUMMARY | ~2020-05-02 | XMS | Encounter Summary ---
Demographics + + + | Address | [address] | | | [address] | | | [place] [address] | + + + | Home Phone | | + + + | Preferred Language | Unknown | + + + | Marital Status | Single | + + + | Muslim Affiliation | 1009 | + + + | Race | Unknown | + + + | Ethnic Group | Unknown | + + + Author + + + | Author | [facility] | | | and Danielana | + + + | Organization | [facility] | | | and [...] | | | | | [place] [address] | | + + + + + | Allegra Raza | ECON | Unknown | | + + + + + | Emily Fuller | ECON | Unknown | | + + + + + Care Team Providers + +------+ + | Care Chief Of Planning Name | Role | Phone | + [...] | | | | [address] | [facility], | | | | | [facility], [place] | [place] [address] | | | | | [address] | [phone] | | | | | [phone] | | | +--------+ + + + [...] | | | | | | [place] [address] | | | | | | [phone] | | | | | | | | +--------+---------+ + + + | 01/21/ | Office | Neurology | Brock Hammond MD | | | 2020 | Visit | | [address] | | | | | | [place] | | | | | | [address] | | | | | | | | +--------+---------+ + + + documented as of this encounter Visit Diagnoses Not on filedocumented in this encounter"
--- OUTSIDE RECORDS SUMMARY | ~2020-05-02 | XMS | Encounter Summary ---
Demographics + + + | Address | [address] | | | [address] | | | [place] [address] | + + + | Home Phone [...] | | | | | [place] [address] | | + + + + + | Allegra Raza | ECON | Unknown | | + + + + + | Emily Fuller | ECON | Unknown | | + + + + + Care Team Providers + +------+ + | Care Clinical Laboratory Manager Name | Role | Phone | + +------+ + PCP | Unavailable | + +------+ + Encounter Details +--------+ + + + + | Date | Type | Department | Care Team | Description | +--------+ + + + + | 04/22/ | Hospital | [facility] | Blessing Mccoy | | | 2017 | Encounter | [facility] | [address] | | | | | [facility] [address] | | | | | | [facility] [facility], | | | | | | [place] [address] | | | | | | [phone] | | | +--------+ + + + [...] | | | | | | [place] [address] | | | | | | [phone] | | | | | | | | +--------+---------+ + + + | 01/21/ | Office | Neurology | Brock Hammond MD | | | 2020 | Visit | | [address] | | | | | | [place] | | | | | | [address] | | | | | | | | +--------+---------+ + + + documented as of this encounter Visit Diagnoses Not on filedocumented in this encounter"
--- OUTSIDE RECORDS SUMMARY | ~2020-05-02 | XMS | Encounter Summary ---
Demographics + + + | Address | [address] | | | [address] | | | [place] [address] | + + + | Home Phone [...] | | | | | [place] [address] | | + + + + + | Allegra Raza | ECON | Unknown | | + + + + + | Emily Fuller | ECON | Unknown | | + + + + + Care Team Providers + +------+ + | Care Metal Polisher And Buffer Apprentice Name | Role | Phone | + [...] [address] | [address] [place], [place] | | | | | [place] | [address] | | | | | [address] | | | | | | [phone] | | | +--------+ + + + [...] | | | | | | [place] [address] | | | | | | [phone] | | | | | | | | +--------+---------+ + + + | 01/21/ | Office | Neurology | Brock Hammond MD | | | 2020 | Visit | | [address] | | | | | | [place] | | | | | | [address] | | | | | | | [...]
--- OUTSIDE RECORDS SUMMARY | ~2020-05-02 | XMS | Encounter Summary ---
Demographics + + + | Address | [address] | | | [address] | | | [place] [address] | + + + | Home Phone [...] | | | | | [place] [address] | | + + + + + | Allegra Raza | ECON | Unknown | | + + + + + | Emily Fuller | ECON | Unknown | | + + + + + Care Team Providers + +------+ + | Care Conveyor Belt Repairer Name | Role | Phone | + +------+ + PCP | Unavailable | + +------+ + Encounter Details +--------+ + + + + | Date | Type | Department | Care Team | Description | +--------+ + + + + | 01/23/ | Hospital | [facility] | Courtney Koki | | | 2009 | Encounter | [facility] | Jackelyn, WATER SYSTEMS DESIGNER [address] | | | | | [facility] [address] | [facility], | | | | | [facility], | [place] [address] | | | | | [place] [address] | [phone] | | | | | [phone] | | | +--------+ + + + [...] | | | | | | [place] [address] | | | | | | [phone] | | | | | | | | +--------+---------+ + + + | 01/21/ | Office | Neurology | Brock Hammond MD | | | 2020 | Visit | | [address] | | | | | | [place], [place] | | | | | | [address] | | | | | | | | +--------+---------+ + + + documented as of this encounter Visit Diagnoses Not on filedocumented in this encounter"
--- OUTSIDE RECORDS SUMMARY | ~2020-05-02 | XMS | Encounter Summary ---
Demographics + + + | Address | [address] | | | [address] | | | [place] [address] | + + + | Home Phone [...] | | | | | [place] [address] | | + + + + + | Allegra Raza | ECON | Unknown | | + + + + + | Emily Fuller | ECON | Unknown | | + + + + + Care Team Providers + +------+ + | Care Interrelated Special Education Teacher Name | Role | Phone [...] | | | | [place] | [address] | | | | | [address] | [phone] | | | | | [phone] | | | +--------+ + + + [...] | | | | | | [place] [address] | | | | | | [phone] | | | | | | | | +--------+---------+ + + + | 01/21/ | Office | Neurology | Brock [place] MD | | | 2020 | Visit | | [address] | | | | | | [place] | | | | | | [address] | | | | | | | | +--------+---------+ + + + documented as of this encounter Visit Diagnoses Not on filedocumented in this encounter"
--- OUTSIDE RECORDS SUMMARY | ~2020-05-02 | XMS | Encounter Summary ---
Demographics + + + | Address | [address] | | | [address] | | | [place] [address] | + + + | Home Phone | | + + + | Preferred Language | Unknown | + + + | Marital Status | Single | + + + | Lutheran Affiliation | 1009 | + + + | Race | Unknown | + + + | Ethnic Group | Unknown | + + + Author + + + | Author | [facility] | | | and Danielana | + + + | Organization | [facility] | | [...] | | | | | [place] [address] | | + + + + + | Allegra Raza | ECON | Unknown | | + + + + + | Emily Fuller | ECON | Unknown | | + + + + + Care Team Providers + +------+ + | Care Transcription Coordinator Name | Role | Phone | + +------+ + PCP | Unavailable | + +------+ + Encounter Details +--------+ + + + + | Date | Type | Department | Care Team | Description | +--------+ + + + + | 03/31/ | Hospital | [facility] | Brock [place] MD | | | 2017 | Encounter | HOSPITAL NEUROLOGY | [address] | | | | | CLINIC [address] | [place] | | | | | [address] [place], | [address] | | | | | [place] [address] | | | | | | [phone] | | | +--------+ + + + [...] | | | | | | [place] [address] | | | | | | [phone] | | | | | | | | +--------+---------+ + + + | 01/21/ | Office | Neurology | Brock [place] MD | | | 2020 | Visit | | [address] | | | | | | [place] | | | | | | [address] | | | | | | | | +--------+---------+ + + + documented as of this encounter Visit Diagnoses Not on filedocumented in this encounter"
[~2020-05-02 16:39] MED LIST changes: +GABAPENTIN600 MG PO
--- OUTSIDE RECORDS SUMMARY | 2020-05-02 16:42 | XMS ---
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 Security Kiln Firer Events No recent Security Events currently on file CRITERIA MET - Group Notification - [facility] - Has Care Guidelines CARE PROVIDERS DESTINEE LUGO Physician Mellowing Machine Operator Current PHONE: [phone] KOLBY VOGEL Internal Medicine: Pulmonary Disease 08/15/2018-Current PHONE: Unknown QUITA MURPHY Family Medicine: Geriatric Medicine Current PHONE: Unknown Teofilo has no Care Guidelines for this patient. Care History Medical/Surgical 12/02/2018 [facility] - PATIENT HAS AN APT TO ESTABLISH CARE ON 03/01/[address] JARRETT. - Patient is currently established with [facility]. If patient is seen in the ED during business hours. Please contact CHWs at [facility]. Care Recommendation: This patient has had 5 [...] providing care. E.D. VISIT COUNT (12 MO.) 2 [facility] TOTAL 2 NOTE: Visits indicate total known visits. ED/UCC VISIT TRACKING (12 MO.) 05/02/2020 16:39 [facility] [place] TYPE: Emergency COMPLAINT: - PANIC ATTACK, CHEST PAIN 05/20/2019 22:[address] 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
--- NOTE | 2020-05-04 09:11 | EKG ---
[facility] [address] [facility] [address] [place] [address] Signed Normal sinus rhythm Normal ECG No previous ECGs available Confirmed by FIFI IBRAHIM MD ([id number]) on 05/04/2020 9:11:05 AM Electronically Signed By: FIFI IBRAHIM MD 05/04/20910 PATIENT NAME: DOMINIQUE CARMICHAEL Electrocardiogram DATE OF : 61 PHYSICIAN: FIFI IBRAHIM MD REPORT #: [id number] REPORT IS CONFIDENTIAL AND NOT TO BE RELEASED WITHOUT AUTHORIZATION
== END 2020-05-02 18:49 | disposition home or self-care (01) ==
LOC: ED 16:39
DX: G43.909 Migraine, unspecified, not intractable, without status migrainosus (principal); F41.9 Anxiety disorder, unspecified; F90.9 Attention-deficit hyperactivity disorder, unspecified type; I25.2 Old myocardial infarction; K21.9 Gastro-esophageal reflux disease without esophagitis; E03.9 Hypothyroidism, unspecified; J44.9 Chronic obstructive pulmonary disease, unspecified; Z88.0 Allergy status to penicillin; Z91.048 Other nonmedicinal substance allergy status; Z88.1 Allergy status to other antibiotic agents; Z88.8 Allergy status to other drugs, medicaments and biological substances; Z79.899 Other long term (current) drug therapy
CPT/HCPCS: 80053; 84484; 85025; 93005; 93010; 96374; 99285-25; J1885

== ENCOUNTER 2020-05-20 02:49 | Emergency (ER) | payer BC ==
[~2020-05-20] VITALS: Ht 152.4 cm; Wt 59.0 kg
--- OUTSIDE RECORDS SUMMARY | ~2020-05-20 | XMS | Encounter Summary ---
Demographics + + + | Address | [address] | | | [address] | | | [place] [address] | + + + | Home Phone | | + + + | Preferred Language | Unknown | + + + | Marital Status | Single | + + + | Shinto Affiliation | 1009 | + + + | Race | Unknown | + + + | Ethnic Group | Unknown | + + + Author + + + | Author | [facility] | | | and [place] | + + + | Organization | [facility] | | | and [place] | + + + | Address | Unknown | + + + | Phone | Unavailable | + + + Support + + + + + | Name | Relationship | Address | Phone | + + + + + | Magalys Hurley | ECON | [address] | | | | | [place] [address] | | + + + + + | Allegra Raza | ECON | Unknown | | + + + + + | Emily Fuller | ECON | Unknown | | + + + + + Care Team Providers + +------+ + | Care Contamination Consultant Name | Role | Phone | + +------+ + PCP | Unavailable | + +------+ + Encounter Details +--------+ + + + + | Date | Type | Department | Care Team | Description | +--------+ + + + + | 03/12/ | Hospital | [facility] | Emmanuelle Frank | | | 2008 | Encounter | HOSPITAL BUSINESS | Sandra Alvarez MD [address] | | | | | OFF[address] | [facility], | | | | | [address] [place], [place] | [place] [address] | | | | | [address] | [phone] | | | | | [phone] | | | +--------+ + + + + Social History + +-------+ +--------+------+ | Tobacco Use | Types | Packs/Day | Years | Date | | | | | Used | | + +-------+ +--------+------+ | Never Assessed | | | | | + +-------+ +--------+------+ + + + | Sex Assigned at | Date Recorded | | | | + + + | Not on file | | + + + documented as of this encounter Plan of Treatment +--------+---------+ + + + | Date | Type | Specialty | Care Team | Description | +--------+---------+ + + + | 05/22/ | Office | Neurology | Romeo, | | | 2019 | Visit | | [address] | | | | | [address] [place] | | | | | | [place] [address] | | | | | | [phone] | | | | | | | | +--------+---------+ + + + | 01/21/ | Office | Neurology | Brock Hammond MD | | | 2020 | Visit | | [address] | | | | | | [place] | | | | | | [address] | | | | | | | | +--------+---------+ + + + documented as of this encounter Visit Diagnoses Not on filedocumented in this encounter"
--- OUTSIDE RECORDS SUMMARY | ~2020-05-20 | XMS | Encounter Summary ---
Demographics + + + | Address | [address] | | | [address] | | | [place] [address] | + + + | Home Phone | | + + + | Preferred Language | Unknown | + + + | Marital Status | Single | + + + | Presybeterian Affiliation | 1009 | + + + | Race | Unknown | + + + | Ethnic Group | Unknown | + + + Author + + + | Author | [facility] | | | and [place] | + + + | Organization | [facility] | | | and [...] | | | | | [place] [address] | | + + + + + | Allegra Raza | ECON | Unknown | | + + + + + | Emily Fuller | ECON | Unknown | | + + + + + Care Team Providers + +------+ + | Care Adobe Ball Mixer Name | Role | Phone | + +------+ + PCP | Unavailable | + +------+ + Encounter Details +--------+ + + + + | Date | Type | Department | Care Team | Description | +--------+ + + + + | 12/27/ | Hospital | [facility] | Nidia Diaz, | | | 2010 | Encounter | HOSPITAL EMERGENCY | DIRECTOR OF MATERNITY SERVICES [address] | | | | | CENTER [address] | [place] | | | | | [place] | [address] | | | | | [address] | | | | | | [phone] | | | +--------+ + + + [...] | | | | | | [place] [address] | | | | | | [phone] | | | | | | | | +--------+---------+ + + + | 01/21/ | Office | Neurology | Brock Hammond MD | | | 2020 | Visit | | [address] | | | | | | [place] | | | | | | [address] | | | | | | | | +--------+---------+ + + + documented as of this encounter Visit Diagnoses Not on filedocumented in this encounter"
--- OUTSIDE RECORDS SUMMARY | ~2020-05-20 | XMS | Encounter Summary ---
Demographics + + + | Address | [address] | | | [address] | | | [place] [address] | + + + | Home Phone | | + + + | Preferred Language | Unknown | + + + | Marital Status | Single | + + + | Taoism Affiliation | 1009 | + + + | Race | Unknown | + + + | Ethnic Group | Unknown | + + + Author + + + | Author | [facility] | | | and [place] | + + + | Organization | [facility] | | | [...] | | | | | [place] [address] | | + + + + + | Allegra Raza | ECON | Unknown | | + + + + + | Emily Fuller | ECON | Unknown | | + + + + + Care Team Providers + +------+ + | Care Public Safety Police Name | Role | Phone | + +------+ + PCP | Unavailable | + +------+ + Encounter Details +--------+ + + + + | Date | Type | Department | Care Team | Description | +--------+ + + + + | 03/23/ | Hospital | [facility] | Blessing Mccoy | | | 2016 | Encounter | HOSPITAL LABORATORY | SHUKRI Haines | | | | | [address] | | | | | | [place] | | | | | | [address] | | | | | | [phone] | | | +--------+ + + + [...] + + documented as of this encounter Medications at Time of Discharge + + + +---------+ + + | Medication | Sig | Dispensed | Refills | Start | End Date | | | | | | Date | | + + + +---------+ + + | gabapentin | Take by mouth. | | 0 | 12/11/19 | | | (NEURONTIN) 600 MG | | | | 17 | 8 | | tablet | | | | | | + + + +---------+ + + documented as of this encounter Plan of Treatment +--------+---------+ + + + | Date | Type | Specialty | Care Team | Description | +--------+---------+ + + + | 05/22/ | Office | Neurology | Romeo, | | | 2019 | Visit | | [address] | | | | | | [address] [place], | | | | | | [place] [address] | | | | | | [phone] | | | | | | | | +--------+---------+ + + + | 01/21/ | Office | Neurology | Brock Hammond MD | | | 2020 | Visit | | [address] | | | | | | [place] | | | | | | [address] | | | | | | | | +--------+---------+ + + + documented as of this encounter Procedures + +--------+ + + + | Procedure Name | Priori | Date/Time | Associated Diagnosis | Comments | | | ty | | | | + +--------+ + + + | CBC W/AUTO | Routin | 03/23/2017 | | Results for this | | DIFFERENTIAL | e | 2:00 PM | | procedure are in the | | | | PDT | | results section. | + +--------+ + + + | COMPREHENSIVE | Routin | 03/23/2017 | | Results for this | | METABOLIC PANEL | e | 2:00 PM | | procedure are in the | | | | PDT | | results section. | + +--------+ + + + documented in this encounter Results Comprehensive Metabolic Panel (03/23/2017 2:00 PM PDT) + +-------+ + + + | Component | Value | Ref Range | Performed | Pathologist | | | | | At | Signature | + +-------+ + + + | Sodium | 141 | 132 - 143 | EXTERNAL | | | | | mmol/L | LAB | | + +-------+ + + + | Potassium | 3.6 | 3.3 - 4.9 | EXTERNAL | | | | | mmol/L | LAB | | + +-------+ + + + | Cl | 105 | 95 - 108 mmol/L | EXTERNAL | | | | | | LAB | | + +-------+ + + + | CO2 | 27 | 23 - 34 mmol/L | EXTERNAL | | | | | | LAB | | + +-------+ + + + | Anion Gap | 9 | 7 - 16 | EXTERNAL | | | | | | LAB | | + +-------+ + + + | Calcium | 9.1 | 8.3 - 10.0 | EXTERNAL | | | | | mg/dL | LAB | | + +-------+ + + + | Glucose | 115 | 70 - 110 mg/dL | EXTERNAL | | | | | | LAB | | + +-------+ + + + | BUN, Bld | 10 | 5 - 26 mg/dL | EXTERNAL | | | | | | LAB | | + +-------+ + + + | Creatinine | 0.91 | 0.60 - 1.30 | EXTERNAL | | | | | mg/dL | LAB | | + +-------+ + + + | BUN/Creatin | 11 | 7.0 - 24.0 | EXTERNAL | | | ine Ratio | | RATIO | LAB | | + +-------+ + + + | GFR | 60 | >=60 | EXTERNAL | | | ESTIMATE | | mL/min/1.73m2 | LAB | | | (REF) | | | | | + +-------+ + + + | Bilirubin, | 0.4 | <=1.2 mg/dL | EXTERNAL | | | Total | | | LAB | | + +-------+ + + + | Protein, | 7.3 | 6.6 - 8.5 g/dL | EXTERNAL | | | Total | | | LAB | | + +-------+ + + + | Albumin | 3.2 | 3.0 - 4.5 g/dL | EXTERNAL | | | | | | LAB | | + +-------+ + + + | Alkaline | 114 | 46 - 116 U/L | EXTERNAL | | | Phosphatase | | | LAB | | + +-------+ + + + | ALT, | 42 | 14 - 59 U/L | EXTERNAL | | | External | | | LAB | | + +-------+ + + + | AST, | 19 | <=38 U/L | EXTERNAL | | | External | | | LAB | | + +-------+ + + + + + | Specimen | + + | | + + + +---------+ + + | Performing | Address | City/State/Zipcode | Phone Number | | Organization | | | | + +---------+ + + | EXTERNAL LAB | | | | + +---------+ + + CBC w/ Auto Differential (03/23/2017 2:00 PM PDT) + +-------+ + + + | Component | Value | Ref Range | Performed | Pathologist | | | | | At | Signature | + +-------+ + + + | WBC | 7.2 | 4.3 - 10.4 | EXTERNAL | | | | | 1000/mm3 | LAB | | + +-------+ + + + | RBC | 4.34 | 4.12 - 5.30 | EXTERNAL | | | | | mil/mm3 | LAB | | + +-------+ + + + | HGB, | 13 | 12.4 - 15.7 | EXTERNAL | | | External | | g/dL | LAB | | + +-------+ + + + | HCT, | 38.9 | 37.7 - 47.0 % | EXTERNAL | | | External | | | LAB | | + +-------+ + + + | MCV | 90 | 82 - 97 fl | EXTERNAL | | | | | | LAB | | + +-------+ + + + | MCH | 30 | 27.1 - 32.3 pg | EXTERNAL | | | | | | LAB | | + +-------+ + + + | MCHC | 33.4 | 32.0 - 36.9 | EXTERNAL | | | | | g/dL | LAB | | + +-------+ + + + | RDW-CV | 14.3 | <=17.0 % | EXTERNAL | | | | | | LAB | | + +-------+ + + + | Platelet | 226 | 150 - 450 | EXTERNAL | | | Count | | 1000/mm3 | LAB | | | Plasma | | | | | + +-------+ + + + | MPV | 9.5 | 9.4 - 12.3 FL | EXTERNAL | | | | | | LAB | | + +-------+ + + + | % Segmented | 47.1 | 42.0 - 76.0 % | EXTERNAL | | | | | | LAB | | | Neutrophils | | | | | + +-------+ + + + | LYMPH % | 44.7 | 20.0 - 40.0 % | EXTERNAL | | | | | | LAB | | + +-------+ + + + | % Monocytes | 8.2 | <=12.0 % | EXTERNAL | | | | | | LAB | | + +-------+ + + + | Absolute | 3.4 | 2.50 - 8.50 | EXTERNAL | | | Neutrophils | | 1000/mm3 | LAB | | + +-------+ + + + | Absolute | 3.2 | 1.00 - 3.80 | EXTERNAL | | | Lymphocytes | | 1000/mm3 | LAB | | + +-------+ + + + | Absolute | 0.6 | <=1.25 1000/mm3 | EXTERNAL | | | Monocytes | | | LAB | | + +-------+ + + + | SLIDE | NO | | EXTERNAL | | | REVIEW | | | LAB | | + +-------+ + + + + + | Specimen | + + | | + + + +---------+ + + | Performing | Address | City/State/Zipcode | Phone Number | | Organization | | | | + +---------+ + + | EXTERNAL LAB | | | | + +---------+ + + documented in this encounter Visit Diagnoses Not on filedocumented in this encounter"
--- OUTSIDE RECORDS SUMMARY | ~2020-05-20 | XMS | Encounter Summary ---
Demographics + + + | Address | [address] | | | [address] | | | [place] [address] | + + + | Home Phone | | + + + | Preferred Language | Unknown | + + + | Marital Status | Single | + + + | Spiritism Affiliation | 1009 | + + + | Race | Unknown | + + + | Ethnic Group | Unknown | + + + Author + + + | Author | [facility] | | | and [place] | + + + | Organization | [facility] | | | [...] | | | | | [place] [address] | | + + + + + | Allegra Raza | ECON | Unknown | | + + + + + | Emily Fuller | ECON | Unknown | | + + + + + Care Team Providers + +------+ + | Care Outsole Cutter Machine Name | Role | Phone | + +------+ + PCP | Unavailable | + +------+ + Encounter Details +--------+ + + + + | Date | Type | Department | Care Team | Description | +--------+ + + + + | 04/27/ | Hospital | [facility] | Eliezer Ballesteros | | | 2010 | Encounter | HOSPITAL EMERGENCY | MD [address] | | | | | C[address] | [address] | | | | | [address] [place], [place] | [place], [place] [address] | | | | | [address] | [phone] | | | | | [phone] | | | +--------+ + + + [...] | | | | | | [place] [address] | | | | | | [phone] | | | | | | | | +--------+---------+ + + + | 01/21/ | Office | Neurology | Brock Hammond MD | | | 2020 | Visit | | [address] | | | | | | [place] | | | | | | [address] | | | | | | | | +--------+---------+ + + + documented as of this encounter Visit Diagnoses Not on filedocumented in this encounter"
--- OUTSIDE RECORDS SUMMARY | ~2020-05-20 | XMS | Encounter Summary ---
Demographics + + + | Address | [address] | | | [address] | | | [place] [address] | + + + | Home Phone [...] | | | | | [place] [address] | | + + + + + | Allegra Raza | ECON | Unknown | | + + + + + | Emily Fuller | ECON | Unknown | | + + + + + Care Team Providers + +------+ + | Care Human Performance Technologist Name | Role | Phone | + [...] Description | +--------+--------+ + + + | 12/21/ | Refill | [facility] | Tashia Horton, | Medication Refill | | 2017 | | [facility] | COMPLAINT CLERK-SERVICE CENTER SUPERVISOR [address] | | | | | CLINIC [address] | [facility] | | | | | [address] [place], | [place] [address] | | | | | [place] [address] | [phone] | | | | | [phone] | | | +--------+--------+ + + + [...] this encounter Miscellaneous Notes Telephone Encounter - Florencia Randolph CC CMA - 12/21/2017 3:59 PM PSTLast filled on documente d in this encounter Plan of Treatment +--------+---------+ + + + | Date | Type | Specialty | Care Team | Description | +--------+---------+ + + + | 05/22/ | Office | Neurology | Romeo, | | | 2019 | Visit | | [address] | | | | | [address] [place], | | | | | | [place] [address] | | | | | | [phone] | | | | | | | | +--------+---------+ + + + | 01/21/ | Office | Neurology | Brock Hammond MD | | | 2020 | Visit | | [address] | | | | | | [place] | | | | | | [address] | | | | | | | | +--------+---------+ + + + documented as of this encounter Visit Diagnoses Not on filedocumented in this encounter"
--- OUTSIDE RECORDS SUMMARY | ~2020-05-20 | XMS | Encounter Summary ---
Demographics + + + | Address | [address] | | | [address] | | | [place] [address] | + + + | Home Phone | | + + + | Preferred Language | Unknown | + + + | Marital Status | Single | + + + | Mandaeism Affiliation | 1009 | + + + [...] | | | | | [place] [address] | | + + + + + | Allegra Raza | ECON | Unknown | | + + + + + | Emily Fuller | ECON | Unknown | | + + + + + Care Team Providers + +------+ + | Care Toll Line Repairer Name | Role | Phone | + +------+ + PCP | Unavailable | + +------+ + Encounter Details +--------+ + + + + | Date | Type | Department | Care Team | Description | +--------+ + + + + | 03/18/ | Hospital | [facility] | Emmanuelle Frank | | | 2010 | Encounter | HOSPITAL LABORATORY | Sandra Alvarez MD [address] | | | | | [address] | [facility], | | | | | [facility], [place] | [place] [address] | | | | | [address] | [phone] | | | | | [phone] | | | +--------+ + + + [...] | | | | | | [place] [address] | | | | | | [phone] | | | | | | | | +--------+---------+ + + + | 01/21/ | Office | Neurology | Brock Hammond MD | | | 2020 | Visit | | [address] | | | | | | [place] | | | | | | [address] | | | | | | | | +--------+---------+ + + + documented as of this encounter Visit Diagnoses Not on filedocumented in this encounter"
--- OUTSIDE RECORDS SUMMARY | ~2020-05-20 | XMS | Encounter Summary ---
Demographics + + + | Address | [address] | | | [address] | | | [place] [address] | + + + | Home Phone | | + + + | Preferred Language | Unknown | + + + | Marital Status | Single | + + + | Jain Affiliation | 1009 | + + + | Race | Unknown | + + + | Ethnic Group | Unknown | + + + Author + + + | Author | [facility] | | | and [place] | + + + | Organization | [facility] | | | and [...] | | | | | [place] [address] | | + + + + + | Allegra Raza | ECON | Unknown | | + + + + + | Emily Fuller | ECON | Unknown | | + + + + + Care Team Providers + +------+ + | Care Ticket Collector Name | Role | Phone | + +------+ + | Aisha Carrington DO | PCP | | + +------+ + Reason for Visit +--------+--------+ + | Reason | Onset | Comments | | | Date | | +--------+--------+ + | Letter | 08/19/ | | | | 2016 | | +--------+--------+ + Encounter Details +--------+ + + + + | Date | Type | Department | Care Team | Description | +--------+ + + + + | 08/19/ | Telephone | [facility] | Blessing Mccoy | Letter | | 2016 | | [facility] | KERLINE HainesP | | | | | MEDICAL CL[facility] [address] | | | | | | [address] [facility], | | | | | | [place] [address] | | | | | | [phone] | | | +--------+ + + + [...] this encounter Miscellaneous Notes Telephone Encounter - Chris Valdez - 08/19/2017 3:29 PM PDTPt called regarding a letter she received for an US on her thyroid, it was originally scheduled in [place] and pt want ed it changed to [facility] in [place] and requested it to be changed over a week ago. Pt also has questions regarding the letter for her lab work, please call/robin documented in this encounter Plan of Treatment +--------+---------+ + + + | Date | Type | Specialty | Care Team | Description | +--------+---------+ + + + | 05/22/ | Office | Neurology | Romeo, | | | 2019 | Visit | | [address] | | | | | | [address] [place], | | | | | | [place] [address] | | | | | | [phone] | | | | | | | | +--------+---------+ + + + | 01/21/ | Office | Neurology | Brock Hammond MD | | | 2020 | Visit | | [address] | | | | | | [place] | | | | | | [address] | | | | | | | | +--------+---------+ + + + documented as of this encounter Visit Diagnoses Not on filedocumented in this encounter"
--- OUTSIDE RECORDS SUMMARY | ~2020-05-20 | XMS | Encounter Summary ---
Demographics + + + | Address | [address] | | | [address] | | | [place] [address] | + + + | Home Phone | | + + + | Preferred Language | Unknown | + + + | Marital Status | Single | + + + | Voodoo Affiliation | 1009 | + + + | Race | Unknown | + + + | Ethnic Group | Unknown | + + + Author + + + | Author | [facility] | | | and [place] | + + + | Organization | [facility] | | | [...] | | | | | [place] [address] | | + + + + + | Allegra Raza | ECON | Unknown | | + + + + + | Emily Fuller | ECON | Unknown | | + + + + + Care Team Providers + +------+ + | Care Revenue Enforcement Collection Agent Name | Role | Phone | + [...] Description | +--------+--------+ + + + | 03/02/ | Refill | [facility] | Lamonte Akins | Medication Refill | | 2017 | | [facility] | Goins, SEAMLESS TUBE MILL OPERATOR [address] | | | | | CLIN[address] | [address] [place], [place] | | | | | [address] [place], | [address] | | | | | [place] [address] | | | | | | [phone] | | | +--------+--------+ + + + [...] this encounter Miscellaneous Notes Telephone Encounter - Viivana Starr CC CMA - 03/02/2018 3:11 PM PDTLast seen: 04/12/17 Last filled: 02/23/17 with 11 refills.Electronically signed by MAR Catalan CMA at 06/2018 3:20 PM PDTdocumented in this encounter Plan of [...] | | | | | | [place] [address] | | | | | | [phone] | | | | | | | | +--------+---------+ + + + | 01/21/ | Office | Neurology | Brock Hammond MD | | | 2020 | Visit | | [address] | | | | | | [place] | | | | | | [address] | | | | | | | | +--------+---------+ + + + documented as of this encounter Visit Diagnoses + + | Diagnosis | + + | Chronic migraine without aura without status migrainosus, not intractable - Primary | | Chronic migraine without aura, without mention of intractable migraine without mention | | of status migrainosus | + + documented in this encounter"
--- OUTSIDE RECORDS SUMMARY | ~2020-05-20 | XMS | Encounter Summary ---
Demographics + + + | Address | [address] | | | [address] | | | [place] [address] | + + + | Home Phone | | + + + | Preferred Language | Unknown | + + + | Marital Status | Single | + + + | Yarsanism Affiliation | 1009 | + + + [...] | | | | | [place] [address] | | + + + + + | Allegra Raza | ECON | Unknown | | + + + + + | Emily Fuller | ECON | Unknown | | + + + + + Care Team Providers + +------+ + | Care Mobile Ui Developer Name | Role | Phone | + [...] Medication Refill | | 2020 | | [facility] | DO [address] | | | | | CLINIC [address] | [place] [address] | | | | | [address] [place], | [phone] | | | | | [place] [address] | | | | | | [phone] | | | +--------+--------+ + + + [...] Complex partial seizures with consciousness impaired (HCC) [facility] ROXIE Rodriguez Office Visit 03/07/2019 Arthritis [facility] Brock Hammond MD [...] | | | | | | [place] [address] | | | | | | [phone] | | | | | | | [...]
--- OUTSIDE RECORDS SUMMARY | ~2020-05-20 | XMS | Encounter Summary ---
Demographics + + + | Address | [address] | | | [address] | | | [place] [address] | + + + | Home Phone [...] + + + | Author | [facility] | | | and Danielana | + + + | Organization | [facility] | | | [...] | | | | | [place] [address] | | + + + + + | Allegra Raza | ECON | Unknown | | + + + + + | Emily Fuller | ECON | Unknown | | + + + + + Care Team Providers + +------+ + | Care Electronic Assembler Name | Role | Phone | + +------+ + | Aisha Carrington DO | PCP | | + +------+ + Reason for Visit +--------+--------+ + | Reason | Onset | Comments | | | Date | | +--------+--------+ + | Other | 10/01/ | returning call | | | 2016 | | +--------+--------+ + Encounter Details +--------+ + + + + | Date | Type | Department | Care Team | Description | +--------+ + + + + | 10/01/ | Telephone | [facility] | Aisha Carrington, | Other (returning | | 2016 | | [facility] | DO [address] [place] | call) | | | | MEDICAL CL[facility] | [facility] [place] [address] | | | | [address] [facility], | [phone] | | | | | [place] [address] | | | | | | [phone] | | | +--------+ + + + [...] this encounter Miscellaneous Notes Telephone Encounter - Goyo Whaley 10/04/2017 4:19 PM PSTPt returned Rachel's call. P t states thattherese was told the results of her US were in. Pt is confused about Rachel's VM me ssage. Pt is at work until 10 pm tonight. Thanks Donie documented in this encounter Plan of Treatment +--------+---------+ + + + | Date | Type | Specialty | Care Team | Description | +--------+---------+ + + + | 05/22/ | Office | Neurology | Romeo, | | | 2019 | Visit | | [address] | | | | | | [address] [place], | | | | | | [place] [address] | | | | | | [phone] | | | | | | | [...]
--- OUTSIDE RECORDS SUMMARY | ~2020-05-20 | XMS | Encounter Summary ---
Demographics + + + | Address | [address] | | | [address] | | | [place] [address] | + + + | Home Phone | | + + + | Preferred Language | Unknown | + + + | Marital Status | Single | + + + | Roman Catholic Affiliation | 1009 | + + + | Race | Unknown | + + + | Ethnic Group | Unknown | + + + Author + + + | Author | [facility] | | | and [place]ana | + + + | Organization | [facility] | | | [...] | | | | | [place] [address] | | + + + + + | Allegra Raza | ECON | Unknown | | + + + + + | Emily Fuller | ECON | Unknown | | + + + + + Care Team Providers + +------+ + | Care Life Insurance Salesperson Name | Role | Phone | + +------+ + | No, Physician | PCP | Unavailable | + +------+ + Reason for Visit + +--------+ + | Reason | Onset | Comments | | | Date | | + +--------+ + | Results, Imaging | 03/07/ | | | | 2019 | | + +--------+ + Encounter Details +--------+ + + + + | Date | Type | Department | Care Team | Description | +--------+ + + + + | 03/07/ | Telephone | [facility] | Brock Hammond MD | Results, Imaging | | 2019 | | HOSPITAL NEUROLOGY | [address] | | | | | CLIN[address] | [place] | | | | | [address] [place], | [address] | | | | | [place] [address] | | | | | | [phone] | | | +--------+ + + + [...] this encounter Miscellaneous Notes Telephone Encounter - Brock Hammond MD - 03/07/2019 5:05 PM PDTcalled and left message t o call us back for xr result of cervical and shoulder bilaterally documented in this encounter Plan of Treatment +--------+---------+ + + + | Date | Type | Specialty | Care Team | Description | +--------+---------+ + + + | 05/22/ | Office | Neurology | Romeo, | | | 2019 | Visit | | [address] | | | | | | [facility], | | | | | | [place] [address] | | | | | | [phone] | | | | | | | | +--------+---------+ + + + | 01/21/ | Office | Neurology | Brock Hammond MD | | | 2020 | Visit | | [address] | | | | | | [place] | | | | | | [id number] | | | | | | | | +--------+---------+ + + + documented as of this encounter Visit Diagnoses Not on filedocumented in this encounter"
--- OUTSIDE RECORDS SUMMARY | ~2020-05-20 | XMS | Encounter Summary ---
Demographics + + + | Address | [address] | | | [address] | | | [place] [address] | + + + | Home Phone | | + + + | Preferred Language | Unknown | + + + | Marital Status | Single | + + + | Jew Affiliation | 1009 | + + + | Race | Unknown | + + + | Ethnic Group | Unknown | + + + Author + + + | Author | [facility] | | | and [place] | + + + | Organization | [facility] | | | and [...] | | | | | [place] [address] | | + + + + + | Allegra Raza | ECON | Unknown | | + + + + + | Emily Fuller | ECON | Unknown | | + + + + + Care Team Providers + +------+ + | Care Mail Courier Name | Role | Phone | + +------+ + PCP | Unavailable | + +------+ + Encounter Details +--------+ + + + + | Date | Type | Department | Care Team | Description | +--------+ + + + + | 03/31/ | Hospital | [facility] | Aisha Carrington, | | | 2017 | Encounter | [facility] | [address] | | | | | MEDICAL CLIN[facility] [address] | [facility] [address] | | | | | [address] [place], | [phone] | | | | | [place] [address] | | | | | | [phone] | | | +--------+ + + + [...] | | | | | | [place] [address] | | | | | | [phone] | | | | | | | [...]
--- OUTSIDE RECORDS SUMMARY | ~2020-05-20 | XMS | Encounter Summary ---
Demographics + + + | Address | [address] | | | [address] | | | [place] [address] | + + + | Home Phone | | + + + | Preferred Language | Unknown | + + + | Marital Status | Single | + + + | Worship Affiliation | 1009 | + + + | Race | Unknown | + + + | Ethnic Group | Unknown | + + + Author + + + | Author | [facility] | | | and [place] | + + + | Organization | [facility] | | | [...] | | | | | [place] [address] | | + + + + + | Allegra Raza | ECON | Unknown | | + + + + + | Emily Fuller | ECON | Unknown | | + + + + + Care Team Providers + +------+ + | Care Manager New Product Name | Role | Phone | + +------+ + PCP | Unavailable | + +------+ + Encounter Details +--------+ + + + + | Date | Type | Department | Care Team | Description | +--------+ + + + + | 12/17/ | Hospital | [facility] | Emmanuelle Frank | | | 2010 | Encounter | HOSPITAL LAB[facility]ATORY | Sandra Alvarez MD [address] | | | | | [address] | [facility], | | | | | [facility], [place] | [place] [address] | | | | | [address] | [phone] | | | | | [phone] | | | +--------+ + + + [...] | | | | | | [place] [address] | | | | | | [phone] | | | | | | | | +--------+---------+ + + + | 01/21/ | Office | Neurology | Brock Hammond MD | | | 2020 | Visit | | [address] | | | | | | [place] | | | | | | [address] | | | | | | | | +--------+---------+ + + + documented as of this encounter Visit Diagnoses Not on filedocumented in this encounter"
--- OUTSIDE RECORDS SUMMARY | ~2020-05-20 | XMS | Encounter Summary ---
Demographics + + + | Address | [address] | | | [address] | | | [place] [address] | + + + | Home Phone | | + + + | Preferred Language | Unknown | + + + | Marital Status | Single | + + + | Moravian Affiliation | 1009 | + + + | Race | Unknown | + + + | Ethnic Group | Unknown | + + + Author + + + | Author | [facility] | | | and [place]ana | + + + | Organization | [facility] | | | [...] | | | | | [place] [address] | | + + + + + | Allegra Raza | ECON | Unknown | | + + + + + | Emily Fuller | ECON | Unknown | | + + + + + Care Team Providers + +------+ + | Care Hitch Technician Name | Role | Phone | + +------+ + PCP | Unavailable | + +------+ + Encounter Details +--------+ + + + + | Date | Type | Department | Care Team | Description | +--------+ + + + + | 01/05/ | Hospital | [facility] | Mar Suarez | | | 2017 | Encounter | HOSPITAL XRAY [address] | [address] | | | | | [address] | [facility] [facility], | | | | | [facility], [place] | [place] [address] | | | | | [address] | [phone] | | | | | [phone] | | | +--------+ + + + [...] | | | | | | [place] [address] | | | | | | [phone] | | | | | | | | +--------+---------+ + + + | 01/21/ | Office | Neurology | Brock Hammond MD | | | 2020 | Visit | | [address] | | | | | | [place] | | | | | | [address] | | | | | | | [...] | | | cardiopulmonary process. JOB #: [id number] Digitally Released by: | | | Sven [...] | | | | | JOB #: [id number] | | Digitally Released by: Sven Bello | | | | | | Read By: SVEN BELLO MD | | Date: 01/05/2017 13:49 | | | + + documented in this encounter Visit Diagnoses Not on filedocumented in this encounter"
--- OUTSIDE RECORDS SUMMARY | ~2020-05-20 | XMS | Encounter Summary ---
Demographics + + + | Address | [address] | | | [address] | | | [place] [address] | + + + | Home Phone | | + + + | Preferred Language | Unknown | + + + | Marital Status | Single | + + + | Sikh Affiliation | 1009 | + + + | Race | Unknown | + + + | Ethnic Group | Unknown | + + + Author + + + | Author | [facility] | | | and Danielana | + + + | Organization | [facility] | | | [...] | | | | | [place] [address] | | + + + + + | Allegra Raza | ECON | Unknown | | + + + + + | Emily Fuller | ECON | Unknown | | + + + + + Care Team Providers + +------+ + | Care Inspector Insulation Name | Role | Phone | + +------+ + PCP | Unavailable | + +------+ + Encounter Details +--------+ + + + + | Date | Type | Department | Care Team | Description | +--------+ + + + + | 02/06/ | Hospital | [facility] | William Harp | | | 2009 | Encounter | HOSPITAL EMERGENCY | [address] | | | | | CENTER [address] | [facility] | | | | | [address] [place], [place] | [employer] [address] | | | | | [address] | [phone] | | | | | [phone] | | | +--------+ + + + [...] | | | | | | [place] [address] | | | | | | [phone] | | | | | | | | +--------+---------+ + + + | 01/21/ | Office | Neurology | Brock Hammond MD | | | 2020 | Visit | | [address] | | | | | | [place] | | | | | | [address] | | | | | | | | +--------+---------+ + + + documented as of this encounter Visit Diagnoses Not on filedocumented in this encounter"
--- OUTSIDE RECORDS SUMMARY | ~2020-05-20 | XMS | Encounter Summary ---
Demographics + + + | Address | [address] | | | [address] | | | [place] [address] | + + + | Home Phone | | + + + | Preferred Language | Unknown | + + + | Marital Status | Single | + + + | Jehovah'S Witness Affiliation | 1009 | + + + | Race | Unknown | + + + | Ethnic Group | Unknown | + + + Author + + + | Author | [facility] | | | and [place]ana | + + + | Organization | [facility] | | | and [...] | | | | | [place] [address] | | + + + + + | Allegra Raza | ECON | Unknown | | + + + + + | Emily Fuller | ECON | Unknown | | + + + + + Care Team Providers + +------+ + | Care Back Tacker Name | Role | Phone | + [...] [place] | | | | | | [address] | | | | | | [phone] | | | +--------+ + + + [...] | | | | | | [place] [address] | | | | | | [phone] | | | | | | | | +--------+---------+ + + + | 01/21/ | Office | Neurology | Brock Hammond MD | | | 2020 | Visit | | [address] | | | | | | [place] | | | | | | [address] | | | | | | | | +--------+---------+ + + + documented as of this encounter Visit Diagnoses Not on filedocumented in this encounter"
--- OUTSIDE RECORDS SUMMARY | ~2020-05-20 | XMS | Encounter Summary ---
Demographics + + + | Address | [address] | | | [address] | | | [place] [address] | + + + | Home Phone | | + + + | Preferred Language | Unknown | + + + | Marital Status | Single | + + + | Zoroastrian Affiliation | 1009 | + + + | Race | Unknown | + + + | Ethnic Group | Unknown | + + + Author + + + | Author | [facility] | | | and [place]ana | + + + | Organization | [facility] | | | [...] | | | | | [place] [address] | | + + + + + | Allegra Raza | ECON | Unknown | | + + + + + | Emily Fuller | ECON | Unknown | | + + + + + Care Team Providers + +------+ + | Care Supervisor Carpenters Name | Role | Phone | + +------+ + | Luna Cyr | PIERRE | | + +------+ + Encounter Details +--------+ + + + + | Date | Type | Department | Care Team | Description | +--------+ + + + + | 08/19/ | Hospital | [facility] | Blessing Mccoy | No Show | | 2017 | Encounter | Hospital Ultrasound | SHUKRI Haines | | | | | [address] | | | | | | [place] | | | | | | [address] | | | | | | [phone] | | | +--------+ + + + [...] | | | | | | [place] [address] | | | | | | [phone] | | | | | | | | +--------+---------+ + + + | 01/21/ | Office | Neurology | Brock Hammond MD | | | 2020 | Visit | | [address] | | | | | | [place] | | | | | | [address] | | | | | | | | +--------+---------+ + + + documented as of this encounter Visit Diagnoses Not on filedocumented in this encounter"
--- OUTSIDE RECORDS SUMMARY | ~2020-05-20 | XMS | Encounter Summary ---
Demographics + + + | Address | [address] | | | [address] | | | [place] [address] | + + + | Home Phone | | + + + | Preferred Language | Unknown | + + + | Marital Status | Single | + + + | Synagogue Affiliation | 1009 | + + + [...] | | | | | [place] [address] | | + + + + + | Allegra Raza | ECON | Unknown | | + + + + + | Emily Fuller | ECON | Unknown | | + + + + + Care Team Providers + +------+ + | Care Jig Borer Name | Role | Phone | + +------+ + PCP | Unavailable | + +------+ + Encounter Details +--------+ + + + + | Date | Type | Department | Care Team | Description | +--------+ + + + + | 02/19/ | Hospital | [facility] | Lamonte Akins | | | 2013 | Encounter | HOSPITAL LABORATORY | [address] | | | | | [address] | [address] [place], [place] | | | | | [place] | [address] | | | | | [address] | | | | | | [phone] | | | +--------+ + + + [...] | | | | | | [place] [address] | | | | | | [phone] | | | | | | | | +--------+---------+ + + + | 01/21/ | Office | Neurology | Brock Hammond MD | | | 2020 | Visit | | [address] | | | | | | [place] | | | | | | [address] | | | | | | | | +--------+---------+ + + + documented as of this encounter Visit Diagnoses Not on filedocumented in this encounter"
--- OUTSIDE RECORDS SUMMARY | ~2020-05-20 | XMS | Encounter Summary ---
Demographics + + + | Address | [address] | | | [address] | | | [place] [address] | + + + | Home Phone | | + + + | Preferred Language | Unknown | + + + | Marital Status | Single | + + + | Synagogue Affiliation | 1009 | + + + | Race | Unknown | + + + | Ethnic Group | Unknown | + + + Author + + + | Author | [facility] | | | and [place] | + + + | Organization | [facility] | | | and [place] | + + + | Address | Unknown | + + + | Phone | Unavailable | + + + Support + + + + + | Name | Relationship | Address | Phone | + + + + + | Magalys Hurley | ECON | [address] | | | | | [place] [address] | | + + + + + | Allegra Raza | ECON | Unknown | | + + + + + | Emily Fuller | ECON | Unknown | | + + + + + Care Team Providers + +------+ + | Care Egg Gatherer Name | Role | Phone | + +------+ + PCP | Unavailable | + +------+ + Encounter Details +--------+ + + + + | Date | Type | Department | Care Team | Description | +--------+ + + + + | 11/28/ | Hospital | [facility] | Emmanuelle rFank | | | 2010 | Encounter | HOSPITAL LABORATORY | Sandra Alvarez MD [address] | | | | | [address] | [facility], | | | | | [facility], [place] | [place] [address] | | | | | [address] | [phone] | | | | | [phone] | | | +--------+ + + + [...] | | | | | | [place] [address] | | | | | | [phone] | | | | | | | | +--------+---------+ + + + | 01/21/ | Office | Neurology | Brock Hammond MD | | | 2020 | Visit | | [address] | | | | | | [place] | | | | | | [address] | | | | | | | | +--------+---------+ + + + documented as of this encounter Visit Diagnoses Not on filedocumented in this encounter"
--- OUTSIDE RECORDS SUMMARY | ~2020-05-20 | XMS | Encounter Summary ---
Demographics + + + | Address | [address] | | | [address] | | | [place] [address] | + + + | Home Phone | | + + + | Preferred Language | Unknown | + + + | Marital Status | Single | + + + | Latter Day Affiliation | 1009 | + + + [...] | | | | | [place] [address] | | + + + + + | Allegra Raza | ECON | Unknown | | + + + + + | Emily Fuller | ECON | Unknown | | + + + + + Care Team Providers + +------+ + | Care Production Engineer Track Name | Role | Phone | + +------+ + PCP | Unavailable | + +------+ + Encounter Details +--------+ + + + + | Date | Type | Department | Care Team | Description | +--------+ + + + + | 11/15/ | Hospital | [facility] | Catie Powell | | | 2012 | Encounter | HOSPITAL LABORATORY | [address] | | | | | [address] | [address] [facility], | | | | | [facility], [place] | [place] [address] | | | | | [address] | [phone] | | | | | [phone] | | | +--------+ + + + [...] | | | | | | [place] [address] | | | | | | [phone] | | | | | | | | +--------+---------+ + + + | 01/21/ | Office | Neurology | Brock Hammond MD | | | 2020 | Visit | | [address] | | | | | | [place] | | | | | | [address] | | | | | | | | +--------+---------+ + + + documented as of this encounter Visit Diagnoses Not on filedocumented in this encounter"
--- OUTSIDE RECORDS SUMMARY | ~2020-05-20 | XMS | Encounter Summary ---
Demographics + + + | Address | [address] | | | [address] | | | [place] [address] | + + + | Home Phone | | + + + | Preferred Language | Unknown | + + + | Marital Status | Single | + + + | Restorationist Affiliation | 1009 | + + + | Race | Unknown | + + + | Ethnic Group | Unknown | + + + Author + + + | Author | [facility] | | | and Danielana | + + + | Organization | [facility] | | | [...] | | | | | [place] [address] | | + + + + + | Allegra Raza | ECON | Unknown | | + + + + + | Emily Fuller | ECON | Unknown | | + + + + + Care Team Providers + +------+ + | Care Bilingual Office Assistant Name | Role | Phone | + +------+ + PCP | Unavailable | + +------+ + Encounter Details +--------+ + + + + | Date | Type | Department | Care Team | Description | +--------+ + + + + | 11/06/ | Hospital | [facility] | Lamonte Akins | | | 2013 | Encounter | HOSPITAL LABORATORY | [address] | | | | | [address] | [address] [place], [place] | | | | | [place] | [address] | | | | | [address] | | | | | | [phone] | | | +--------+ + + + [...] | | | | | | [place] [address] | | | | | | [phone] | | | | | | | | +--------+---------+ + + + | 01/21/ | Office | Neurology | Brock Hammond MD | | | 2020 | Visit | | [address] | | | | | | [place] | | | | | | [address] | | | | | | | | +--------+---------+ + + + documented as of this encounter Procedures + +--------+ + + + | Procedure Name | Priori | Date/Time | Associated Diagnosis | Comments | | | ty | | | | + +--------+ + + + | CBC W/AUTO | Routin | 11/06/2013 | | Results for this | | DIFFERENTIAL | e | 2:38 PM | | procedure are in the | | | | PST | | results section. | + +--------+ + + + documented in this encounter Results CBC w/ Auto Differential (11/06/2013 2:38 PM PST) + +-------+ + + + | Component | Value | Ref Range | Performed | Pathologist | | | | | At | Signature | + +-------+ + + + | WBC | 4.3 | 4.3 - 10.4 | EXTERNAL | | | | | 1000/mm3 | LAB | | + +-------+ + + + | RBC | 3.85 | 4.12 - 5.30 | EXTERNAL | | | | | mil/mm3 | LAB | | + +-------+ + + + | HGB, | 12.1 | 12.4 - 15.7 | EXTERNAL | | | External | | g/dL | LAB | | + +-------+ + + + | HCT, | 33.6 | 37.7 - 47.0 % | EXTERNAL | | | External | | | LAB | | + +-------+ + + + | MCV | 87 | 82 - 97 fl | EXTERNAL | | | | | | LAB | | + +-------+ + + + | MCH | 31.4 | 27.1 - 32.3 pg | EXTERNAL | | | | | | LAB | | + +-------+ + + + | MCHC | 36 | 32.0 - 36.9 % | EXTERNAL | | | | | | LAB | | + +-------+ + + + | RDW-CV | 13.8 | <=17.0 % | EXTERNAL | | | | | | LAB | | + +-------+ + + + | Platelet | 227 | 150 - 450 | EXTERNAL | | | Count | | 1000/mm3 | LAB | | | Plasma | | | | | + +-------+ + + + | MPV | 10.1 | 9.4 - 12.3 FL | EXTERNAL | | | | | | LAB | | + +-------+ + + + | % Segmented | 60.4 | 42.0 - 76.0 % | EXTERNAL | | | | | | LAB | | | Neutrophils | | | | | + +-------+ + + + | LYMPH % | 31.2 | 29.0 - 49.0 % | EXTERNAL | | | | | | LAB | | + +-------+ + + + | % Monocytes | 8.4 | <=12.0 % | EXTERNAL | | | | | | LAB | | + +-------+ + + + | Absolute | 2.6 | 2.50 - 8.50 | EXTERNAL | | | Neutrophils | | 1000/mm3 | LAB | | + +-------+ + + + | Absolute | 1.3 | 1.00 - 3.80 | EXTERNAL | | | Lymphocytes | | 1000/mm3 | LAB | | + +-------+ + + + | Absolute | 0.4 | <=1.25 1000/mm3 | EXTERNAL | | [...]
--- OUTSIDE RECORDS SUMMARY | ~2020-05-20 | XMS | Encounter Summary ---
Demographics + + + | Address | [address] | | | [address] | | | [place] [address] | + + + | Home Phone [...] | | | | | [place] [address] | | + + + + + | Allegra Raza | ECON | Unknown | | + + + + + | Emily Fuller | ECON | Unknown | | + + + + + Care Team Providers + +------+ + | Care Coke Oven Mason Name | Role | Phone | + +------+ + PCP | Unavailable | + +------+ + Encounter Details +--------+ + + + + | Date | Type | Department | Care Team | Description | +--------+ + + + + | 02/13/ | Hospital | [facility] | Brock Hammond MD | | | 2017 | Encounter | HOSPITAL NEUROLOGY | [address] | | | | | CLINIC [address] | [place] | | | | | [address] [place], | [address] | | | | | [place] [address] | | | | | | [phone] | | | +--------+ + + + [...] | | | | | | [place] [address] | | | | | | [phone] | | | | | | | | +--------+---------+ + + + | 01/21/ | Office | Neurology | Brock Hammond MD | | | 2020 | Visit | | [address] | | | | | | [place] | | | | | | [address] | | | | | | | | +--------+---------+ + + + documented as of this encounter Visit Diagnoses Not on filedocumented in this encounter"
--- OUTSIDE RECORDS SUMMARY | ~2020-05-20 | XMS | Encounter Summary ---
Demographics + + + | Address | [address] | | | [address] | | | [place] [address] | + + + | Home Phone | | + + + | Preferred Language | Unknown | + + + | Marital Status | Single | + + + | Mandaen Affiliation | 1009 | + + + | Race | Unknown | + + + | Ethnic Group | Unknown | + + + Author + + + | Author | [facility] | | | and Danielana | + + + | Organization | [facility] | | | [...] | | | | | [place] [address] | | + + + + + | Allegra Raza | ECON | Unknown | | + + + + + | Emily Fuller | ECON | Unknown | | + + + + + Care Team Providers + +------+ + | Care Manpower Development Manager Name | Role | Phone | + +------+ + PCP | Unavailable | + +------+ + Encounter Details +--------+ + + + + | Date | Type | Department | Care Team | Description | +--------+ + + + + | 01/31/ | Hospital | [facility] | | | | 2008 | Encounter | HOSPITAL GENERIC OP | | | | | | CONVERSION | | | | | | DEPARTMENT [address] | | | | | | [address] | | | | | | [place] | | | | | | [address] | | | | | | [phone] | | | +--------+ + + + [...] | | 2019 | Visit | | [address] | | | | | | [address] [place], | | | | | | [place] [address] | | | | | | [phone] | | | | | | | | +--------+---------+ + + + | 01/21/ | Office | Neurology | Brock Hammond MD | | | 2020 | Visit | | [address] | | | | | | [place] | | | | | | [address] | | | | | | | | +--------+---------+ + + + documented as of this encounter Visit Diagnoses Not on filedocumented in this encounter"
--- OUTSIDE RECORDS SUMMARY | ~2020-05-20 | XMS | Encounter Summary ---
Demographics + + + | Address | [address] | | | [address] | | | [place] [address] | + + + | Home Phone [...] Author + + + | Author | [facility] | | | and Danielana | + + + | Organization | [facility] | | [...] | | | | | [place] [address] | | + + + + + | Allegra Raza | ECON | Unknown | | + + + + + | Emily Fuller | ECON | Unknown | | + + + + + Care Team Providers + +------+ + | Care Reading Assistant Name | Role | Phone | + +------+ + PCP | Unavailable | + +------+ + Encounter Details +--------+ + + + + | Date | Type | Department | Care Team | Description | +--------+ + + + + | 01/23/ | Hospital | [facility] | Courtney Koki | | | 2009 | Encounter | HOSPITAL REGIONAL | Jackelyn, HADOOP ENGINEER [address] | | | | | [facility] [address] | [facility], | | | | | [facility] [facility], | [place] [address] | | | | | [place] [address] | [phone] | | | | | [phone] | | | +--------+ + + + [...] | | | | | | [place] [address] | | | | | | [phone] | | | | | | | | +--------+---------+ + + + | 01/21/ | Office | Neurology | Brock Hammond MD | | | 2020 | Visit | | [address] | | | | | | [place], [place] | | | | | | [address] | | | | | | | | +--------+---------+ + + + documented as of this encounter Visit Diagnoses Not on filedocumented in this encounter"
--- OUTSIDE RECORDS SUMMARY | ~2020-05-20 | XMS | Encounter Summary ---
Demographics + + + | Address | [address] | | | [address] | | | [place] [address] | + + + | Home Phone | | + + + | Preferred Language | Unknown | + + + | Marital Status | Single | + + + | Buddhism Affiliation | 1009 | + + + | Race | Unknown | + + + | Ethnic Group | Unknown | + + + Author + + + | Author | [facility] | | | and Danielana | + + + | Organization | [facility] | | | [...] | | | | | [place] [address] | | + + + + + | Allegra Raza | ECON | Unknown | | + + + + + | Emily Fuller | ECON | Unknown | | + + + + + Care Team Providers + +------+ + | Care Interviewing Clerk Name | Role | Phone | + +------+ + PCP | Unavailable | + +------+ + Encounter Details +--------+ + + + + | Date | Type | Department | Care Team | Description | +--------+ + + + + | 03/18/ | Hospital | [facility] | Emmanuelle Frank | | | 2010 | Encounter | HOSPITAL XRAY 900 | Sandra Alvarez MD [address] | | | | | [address] | [facility], | | | | | [facility], [place] | [place] [address] | | | | | [address] | [phone] | | | | | [phone] | | | +--------+ + + + [...] | | | | | | [place] [address] | | | | | | [phone] | | | | | | | | +--------+---------+ + + + | 01/21/ | Office | Neurology | Brock Hammond MD | | | 2020 | Visit | | [address] | | | | | | [place] | | | | | | [address] | | | | | | | | +--------+---------+ + + + documented as of this encounter Visit Diagnoses Not on filedocumented in this encounter"
--- OUTSIDE RECORDS SUMMARY | ~2020-05-20 | XMS | Encounter Summary ---
Demographics + + + | Address | [address] | | | [address] | | | [place] [address] | + + + | Home Phone | | + + + | Preferred Language | Unknown | + + + | Marital Status | Single | + + + | Latter-Day Affiliation | 1009 | + + + [...] | | | | | [place] [address] | | + + + + + | Allegra Raza | ECON | Unknown | | + + + + + | Emily Fuller | ECON | Unknown | | + + + + + Care Team Providers + +------+ + | Care Insurance Coordinator Name | Role | Phone | + +------+ + PCP | Unavailable | + +------+ + Encounter Details +--------+ + + + + | Date | Type | Department | Care Team | Description | +--------+ + + + + | 04/12/ | Hospital | [facility] | Brock Hammond MD | | | 2017 | Encounter | HOSPITAL NEUROLOGY | [address] | | | | | CLINIC [address] | [place] | | | | | [address] [place], | [address] | | | | | [place] [address] | | | | | | [phone] | | | +--------+ + + + [...] | | | | | | [place] [address] | | | | | | [phone] | | | | | | | | +--------+---------+ + + + | 01/21/ | Office | Neurology | Brock Hammond MD | | | 2020 | Visit | | [address] | | | | | | [place] | | | | | | [address] | | | | | | | | +--------+---------+ + + + documented as of this encounter Visit Diagnoses Not on filedocumented in this encounter"
--- OUTSIDE RECORDS SUMMARY | ~2020-05-20 | XMS | Encounter Summary ---
Demographics + + + | Address | [address] | | | [address] | | | [place] [address] | + + + | Home Phone | | + + + | Preferred Language | Unknown | + + + | Marital Status | Single | + + + | Cheondoism Affiliation | 1009 | + + + [...] | | | | | [place] [address] | | + + + + + | Allegra Raza | ECON | Unknown | | + + + + + | Emily Fuller | ECON | Unknown | | + + + + + Care Team Providers + +------+ + | Care Radiator Tester Name | Role | Phone | + +------+ + PCP | Unavailable | + +------+ + Encounter Details +--------+ + + + + | Date | Type | Department | Care Team | Description | +--------+ + + + + | 02/20/ | Hospital | [facility] | Brock Hammond MD | | | 2016 | Encounter | HOSPITAL REG[facility] | [address] | | | | | MEDICAL CL[facility] | [place], [place] | | | | | [facility] [facility], | [address] | | | | | [place] [address] | | | | | | [phone] | | | +--------+ + + + [...] | | | | | | [place] [address] | | | | | | [phone] | | | | | | | | +--------+---------+ + + + | 01/21/ | Office | Neurology | Brock Hammond MD | | | 2020 | Visit | | [address] | | | | | | [place], [place] | | | | | | [address] | | | | | | | | +--------+---------+ + + + documented as of this encounter Visit Diagnoses Not on filedocumented in this encounter"
--- OUTSIDE RECORDS SUMMARY | ~2020-05-20 | XMS | Encounter Summary ---
Demographics + + + | Address | [address] | | | [address] | | | [place] [address] | + + + | Home Phone [...] + + + | Author | [facility] | | | and Danielana | + + + | Organization | [facility] | | | [...] | | | | | [place] [address] | | + + + + + | Allegra Raaz | ECON | Unknown | | + + + + + | Emily Fuller | ECON | Unknown | | + + + + + Care Team Providers + +------+ + | Care Customer Success Intern Name | Role | Phone | + +------+ + PCP | Unavailable | + +------+ + Encounter Details +--------+ + + + + | Date | Type | Department | Care Team | Description | +--------+ + + + + | 11/14/ | Hospital | [facility] | | | | 2002 - | Encounter | MED CTR OP REHAB | | | | | | [address] | | | | 12/13/ | | [place] [address] | | | | 2002 | | [phone] | | | +--------+ + + + [...] | | | | | | [place] [address] | | | | | | [phone] | | | | | | | [...]
--- OUTSIDE RECORDS SUMMARY | ~2020-05-20 | XMS | Encounter Summary ---
Demographics + + + | Address | [address] | | | [address] | | | [place] [address] | + + + | Home Phone | | + + + | Preferred Language | Unknown | + + + | Marital Status | Single | + + + | Amish Affiliation | 1009 | + + + | Race | Unknown | + + + | Ethnic Group | Unknown | + + + Author + + + | Author | [facility] | | | and Danielana | + + + | Organization | [facility] [...] | | | | | [place] [address] | | + + + + + | Allegra Raza | ECON | Unknown | | + + + + + | Emily Fuller | ECON | Unknown | | + + + + + Care Team Providers + +------+ + | Care Chemical Plant Technical Director Name | Role | Phone | + +------+ + | Aisha Carrington DO | PCP | | + +------+ + Encounter Details +--------+ + + + + | Date | Type | Department | Care Team | Description | +--------+ + + + + | 12/22/ | Orders Only | [facility] | Lamonte Akins | Chronic migraine | | 2018 | | [facility] | Goins, [address] | without aura without | | | | CLINIC [address] | [address] [place], [place] | status migrainosus, | | | | [address] [place], | [address] | not intractable | | | | [place] [address] | | (Primary Dx) | | | | [phone] | | | +--------+ + + + [...] | | | | | | [place] [address] | | | | | | [phone] | | | | | | | | +--------+---------+ + + + | 01/21/ | Office | Neurology | Brock Hammond MD | | | 2020 | Visit | | [address] | | | | | | [place] | | | | | | [address] | | | | | | | [...]
--- OUTSIDE RECORDS SUMMARY | ~2020-05-20 | XMS | Encounter Summary ---
Demographics + + + | Address | [address] | | | [address] | | | [place] [address] | + + + | Home Phone | | + + + | Preferred Language | Unknown | + + + | Marital Status | Single | + + + | Mandaen Affiliation | 1009 | + + + | Race | Unknown | + + + | Ethnic Group | Unknown | + + + Author + + + | Author | [facility] | | | and Danielana | + + + | Organization | [facility] | | | [...] | | | | | [place] [address] | | + + + + + | Allegra Raza | ECON | Unknown | | + + + + + | Emily Fuller | ECON | Unknown | | + + + + + Care Team Providers + +------+ + | Care Heading Repairer Name | Role | Phone | [...] Description | +--------+--------+ + + + | 10/12/ | Refill | [facility] | Brock Hammond MD | Medication Refill | | 2017 | | HOSPITAL NEUROLOGY | [address] | | | | | CLINIC [address] | [place] | | | | | [address] [place], | [address] | | | | | [place] [address] | | | | | | [phone] | | | +--------+--------+ + + + [...] this encounter Miscellaneous Notes Telephone Encounter - Elana Reeves CC CMA - 10/13/2018 7:18 AM PSTFormatting of thi s note might be different from the original. Recent Visits None /Last seen Next visit 01/30/19 Requested Prescriptions Pending Prescriptions Disp Refills levETIRAcetam (KEPPRA) 500 mg tablet [Pharmacy Med Name: LEVETIRACETAM 500 MG TABLET] 6 0 tablet 0 Sig: take 1 tablet by mouth twice a day Last fill 08/03/18 documented in this encounter Plan of Treatment +--------+---------+ + + + | Date | Type | Specialty | Care Team | Description | +--------+---------+ + + + | 05/22/ | Office | Neurology | Romeo, | | | 2019 | Visit | | [address] | | | | | | [address] [place], | | | | | | [place] [address] | | | | | | [phone] | | | | | | | | +--------+---------+ + + + | 01/21/ | Office | Neurology | Brock Hammond MD | | | 2020 | Visit | | [address] | | | | | | [place] | | | | | | [address] | | | | | | | | +--------+---------+ + + + documented as of this encounter Visit Diagnoses Not on filedocumented in this encounter"
--- OUTSIDE RECORDS SUMMARY | ~2020-05-20 | XMS | Encounter Summary ---
Demographics + + + | Address | [address] | | | [address] | | | [place] [address] | + + + | Home Phone [...] | | | | | [place] [address] | | + + + + + | Allegra Raza | ECON | Unknown | | + + + + + | Emily Fuller | ECON | Unknown | | + + + + + Care Team Providers + +------+ + | Care Leather Repairer Name | Role | Phone | [...] Description | +--------+--------+ + + + | 04/05/ | Refill | [facility] | Brock Hammond MD | Medication Refill | | 2019 | | HOSPITAL NEUROLOGY | [address] | | | | | CLIN[address] | [place] | | | | | [address] [place], | [address] | | | | | [place] [address] | | | | | | [phone] | | | +--------+--------+ + + + [...] Telephone Encounter - Kristen Rodriguez RN - 04/05/2019 11:32 AM PDTLast filled 02/01/19 Li lopez Last seen 03/07/19 Next appt 09/18/19 ELOINA [...] | | | | | | [place] [address] | | | | | | [phone] | | | | | | | [...]
--- OUTSIDE RECORDS SUMMARY | ~2020-05-20 | XMS | Encounter Summary ---
Demographics + + + | Address | [address] | | | [address] | | | [place] [address] | + + + | Home Phone | | + + + | Preferred Language | Unknown | + + + | Marital Status | Single | + + + | Baptist Affiliation | 1009 | + + + [...] | | | | | [place] [address] | | + + + + + | Allegra Raza | ECON | Unknown | | + + + + + | Emily Fuller | ECON | Unknown | | + + + + + Care Team Providers + +------+ + | Care Manager Fiber Name | Role | Phone | + [...] | MEDICAL CLIN[facility] [address] | [place] [address] | swollen and sore) | | | | [address] [place], | [phone] | | | | | [place] [address] | | | | | | [phone] | | | +--------+ + + + [...] but will go to Urgent care in [facility] tomorrow. Germaine B. Moffit, LPNElectronically signed by [...] or what to do as lives in [place]? Please call back today and advise Jeaneth [...] | | | | | | [place] [address] | | | | | | [phone] | | | | | | | | +--------+---------+ + + + | 01/21/ | Office | Neurology | Brock Hammond MD | | | 2020 | Visit | | [address] | | | | | | [place] | | | | | | [address] | | | | | | | | +--------+---------+ + + + documented as of this encounter Visit Diagnoses Not on filedocumented in this encounter"
--- OUTSIDE RECORDS SUMMARY | ~2020-05-20 | XMS | Encounter Summary ---
Demographics + + + | Address | [address] | | | [address] | | | [place] [address] | + + + | Home Phone [...] | | | | | [place] [address] | | + + + + + | Allegra Raza | ECON | Unknown | | + + + + + | Emily Fuller | ECON | Unknown | | + + + + + Care Team Providers + +------+ + | Care Senior Energy Market Coordinator Name | Role | Phone | + +------+ + PCP | Unavailable | + +------+ + Encounter Details +--------+ + + + + | Date | Type | Department | Care Team | Description | +--------+ + + + + | 03/21/ | Hospital | [facility] | Emmanuelle Frank | | | 2008 | Encounter | HOSPITAL BUSINESS | Sandra Alvarez MD [address] | | | | | OFFICE [address] | [facility], | | | | | [place], [place] | [place] [address] | | | | | [address] | [phone] | | | | | [phone] | | | +--------+ + + + [...] | | | | | | [place] [address] | | | | | | [phone] | | | | | | | | +--------+---------+ + + + | 01/21/ | Office | Neurology | Brock Hammond MD | | | 2020 | Visit | | [address] | | | | | | [place] | | | | | | [address] | | | | | | | | +--------+---------+ + + + documented as of this encounter Visit Diagnoses Not on filedocumented in this encounter"
--- OUTSIDE RECORDS SUMMARY | ~2020-05-20 | XMS | Encounter Summary ---
Demographics + + + | Address | [address] | | | [address] | | | [place] [address] | + + + | Home Phone | | + + + | Preferred Language | Unknown | + + + | Marital Status | Single | + + + | Orthodoxy Affiliation | 1009 | + + + | Race | Unknown | + + + | Ethnic Group | Unknown | + + + Author + + + | Author | [facility] | | | and Danielana | + + + | Organization | [facility] | | [...] | | | | | [place] [address] | | + + + + + | lAlegra Raza | ECON | Unknown | | + + + + + | Emily Fuller | ECON | Unknown | | + + + + + Care Team Providers + +------+ + | Care Center Medical And Lab Director Name | Role | Phone | + +------+ + PCP | Unavailable | + +------+ + Encounter Details +--------+ + + + + | Date | Type | Department | Care Team | Description | +--------+ + + + + | 09/08/ | Hospital | [facility] | TashiLamonte cadena | | | 2016 | Encounter | [facility] | [facility] [address] | | | | | MEDICAL CLINIC [address] | [address] [place], [place] | | | | | [address] [facility], | [address] | | | | | [place] [address] | | | | | | [phone] | | | +--------+ + + + [...] | | | | | | [place] [address] | | | | | | [phone] | | | | | | | | +--------+---------+ + + + | 01/21/ | Office | Neurology | Brock Hammond MD | | | 2020 | Visit | | [address] | | | | | | [place] | | | | | | [address] | | | | | | | | +--------+---------+ + + + documented as of this encounter Visit Diagnoses Not on filedocumented in this encounter"
--- OUTSIDE RECORDS SUMMARY | ~2020-05-20 | XMS | Encounter Summary ---
Demographics + + + | Address | [address] | | | [address] | | | [place] [address] | + + + | Home Phone | | + + + | Preferred Language | Unknown | + + + | Marital Status | Single | + + + | Church Affiliation | 1009 | + + + | Race | Unknown | + + + | Ethnic Group | Unknown | + + + Author + + + | Author | [facility] | | | and Danielana | + + + | Organization | [facility] | | | [...] | | | | | [place] [address] | | + + + + + | Allegra Raza | ECON | Unknown | | + + + + + | Emily Fuller | ECON | Unknown | | + + + + + Care Team Providers + +------+ + | Care Manager Wastewater Name | Role | Phone | + [...] 02/01/ | Refill | [facility] | Brock Hammond MD | Medication Refill | | 2019 | | HOSPITAL NEUROLOGY | [address] | | | | | CLIN[address] | [place] | | | | | [address] [place], | [address] | | | | | [place] [address] | | | | | | [phone] | | | +--------+--------+ + + + [...] Telephone Encounter - Kristen Rodriguez RN - 02/01/2019 1:52 PM PDTLast filled [facility] 9 Last seen 04/12/17 Next appt 03/07/19 ELOINA Jones documented i n this encounter [...] | | | | | | [place] [address] | | | | | | [phone] | | | | | | | | +--------+---------+ + + + | 01/21/ | Office | Neurology | Brock Hammond MD | | | 2020 | Visit | | [address] | | | | | | [place] | | | | | | [address] | | | | | | | | +--------+---------+ + + + documented as of this encounter Visit Diagnoses Not on filedocumented in this encounter"
--- OUTSIDE RECORDS SUMMARY | ~2020-05-20 | XMS | Encounter Summary ---
Demographics + + + | Address | [address] | | | [address] | | | [place] [address] | + + + | Home Phone [...] | | | | | [place] [address] | | + + + + + | Allegra Raza | ECON | Unknown | | + + + + + | Emily Fuller | ECON | Unknown | | + + + + + Care Team Providers + +------+ + | Care Apprentice Funeral Director Name | Role | Phone | + +------+ + PCP | Unavailable | + +------+ + Encounter Details +--------+ + + + + | Date | Type | Department | Care Team | Description | +--------+ + + + + | 04/26/ | Hospital | [facility] | Emmanuelle Frank | | | 2008 | Encounter | HOSPITAL BUSINESS | Sandra Alvarez MD [address] | | | | | OFF[address] | [facility], | | | | | [place], [place] | [place] [address] | | | | | [address] | [phone] | | | | | [phone] | | | | | | | [address] [place], | | | | | | [address] [facility] | | | | | | [address] [place] | | | | | | [address] | | | | | | | | +--------+ + + + [...] | | | | | | [place] [address] | | | | | | [phone] | | | | | | | | +--------+---------+ + + + | 01/21/ | Office | Neurology | Brock Hammond MD | | | 2020 | Visit | | [address] | | | | | | [place] | | | | | | [address] | | | | | | | | +--------+---------+ + + + documented as of this encounter Visit Diagnoses Not on filedocumented in this encounter"
--- OUTSIDE RECORDS SUMMARY | ~2020-05-20 | XMS | Encounter Summary ---
Demographics + + + | Address | [address] | | | [address] | | | [place] [address] | + + + | Home Phone [...] | | | | | [place] [address] | | + + + + + | Allegra Raza | ECON | Unknown | | + + + + + | Emily Fuller | ECON | Unknown | | + + + + + Care Team Providers + +------+ + | Care Supervisor Sterile Processing Name | Role | Phone | [...] [address] | | | | | [place] [address] | | | | | | [phone] | | | +--------+--------+ + + + [...] | | | | | | [place] [address] | | | | | | [phone] | | | | | | | | +--------+---------+ + + + | 01/21/ | Office | Neurology | Brock Hammond MD | | | 2020 | Visit | | [address] | | | | | | [place] | | | | | | [address] | | | | | | | | +--------+---------+ + + + documented as of this encounter Visit Diagnoses Not on filedocumented in this encounter"
--- OUTSIDE RECORDS SUMMARY | ~2020-05-20 | XMS | Encounter Summary ---
Demographics + + + | Address | [address] | | | [address] | | | [place] [address] | + + + | Home Phone [...] | | | | | [place] [address] | | + + + + + | Allegra Raza | ECON | Unknown | | + + + + + | Emily Fuller | ECON | Unknown | | + + + + + Care Team Providers + +------+ + | Care Section Housekeeper Name | Role | Phone | + +------+ + PCP | Unavailable | + +------+ + Encounter Details +--------+ + + + + | Date | Type | Department | Care Team | Description | +--------+ + + + + | 02/05/ | Hospital | [facility] | Aisha Carrington, | | | 2016 | Encounter | [facility] | [address] [place] | | | | | MEDICAL CLIN[address] | [place] [address] | | | | | [address] [place], | [phone] | | | | | [place] [address] | | | | | | [phone] | | | +--------+ + + + [...] | | | | | | [place] [address] | | | | | | [phone] | | | | | | | [...]
--- OUTSIDE RECORDS SUMMARY | ~2020-05-20 | XMS | Encounter Summary ---
Demographics + + + | Address | [address] | | | [address] | | | [place] [address] | + + + | Home Phone | | + + + | Preferred Language | Unknown | + + + | Marital Status | Single | + + + | Episcopalian Affiliation | 1009 | + + + | Race | Unknown | + + + | Ethnic Group | Unknown | + + + Author + + + | Author | [facility] | | | and Danielana | + + + | Organization | [facility] | | | [...] | | | | | [place] [address] | | + + + + + | Allegra Raza | ECON | Unknown | | + + + + + | Emily Fuller | ECON | Unknown | | + + + + + Care Team Providers + +------+ + | Care Electronic Technician Name | Role | Phone | + +------+ + PCP | Unavailable | + +------+ + Encounter Details +--------+ + + + + | Date | Type | Department | Care Team | Description | +--------+ + + + + | 11/12/ | Hospital | [facility] | John Saeed | | | 2012 | Encounter | HOSPITAL EMERGENCY | MD [address] | | | | | CENTER [address] | [facility] | | | | | [address] [place], [place] | [place], [place] [address] | | | | | [address] | [phone] | | | | | [phone] | | | +--------+ + + + [...] | | | | | | [place] [address] | | | | | | [phone] | | | | | | | | +--------+---------+ + + + | 01/21/ | Office | Neurology | Brock [place] MD | | | 2020 | Visit | | [address] | | | | | | [place] | | | | | | [address] | | | | | | | | +--------+---------+ + + + documented as of this encounter Visit Diagnoses Not on filedocumented in this encounter"
--- OUTSIDE RECORDS SUMMARY | ~2020-05-20 | XMS | Encounter Summary ---
Demographics + + + | Address | [address] | | | [address] | | | [place] [address] | + + + | Home Phone [...] | | | | | [place] [address] | | + + + + + | Allegra Raza | ECON | Unknown | | + + + + + | Emily Fuller | ECON | Unknown | | + + + + + Care Team Providers + +------+ + | Care New Car Driver Name | Role | Phone | + +------+ + PCP | Unavailable | + +------+ + Encounter Details +--------+ + + + + | Date | Type | Department | Care Team | Description | +--------+ + + + + | 01/03/ | Hospital | [facility] | Bassem Hammond MD | | | 2010 | Encounter | HOSPITAL MED SURG | [address] | | | | | [address] | [place] | | | | | [place] | [address] | | | | | [address] | | | | | | [phone] | | | +--------+ + + + [...] + + documented as of this encounter H&P Notes Bassem Hammond MD - 01/03/2011 1:00 PM [facility] Dictating Practitioner: BASSEM HAMMOND MD Patient Name: KOKI RAZA Patient Date of : 1965 Visit Number: [id number] HISTORY AND PHYSICAL DATE OF SERVICE: 01/03/2011 CHIEF COMPLAINT: Change in mental status. HISTORY OF PRESENT ILLNESS: Ms. Raza was a 46-year-old lady who is well known to me seen in the [facility] with onset of change in mental status brought in by the ambulance with possible seizures. The last event the patient recalled was she was on the couch and suddenly slipped to the floor with patient having generalized body malaise and joint aches. The next thing she knew she was in the ER being evaluated with evidence of tongue biting. The patient's last seizure was approximately over a year. She is presently is on ZONISAMIDE 50 mg p.o. twice a day. At one point she was on DEPAKOTE and other anti-seizure medications, but controlled presently on Zonisamide. The patient was doing quite well until she was brought in today for evidence of tongue biting and generalized body malaise and postictal confusion. Unfortunately, the patient was by herself and still remains confused only oriented to person and knows she is in the hospital, but does not know the date, the year and has difficulty in answering even simple questions. REVIEW OF SYSTEMS: Arthralgias, myalgias and generalized body malaise with patient oriented to person and place. There is still confusion evident. She has neck and low back pain. Denies any headache, double vision, blurry vision, dysphagia, odynophagia, earaches, nasal catarrh, chest pain, palpitations, diaphoresis, hematuria, dysuria, abdominal pain, diarrhea, constipation, bowel or bladder incontinence, weight gain. PAST MEDICAL HISTORY: Significant for complex partial seizures, secondary generalization. Last seizure was over a year ago. The patient is 2, para 2, with significant history of diabetes presently on METFORMIN. She has a history of cervical spine surgery x three and also hypothyroidism. SOCIAL HISTORY: The patient lives by herself and apparently in the longterm. She apparently claims she stopped smoking cigarettes and drinking alcohol, but again remains confused at this point and we will do a urine drug screen. FAMILY HISTORY: Father with a significant history of prostate cancer and emphysema. Mother is alive. She has two siblings alive and well. PRESENT MEDICATIONS: Consists of: PREDNISONE, ALBUTEROL, COREG, ASPIRIN daily, ZONISAMIDE, HYDROCHLOROTHIAZIDE, CYMBALTA, METFORMIN, ROBAXIN, LEVOXYL, FLEXERIL. ALLERGIES: COMPAZINE WITH FEELING OF CRAWLING FEELING AND CIPRO. NEUROLOGIC EXAMINATION: VITAL SIGNS: The patient blood pressure was 130/70 mmHg. Heart rate of 74 per minute. Respiratory rate 18 per minute. MENTAL STATUS: Alert. Oriented to person and place only. Quite confused with some difficulty and lag in answering questions and slightly tremulous. CRANIAL NERVES II THROUGH XII: Pupils are 4 mm. Equally reactive to light and accommodation. Funduscopy shows sharp disks. No visual field cut on confrontation. No facial asymmetry. Tongue and palate are midline. There is evidence of tongue biting bilaterally. REFLEXES: Trace throughout. CEREBELLAR EXAMINATION: Able to perform leeveu-oh-nldw with mild tremors to hands outstretched, but no cogwheel rigidity and spasticity. SENSORY EXAMINATION: Withdraws to painful stimuli symmetrically. Reflexes are trace throughout. PLANTARS: Downgoing bilaterally. GAIT: Deferred. MISCELLANEOUS EXAMINATION: There is no evidence of any maxillary or frontal sinus tenderness. No nuchal rigidity. There is no abdominal pain. Equal palpable pulses. Her lungs were clear. Heart with regular S1 and S2. Abdomen was soft, nontender. CLINICAL IMPRESSION: 1. Breakthrough seizures with patient still in postictal state. 2. Diabetes mellitus. RECOMMENDATION: 1. Patient recently had a CT scan head which was negative. Will do an MRI of the brain no contrast. 2. An EEG. 3. Increase ZONISAMIDE to 100 mg p.o. twice a day, STAT dose now. 4. Prolactin level along with IV intravenous NORMAL SALINE at 80 mL an hour. The patient to have neuro checks and seizure precautions. Will also obtain a urine drug screen at this time. The patient to be followed closely. If patient becomes more awake in the morning patient can be discharged then will follow up closely. Cc:Emmanuelle Frank MD [id number] / [id number] Dictation Date/Time: January 03, 2011 12:11PM Template Storage Clerk Date/Time: January 03, 2011 03:06PM Authenticated and Edited by Bassem Hammond MD On 01/04/11 8:39:56 AM [facility] Signed and Approved by: BASSEM HAMMOND MD 01/04/2011 08:39:00 documented in this enc ounter Consult Notes Jaime Huizar MD - 01/03/2011 1:00 PM PST CONSULTATION REPORT DATE OF SERVICE: 01/03/2011 DATE OF CONSULTATION: 01/03/2011 CONSULTING PHYSICIAN: Bassem Hammond MD REASON FOR CONSULTATION: Chronic obstructive pulmonary disease. Acute bronchitis. CLINICAL RESUME: Please see hospital notes for complete details of this medical service. In brief, Ms. Genie rivas is a 45-year-old female who was recently diagnosed with laryngitis and bronchitis and star jerry on steroid taper as well as BIAXIN. The patient was being treated as an outpatient. This morning the patient called mechanic driver and when they arrived at her home s he told them she believes she had had seizure. While the patient had no recollection of the event, she did awaken on the floor having bitten her tongue. She was markedly confused. She was able to give only the most rudimentary of histories initially. The patient was transferred to the Emergency Department. There she was seen by Dr. Ballesteros. Again it was very difficult for the patient to give a relevant history. She can answer some yes or no questions with obvious difficulty. The patient does acknowledge the fact that she has bronchitis and a cough. She believes it has been improving of late. The patient has history of type 2 diabetes mellitus. Her blood sugars have been well contr olled of late she believes. She currently denies any chest pain, palpitations, shortness of breath or abdominal pain. Her tongue does hurt. REVIEW OF SYSTEMS: Unobtainable secondary to the patient's mental status. PAST MEDICAL HISTORY: (Obtained from the electronic medical record). 1. History of seizure disorder. 2. History of migraines. 3. History of depression and anxiety. 4. History of cervical and lumbar radiculopathy. 5. Chronic obstructive pulmonary disease. 6. Gastroesophageal reflux disease. 7. Distant history of clostridium difficile colitis. 8. Hypothyroidism. 9. Type 2 diabetes mellitus. CURRENT MEDICATIONS: As best I can determine from the electronic medical record the patient is on the following medications: 1. PREDNISONE taper. 2. MUCINEX as needed. 3. BIAXIN. 4. COREG 3.125 mg one-half tab p.o. b.i.d. 5. ENTERIC COATED ASPIRIN 81 mg p.o. daily. 6. HYDROCHLOROTHIAZIDE 25 mg p.o. daily. 7. ZONISAMIDE 50 mg p.o. b.i.d. 8. ALBUTEROL METER DOSE INHALER as needed. 9. POTASSIUM CHLORIDE 20 mEq p.o. daily. 10. CYMBALTA 60 mg p.o. b.i.d. 11. METFORMIN 500 mg p.o. b.i.d. 12. LEVOXYL 50 mcg p.o. daily. 13. RANITIDINE 150 mg p.o. b.i.d. 14. IBUPROFEN 800 mg p.o. t.i.d. 15. MULTIVITAMIN one p.o. daily. 16. CLARITIN 10 mg p.o. daily. ALLERGIES: 1. COMPAZINE. 2. CIPROFLOXACIN. SOCIAL HISTORY: The patient used to smoke heavily, but quit at age 33. No history of alcohol or recreation al drug use. FAMILY HISTORY: Per electronic medical record: Father with emphysema, drug and alcohol problems. Mother w ith migraines and thyroid disease. PHYSICAL EXAMINATION: GENERAL: This is an alert, but confused woman. She follows some commands though haltingly . VITAL SIGNS: Temperature 98.3. Pulse 96. Blood pressure 106/72. Respiratory rate 12. O 2 sat 96% on room air. HEENT: Normocephalic, atraumatic. Pupils are equal and round. Oropharynx shows extensive bruising and minor lacerations involving the periphery of the tongue. NECK: No thyromegaly. CARDIOVASCULAR: Regular rate and rhythm. No murmur appreciated. LUNGS: Few late expiratory wheezes heard most at the bases. No inspiratory crackles were appreciated. ABDOMEN: Bowel sounds were auscultated. Abdomen was soft, nondistended, nontender and no hepatosplenomegaly was appreciated. EXTREMITIES: No cyanosis, clubbing or edema. Peripheral pulses were palpated bilaterally at dorsalis pedis. NEUROLOGIC: Cranial nerves II through XII were grossly intact. Strength was 5/5 bilateral ly in the upper and lower extremities. Lcbgng-[id number]-qwuu was sluggish and halting. LABORATORY DATA: Complete metabolic panel showed a sodium 138, potassium 2.7, chloride 102, CO2 22, BUN of 1 9, creatinine 1.2, glucose 180, calcium 9.6, total protein 7.6, albumin 3.6, total bilirubin 0.4, alkaline phosphatase 100, AST 21, ALT 34, magnesium 1.8. CBC showed a white blood cell count of 17.3, hemoglobin 12, hematocrit 34%, platelets 334,000. Differential showed 81 neutrophils, 11 lymphocytes, 8 monocytes. TSH 2.03. Urinalysis showed clear yellow urine with a pH of 6.5, 0-2 white blood cells per high power field, negative nitrite, negative leukocyte esterase, no bacteria. STUDIES: A CT scan of the brain without contrast (emergency room physician preliminary report): No acute abnormalities. Chest x-ray was reviewed by myself. This is an AP portable film. Slightly under penetrate d. Normal pulmonary vasculature. No pleural effusion. No obvious infiltrate. ASSESSMENT AND PLAN: Ms. Raza is a 45-year-old female who presents to the Emergency Department in a confused st ate after probable seizure. 1. Neurologic. Seizure with postictal state. Patient is slow to improve postseizure. Dr. Hammond has evaluated and admitted the patient. Antiseizure medication level is pending at the time of this dictation. Workup and management per Dr. Hammond. 2. Infectious disease. Acute bronchitis/laryngitis. Will continue the patient on AZITHROM YCIN 500 mg IV daily. It should be noted that the patient comes with a full bottle of AZITH ROMYCIN and it seems as though she filled the prescription, but has not taken any of this medication. She was reportedly on BIAXIN initially: however, per the nash se and EMT report this medication was discontinued over the last 2 to 3 days and she was giv en a prescription for ZITHROMAX at that point. At this point considering elevated white blood cell count it seems most likely that the pat ient has under-treated bronchitis/pharyngitis. The patient was evidently started on PREDNISONE recently. At this point she is maintaining adequate oxygen saturations on rElectronically signed by Leandro, Template Storage Clerk Conversion at 1 12:18 PM PDTdocumented in this encounter Plan of Treatment +--------+---------+ + + + | Date | Type | Specialty | Care Team | Description | +--------+---------+ + + + | 05/22/ | Office | Neurology | Romeo, | | | 2019 | Visit | | [address] | | | | | [address] [place], | | | | | | [place] [address] | | | | | | [phone] | | | | | | | | +--------+---------+ + + + | 01/21/ | Office | Neurology | Bassem Hammond MD | | | 2020 | Visit | | [address] | | | | | | [place] | | | | | | [address] | | | | | | | | +--------+---------+ + + + documented as of this encounter Visit Diagnoses Not on filedocumented in this encounter"
--- OUTSIDE RECORDS SUMMARY | ~2020-05-20 | XMS | Encounter Summary ---
Demographics + + + | Address | [address] | | | [address] | | | [place] [address] | + + + | Home Phone | | + + + | Preferred Language | Unknown | + + + | Marital Status | Single | + + + | Methodist Affiliation | 1009 | + + + [...] | | | | | [place] [address] | | + + + + + | Allegra Raza | ECON | Unknown | | + + + + + | Emily Fuller | ECON | Unknown | | + + + + + Care Team Providers + +------+ + | Care Facilities Plant Engineer Name | Role | Phone | + +------+ + PCP | Unavailable | + +------+ + Encounter Details +--------+ + + + + | Date | Type | Department | Care Team | Description | +--------+ + + + + | 11/15/ | Hospital | [facility] | Catie Powell | | | 2012 | Encounter | [facility] | MD [address] | | | | | MED[facility] [address] | [address] [place] [address], | | | | | [address] [place] [address], | [place] [address] | | | | | [place] [address] | [phone] | | | | | [phone] | | | +--------+ + + + [...] | | | | | | [place] [address] | | | | | | [phone] | | | | | | | | +--------+---------+ + + + | 01/21/ | Office | Neurology | Brock Hammond MD | | | 2020 | Visit | | [address] | | | | | | [place] | | | | | | [address] | | | | | | | | +--------+---------+ + + + documented as of this encounter Visit Diagnoses Not on filedocumented in this encounter"
--- OUTSIDE RECORDS SUMMARY | ~2020-05-20 | XMS | Encounter Summary ---
Demographics + + + | Address | [address] | | | [address] | | | [place] [address] | + + + | Home Phone | | + + + | Preferred Language | Unknown | + + + | Marital Status | Single | + + + | Scientologist Affiliation | 1009 | + + + [...] Magalys Hurley | ECON | [address] | | | | | [place] [address] | | + + + + + | Allegra Raza | ECON | Unknown | | + + + + + | Emily Fuller | ECON | Unknown | | + + + + + Care Team Providers + +------+ + | Care Piece Hand Name | Role | Phone | + [...] | | | [place] | [id number] | | | | | [address] | | | | | | [phone] | | | +--------+ + + + [...] RESULTS: The study was reviewed using the [employer] digital system. During the wakeful portion of [...] Brock Fenton MD On 03/17/10 8:40:31 AM [facility] Signed and Approved by: BROCK FENTON MD [...] | | | | | | [place] [address] | | | | | | [phone] | | | | | | | | +--------+---------+ + + + | 01/21/ | Office | Neurology | Brock Fenton MD | | | 2020 | Visit | | [address] | | | | | | [place] | | | | | | [address] | | | | | | | | +--------+---------+ + + + documented as of this encounter Visit Diagnoses Not on filedocumented in this encounter"
--- OUTSIDE RECORDS SUMMARY | ~2020-05-20 | XMS | Encounter Summary ---
Demographics + + + | Address | [address] | | | [address] | | | [place] [address] | + + + | Home Phone | | + + + | Preferred Language | Unknown | + + + | Marital Status | Single | + + + | Baptism Affiliation | 1009 | + + + [...] | | | | | [place] [address] | | + + + + + | Allegra Raza | ECON | Unknown | | + + + + + | Emily Fuller | ECON | Unknown | | + + + + + Care Team Providers + +------+ + | Care Production Tool Engineer Name | Role | Phone | + +------+ + PCP | Unavailable | + +------+ + Encounter Details +--------+ + + + + | Date | Type | Department | Care Team | Description | +--------+ + + + + | 11/06/ | Hospital | [facility] | Tashi Lamonte | | | 2014 | Encounter | [facility] | [facility] [address] | | | | | MEDICAL CLINIC [address] | [address] [place], [place] | | | | | [facility], | [address] | | | | | [place] [address] | | | | | | [phone] | | | +--------+ + + + [...] | | | | | | [place] [address] | | | | | | [phone] | | | | | | | | +--------+---------+ + + + | 01/21/ | Office | Neurology | Brock Hammond MD | | | 2020 | Visit | | [address] | | | | | | [place] | | | | | | [address] | | | | | | | | +--------+---------+ + + + documented as of this encounter Visit Diagnoses Not on filedocumented in this encounter"
--- OUTSIDE RECORDS SUMMARY | ~2020-05-20 | XMS | Encounter Summary ---
Demographics + + + | Address | [address] | | | [address] | | | [place] [address] | + + + | Home Phone [...] | | | | | [place] [address] | | + + + + + | Allegra Raza | ECON | Unknown | | + + + + + | Eimly Fuller | ECON | Unknown | | + + + + + Care Team Providers + +------+ + | Care Farm Machinery Mechanic Name | Role | Phone | + +------+ + | No, Physician | PCP | Unavailable | + +------+ + Encounter Details +--------+ + + + + | Date | Type | Department | Care Team | Description | +--------+ + + + + | 03/07/ | Hospital | [facility] | Brock Hammond MD | Bilateral shoulder | | 2019 | Encounter | HOSPITAL XRAY [address] | [address] | pain, unspecified | | | [address] | [place] | chronicity | | | | [place] | [id number] | | | | | [address] | | | | | | [phone] | | | +--------+ + + + [...] | | | | | | [place] [address] | | | | | | [phone] | | | | | | | | +--------+---------+ + + + | 01/21/ | Office | Neurology | Brock Hammond MD | | | 2020 | Visit | | [address] | | | | | | [place] | | | | | | [address] | | | | | | | [...]
--- OUTSIDE RECORDS SUMMARY | ~2020-05-20 | XMS | Encounter Summary ---
Demographics + + + | Address | [address] | | | [address] | | | [place] [address] | + + + | Home Phone [...] + + + | Author | [facility] | | | and Danielana | + + + | Organization | [facility] | | | [...] | | | | | [place] [address] | | + + + + + | Allegra Raza | ECON | Unknown | | + + + + + | Emily Fuller | ECON | Unknown | | + + + + + Care Team Providers + +------+ + | Care Folder Stitcher Operator Name | Role | Phone | + +------+ + PCP | Unavailable | + +------+ + Encounter Details +--------+ + + + + | Date | Type | Department | Care Team | Description | +--------+ + + + + | 07/03/ | Hospital | [facility] | Nidia Diaz, | | | 2010 | Encounter | HOSPITAL EMERGENCY | CHAR FILTER OPERATOR [address] | | | | | CENTER [address] | [place] | | | | | [place] | [address] | | | | | [address] | | | | | | [phone] | | | +--------+ + + + [...] | | | | | | [place] [address] | | | | | | [phone] | | | | | | | | +--------+---------+ + + + | 01/21/ | Office | Neurology | Brock Hammond MD | | | 2020 | Visit | | [address] | | | | | | [place] | | | | | | [address] | | | | | | | | +--------+---------+ + + + documented as of this encounter Visit Diagnoses Not on filedocumented in this encounter"
--- OUTSIDE RECORDS SUMMARY | ~2020-05-20 | XMS | Encounter Summary ---
Demographics + + + | Address | [address] | | | [address] | | | [place] [address] | + + + | Home Phone [...] | | | | | [place] [address] | | + + + + + | Allegra Raza | ECON | Unknown | | + + + + + | Emily Fuller | ECON | Unknown | | + + + + + Care Team Providers + +------+ + | Care Electric Meter Tester Name | Role | Phone | [...] + | 01/20/ | Refill | [facility] | Aisha Carrington, | Medication Refill | | 2017 | | [facility] | [address] [place] | | | | | MEDICAL CLINIC [address] | [facility] [place] [address] | | | | | [address] [place], | [phone] | | | | | [place] [address] | | | | | | [phone] | | | +--------+--------+ + + + [...] | | | | | | [place] [address] | | | | | | [phone] | | | | | | | | +--------+---------+ + + + | 01/21/ | Office | Neurology | Brock Hammond MD | | | 2020 | Visit | | [address] | | | | | | [place] | | | | | | [address] | | | | | | | | +--------+---------+ + + + documented as of this encounter Visit Diagnoses + + | Diagnosis | + + | Asthma, unspecified asthma severity, unspecified whether complicated, unspecified | | whether persistent - Primary | + + documented in this encounter"
--- OUTSIDE RECORDS SUMMARY | ~2020-05-20 | XMS | Encounter Summary ---
Demographics + + + | Address | [address] | | | [address] | | | [place] [address] | + + + | Home Phone | | + + + | Preferred Language | Unknown | + + + | Marital Status | Single | + + + | Anglican Affiliation | 1009 | + + + [...] + + + + + | Magalys uHrley | ECON | [address] | | | | | [place] [address] | | + + + + + | Allegra Raza | ECON | Unknown | | + + + + + | Emily Fuller | ECON | Unknown | | + + + + + Care Team Providers + +------+ + | Care Hr Manager Name | Role | Phone | [...] Medication Question | | 2019 | | [facility] | Barak, [address] | | | | | CLIN[address] | [address] [facility] [place], | | | | | [address] [place], | [place] [address] | | | | | [place] [address] | [phone] | | | | | [phone] | | | +--------+ + + + [...] the 750mg. (Kepra 500mg & 75 0mg) [id number] signed by Megha Contreras at 01/29/2020 3:42 [...] | | | | | | [place] [address] | | | | | | [phone] | | | | | | | | +--------+---------+ + + + | 01/21/ | Office | Neurology | Brock Hammond MD | | | 2020 | Visit | | [address] | | | | | | [place], [place] | | | | | | [address] | | | | | | | | +--------+---------+ + + + documented as of this encounter Visit Diagnoses Not on filedocumented in this encounter"
--- OUTSIDE RECORDS SUMMARY | ~2020-05-20 | XMS | Encounter Summary ---
Demographics + + + | Address | [address] | | | [address] | | | [place] [address] | + + + | Home Phone [...] + + + | Author | [facility] | | | and [place] | + + + | Organization | [facility] | | | [...] | | | | | [place] [address] | | + + + + + | Allegra Raza | ECON | Unknown | | + + + + + | Emily Fuller | ECON | Unknown | | + + + + + Care Team Providers + +------+ + | Care Surgical Services Tech Name | Role | Phone | + +------+ + PCP | Unavailable | + +------+ + Encounter Details +--------+ + + + + | Date | Type | Department | Care Team | Description | +--------+ + + + + | 10/28/ | Hospital | [facility] | Brock Hammond MD | | | 2016 | Encounter | [facility] | [address] | | | | | MEDICAL CLINIC [address] | [place], [place] | | | | | [address] [facility], | [address] | | | | | [place] [address] | | | | | | [phone] | | | +--------+ + + + [...] | | | | | | [place] [address] | | | | | | [phone] | | | | | | | | +--------+---------+ + + + | 01/21/ | Office | Neurology | Brock Hammond MD | | | 2020 | Visit | | [address] | | | | | | [place], [place] | | | | | | [address] | | | | | | | | +--------+---------+ + + + documented as of this encounter Visit Diagnoses Not on filedocumented in this encounter"
--- OUTSIDE RECORDS SUMMARY | ~2020-05-20 | XMS | Encounter Summary ---
Demographics + + + | Address | [address] | | | [address] | | | [place] [address] | + + + | Home Phone | | + + + | Preferred Language | Unknown | + + + | Marital Status | Single | + + + | Buddhist Affiliation | 1009 | + + + [...] | | | | | [place] [address] | | + + + + + | Allegra Raza | ECON | Unknown | | + + + + + | Emily Fuller | ECON | Unknown | | + + + + + Care Team Providers + +------+ + | Care Economics Professor Name | Role | Phone | + +------+ + PCP | Unavailable | + +------+ + Encounter Details +--------+ + + + + | Date | Type | Department | Care Team | Description | +--------+ + + + + | 01/23/ | Hospital | [facility] | Brock Fenton MD | | | 2009 | Encounter | HOSPITAL RESPIRATORY | [address] | | | | | THERAPY [address] | [place] | | | | | [place] | [id number] | | | | | [address] | | | | | | [phone] | | | +--------+ + + + [...] encounter Progress Notes Brock Fenton MD - 01/23/2010 2:55 PM PDTDictating Physician: Brock Fenton MD ELECTROENCEPHALOGRAM Date of Service:01/23/2010 Ms. Raza is a 44-year-old lady who was seen with a history of seizures. The background rhythm consists of 7 to 8 Hz of moderate to high voltage activity consisting mostly of Theta rhythm seen posteriorly. There is some amount of muscle and eye movement artifact noted throughout the whole EEG. There were occasional spike and slow wave pattern noted in the bilateral centro-parietal regions. In addition there were also intermittent episodes of bursts of generalized epileptiform discharges noted occurring at least twice throughout the EEG. Drowsiness produced some generalized slowing consisting mostly of 4 to 5 Hz. Photic stimulation was performed showing adequate photic driving response. CLINICAL IMPRESSION: Abnormal EEG. Mild bilateral diffuse cerebral dysfunction. There were electrophysilogic evidence of epileptiform discharges noted throughout the whole EEG. Clinical correlation is indicated. Authenticated and Edited by Brock Fenton MD On 02/08/10 9:15:31 AM [facility] Signed and Approved by: BROCK FENTON MD 2010 09:15:00 documented in this enc ounter Plan of Treatment +--------+---------+ + + + | Date | Type | Specialty | Care Team | Description | +--------+---------+ + + + | 05/22/ | Office | Neurology | Romeo, | | | 2019 | Visit | | [address] | | | | | [address] [place], | | | | | | [place] [address] | | | | | | [phone] | | | | | | | | +--------+---------+ + + + | 01/21/ | Office | Neurology | Brock Fenton MD | | | 2020 | Visit | | [address] | | | | | | [place] | | | | | | [address] | | | | | | | | +--------+---------+ + + + documented as of this encounter Visit Diagnoses Not on filedocumented in this encounter"
--- OUTSIDE RECORDS SUMMARY | ~2020-05-20 | XMS | Encounter Summary ---
Demographics + + + | Address | [address] | | | [address] | | | [place] [address] | + + + | Home Phone [...] + + + | Author | [facility] | | | and Danielana | + + + | Organization | [facility] | | [...] | | | | | [place] [address] | | + + + + + | Allegra Raza | ECON | Unknown | | + + + + + | Emily Fuller | ECON | Unknown | | + + + + + Care Team Providers + +------+ + | Care Oilfield Plant And Field Operator Name | Role | Phone | + +------+ + PCP | Unavailable | + +------+ + Encounter Details +--------+ + + + + | Date | Type | Department | Care Team | Description | +--------+ + + + + | 11/19/ | Hospital | [facility] | Brock Hammond MD | | | 2009 | Encounter | HOSPITAL XRAY 900 | [address] | | | | | [address] | [place] | | | | | [place] | [address] | | | | | [address] | | | | | | [phone] | | | +--------+ + + + [...] | | | | | | [place] [address] | | | | | | [phone] | | | | | | | | +--------+---------+ + + + | 01/21/ | Office | Neurology | Brock Hammond MD | | | 2020 | Visit | | [address] | | | | | | [place] | | | | | | [address] | | | | | | | | +--------+---------+ + + + documented as of this encounter Visit Diagnoses Not on filedocumented in this encounter"
--- OUTSIDE RECORDS SUMMARY | ~2020-05-20 | XMS | Encounter Summary ---
Demographics + + + | Address | [address] | | | [address] | | | [place] [address] | + + + | Home Phone | | + + + | Preferred Language | Unknown | + + + | Marital Status | Single | + + + | Jewish Affiliation | 1009 | + + + | Race | Unknown | + + + | Ethnic Group | Unknown | + + + Author + + + | Author | [facility] | | | and [place] | + + + | Organization | [facility] | | | and [place] | + + + | Address | Unknown | + + + | Phone | Unavailable | + + + Support + + + + + | Name | Relationship | Address | Phone | + + + + + | Magalys Hurley | ECON | [address] | | | | | [place] [address] | | + + + + + | Allegra Raza | ECON | Unknown | | + + + + + | Emily Fuller | ECON | Unknown | | + + + + + Care Team Providers + +------+ + | Care Car Body Mechanic Name | Role | Phone | [...] Medication Refill | | 2020 | | [facility] | DO [address] [place] | | | | | CLINIC [address] | [place] [address] | | | | | [address] [place] [place], | [phone] | | | | | [place] [address] | | | | | | [phone] | | | +--------+--------+ + + + [...] - 04/30/2020 5:47 PM PDTPatient notified via RolePoint message. 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
--- OUTSIDE RECORDS SUMMARY | ~2020-05-20 | XMS | Encounter Summary ---
Demographics + + + | Address | [address] | | | [address] | | | [place] [address] | + + + | Home Phone [...] | | | | | [place] [address] | | + + + + + | Allegra Raza | ECON | Unknown | | + + + + + | mEily Fuller | ECON | Unknown | | + + + + + Care Team Providers + +------+ + | Care Die Holder Name | Role | Phone | + +------+ + PCP | Unavailable | + +------+ + Encounter Details +--------+ + + + + | Date | Type | Department | Care Team | Description | +--------+ + + + + | 07/19/ | Hospital | [facility] | Nidia Diaz, | | | 2010 | Encounter | HOSPITAL EMERGENCY | LACTATION NURSE [address] | | | | | CENTER [address] | [place] | | | | | [place] | [address] | | | | | [address] | | | | | | [phone] | | | +--------+ + + + [...] | | | | | | [place] [address] | | | | | | [phone] | | | | | | | | +--------+---------+ + + + | 01/21/ | Office | Neurology | Brock Hammond MD | | | 2020 | Visit | | [address] | | | | | | [place] | | | | | | [address] | | | | | | | | +--------+---------+ + + + documented as of this encounter Visit Diagnoses Not on filedocumented in this encounter"
--- OUTSIDE RECORDS SUMMARY | ~2020-05-20 | XMS | Encounter Summary ---
Demographics + + + | Address | [address] | | | [address] | | | [place] [address] | + + + | Home Phone [...] + + + | Author | [facility] | | | and [place] | + + + | Organization | [facility] | | [...] | | | | | [place] [address] | | + + + + + | Allegra Raza | ECON | Unknown | | + + + + + | Emily Fuller | ECON | Unknown | | + + + + + Care Team Providers + +------+ + | Care Microfilm Processor Name | Role | Phone | + [...] 12/21/ | Refill | [facility] | Aisha Carrington, | Medication Refill | | 2017 | | [facility] | [address] [place] | | | | | MEDICAL CLINIC [address] | [place] [address] | | | | | 4TH [facility], | [phone] | | | | | [place] [address] | | | | | | [phone] | | | +--------+--------+ + + + [...] - Florencia Randolph CC CMA - 12/21/2017 4:00 PM PSTLast filled on documente d in [...] | | | | | | [place] [address] | | | | | | [phone] | | | | | | | | +--------+---------+ + + + | 01/21/ | Office | Neurology | Brock Hammond MD | | | 2020 | Visit | | [address] | | | | | | [place], [place] | | | | | | [address] | | | | | | | | +--------+---------+ + + + documented as of this encounter Visit Diagnoses Not on filedocumented in this encounter"
--- OUTSIDE RECORDS SUMMARY | ~2020-05-20 | XMS | Encounter Summary ---
Demographics + + + | Address | [address] | | | [address] | | | [place] [address] | + + + | Home Phone | | + + + | Preferred Language | Unknown | + + + | Marital Status | Single | + + + | Methodist Affiliation | 1009 | + + + | Race | Unknown | + + + | Ethnic Group | Unknown | + + + Author + + + | Author | [facility] | | | and [place] | + + + | Organization | [facility] | | [...] | | | | | [place] [address] | | + + + + + | Allegra Raza | ECON | Unknown | | + + + + + | Emily Fuller | ECON | Unknown | | + + + + + Care Team Providers + +------+ + | Care Speech Coach Name | Role | Phone | + [...] | | | CENTER [address] | [facility] | | | | | [address] [place], [place] | [employer], [employer] [address] | | | | | [address] | [phone] | | | | | [phone] | | | +--------+ + + + [...] | | | | | | [place] [address] | | | | | | [phone] | | | | | | | | +--------+---------+ + + + | 01/21/ | Office | Neurology | Brock Hammond MD | | | 2020 | Visit | | [address] | | | | | | [place] | | | | | | [address] | | | | | | | | +--------+---------+ + + + documented as of this encounter Visit Diagnoses Not on filedocumented in this encounter"
--- OUTSIDE RECORDS SUMMARY | ~2020-05-20 | XMS | Encounter Summary ---
Demographics + + + | Address | [address] | | | [address] | | | [place] [address] | + + + | Home Phone | | + + + | Preferred Language | Unknown | + + + | Marital Status | Single | + + + | Baptism Affiliation | 1009 | + + + | Race | Unknown | + + + | Ethnic Group | Unknown | + + + Author + + + | Author | [facility] | | | and [place] | + + + | Organization | [facility] | | | [...] | | | | | [place] [address] | | + + + + + | Allegra Raza | ECON | Unknown | | + + + + + | Emily Fuller | ECON | Unknown | | + + + + + Care Team Providers + +------+ + | Care Endocrinology Physician Name | Role | Phone | + +------+ + PCP | Unavailable | + +------+ + Encounter Details +--------+ + + + + | Date | Type | Department | Care Team | Description | +--------+ + + + + | 06/16/ | Hospital | [facility] | Emmanuelle Frank | | | 2009 | Encounter | HOSPITAL XRAY 900 | Sandra Alvarez MD [address] | | | | [address] | [facility], | | | | | [facility], [place] | [place] [address] | | | | | [address] | [phone] | | | | | [phone] | | | +--------+ + + + [...] | | | | | | [place] [address] | | | | | | [phone] | | | | | | | | +--------+---------+ + + + | 01/21/ | Office | Neurology | Brock Hammond MD | | | 2020 | Visit | | [address] | | | | | | [place] | | | | | | [address] | | | | | | | | +--------+---------+ + + + documented as of this encounter Visit Diagnoses Not on filedocumented in this encounter"
--- OUTSIDE RECORDS SUMMARY | ~2020-05-20 | XMS | Encounter Summary ---
Demographics + + + | Address | [address] | | | [address] | | | [place] [address] | + + + | Home Phone [...] | | | | | [place] [address] | | + + + + + | Allegra Raza | ECON | Unknown | | + + + + + | Emily Fuller | ECON | Unknown | | + + + + + Care Team Providers + +------+ + | Care Ware Finisher Name | Role | Phone | + +------+ + PCP | Unavailable | + +------+ + Encounter Details +--------+ + + + + | Date | Type | Department | Care Team | Description | +--------+ + + + + | 04/22/ | Hospital | [facility] | [facility] | | | 2017 | Encounter | [facility] | [address] | | | | | MEDICAL CLINIC [address] | | | | | | [address]TH [facility], | | | | | | [place] [address] | | | | | | [phone] | | | +--------+ + + + [...] | | | | | | [place] [address] | | | | | | [phone] | | | | | | | | +--------+---------+ + + + | 01/21/ | Office | Neurology | Brock Hammond MD | | | 2020 | Visit | | [address] | | | | | | [place] | | | | | | [address] | | | | | | | | +--------+---------+ + + + documented as of this encounter Visit Diagnoses Not on filedocumented in this encounter"
--- OUTSIDE RECORDS SUMMARY | ~2020-05-20 | XMS | Encounter Summary ---
Demographics + + + | Address | [address] | | | [address] | | | [place] [address] | + + + | Home Phone | | + + + | Preferred Language | Unknown | + + + | Marital Status | Single | + + + | Yazidism Affiliation | 1009 | + + + | Race | Unknown | + + + | Ethnic Group | Unknown | + + + Author + + + | Author | [facility] | | | and [place] | + + + | Organization | [facility] | | | [...] | | | | | [place] [address] | | + + + + + | Allegra Raza | ECON | Unknown | | + + + + + | Emily Fuller | ECON | Unknown | | + + + + + Care Team Providers + +------+ + | Care Water Quality Tester Name | Role | Phone | [...] | | [address] | [facility], | | | | | [facility], [place] | [place] [address] | | | | | [address] | [phone] | | | | | [phone] | | | +--------+ + + + [...] | | | | | | [place] [address] | | | | | | [phone] | | | | | | | | +--------+---------+ + + + | 01/21/ | Office | Neurology | Brock Hammond MD | | | 2020 | Visit | | [address] | | | | | | [place] | | | | | | [address] | | | | | | | | +--------+---------+ + + + documented as of this encounter Visit Diagnoses Not on filedocumented in this encounter"
--- OUTSIDE RECORDS SUMMARY | ~2020-05-20 | XMS | Encounter Summary ---
Demographics + + + | Address | [address] | | | [address] | | | [place] [address] | + + + | Home Phone | | + + + | Preferred Language | Unknown | + + + | Marital Status | Single | + + + | Buddhist Affiliation | 1009 | + + + | Race | Unknown | + + + | Ethnic Group | Unknown | + + + Author + + + | Author | [facility] | | | and [place] | + + + | Organization | [facility] | | | [...] | | | | | [place] [address] | | + + + + + | Allegra Raza | ECON | Unknown | | + + + + + | Emily Fuller | ECON | Unknown | | + + + + + Care Team Providers + +------+ + | Care Sheeter Operator Name | Role | Phone | + +------+ + | Luna Cyr | PCP | | + +------+ + Reason for Visit + +--------+ + | Reason | Onset | Comments | | | Date | | + +--------+ + | Medication Refill | 02/27/ | | | | 2020 | | + +--------+ + Encounter Details +--------+--------+ + + + | Date | Type | Department | Care Team | Description | +--------+--------+ + + + | 02/27/ | Refill | [facility] | Brock Hammond MD | Medication Refill | | 2019 | | HOSPITAL NEUROLOGY | [address] | | | | | CLINIC [address] | [place], [place] | | | | | [address] [place], | [address] | | | | | [place] [address] | | | | | | [phone] | | | +--------+--------+ + + + [...] Encounter - Zenon Garcia CC CMA - 02/29/2020 6:57 AM PDTLast filled: 03/07 w/ 4 refills Last seen: 01/22/20 [place] Next appt: 05/14/20 JOCELYN Garcia CMA elephone Megha Jose - 02/28/2020 4:58 PM PDTPt is calling to request a refill of: Tizanid [facility]e [facility] [place] [phone] signed by Megha Contreras at 02/28/2020 4:59 PM PDTdocumented in this encounter Plan of [...] | | | | | | [place] [address] | | | | | | [phone] | | | | | | | | +--------+---------+ + + + | 01/21/ | Office | Neurology | Brock Hammond MD | | | 2020 | Visit | | [address] | | | | | | [place], [place] | | | | | | [address] | | | | | | | | +--------+---------+ + + + documented as of this encounter Visit Diagnoses Not on filedocumented in this encounter"
--- OUTSIDE RECORDS SUMMARY | ~2020-05-20 | XMS | Encounter Summary ---
Demographics + + + | Address | [address] | | | [address] | | | [place] [address] | + + + | Home Phone [...] | | | | | [place] [address] | | + + + + + | Allegra Raza | ECON | Unknown | | + + + + + | Emily Fuller | ECON | Unknown | | + + + + + Care Team Providers + +------+ + | Care Java Jsf Developer Name | Role | Phone | + +------+ + PCP | Unavailable | + +------+ + Encounter Details +--------+ + + + + | Date | Type | Department | Care Team | Description | +--------+ + + + + | 02/20/ | Hospital | [facility] | Catie [place] | | | 2013 | Encounter | [facility] | [address] | | | | | MEDICAL CLINIC [address] | [address] [place] [address], | | | | | [address] [place] [address], | [place] [address] | | | | | [place] [address] | [phone] | | | | | [phone] | | | +--------+ + + + [...] | | | | | | [place] [address] | | | | | | [phone] | | | | | | | | +--------+---------+ + + + | 01/21/ | Office | Neurology | Brock Hammond MD | | | 2020 | Visit | | [address] | | | | | | [place] | | | | | | [address] | | | | | | | | +--------+---------+ + + + documented as of this encounter Visit Diagnoses Not on filedocumented in this encounter"
--- OUTSIDE RECORDS SUMMARY | ~2020-05-20 | XMS | Encounter Summary ---
Demographics + + + | Address | [address] | | | [address] | | | [place] [address] | + + + | Home Phone | | + + + | Preferred Language | Unknown | + + + | Marital Status | Single | + + + | Druze Affiliation | 1009 | + + + [...] | | | | | [place] [address] | | + + + + + | Allegra Raza | ECON | Unknown | | + + + + + | Emily Fuller | ECON | Unknown | | + + + + + Care Team Providers + +------+ + | Care Multimedia Educational Specialist Name | Role | Phone | [...] | | | | [place] | [address] | | | | | [address] | [phone] | | | | | [phone] | | | +--------+ + + + [...] | | | | | | [place] [address] | | | | | | [phone] | | | | | | | | +--------+---------+ + + + | 01/21/ | Office | Neurology | Brock Hammond MD | | | 2020 | Visit | | [address] | | | | | | [place], [place] | | | | | | [address] | | | | | | | | +--------+---------+ + + + documented as of this encounter Visit Diagnoses Not on filedocumented in this encounter"
--- OUTSIDE RECORDS SUMMARY | ~2020-05-20 | XMS | Encounter Summary ---
Demographics + + + | Address | [address] | | | [address] | | | [place] [address] | + + + | Home Phone [...] + + + | Author | [facility] | | | and [place]ana | + + + | Organization | [facility] | | | and [...] | | | | | [place] [address] | | + + + + + | Allegra Raza | ECON | Unknown | | + + + + + | Emily Fuller | ECON | Unknown | | + + + + + Care Team Providers + +------+ + | Care Drug Room Clerk Name | Role | Phone | + +------+ + PCP | Unavailable | + +------+ + Encounter Details +--------+ + + + + | Date | Type | Department | Care Team | Description | +--------+ + + + + | 01/04/ | Hospital | [facility] | Catie [place] | | | 2012 | Encounter | [facility] | [address] | | | | | MEDICAL CLINIC [address] | [address] [place] [address], | | | | | [address] [place] [address], | [place] [address] | | | | | [place] [address] | [phone] | | | | | [phone] | | | +--------+ + + + [...] | | | | | | [place] [address] | | | | | | [phone] | | | | | | | | +--------+---------+ + + + | 01/21/ | Office | Neurology | Brock Hammond MD | | | 2020 | Visit | | [address] | | | | | | [place] | | | | | | [address] | | | | | | | | +--------+---------+ + + + documented as of this encounter Visit Diagnoses Not on filedocumented in this encounter"
--- OUTSIDE RECORDS SUMMARY | ~2020-05-20 | XMS | Encounter Summary ---
Demographics + + + | Address | [address] | | | [address] | | | [place] [address] | + + + | Home Phone [...] + + + | Author | [facility] | | | and [place] | + + + | Organization | [facility] | | | [...] | | | | | [place] [address] | | + + + + + | Allegra Raza | ECON | Unknown | | + + + + + | Emily Fuller | ECON | Unknown | | + + + + + Care Team Providers + +------+ + | Care Coin Purse Assembler Name | Role | Phone | + +------+ + PCP | Unavailable | + +------+ + Encounter Details +--------+ + + + + | Date | Type | Department | Care Team | Description | +--------+ + + + + | 07/21/ | [facility] | [facility] | [facility] | | | 2016 | Encounter | [facility] | [address] | | | | | MEDICAL CLINIC [address] | | | | | | [address]TH [facility], | | | | | | [place] [address] | | | | | | [phone] | | | +--------+ + + + [...] | | | | | | [place] [address] | | | | | | [phone] | | | | | | | | +--------+---------+ + + + | 01/21/ | Office | Neurology | Brock Hammond MD | | | 2020 | Visit | | [address] | | | | | | [place] | | | | | | [address] | | | | | | | | +--------+---------+ + + + documented as of this encounter Visit Diagnoses Not on filedocumented in this encounter"
--- OUTSIDE RECORDS SUMMARY | ~2020-05-20 | XMS | Encounter Summary ---
Demographics + + + | Address | [address] | | | [address] | | | [place] [address] | + + + | Home Phone [...] | | | | | [place] [address] | | + + + + + | Allegra Raza | ECON | Unknown | | + + + + + | Emily Fuller | ECON | Unknown | | + + + + + Care Team Providers + +------+ + | Care Window/Distribution Clerk Name | Role | Phone | + +------+ + PCP | Unavailable | + +------+ + Encounter Details +--------+ + + + + | Date | Type | Department | Care Team | Description | +--------+ + + + + | 11/27/ | Hospital | [facility] | Ruel Connelly | | | 2008 | Encounter | HOSPITAL EMERGENCY | [address] | | | | | [address] | [place] | | | | | [place] | [address] | | | | | [address] | [phone] | | | | | [phone] | | | +--------+ + + + [...] | | | | | | [place] [address] | | | | | | [phone] | | | | | | | | +--------+---------+ + + + | 01/21/ | Office | Neurology | Brock Hammond MD | | | 2020 | Visit | | [address] | | | | | | [place], [place] | | | | | | [address] | | | | | | | | +--------+---------+ + + + documented as of this encounter Visit Diagnoses Not on filedocumented in this encounter"
--- OUTSIDE RECORDS SUMMARY | ~2020-05-20 | XMS | Encounter Summary ---
Demographics + + + | Address | [address] | | | [address] | | | [place] [address] | + + + | Home Phone | | + + + | Preferred Language | Unknown | + + + | Marital Status | Single | + + + | Anabaptist Affiliation | 1009 | + + + | Race | Unknown | + + + | Ethnic Group | Unknown | + + + Author + + + | Author | [facility] | | | and Danielana | + + + | Organization | [facility] | | | and [...] | | | | | [place] [address] | | + + + + + | Allegra Raza | ECON | Unknown | | + + + + + | Emily Fuller | ECON | Unknown | | + + + + + Care Team Providers + +------+ + | Care Grinder Outside Diameter Name | Role | Phone | + +------+ + PCP | Unavailable | + +------+ + Encounter Details +--------+ + + + + | Date | Type | Department | Care Team | Description | +--------+ + + + + | 02/26/ | Hospital | [facility] | John Saeed | | | 2009 | Encounter | HOSPITAL EMERGENCY | [address] | | | | | [address] | [facility] | | | | | [address] [place], [place] | [place], [place] [address] | | | | | [address] | [phone] | | | | | [phone] | | | +--------+ + + + [...] | | | | | | [place] [address] | | | | | | [phone] | | | | | | | | +--------+---------+ + + + | 01/21/ | Office | Neurology | Brock Hammond MD | | | 2020 | Visit | | [address] | | | | | | [place] | | | | | | [address] | | | | | | | | +--------+---------+ + + + documented as of this encounter Visit Diagnoses Not on filedocumented in this encounter"
--- OUTSIDE RECORDS SUMMARY | ~2020-05-20 | XMS | Encounter Summary ---
Demographics + + + | Address | [address] | | | [address] | | | [place] [address] | + + + | Home Phone [...] + + + | Author | [facility] | | | and Danielana | + + + | Organization | [facility] | | [...] | | | | | [place] [address] | | + + + + + | Allegra Raza | ECON | Unknown | | + + + + + | Emily Fuller | ECON | Unknown | | + + + + + Care Team Providers + +------+ + | Care Commercial Diver Name | Role | Phone | + [...] | | | | [address] | [facility], | | | | | [facility], [place] | [place] [address] | | | | | [address] | [phone] | | | | | [phone] | | | +--------+ + + + [...] | | | | | | [place] [address] | | | | | | [phone] | | | | | | | | +--------+---------+ + + + | 01/21/ | Office | Neurology | Brock Hammond MD | | | 2020 | Visit | | [address] | | | | | | [place] | | | | | | [address] | | | | | | | | +--------+---------+ + + + documented as of this encounter Visit Diagnoses Not on filedocumented in this encounter"
--- OUTSIDE RECORDS SUMMARY | ~2020-05-20 | XMS | Encounter Summary ---
Demographics + + + | Address | [address] | | | [address] | | | [place] [address] | + + + | Home Phone [...] | | | | | [place] [address] | | + + + + + | Allerga Raza | ECON | Unknown | | + + + + + | Emily Fuller | ECON | Unknown | | + + + + + Care Team Providers + +------+ + | Care Conditioning Coach Name | Role | Phone | + +------+ + PCP | Unavailable | + +------+ + Encounter Details +--------+ + + + + | Date | Type | Department | Care Team | Description | +--------+ + + + + | 12/10/ | Hospital | [facility] | William Harp | | | 2010 | Encounter | HOSPITAL EMERGENCY | [address] | | | | | [address] | [facility] | | | | | [address] [place], [place] | [employer], [place] [address] | | | | | [address] | [phone] | | | | | [phone] | | | +--------+ + + + [...] | | | | | | [place] [address] | | | | | | [phone] | | | | | | | | +--------+---------+ + + + | 01/21/ | Office | Neurology | Brock Hammond MD | | | 2020 | Visit | | [address] | | | | | | [place] | | | | | | [address] | | | | | | | | +--------+---------+ + + + documented as of this encounter Visit Diagnoses Not on filedocumented in this encounter"
--- OUTSIDE RECORDS SUMMARY | ~2020-05-20 | XMS | Encounter Summary ---
Demographics + + + | Address | [address] | | | [address] | | | [place] [address] | + + + | Home Phone [...] | | | | | [place] [address] | | + + + + + | Allegra Raza | ECON | Unknown | | + + + + + | Emily Fuller | ECON | Unknown | | + + + + + Care Team Providers + +------+ + | Care Web Services Professional Name | Role | Phone | + +------+ + PCP | Unavailable | + +------+ + Encounter Details +--------+ + + + + | Date | Type | Department | Care Team | Description | +--------+ + + + + | 03/11/ | Hospital | [facility] | Tashi Lamonte | | | 2015 | Encounter | [facility] | [facility] [address] | | | | | MEDICAL CLINIC [address] | [address] [place], [place] | | | | | [facility] [facility], | [address] | | | | | [place] [address] | | | | | | [phone] | | | +--------+ + + + [...] | | | | | | [place] [address] | | | | | | [phone] | | | | | | | | +--------+---------+ + + + | 01/21/ | Office | Neurology | Brock Hammond MD | | | 2020 | Visit | | [address] | | | | | | [place] | | | | | | [address] | | | | | | | | +--------+---------+ + + + documented as of this encounter Visit Diagnoses Not on filedocumented in this encounter"
--- OUTSIDE RECORDS SUMMARY | ~2020-05-20 | XMS | Encounter Summary ---
Demographics + + + | Address | [address] | | | [address] | | | [place] [address] | + + + | Home Phone | | + + + | Preferred Language | Unknown | + + + | Marital Status | Single | + + + | Druze Affiliation | 1009 | + + + | Race | Unknown | + + + | Ethnic Group | Unknown | + + + Author + + + | Author | [facility] | | | and [place]ana | + + + | Organization | [facility] | | | and [...] | | | | | [place] [address] | | + + + + + | Allegra Raza | ECON | Unknown | | + + + + + | Emily Fulelr | ECON | Unknown | | + + + + + Care Team Providers + +------+ + | Care Communication Engineer Name | Role | Phone | + +------+ + PCP | Unavailable | + +------+ + Encounter Details +--------+ + + + + | Date | Type | Department | Care Team | Description | +--------+ + + + + | 10/28/ | Hospital | [facility] | Brock Hammond MD | | | 2016 | Encounter | HOSPITAL LABORATORY | [address] | | | | | [address] | [place] | | | | | [place] | [address] | | | | | [address] | | | | | | [phone] | | | +--------+ + + + [...] | | | | | | [place] [address] | | | | | | [phone] | | | | | | | | +--------+---------+ + + + | 01/21/ | Office | Neurology | Brock Hammond MD | | | 2020 | Visit | | [address] | | | | | | [place], [place] | | | | | | [address] | | | | | | | | +--------+---------+ + + + documented as of this encounter Procedures + +--------+ + + + | Procedure Name | Priori | Date/Time | Associated Diagnosis | Comments | | | ty | | | | + +--------+ + + + | CBC W/AUTO | Routin | 10/28/2015 | | Results for this | | DIFFERENTIAL | e | 8:53 AM | | procedure are in the | | | | PST | | results section. | + +--------+ + + + | COMPREHENSIVE | Routin | 10/28/2015 | | Results for this | | METABOLIC PANEL | e | 8:53 AM | | procedure are in the | | | | PST | | results section. | + +--------+ + + + documented in this encounter Results Comprehensive Metabolic Panel (10/28/2015 8:53 AM PST) + +-------+ + + + | Component | Value | Ref Range | Performed | Pathologist | | | | | At | Signature | + +-------+ + + + | Sodium | 139 | 132 - 143 | EXTERNAL | | | | | mmol/L | LAB | | + +-------+ + + + | Potassium | 4 | 3.3 - 4.9 | EXTERNAL | | | | | mmol/L | LAB | | + +-------+ + + + | Cl | 106 | 95 - 108 mmol/L | EXTERNAL | | | | | | LAB | | + +-------+ + + + | CO2 | 28 | 23 - 34 mmol/L | EXTERNAL | | | | | | LAB | | + +-------+ + + + | Anion Gap | 5 | 7 - 16 | EXTERNAL | | | | | | LAB | | + +-------+ + + + | Calcium | 8.8 | 8.3 - 10.0 | EXTERNAL | | | | | mg/dL | LAB | | + +-------+ + + + | Glucose | 100 | 70 - 110 mg/dL | EXTERNAL | | | | | | LAB | | + +-------+ + + + | BUN, Bld | 20 | 5 - 26 mg/dL | EXTERNAL | | | | | | LAB | | + +-------+ + + + | Creatinine | 0.9 | 0.6 - 1.3 mg/dL | EXTERNAL | | | | | | LAB | | + +-------+ + + + | BUN/Creatin | 22.2 | 7.0 - 24.0 | EXTERNAL | | | ine Ratio | | RATIO | LAB | | + +-------+ + + + | GFR | 60 | >=60 | EXTERNAL | | | ESTIMATE | | mL/min/1.73m2 | LAB | | | (REF) | | | | | + +-------+ + + + | Bilirubin, | 0.3 | <=1.2 mg/dL | EXTERNAL | | | Total | | | LAB | | + +-------+ + + + | Protein, | 6.9 | 6.6 - 8.5 g/dL | EXTERNAL | | | Total | | | LAB | | + +-------+ + + + | Albumin | 3.6 | 3.0 - 4.5 g/dL | EXTERNAL | | | | | | LAB | | + +-------+ + + + | Alkaline | 146 | 46 - 116 U/L | EXTERNAL | | | Phosphatase | | | LAB | | + +-------+ + + + | ALT, | 77 | 14 - 59 U/L | EXTERNAL | | | External | | | LAB | | + +-------+ + + + | AST, | 35 | <=38 U/L | EXTERNAL | | [...] +---------+ + + CBC w/ Auto Differential (10/28/2015 8:53 AM PST) + +-------+ + + + | Component | Value | Ref Range | Performed | Pathologist | | | | | At | Signature | + +-------+ + + + | WBC | 4.4 | 4.3 - 10.4 | EXTERNAL | | | | | 1000/mm3 | LAB | | + +-------+ + + + | RBC | 3.9 | 4.12 - 5.30 | EXTERNAL | | | | | mil/mm3 | LAB | | + +-------+ + + + | HGB, | 12.2 | 12.4 - 15.7 | EXTERNAL | | | External | | g/dL | LAB | | + +-------+ + + + | HCT, | 34.1 | 37.7 - 47.0 % | EXTERNAL | | | External | | | LAB | | + +-------+ + + + | MCV | 87 | 82 - 97 fl | EXTERNAL | | | | | | LAB | | + +-------+ + + + | MCH | 31.3 | 27.1 - 32.3 pg | EXTERNAL | | | | | | LAB | | + +-------+ + + + | MCHC | 35.8 | 32.0 - 36.9 | EXTERNAL | | | | | g/dL | LAB | | + +-------+ + + + | RDW-CV | 12.8 | <=17.0 % | EXTERNAL | | | | | | LAB | | + +-------+ + + + | Platelet | 238 | 150 - 450 | EXTERNAL | | | Count | | 1000/mm3 | LAB | | | Plasma | | | | | + +-------+ + + + | MPV | 10.8 | 9.4 - 12.3 FL | EXTERNAL | | | | | | LAB | | + +-------+ + + + | % Segmented | 51.1 | 42.0 - 76.0 % | EXTERNAL | | | | | | LAB | | | Neutrophils | | | | | + +-------+ + + + | LYMPH % | 39.9 | 20.0 - 40.0 % | EXTERNAL | | | | | | LAB | | + +-------+ + + + | % Monocytes | 9 | <=12.0 % | EXTERNAL | | | | | | LAB | | + +-------+ + + + | Absolute | 2.2 | 2.50 - 8.50 | EXTERNAL | | | Neutrophils | | 1000/mm3 | LAB | | + +-------+ + + + | Absolute | 1.8 | 1.00 - 3.80 | EXTERNAL | [...]
--- OUTSIDE RECORDS SUMMARY | ~2020-05-20 | XMS | Encounter Summary ---
Demographics + + + | Address | [address] | | | [address] | | | [place] [address] | + + + | Home Phone [...] | | | | | [place] [address] | | + + + + + | Allegra Raza | ECON | Unknown | | + + + + + | Emily Fuller | ECON | Unknown | | + + + + + Care Team Providers + +------+ + | Care Cena Name | Role | Phone | + +------+ + PCP | Unavailable | + +------+ + Encounter Details +--------+ + + + + | Date | Type | Department | Care Team | Description | +--------+ + + + + | 12/07/ | Hospital | [facility] | | | | 2002 | Encounter | MED CTR LABORATORY | | | | | | [address] | | | | | | [place] | | | | | | [address] | | | | | | [phone] | | | +--------+ + + + [...] | | | | | | [place] [address] | | | | | | [phone] | | | | | | | [...]
--- OUTSIDE RECORDS SUMMARY | ~2020-05-20 | XMS | Encounter Summary ---
Demographics + + + | Address | [address] | | | [address] | | | [place] [address] | + + + | Home Phone [...] | | | | | [place] [address] | | + + + + + | Allegra Raza | ECON | Unknown | | + + + + + | Emily Fuller | ECON | Unknown | | + + + + + Care Team Providers + +------+ + | Care Manager Online Name | Role | Phone | + [...] + | 08/17/ | Telephone | [facility] | Brock Hammond MD | Neurology | | 2018 | | HOSPITAL NEUROLOGY | [address] | Appointment | | | | CLINIC [address] | [place] | | | | | [address] [place] [place], | [address] | | | | | [place] [address] | | | | | | [phone] | | | +--------+ + + + [...] | | | | | | [place] [address] | | | | | | [phone] | | | | | | | | +--------+---------+ + + + | 01/21/ | Office | Neurology | Brock Hammond MD | | | 2020 | Visit | | [address] | | | | | | [place], [place] | | | | | | [address] | | | | | | | | +--------+---------+ + + + documented as of this encounter Visit Diagnoses Not on filedocumented in this encounter"
--- OUTSIDE RECORDS SUMMARY | ~2020-05-20 | XMS | Encounter Summary ---
Demographics + + + | Address | [address] | | | [address] | | | [place] [address] | + + + | Home Phone | | + + + | Preferred Language | Unknown | + + + | Marital Status | Single | + + + | Denominational Affiliation | 1009 | + + + [...] | | | | | [place] [address] | | + + + + + | Allegra Raza | ECON | Unknown | | + + + + + | Emily Fuller | ECON | Unknown | | + + + + + Care Team Providers + +------+ + | Care Sonar Technician Name | Role | Phone | [...] | | | | [address] | [facility], | | | | | [facility], [place] | [place] [address] | | | | | [address] | [phone] | | | | | [phone] | | | +--------+ + + + [...] | | | | | | [place] [address] | | | | | | [phone] | | | | | | | | +--------+---------+ + + + | 01/21/ | Office | Neurology | Brock Hammond MD | | | 2020 | Visit | | [address] | | | | | | [place] | | | | | | [address] | | | | | | | | +--------+---------+ + + + documented as of this encounter Visit Diagnoses Not on filedocumented in this encounter"
--- OUTSIDE RECORDS SUMMARY | ~2020-05-20 | XMS | Encounter Summary ---
Demographics + + + | Address | [address] | | | [address] | | | [place] [address] | + + + | Home Phone | | + + + | Preferred Language | Unknown | + + + | Marital Status | Single | + + + | Druze Affiliation | 1009 | + + + | Race | Unknown | + + + | Ethnic Group | Unknown | + + + Author + + + | Author | [facility] | | | and [place] | + + + | Organization | [facility] | | | and [place] | + + + | Address | Unknown | + + + | Phone | Unavailable | + + + Support + + + + + | Name | Relationship | Address | Phone | + + + + + | Magalys Hulrey | ECON | [address] | | | | | [place] [address] | | + + + + + | Allegra Raza | ECON | Unknown | | + + + + + | Emily Fuller | ECON | Unknown | | + + + + + Care Team Providers + +------+ + | Care Graphic Coordinator Name | Role | Phone | + +------+ + PCP | Unavailable | + +------+ + Encounter Details +--------+ + + + + | Date | Type | Department | Care Team | Description | +--------+ + + + + | 07/15/ | Hospital | [facility] | Blessing Mccoy | | | 2016 | Encounter | [facility] | [facility] | | | | | [facility]ICAL [facility] [address] | | | | | | [facility], | | | | | | [place] [address] | | | | | | [phone] | | | +--------+ + + + [...] | | | | | | [place] [address] | | | | | | [phone] | | | | | | | | +--------+---------+ + + + | 01/21/ | Office | Neurology | Brock Hammond MD | | | 2020 | Visit | | [address] | | | | | | [place] | | | | | | [address] | | | | | | | | +--------+---------+ + + + documented as of this encounter Visit Diagnoses Not on filedocumented in this encounter"
--- OUTSIDE RECORDS SUMMARY | ~2020-05-20 | XMS | Encounter Summary ---
Demographics + + + | Address | [address] | | | [address] | | | [place] [address] | + + + | Home Phone [...] | | | | | [place] [address] | | + + + + + | Allegra Raza | ECON | Unknown | | + + + + + | Emily Fuller | ECON | Unknown | | + + + + + Care Team Providers + +------+ + | Care Catalytic Case Operator Name | Role | Phone | [...] | Visit | HOSPITAL NEUROLOGY | [place], [address] | seizures with | | | | CLINIC [address] | [address] [place], | consciousness | | | | [place], | [place] [address] | impaired (HCC); | | | | [place] [address] | [phone] | Chronic neck and | | | | [phone] | | back pain; Migraine | | [...] are taking other medicines. You may use wnjz-kbh-vujxbtz medicine to control pain, unless another pain [...] by your healthcare provider Date Last Reviewed: 04/24/201619994274-2043 [employer]. [address] [place] [address]. All righ ts reserved. This information is [...] or rolled-up t owel. Date Last Reviewed: 02/22/201819995446-5067 [employer]. [address] [place] [address]. All righ ts reserved. This information is [...] declined by patient. MAR Gonzalez CMA panglerKashmir, [employer] - 01/22/2020 2:00 PM PDT . 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 There is no dysmetria on szpgnj-kt-zuyo and gmks-xhdn-iebm. There are no abnormal or extraneous movements. [...] be done today . We discussed that [place] law states that the patient should not [...] least 30 minutes three times a w ruby will help reduce frequency or severity of migraine. ? Avoid alcohol and caffeine. Follow-up in 3-4 months and next available with Dr. Hammond. ROXEI Rodriguez Electronically signed This note was transcribed [...] | | | | | [address] [facility], | | | | | | [place] [address] | | | | | | [phone] | | | | | | | | +--------+---------+ + + + | 01/21/ | Office | Neurology | Brock Hammond MD | | | 2020 | Visit | | [address] | | | | | | [place] | | | | | | [address] | | | | | | | [...] to | | | | | | [email or web address] | | | | | | [email or web address] | | | | | | (This [...] Diagnostics | | | | | | [facility] | | | | | | [place]. [...] | | | | | | Director [address] | | | | | | [facility] | | | | | | [place] [address] | | | | | | CLIA #[id number] | | | | + + + + + + + + | Specimen | + + | Blood | + + + + + + + | Performing | Address | City/State/Zipcode | Phone Number | | Organization | | | | + + + + + | REFERENCE LAB | [address] | [place], [place] | | | [facility] - | | [address] | | | MIRANDA CRAIG | | [...] | mL/min/1.73m2 | [facility] | | | IRA[facility] | RATE,ESTIMATED | | HOSPITAL | | | | mL/min/1.41n2Xpvh than | | LABORATORY | | | [...] + + | [facility] | [address] | [place] | [phone] | | HOSPITAL LABORATORY | | [address] | | + + + + + [...] + + | [facility] | [address] | [place] | [phone] | | HOSPITAL LABORATORY | | [address] | | + + + + + [...]
--- OUTSIDE RECORDS SUMMARY | ~2020-05-20 | XMS | Encounter Summary ---
Demographics + + + | Address | [address] | | | [address] | | | [place] [address] | + + + | Home Phone | | + + + | Preferred Language | Unknown | + + + | Marital Status | Single | + + + | Restorationism Affiliation | 1009 | + + + [...] | | | | | [place] [address] | | + + + + + | Allegra Raza | ECON | Unknown | | + + + + + | Emily Fuller | ECON | Unknown | | + + + + + Care Team Providers + +------+ + | Care Marshmallow Machine Operator Name | Role | Phone | + +------+ + | Luna Cry | PCP | | + +------+ + [...] [address] | | | | | [place] [address] | | | | | | [phone] | | | +--------+--------+ + + + [...] | | | | | | [place] [address] | | | | | | [phone] | | | | | | | | +--------+---------+ + + + | 01/21/ | Office | Neurology | Brock Hammond MD | | | 2020 | Visit | | [address] | | | | | | [place] | | | | | | [id number] | | | | | | | | +--------+---------+ + + + documented as of this encounter Visit Diagnoses Not on filedocumented in this encounter"
--- OUTSIDE RECORDS SUMMARY | ~2020-05-20 | XMS | Encounter Summary ---
Demographics + + + | Address | [address] | | | [address] | | | [place] [address] | + + + | Home Phone [...] | | | | | [place] [address] | | + + + + + | Allegra Raza | ECON | Unknown | | + + + + + | Emily Fuller | ECON | Unknown | | + + + + + Care Team Providers + +------+ + | Care Joy Operator Name | Role | Phone | + +------+ + PCP | Unavailable | + +------+ + Encounter Details +--------+ + + + + | Date | Type | Department | Care Team | Description | +--------+ + + + + | 06/30/ | Hospital | [facility] | Lamonte Akins | | | 2017 | Encounter | HOSPITAL NEUROLOGY | [address] | | | | | CLIN[address] | [address] [place], [place] | | | | | [address] [place] [place], | [address] | | | | | [place] [address] | | | | | | [phone] | | | +--------+ + + + [...] | | | | | | [place] [address] | | | | | | [phone] | | | | | | | | +--------+---------+ + + + | 01/21/ | Office | Neurology | Brock Hammond MD | | | 2020 | Visit | | [address] | | | | | | [place] | | | | | | [address] | | | | | | | | +--------+---------+ + + + documented as of this encounter Visit Diagnoses Not on filedocumented in this encounter"
--- OUTSIDE RECORDS SUMMARY | ~2020-05-20 | XMS | Encounter Summary ---
Demographics + + + | Address | [address] | | | [address] | | | [place] [address] | + + + | Home Phone | | + + + | Preferred Language | Unknown | + + + | Marital Status | Single | + + + | Mandaen Affiliation | 1009 | + + + | Race | Unknown | + + + | Ethnic Group | Unknown | + + + Author + + + | Author | [facility] | | | and [place] | + + + | Organization | [facility] | [...] | | | | | [place] [address] | | + + + + + | Allegra Raza | ECON | Unknown | | + + + + + | Emily Fuller | ECON | Unknown | | + + + + + Care Team Providers + +------+ + | Care Medical Information Officer Name | Role | Phone | + +------+ + PCP | Unavailable | + +------+ + Encounter Details +--------+ + + + + | Date | Type | Department | Care Team | Description | +--------+ + + + + | 10/30/ | Hospital | [facility] | Hasmukh Hosea | | | 2002 | Encounter | MED CTR XRAY [address] | [address] | | | | | [address] [place] | updated address | | | | | [place] [address] | | | | | | [phone] | | | +--------+ + + + [...] | | | | | | [place] [address] | | | | | | [phone] | | | | | | | | +--------+---------+ + + + | 01/21/ | Office | Neurology | Brock Hammond MD | | | 2020 | Visit | | [address] | | | | | | [place] | | | | | | [id number] | | | | | | | | +--------+---------+ + + + documented as of this encounter Visit Diagnoses Not on filedocumented in this encounter"
--- OUTSIDE RECORDS SUMMARY | ~2020-05-20 | XMS | Encounter Summary ---
Demographics + + + | Address | [address] | | | [address] | | | [place] [address] | + + + | Home Phone [...] | | | | | [place] [address] | | + + + + + | Allegra Raza | ECON | Unknown | | + + + + + | Emily Fuller | ECON | Unknown | | + + + + + Care Team Providers + +------+ + | Care Cultural Centre Manager Name | Role | Phone | + +------+ + PCP | Unavailable | + +------+ + Encounter Details +--------+ + + + + | Date | Type | Department | Care Team | Description | +--------+ + + + + | 04/10/ | Hospital | [facility] | William Harp | | | 2009 | Encounter | HOSPITAL EMERGENCY | [address] | | | | | C[address] | [facility] | | | | | [address] [place], [place] | [facility], [place] [address] | | | | | [phone] | [phone] | | | | | [phone] | | | +--------+ + + + [...] | | | | | | [place] [address] | | | | | | [phone] | | | | | | | | +--------+---------+ + + + | 01/21/ | Office | Neurology | Brock Hammond MD | | | 2020 | Visit | | [address] | | | | | | [place] | | | | | | [address] | | | | | | | | +--------+---------+ + + + documented as of this encounter Visit Diagnoses Not on filedocumented in this encounter"
--- OUTSIDE RECORDS SUMMARY | ~2020-05-20 | XMS | Encounter Summary ---
Demographics + + + | Address | [address] | | | [address] | | | [place] [address] | + + + | Home Phone | | + + + | Preferred Language | Unknown | + + + | Marital Status | Single | + + + | Mormonism Affiliation | 1009 | + + + [...] | | | | | [place] [address] | | + + + + + | Allegra Raza | ECON | Unknown | | + + + + + | Emily Fuller | ECON | Unknown | | + + + + + Care Team Providers + +------+ + | Care Business Support Name | Role | Phone | + [...] Medication Refill | | 2019 | | [facility] | DO [address] | | | | | CLIN[address] | [place] [address] | | | | | DR [address] [place], | [phone] | | | | | [place] [address] | | | | | | [phone] | | | +--------+--------+ + + + [...] this encounter Miscellaneous Notes Telephone Encounter - Erum Knox LPN - 02/01/2019 1:48 PM PDTFormatting of this not e might be different from the original. Patient was last seen on Recent Visits None . Requested Prescriptions Pending Prescriptions Disp Refills DULoxetine (CYMBALTA) [address] capsule [Pharmacy Med Name: DULOXETINE HCL DR 60 MG CAP] 60 capsule 11 Sig: take 1 capsule by mouth twice a day Outpatient Morphine Equivalent Daily Dose (MEDD) None No results found for: AMPH, METHAMPHQUAL, CANNIBSCR, THC, MDMA, METHADSCR, METHADONE, LABOP IA, OPIATESCR, OPIATES, OPIATESINTER, MORPHINE, HYDROC, LABBENZ, TRICYCLICUR, BARBITURATE, P CP, AMPHEQUAL, OXYCODONEUR, OXYCODONE, OXYCOD, OXYMOR, PROPOX Erum Knox LPN documented in this encounter Plan of Treatment +--------+---------+ + + + | Date | Type | Specialty | Care Team | Description | +--------+---------+ + + + | 05/22/ | Office | Neurology | Romeo, | | | 2019 | Visit | | [address] | | | | [address] [place] | | | | | | [place] [address] | | | | | | [phone] | | | | | | | | +--------+---------+ + + + | 01/21/ | Office | Neurology | Brock Hammond MD | | | 2020 | Visit | | [address] | | | | | | [place] | | | | | | [address] | | | | | | | | +--------+---------+ + + + documented as of this encounter Visit Diagnoses Not on filedocumented in this encounter"
--- OUTSIDE RECORDS SUMMARY | ~2020-05-20 | XMS | Encounter Summary ---
Demographics + + + | Address | [address] | | | [address] | | | [place] [address] | + + + | Home Phone [...] | | | | | [place] [address] | | + + + + + | Allegra Raza | ECON | Unknown | | + + + + + | Emily Fuller | ECON | Unknown | | + + + + + Care Team Providers + +------+ + | Care Dietetics Professor Name | Role | Phone | [...] [place] | | | | | | [address] | | | | | | [phone] | | | +--------+ + + + [...] | | | | | | [place] [address] | | | | | | [phone] | | | | | | | | +--------+---------+ + + + | 01/21/ | Office | Neurology | Brock Hammond MD | | | 2020 | Visit | | [address] | | | | | | [place] | | | | | | [address] | | | | | | | [...]
--- OUTSIDE RECORDS SUMMARY | ~2020-05-20 | XMS | Encounter Summary ---
Demographics + + + | Address | [address] | | | [address] | | | [place] [address] | + + + | Home Phone [...] | | | | | [place] [address] | | + + + + + | Allegra Raza | ECON | Unknown | | + + + + + | Emily Fuller | ECON | Unknown | | + + + + + Care Team Providers + +------+ + | Care Fire And Explosion Investigator Name | Role | Phone | + +------+ + PCP | Unavailable | + +------+ + Encounter Details +--------+ + + + + | Date | Type | Department | Care Team | Description | +--------+ + + + + | 06/09/ | Hospital | [facility] | John Saeed | | | 2010 | Encounter | HOSPITAL EMERGENCY | MD [address] | | | | | C[address] | [facility] | | | | | DR [place], [place] | [employer], [employer] [address] | | | | | [address] | [phone] | | | | | [phone] | | | +--------+ + + + [...] | | | | | | [place] [address] | | | | | | [phone] | | | | | | | | +--------+---------+ + + + | 01/21/ | Office | Neurology | Brock Hammond MD | | | 2020 | Visit | | [address] | | | | | | [place] | | | | | | [address] | | | | | | | | +--------+---------+ + + + documented as of this encounter Visit Diagnoses Not on filedocumented in this encounter"
--- OUTSIDE RECORDS SUMMARY | ~2020-05-20 | XMS | Encounter Summary ---
Demographics + + + | Address | [address] | | | [address] | | | [place] [address] | + + + | Home Phone | | + + + | Preferred Language | Unknown | + + + | Marital Status | Single | + + + | Hoahaoism Affiliation | 1009 | + + + | Race | Unknown | + + + | Ethnic Group | Unknown | + + + Author + + + | Author | [facility] | | | and Danielana | + + + | Organization | [facility] | | | [...] | | | | | [place] [address] | | + + + + + | Allegra Raza | ECON | Unknown | | + + + + + | Emily Fuller | ECON | Unknown | | + + + + + Care Team Providers + +------+ + | Care Specialty Therapist Name | Role | Phone | + [...] | [address] [place] | [facility], | | | | | [facility], [place] | [place] [address] | | | | | [address] | [phone] | | | | | [phone] | | | +--------+ + + + [...] | | | | | | [place] [address] | | | | | | [phone] | | | | | | | | +--------+---------+ + + + | 01/21/ | Office | Neurology | Brock Hammond MD | | | 2020 | Visit | | [address] | | | | | | [place] | | | | | | [address] | | | | | | | | +--------+---------+ + + + documented as of this encounter Visit Diagnoses Not on filedocumented in this encounter"
--- OUTSIDE RECORDS SUMMARY | ~2020-05-20 | XMS | Encounter Summary ---
Demographics + + + | Address | [address] | | | [address] | | | [place] [address] | + + + | Home Phone | | + + + | Preferred Language | Unknown | + + + | Marital Status | Single | + + + | Taoist Affiliation | 1009 | + + + | Race | Unknown | + + + | Ethnic Group | Unknown | + + + Author + + + | Author | [facility] | | | and Danielana | + + + | Organization | [facility] | [...] | | | | | [place] [address] | | + + + + + | Allegra Raza | ECON | Unknown | | + + + + + | Emily Fuller | ECON | Unknown | | + + + + + Care Team Providers + +------+ + | Care Dual Hose Cementer Name | Role | Phone | + +------+ + PCP | Unavailable | + +------+ + Encounter Details +--------+ + + + + | Date | Type | Department | Care Team | Description | +--------+ + + + + | 09/12/ | Hospital | [facility] | Emmanuelle Frank | | | 2008 | Encounter | HOSPITAL BUSINESS | Sandra Alvarez MD [address] | | | | | OFF[address] | [facility], | | | | | [address] [place], [place] | [place] [address] | | | | | [address] | [phone] | | | | | [phone] | | | +--------+ + + + [...] | | | | | | [place] [address] | | | | | | [phone] | | | | | | | | +--------+---------+ + + + | 01/21/ | Office | Neurology | Brock Hammond MD | | | 2020 | Visit | | [address] | | | | | | [place] | | | | | | [address] | | | | | | | | +--------+---------+ + + + documented as of this encounter Visit Diagnoses Not on filedocumented in this encounter"
--- OUTSIDE RECORDS SUMMARY | ~2020-05-20 | XMS | Encounter Summary ---
Demographics + + + | Address | [address] | | | [address] | | | [place] [address] | + + + | Home Phone | | + + + | Preferred Language | Unknown | + + + | Marital Status | Single | + + + | Bahai Affiliation | 1009 | + + + | Race | Unknown | + + + | Ethnic Group | Unknown | + + + Author + + + | Author | [facility] | | | and Danielana | + + + | Organization | [facility] | | | [...] | | | | | [place] [address] | | + + + + + | Allegra Raza | ECON | Unknown | | + + + + + | Emily Fuller | ECON | Unknown | | + + + + + Care Team Providers + +------+ + | Care 3D Animator Name | Role | Phone | + +------+ + PCP | Unavailable | + +------+ + Encounter Details +--------+ + + + + | Date | Type | Department | Care Team | Description | +--------+ + + + + | 09/20/ | Hospital | [facility] | Eliezer Ballesteros | | | 2009 | Encounter | HOSPITAL EMERGENCY | MD [address] | | | | | C[address] | [address] | | | | | [address] [place], [place] | [place] [address] | | | | | [address] | [phone] | | | | | [phone] | | | +--------+ + + + [...] | | | | | | [place] [address] | | | | | | [phone] | | | | | | | | +--------+---------+ + + + | 01/21/ | Office | Neurology | Brock Hammond MD | | | 2020 | Visit | | [address] | | | | | | [place] | | | | | | [address] | | | | | | | | +--------+---------+ + + + documented as of this encounter Visit Diagnoses Not on filedocumented in this encounter"
--- OUTSIDE RECORDS SUMMARY | ~2020-05-20 | XMS | Encounter Summary ---
Demographics + + + | Address | [address] | | | [address] | | | [place] [address] | + + + | Home Phone [...] | | | | | [place] [address] | | + + + + + | Allegra Raza | ECON | Unknown | | + + + + + | Emily Fuller | ECON | Unknown | | + + + + + Care Team Providers + +------+ + | Care Health Services Rn Name | Role | Phone | [...] | | [address] [place] | [facility], | | | | | [facility] [place] | [place] [address] | | | | | [address] | [phone] | | | | | [phone] | | | +--------+ + + + [...] | | | | | | [place] [address] | | | | | | [phone] | | | | | | | | +--------+---------+ + + + | 01/21/ | Office | Neurology | Brock Hammond MD | | | 2020 | Visit | | [address] | | | | | | [place] | | | | | | [address] | | | | | | | | +--------+---------+ + + + documented as of this encounter Visit Diagnoses Not on filedocumented in this encounter"
--- OUTSIDE RECORDS SUMMARY | ~2020-05-20 | XMS | Encounter Summary ---
Demographics + + + | Address | [address] | | | [address] | | | [place] [address] | + + + | Home Phone | | + + + | Preferred Language | Unknown | + + + | Marital Status | Single | + + + | Gnosticism Affiliation | 1009 | + + + | Race | Unknown | + + + | Ethnic Group | Unknown | + + + Author + + + | Author | [facility] | | | and Danielana | + + + | Organization | [facility] | | | [...] | | | | | [place] [address] | | + + + + + | Allegra Raaz | ECON | Unknown | | + + + + + | Emily Fuller | ECON | Unknown | | + + + + + Care Team Providers + +------+ + | Care Final Application Reviewer Name | Role | Phone | + +------+ + PCP | Unavailable | + +------+ + Encounter Details +--------+ + + + + | Date | Type | Department | Care Team | Description | +--------+ + + + + | 03/31/ | Hospital | [facility] | Brock Hammond MD | | | 2009 | Encounter | HOSPITAL THERAPY PT | [address] | | | | | [address] | [place] | | | | | [place], [place] | [address] | | | | | [address] | | | | | | [phone] | | | +--------+ + + + [...] | | | | | | [place] [address] | | | | | | [phone] | | | | | | | | +--------+---------+ + + + | 01/21/ | Office | Neurology | Brock Hammond MD | | | 2020 | Visit | | [address] | | | | | | [place], [place] | | | | | | [address] | | | | | | | | +--------+---------+ + + + documented as of this encounter Visit Diagnoses Not on filedocumented in this encounter"
--- OUTSIDE RECORDS SUMMARY | ~2020-05-20 | XMS | Encounter Summary ---
Demographics + + + | Address | [address] | | | [address] | | | [place] [address] | + + + | Home Phone [...] | | | | | [place] [address] | | + + + + + | Allegra Raza | ECON | Unknown | | + + + + + | Emily Fuller | ECON | Unknown | | + + + + + Care Team Providers + +------+ + | Care Public Policy Professor Name | Role | Phone | + +------+ + PCP | Unavailable | + +------+ + Encounter Details +--------+ + + + + | Date | Type | Department | Care Team | Description | +--------+ + + + + | 12/29/ | Hospital | [facility] | William Harp | | | 2010 | Encounter | HOSPITAL EMERGENCY | MD [address] | | | | | C[address] | [facility] | | | | | [address] [place], [place] | [place], [employer] [address] | | | | | [address] | [phone] | | | | | [phone] | | | +--------+ + + + [...] | | | | | | [place] [address] | | | | | | [phone] | | | | | | | | +--------+---------+ + + + | 01/21/ | Office | Neurology | Brock Hammond MD | | | 2020 | Visit | | [address] | | | | | | [place] | | | | | | [address] | | | | | | | | +--------+---------+ + + + documented as of this encounter Visit Diagnoses Not on filedocumented in this encounter"
--- OUTSIDE RECORDS SUMMARY | ~2020-05-20 | XMS | Encounter Summary ---
Demographics + + + | Address | [address] | | | [address] | | | [place] [address] | + + + | Home Phone [...] + + + | Author | [facility] | | | and Danielana | + + + | Organization | [facility] | | | and [...] | | | | | [place] [address] | | + + + + + | Allegra Raza | ECON | Unknown | | + + + + + | Emily Fuller | ECON | Unknown | | + + + + + Care Team Providers + +------+ + | Care Sports Manager Name | Role | Phone | [...] [address] | | | | | [place] [address] | | | | | | [phone] | | | +--------+ + + + [...] | | | | | | [place] [address] | | | | | | [phone] | | | | | | | | +--------+---------+ + + + | 01/21/ | Office | Neurology | Brock Hammond MD | | | 2020 | Visit | | [address] | | | | | | [place] | | | | | | [address] | | | | | | | | +--------+---------+ + + + documented as of this encounter Visit Diagnoses Not on filedocumented in this encounter"
--- OUTSIDE RECORDS SUMMARY | ~2020-05-20 | XMS | Encounter Summary ---
Demographics + + + | Address | [address] | | | [address] | | | [place] [address] | + + + | Home Phone [...] + + + | Author | [facility] | | | and Dainelana | + + + | Organization | [facility] | | [...] | | | | | [place] [address] | | + + + + + | Allegra Raza | ECON | Unknown | | + + + + + | Emily Fuller | ECON | Unknown | | + + + + + Care Team Providers + +------+ + | Care Bone Char Kiln Tender Name | Role | Phone | + +------+ + | No, Physician | PCP | Unavailable | + +------+ + Encounter Details +--------+ + + + + | Date | Type | Department | Care Team | Description | +--------+ + + + + | 03/07/ | Hospital | [facility] | Brock Hammond MD | Bilateral shoulder | | 2019 | Encounter | HOSPITAL XRAY [address] | [address] | pain, unspecified | | | | [address] | [place] | chronicity | | | | [place] | [id number] | | | | | [address] | | | | | | [phone] | | | +--------+ + + + [...] | | | | | | [place] [address] | | | | | | [phone] | | | | | | | | +--------+---------+ + + + | 01/21/ | Office | Neurology | Brock Hammond MD | | | 2020 | Visit | | [address] | | | | | | [place] | | | | | | [address] | | | | | | | [...]
--- OUTSIDE RECORDS SUMMARY | ~2020-05-20 | XMS | Encounter Summary ---
Demographics + + + | Address | [address] | | | [address] | | | [place] [address] | + + + | Home Phone [...] | | | | | [place] [address] | | + + + + + | Allegra Raza | ECON | Unknown | | + + + + + | Emily Fuller | ECON | Unknown | | + + + + + Care Team Providers + +------+ + | Care Nurse Substance Abuse Name | Role | Phone | + [...] [address] | | | | | [place] [address] | | | | | | [phone] | | | +--------+ + + + [...] her new PCP is Dr. Reyez in [facility]. Pt will call her to get new [...] | | 2019 | Visit | | [address] | | | | | | [address] [place], | | | | | | [place] [address] | | | | | | [phone] | | | | | | | | +--------+---------+ + + + | 01/21/ | Office | Neurology | Brock Hammond MD | | | 2020 | Visit | | [address] | | | | | | [place] | | | | | | [address] | | | | | | | | +--------+---------+ + + + documented as of this encounter Visit Diagnoses Not on filedocumented in this encounter"
--- OUTSIDE RECORDS SUMMARY | ~2020-05-20 | XMS | Encounter Summary ---
Demographics + + + | Address | [address] | | | [address] | | | [place] [address] | + + + | Home Phone [...] | | | | | [place] [address] | | + + + + + | Allegra Raza | ECON | Unknown | | + + + + + | Emily Fuller | ECON | Unknown | | + + + + + Care Team Providers + +------+ + | Care Tap Puller Name | Role | Phone | + +------+ + PCP | Unavailable | + +------+ + Encounter Details +--------+ + + + + | Date | Type | Department | Care Team | Description | +--------+ + + + + | 02/23/ | Hospital | [facility] | Lamonte Akins | | | 2017 | Encounter | HOSPITAL NEUROLOGY | [address] | | | | | CLIN[address] | [address] [place], [place] | | | | | [address] [place], | [address] | | | | | [place] [address] | | | | | | [phone] | | | +--------+ + + + [...] | | | | | | [place] [address] | | | | | | [phone] | | | | | | | | +--------+---------+ + + + | 01/21/ | Office | Neurology | Brock Hammond MD | | | 2020 | Visit | | [address] | | | | | | [place] | | | | | | [address] | | | | | | | | +--------+---------+ + + + documented as of this encounter Visit Diagnoses Not on filedocumented in this encounter"
--- OUTSIDE RECORDS SUMMARY | ~2020-05-20 | XMS | Encounter Summary ---
Demographics + + + | Address | [address] | | | [address] | | | [place] [address] | + + + | Home Phone [...] | | | | | [place] [address] | | + + + + + | lAlegra Raza | ECON | Unknown | | + + + + + | Emily Fuller | ECON | Unknown | | + + + + + Care Team Providers + +------+ + | Care Maintenance Worker Swimming Pool Name | Role | Phone | + +------+ + PCP | Unavailable | + +------+ + Encounter Details +--------+ + + + + | Date | Type | Department | Care Team | Description | +--------+ + + + + | 03/31/ | Hospital | [facility] | Brock Hammond MD | | | 2017 | Encounter | HOSPITAL NEUROLOGY | [address] | | | | | CLINIC [address] | [place] | | | | | [address] [place], | [address] | | | | | [place] [address] | | | | | | [phone] | | | +--------+ + + + [...] | | | | | | [place] [address] | | | | | | [phone] | | | | | | | | +--------+---------+ + + + | 01/21/ | Office | Neurology | Brock Hammond MD | | | 2020 | Visit | | [address] | | | | | | [place] | | | | | | [address] | | | | | | | | +--------+---------+ + + + documented as of this encounter Visit Diagnoses Not on filedocumented in this encounter"
--- OUTSIDE RECORDS SUMMARY | ~2020-05-20 | XMS | Encounter Summary ---
Demographics + + + | Address | [address] | | | [address] | | | [place] [address] | + + + | Home Phone [...] | | | | | [place] [address] | | + + + + + | Allegra Raza | ECON | Unknown | | + + + + + | Emily Fuller | ECON | Unknown | | + + + + + Care Team Providers + +------+ + | Care Claim Examiner Name | Role | Phone | + +------+ + PCP | Unavailable | + +------+ + Encounter Details +--------+ + + + + | Date | Type | Department | Care Team | Description | +--------+ + + + + | 02/05/ | Hospital | [facility] | Aisha Carrington, | | | 2016 | Encounter | HOSPITAL LABORATORY | DO [address] | | | | | [address] | [place] [address] | | | | | [place], [place] | [phone] | | | | | [address] | | | | | | [phone] | | | +--------+ + + + [...] | | | | | | [place] [address] | | | | | | [phone] | | | | | | | [...] + +--------+ + + + | CBC WITH MANUAL | Routin | 02/05/2017 | | Results for this | | DIFFERENTIAL | e | 10:50 AM | | procedure are in the | | | | PDT | | results section. | + +--------+ + + + | TSH | Routin | 02/05/2017 | | Results for this | | | e | 10:50 AM | | procedure are in the | | | | PDT | | results section. | + +--------+ + + + documented in this encounter Results CBC with Manual Differential (02/05/2017 10:50 AM PDT) + +--------+ + + + | Component | Value | Ref Range | Performed | Pathologist | | | | | At | Signature | + +--------+ + + + | WBC | 4.3 | 4.3 - 10.4 | EXTERNAL | | | | | 1000/mm3 | LAB | | + +--------+ + + + | RBC | 3.82 | 4.12 - 5.30 | EXTERNAL | | | | | mil/mm3 | LAB | | + +--------+ + + + | HGB, | 11.5 | 12.4 - 15.7 | EXTERNAL | | | External | | g/dL | LAB | | + +--------+ + + + | HCT, | 33.6 | 37.7 - 47.0 % | EXTERNAL | | | External | | | LAB | | + +--------+ + + + | MCV | 88 | 82 - 97 fl | EXTERNAL | | | | | | LAB | | + +--------+ + + + | MCH | 30.1 | 27.1 - 32.3 pg | EXTERNAL | | | | | | LAB | | + +--------+ + + + | MCHC | 34.2 | 32.0 - 36.9 | EXTERNAL | | | | | g/dL | LAB | | + +--------+ + + + | RDW-CV | 12.9 | <=17.0 % | EXTERNAL | | | | | | LAB | | + +--------+ + + + | Platelet | 204 | 150 - 450 | EXTERNAL | | | Count | | 1000/mm3 | LAB | | | Plasma | | | | | + +--------+ + + + | MPV | 11.1 | 9.4 - 12.3 FL | EXTERNAL | | | | | | LAB | | + +--------+ + + + | % Segmented | 54 | 42 - 76 % | EXTERNAL | | | | | | LAB | | | Neutrophils | | | | | + +--------+ + + + | % Bands | 2 | <=7 % | EXTERNAL | | | | | | LAB | | + +--------+ + + + | LYMPH % | 33 | 20 - 40 % | EXTERNAL | | | | | | LAB | | + +--------+ + + + | Atypical | 1 | <=5 % | EXTERNAL | | | Lymphocytes | | | LAB | | | Manual | | | | | + +--------+ + + + | % Monocytes | 5 | 3 - 13 % | EXTERNAL | | | | | | LAB | | + +--------+ + + + | % | 5 | <=7 % | EXTERNAL | | | Eosinophils | | | LAB | | + +--------+ + + + | Absolute | 2.5 | 2.50 - 8.50 | EXTERNAL | | | Neutrophils | | 1000/mm3 | LAB | | + +--------+ + + + | Absolute | 1.2 | 1.00 - 3.80 | EXTERNAL | | | Lymphocytes | | 1000/mm3 | LAB | | + +--------+ + + + | Absolute | 0.21 | <=0.80 1000/mm3 | EXTERNAL | | | Monocytes | | | LAB | | + +--------+ + + + | Absolute | 0.21 | 0.00 - 0.70 | EXTERNAL | | | Eosinophils | | 1000/mm3 | LAB | | + +--------+ + + + | PLT, | NORMAL | | EXTERNAL | | | External | | | LAB | | + +--------+ + + + | Platelet | NORMAL | NORMAL | EXTERNAL | | | Morphology | | | LAB | | + +--------+ + + + + + | Specimen | + + | | + + + +---------+ + + | Performing | Address | City/State/Zipcode | Phone Number | | Organization | | | | + +---------+ + + | EXTERNAL LAB | | | | + +---------+ + + TSH (02/05/2017 10:50 AM PDT) + +-------+ + + + | Component | Value | Ref Range | Performed | Pathologist | | | | | At | Signature | + +-------+ + + + | TSH | 4.57 | 0.36 - 3.74 | EXTERNAL | [...]
--- OUTSIDE RECORDS SUMMARY | ~2020-05-20 | XMS | Encounter Summary ---
Demographics + + + | Address | [address] | | | [address] | | | [place] [address] | + + + | Home Phone [...] | | | | | [place] [address] | | + + + + + | Allegra Raza | ECON | Unknown | | + + + + + | Emily Fuller | ECON | Unknown | | + + + + + Care Team Providers + +------+ + | Care Transfer Agent Name | Role | Phone | + +------+ + PCP | Unavailable | + +------+ + Encounter Details +--------+ + + + + | Date | Type | Department | Care Team | Description | +--------+ + + + + | 02/14/ | Hospital | [facility] | Courtney Koki | | | 2009 | Encounter | [facility] | [address], BUNDLE [address] | | | | | [facility] [address] | [facility], | | | | | [facility] [facility], | [place] [address] | | | | | [place] [address] | [phone] | | | | | [phone] | | | +--------+ + + + [...] | | | | | | [place] [address] | | | | | | [phone] | | | | | | | | +--------+---------+ + + + | 01/21/ | Office | Neurology | Brock Hammond MD | | | 2020 | Visit | | [address] | | | | | | [place], [place] | | | | | | [address] | | | | | | | | +--------+---------+ + + + documented as of this encounter Visit Diagnoses Not on filedocumented in this encounter"
--- OUTSIDE RECORDS SUMMARY | ~2020-05-20 | XMS | Encounter Summary ---
Demographics + + + | Address | [address] | | | [address] | | | [place] [address] | + + + | Home Phone [...] | | | | | [place] [address] | | + + + + + | Allegra Raza | ECON | Unknown | | + + + + + | Eimly Fuller | ECON | Unknown | | + + + + + Care Team Providers + +------+ + | Care Assistant Professor Of Psychology Name | Role | Phone | + +------+ + PCP | Unavailable | + +------+ + Encounter Details +--------+ + + + + | Date | Type | Department | Care Team | Description | +--------+ + + + + | 11/25/ | Hospital | [facility] | Jacky-Shepard, | | | 2010 | Encounter | HOSPITAL LABORATORY | Radnee Pérez MD [address] | | | | | [address] | [facility] | | | | | [facility], [place] | [place] | | | | | [address] | [address] | | | | | [phone] | [phone] | | | | | | | [...] | | | | | | [place] [address] | | | | | | [phone] | | | | | | | | +--------+---------+ + + + | 01/21/ | Office | Neurology | Brock Hammond MD | | | 2020 | Visit | | [address], [place] | | | | | | [place] | | | | | | [address] | | | | | | | | +--------+---------+ + + + documented as of this encounter Visit Diagnoses Not on filedocumented in this encounter"
--- OUTSIDE RECORDS SUMMARY | ~2020-05-20 | XMS | Encounter Summary ---
Demographics + + + | Address | [address] | | | [address] | | | [place] [address] | + + + | Home Phone [...] | | | | | [place] [address] | | + + + + + | Allegra Raza | ECON | Unknown | | + + + + + | Emily Fuller | ECON | Unknown | | + + + + + Care Team Providers + +------+ + | Care Safety Director Name | Role | Phone | + +------+ + PCP | Unavailable | + +------+ + Encounter Details +--------+ + + + + | Date | Type | Department | Care Team | Description | +--------+ + + + + | 02/20/ | Hospital | [facility] | Zac Emmanuelle | | | 2009 | Encounter | [facility] | Sandra Alvarez MD [address] | | | | | [facility] [address] | [facility], | | | | | [facility] [facility], | [place] [address] | | | | | [place] [address] | [phone] | | | | | [phone] | | | +--------+ + + + [...] | | | | | | [place] [address] | | | | | | [phone] | | | | | | | | +--------+---------+ + + + | 01/21/ | Office | Neurology | Brock Hammond MD | | | 2020 | Visit | | [address] | | | | | | [place] | | | | | | [address] | | | | | | | | +--------+---------+ + + + documented as of this encounter Visit Diagnoses Not on filedocumented in this encounter"
--- OUTSIDE RECORDS SUMMARY | ~2020-05-20 | XMS | Encounter Summary ---
Demographics + + + | Address | [address] | | | [address] | | | [place] [address] | + + + | Home Phone [...] | | | | | [place] [address] | | + + + + + | Allegra Raza | ECON | Unknown | | + + + + + | Emily Fuller | ECON | Unknown | | + + + + + Care Team Providers + +------+ + | Care Liquid Sugar Melter Name | Role | Phone | + +------+ + | Aisha Carrington DO | PCP | | + +------+ + Reason for Visit + +--------+ + | Reason | Onset | Comments | | | Date | | + +--------+ + | Medication Related | 12/21/ | | | | 2017 | | + +--------+ + Encounter Details +--------+ + + + + | Date | Type | Department | Care Team | Description | +--------+ + + + + | 12/21/ | Telephone | [facility] | Brock Hammond MD | Medication Related | | 2017 | | HOSPITAL NEUROLOGY | [address] | | | | | CLIN[address] | [place] | | | | | [address] [place], | [address] | | | | | [place] [address] | | | | | | [phone] | | | +--------+ + + + [...] this encounter Miscellaneous Notes Telephone Encounter - Ayleen Singh - 12/21/2017 3:37 PM PST Pharmacy: [facility] [place] Prescription Request: GABAPENTIN 600 MG TAB Written: 12/11/16 Authorized Refills: 6 Qty: 90.000 Last Fill: 10/10/17 Days Supply: 30 Directions: Take 1 tab by mouth three times a day. documented in this encounter Plan of Treatment +--------+---------+ + + + | Date | Type | Specialty | Care Team | Description | +--------+---------+ + + + | 05/22/ | Office | Neurology | Romeo, | | | 2019 | Visit | | [address] | | | | | | [address] [place], | | | | | | [place] [address] | | | | | | [phone] | | | | | | | | +--------+---------+ + + + | 01/21/ | Office | Neurology | Brock Hammond MD | | | 2020 | Visit | | [address] | | | | | | [place] | | | | | | [address] | | | | | | | | +--------+---------+ + + + documented as of this encounter Visit Diagnoses Not on filedocumented in this encounter"
--- OUTSIDE RECORDS SUMMARY | ~2020-05-20 | XMS | Encounter Summary ---
Demographics + + + | Address | [address] | | | [address] | | | [place] [address] | + + + | Home Phone [...] | | | | | [place] [address] | | + + + + + | Allegra Rzaa | ECON | Unknown | | + + + + + | Emily Fuller | ECON | Unknown | | + + + + + Care Team Providers + +------+ + | Care Leadership Program Internship Name | Role | Phone | + [...] [address] | | | | | [place] [address] | | | | | | [phone] | | | +--------+--------+ + + + [...] | | | | | | [place] [address] | | | | | | [phone] | | | | | | | | +--------+---------+ + + + | 01/21/ | Office | Neurology | Brock Hammond MD | | | 2020 | Visit | | [address] | | | | | | [place] | | | | | | [address] | | | | | | | | +--------+---------+ + + + documented as of this encounter Visit Diagnoses Not on filedocumented in this encounter"
--- OUTSIDE RECORDS SUMMARY | ~2020-05-20 | XMS | Encounter Summary ---
Demographics + + + | Address | [address] | | | [address] | | | [place] [address] | + + + | Home Phone [...] + + + | Author | [facility] | | | and Danielana | + + + | Organization | [facility] | | [...] | | | | | [place] [address] | | + + + + + | Allegra Raza | ECON | Unknown | | + + + + + | Emily Fuller | ECON | Unknown | | + + + + + Care Team Providers + +------+ + | Care Welder Experimental Name | Role | Phone | + [...] Results, Imaging | | 2016 | | [facility] | [address] | | | | | MED[address] [facility] | [place] [address] | | | | | [address] [place], | [phone] | | | | | [place] [address] | | | | | | [phone] | | | +--------+ + + + [...] - 10/07/2017 9:25 AM PST----- Message from SHUKIR Hernández sent at 10/07/2017 8:02 PST ----- [...] | | | | | | [place] [address] | | | | | | [phone] | | | | | | | | +--------+---------+ + + + | 01/21/ | Office | Neurology | Brock Hammond MD | | | 2020 | Visit | | [address] | | | | | | [place] | | | | | | [address] | | | | | | | | +--------+---------+ + + + documented as of this encounter Visit Diagnoses Not on filedocumented in this encounter"
--- OUTSIDE RECORDS SUMMARY | ~2020-05-20 | XMS | Encounter Summary ---
Demographics + + + | Address | [address] | | | [address] | | | [place] [address] | + + + | Home Phone [...] | | | | | [place] [address] | | + + + + + | Allegra Raza | ECON | Unknown | | + + + + + | Emily Fuller | ECON | Unknown | | + + + + + Care Team Providers + +------+ + | Care Television Cabinet Finisher Name | Role | Phone | [...] 2017 | | [facility] | DO [address] | | | | | CLIN[address] | [place] [address] | | | | | [address] [place], | [phone] | | | | | [place] [address] | | | | | | [phone] | | | +--------+--------+ + + + [...] | | | | | | [place] [address] | | | | | | [phone] | | | | | | | | +--------+---------+ + + + | 01/21/ | Office | Neurology | Brock Hammond MD | | | 2020 | Visit | | [address] | | | | | | [place] | | | | | | [address] | | | | | | | | +--------+---------+ + + + documented as of this encounter Visit Diagnoses Not on filedocumented in this encounter"
--- OUTSIDE RECORDS SUMMARY | ~2020-05-20 | XMS | Encounter Summary ---
Demographics + + + | Address | [address] | | | [address] | | | [place] [address] | + + + | Home Phone | | + + + | Preferred Language | Unknown | + + + | Marital Status | Single | + + + | Congregational Affiliation | 1009 | + + + | Race | Unknown | + + + | Ethnic Group | Unknown | + + + Author + + + | Author | [facility] | | | and Danielana | + + + | Organization | [facility] | | [...] | | | | | [place] [address] | | + + + + + | Allegra Raza | ECON | Unknown | | + + + + + | Emily Fuller | ECON | Unknown | | + + + + + Care Team Providers + +------+ + | Care Director Service Name | Role | Phone | + [...] | | [address] | [facility], | | | | | [facility], [place] | [place] [address] | | | | | [address] | [phone] | | | | | [phone] | | | +--------+ + + + [...] | | | | | | [place] [address] | | | | | | [phone] | | | | | | | | +--------+---------+ + + + | 01/21/ | Office | Neurology | Brock Hammond MD | | | 2020 | Visit | | [address] | | | | | | [place] | | | | | | [address] | | | | | | | | +--------+---------+ + + + documented as of this encounter Visit Diagnoses Not on filedocumented in this encounter"
--- OUTSIDE RECORDS SUMMARY | ~2020-05-20 | XMS | Encounter Summary ---
Demographics + + + | Address | [address] | | | [address] | | | [place] [address] | + + + | Home Phone [...] | | | | | [place] [address] | | + + + + + | Allegra Raza | ECON | Unknown | | + + + + + | Emily Fuller | ECON | Unknown | | + + + + + Care Team Providers + +------+ + | Care Biofuels Production Associate Name | Role | Phone | + [...] [place] | | | | | | [address] | (Fax) | | | | | [phone] | | | +--------+ + + + [...] | | | | | | [place] [address] | | | | | | [phone] | | | | | | | | +--------+---------+ + + + | 01/21/ | Office | Neurology | Brock Hammond MD | | | 2020 | Visit | | [address] | | | | | | [place] | | | | | | [id number] | | | | | | | | +--------+---------+ + + + documented as of this encounter Visit Diagnoses Not on filedocumented in this encounter"
--- OUTSIDE RECORDS SUMMARY | ~2020-05-20 | XMS | Encounter Summary ---
Demographics + + + | Address | [address] | | | [address] | | | [place] [address] | + + + | Home Phone | | + + + | Preferred Language | Unknown | + + + | Marital Status | Single | + + + | Scientologist Affiliation | 1009 | + + + | Race | Unknown | + + + | Ethnic Group | Unknown | + + + Author + + + | Author | [facility] | | | and Danielana | + + + | Organization | [facility] | | [...] | | | | | [place] [address] | | + + + + + | Allegra Raza | ECON | Unknown | | + + + + + | Emily uFller | ECON | Unknown | | + + + + + Care Team Providers + +------+ + | Care Bird Raiser Name | Role | Phone | + +------+ + PCP | Unavailable | + +------+ + Encounter Details +--------+ + + + + | Date | Type | Department | Care Team | Description | +--------+ + + + + | 07/15/ | Hospital | [facility] | Pranav Mccoyy | | | 2016 | Encounter | HOSPITAL LABORATORY | SHUKRI Haines | | | | | [address] | | | | | | [place] | | | | | | [address] | | | | | | [phone] | | | +--------+ + + + [...] | | | | | | [place] [address] | | | | | | [phone] | | | | | | | | +--------+---------+ + + + | 01/21/ | Office | Neurology | Brock Hammond MD | | | 2020 | Visit | | [address] | | | | | | [place] | | | | | | [address] | | | | | | | | +--------+---------+ + + + documented as of this encounter Visit Diagnoses Not on filedocumented in this encounter"
--- OUTSIDE RECORDS SUMMARY | ~2020-05-20 | XMS | Encounter Summary ---
Demographics + + + | Address | [address] | | | [address] | | | [place] [address] | + + + | Home Phone | | + + + | Preferred Language | Unknown | + + + | Marital Status | Single | + + + | Episcopal Affiliation | 1009 | + + + [...] + + + + + | Magalys Hurlye | ECON | [address] | | | | | [place] [address] | | + + + + + | Allegra Raza | ECON | Unknown | | + + + + + | Emily Fuller | ECON | Unknown | | + + + + + Care Team Providers + +------+ + | Care Levers Lace Machine Operator Name | Role | Phone | + +------+ + PCP | Unavailable | + +------+ + Encounter Details +--------+ + + + + | Date | Type | Department | Care Team | Description | +--------+ + + + + | 10/31/ | Hospital | [facility] | William Harp | | | 2010 | Encounter | HOSPITAL EMERGENCY | MD [address] | | | | | C[address] | [facility] | | | | | [address] [place], [place] | [place], [employer] [address] | | | | | [address] | [phone] | | | | | [phone] | | | +--------+ + + + [...] | | | | | | [place] [address] | | | | | | [phone] | | | | | | | | +--------+---------+ + + + | 01/21/ | Office | Neurology | Brock Hammond MD | | | 2020 | Visit | | [address] | | | | | | [place] | | | | | | [address] | | | | | | | | +--------+---------+ + + + documented as of this encounter Visit Diagnoses Not on filedocumented in this encounter"
--- OUTSIDE RECORDS SUMMARY | ~2020-05-20 | XMS | Encounter Summary ---
Demographics + + + | Address | [address] | | | [address] | | | [place] [address] | + + + | Home Phone | | + + + | Preferred Language | Unknown | + + + | Marital Status | Single | + + + | Religion Affiliation | 1009 | + + + [...] | | | | | [place] [address] | | + + + + + | Allegra Raza | ECON | Unknown | | + + + + + | Emily Fuller | ECON | Unknown | | + + + + + Care Team Providers + +------+ + | Care Repacker Name | Role | Phone | + +------+ + PCP | Unavailable | + +------+ + Encounter Details +--------+ + + + + | Date | Type | Department | Care Team | Description | +--------+ + + + + | 02/14/ | Hospital | [facility] | Koki Valdez | | | 2009 | Encounter | HOSPITAL LABORATORY | CAT [address] | | | | | [address] | [facility], | | | | | [place], [place] | [place] [address] | | | | | [address] | [phone] | | | | | [phone] | | | +--------+ + + + [...] | | | | | | [place] [address] | | | | | | [phone] | | | | | | | | +--------+---------+ + + + | 01/21/ | Office | Neurology | Brock Hammond MD | | | 2020 | Visit | | [address] | | | | | | [place] | | | | | | [address] | | | | | | | | +--------+---------+ + + + documented as of this encounter Visit Diagnoses Not on filedocumented in this encounter"
--- OUTSIDE RECORDS SUMMARY | ~2020-05-20 | XMS | Encounter Summary ---
Demographics + + + | Address | [address] | | | [address] | | | [place] [address] | + + + | Home Phone [...] | | | | | [place] [address] | | + + + + + | Allegra Raza | ECON | Unknown | | + + + + + | Emily Fuller | ECON | Unknown | | + + + + + Care Team Providers + +------+ + | Care Applications Support Engineer Name | Role | Phone | + +------+ + PCP | Unavailable | + +------+ + Encounter Details +--------+ + + + + | Date | Type | Department | Care Team | Description | +--------+ + + + + | 08/19/ | Hospital | [facility] | | | | 2002 | Encounter | MED CTR EMERGENCY | | | | | | CENTER [address] | | | | | | [place], [place] | | | | | | [address] | | | | | | [phone] | | | +--------+ + + + [...] | | | | | | [place] [address] | | | | | | [phone] | | | | | | | [...]
--- OUTSIDE RECORDS SUMMARY | ~2020-05-20 | XMS | Encounter Summary ---
Demographics + + + | Address | [address] | | | [address] | | | [place] [address] | + + + | Home Phone | | + + + | Preferred Language | Unknown | + + + | Marital Status | Single | + + + | Yazidism Affiliation | 1009 | + + + | Race | Unknown | + + + | Ethnic Group | Unknown | + + + Author + + + | Author | [facility] | | | and Danielana | + + + | Organization | [facility] | | [...] | | | | | [place] [address] | | + + + + + | Allegra Raza | ECON | Unknown | | + + + + + | Emily Fuller | ECON | Unknown | | + + + + + Care Team Providers + +------+ + | Care Gold Miner Name | Role | Phone | + +------+ + PCP | Unavailable | + +------+ + Encounter Details +--------+ + + + + | Date | Type | Department | Care Team | Description | +--------+ + + + + | 02/20/ | Hospital | [facility] | Catie Powell | | | 2013 | Encounter | HOSPITAL LABORATORY | MD [address] | | | | | [address] | [address] [place], | | | | | [facility], [place] | [place] [address] | | | | | [address] | [phone] | | | | | [phone] | | | +--------+ + + + [...] | | | | | | [place] [address] | | | | | | [phone] | | | | | | | | +--------+---------+ + + + | 01/21/ | Office | Neurology | Brock Hammond MD | | | 2020 | Visit | | [address] | | | | | | [place] | | | | | | [address] | | | | | | | | +--------+---------+ + + + documented as of this encounter Procedures + +--------+ + + + | Procedure Name | Priori | Date/Time | Associated Diagnosis | Comments | | | ty | | | | + +--------+ + + + | IRON AND IRON | Routin | 02/20/2014 | | Results for this | | BINDING CAPACITY | e | 2:58 PM | | procedure are in the | | | | PDT | | results section. | + +--------+ + + + | CBC W/AUTO | Routin | 02/20/2014 | | Results for this | | DIFFERENTIAL | e | 2:58 PM | | procedure are in the | | | | PDT | | results section. | + +--------+ + + + | TSH | Routin | 02/20/2014 | | Results for this | | | e | 2:58 PM | | procedure are in the | | | | PDT | | results section. | + +--------+ + + + | FERRITIN | Routin | 02/20/2014 | | Results for this | | | e | 2:58 PM | | procedure are in the | | | | PDT | | results section. | + +--------+ + + + | BASIC METABOLIC | Routin | 02/20/2014 | | Results for this | | PANEL | e | 2:58 PM | | procedure are in the | | | | PDT | | results section. | + +--------+ + + + documented in this encounter Results Basic Metabolic Panel (02/20/2014 2:58 PM PDT) + +-------+ + + + | Component | Value | Ref Range | Performed | Pathologist | | | | | At | Signature | + +-------+ + + + | Sodium | 140 | 132 - 143 | EXTERNAL | | | | | mmol/L | LAB | | + +-------+ + + + | Potassium | 4.3 | 3.3 - 4.9 | EXTERNAL | | | | | mmol/L | LAB | | + +-------+ + + + | Cl | 103 | 95 - 108 mmol/L | EXTERNAL | | | | | | LAB | | + +-------+ + + + | CO2 | 29 | 23 - 34 mmol/L | EXTERNAL | | | | | | LAB | | + +-------+ + + + | Anion Gap | 8 | 7 - 16 | EXTERNAL | | | | | | LAB | | + +-------+ + + + | Calcium | 9.1 | 8.3 - 10.0 | EXTERNAL | | | | | mg/dL | LAB | | + +-------+ + + + | Glucose | 117 | 70 - 110 mg/dL | EXTERNAL | | | | | | LAB | | + +-------+ + + + | BUN, Bld | 20 | 5 - 26 mg/dL | EXTERNAL | | | | | | LAB | | + +-------+ + + + | Creatinine | 1.7 | 0.6 - 1.3 mg/dL | EXTERNAL | | | | | | LAB | | + +-------+ + + + | BUN/Creatin | 11.8 | 7.0 - 24.0 | EXTERNAL | | | ine Ratio | | RATIO | LAB | | + +-------+ + + + | GFR | 34 | >=60 | EXTERNAL | | | [...] | | + +---------+ + + TSH (02/20/2014 2:58 PM PDT) + +-------+ + + + | Component | Value | Ref Range | Performed | Pathologist | | | | | At | Signature | + +-------+ + + + | TSH | 3.88 | 0.40 - 4.68 | EXTERNAL | | | | | mIU/L | LAB | | + +-------+ + + + + + | Specimen | + + | | + + + +---------+ + + | Performing | Address | City/State/Zipcode | Phone Number | | Organization | | | | + +---------+ + + | EXTERNAL LAB | | | | + +---------+ + + Ferritin (02/20/2014 2:58 PM PDT) + +-------+ + + + | Component | Value | Ref Range | Performed | Pathologist | | | | | At | Signature | + +-------+ + + + | Ferritin, | 66.5 | 11.1 - 264.0 | EXTERNAL | | | External | | ng/mL | LAB | | + +-------+ + + + + + | Specimen | + + | | + + + +---------+ + + | Performing | Address | City/State/Zipcode | Phone Number | | Organization | | | | + +---------+ + + | EXTERNAL LAB | | | | + +---------+ + + Iron and Iron Binding Capacity (02/20/2014 2:58 PM PDT) + +-------+ + + + | Component | Value | Ref Range | Performed | Pathologist | | | | | At | Signature | + +-------+ + + + | Iron | 131 | 35 - 150 ug/dL | EXTERNAL | | | | | | LAB | | + +-------+ + + + | TIBC | 266 | 250 - 450 ug/dL | EXTERNAL | | | | | | LAB | | + +-------+ + + + | Iron | 49 | 15 - 50 % | EXTERNAL | | | Saturation | | | LAB | | + +-------+ + + + + + | Specimen | + + | | + + + +---------+ + + | Performing | Address | City/State/Zipcode | Phone Number | | Organization | | | | + +---------+ + + | EXTERNAL LAB | | | | + +---------+ + + CBC w/ Auto Differential (02/20/2014 2:58 PM PDT) + +-------+ + + + | Component | Value | Ref Range | Performed | Pathologist | | | | | At | Signature | + +-------+ + + + | WBC | 4.7 | 4.3 - 10.4 | EXTERNAL | | | | | 1000/mm3 | LAB | | + +-------+ + + + | RBC | 3.76 | 4.12 - 5.30 | EXTERNAL | | | | | mil/mm3 | LAB | | + +-------+ + + + | HGB, | 12 | 12.4 - 15.7 | EXTERNAL | | | External | | g/dL | LAB | | + +-------+ + + + | HCT, | 32.7 | 37.7 - 47.0 % | EXTERNAL | | | External | | | LAB | | + +-------+ + + + | MCV | 87 | 82 - 97 fl | EXTERNAL | | | | | | LAB | | + +-------+ + + + | MCH | 31.9 | 27.1 - 32.3 pg | EXTERNAL | | | | | | LAB | | + +-------+ + + + | MCHC | 36.7 | 32.0 - 36.9 | EXTERNAL | | | | | g/dL | LAB | | + +-------+ + + + | RDW-CV | 12.8 | <=17.0 % | EXTERNAL | | | | | | LAB | | + +-------+ + + + | Platelet | 252 | 150 - 450 | EXTERNAL | | | Count | | 1000/mm3 | LAB | | | Plasma | | | | | + +-------+ + + + | MPV | 9.2 | 9.4 - 12.3 FL | EXTERNAL | | | | | | LAB | | + +-------+ + + + | % Segmented | 51.2 | 42.0 - 76.0 % | EXTERNAL | | | | | | LAB | | | Neutrophils | | | | | + +-------+ + + + | LYMPH % | 36.9 | 29.0 - 49.0 % | EXTERNAL | | | | | | LAB | | + +-------+ + + + | % Monocytes | 11.9 | <=12.0 % | EXTERNAL | | | | | | LAB | | + +-------+ + + + | Absolute | 2.4 | 2.50 - 8.50 | EXTERNAL | | | Neutrophils | | 1000/mm3 | LAB | | + +-------+ + + + | Absolute | 1.7 | 1.00 - 3.80 | EXTERNAL | [...]
--- OUTSIDE RECORDS SUMMARY | ~2020-05-20 | XMS | Encounter Summary ---
Demographics + + + | Address | [address] | | | [address] | | | [place] [address] | + + + | Home Phone [...] | | | | | [place] [address] | | + + + + + | Allegra Raza | ECON | Unknown | | + + + + + | Emily Fuller | ECON | Unknown | | + + + + + Care Team Providers + +------+ + | Care Nib Assembler Name | Role | Phone | + +------+ + PCP | Unavailable | + +------+ + Encounter Details +--------+ + + + + | Date | Type | Department | Care Team | Description | +--------+ + + + + | 12/21/ | Hospital | [facility] | Emmanuelle Frank | | | 2008 | Encounter | HOSPITAL GENERIC OP | Sandra Alvarez MD [address] | | | | | CONVERSION | [facility], | | | | | DEPARTMENT [address] | [place] [address] | | | | | [address] | [phone] | | | | | [place] | | | | | | [address] | | | | | | [phone] | | | +--------+ + + + [...] | | | | | | [place] [address] | | | | | | [phone] | | | | | | | | +--------+---------+ + + + | 01/21/ | Office | Neurology | Brock [place] MD | | | 2020 | Visit | | [address] | | | | | | [place] | | | | | | [address] | | | | | | | | +--------+---------+ + + + documented as of this encounter Visit Diagnoses Not on filedocumented in this encounter"
--- OUTSIDE RECORDS SUMMARY | ~2020-05-20 | XMS | Encounter Summary ---
Demographics + + + | Address | [address] | | | [address] | | | [place] [address] | + + + | Home Phone [...] | | | | | [place] [address] | | + + + + + | Allegra Raza | ECON | Unknown | | + + + + + | Emily Fuller | ECON | Unknown | | + + + + + Care Team Providers + +------+ + | Care Tobacco Prizer Name | Role | Phone | + [...] | | | SUNSENTHIL MATA | [facility], | | | | | [facility], [place] | [place] [address] | | | | | [address] | [phone] | | | | | [phone] | | | +--------+ + + + [...] | | | | | | [place] [address] | | | | | | [phone] | | | | | | | | +--------+---------+ + + + | 01/21/ | Office | Neurology | Brock Hammond MD | | | 2020 | Visit | | [address] | | | | | | [place] | | | | | | [address] | | | | | | | | +--------+---------+ + + + documented as of this encounter Visit Diagnoses Not on filedocumented in this encounter"
--- OUTSIDE RECORDS SUMMARY | ~2020-05-20 | XMS | Encounter Summary ---
Demographics + + + | Address | [address] | | | [address] | | | [place] [address] | + + + | Home Phone [...] | | | | | [place] [address] | | + + + + + | Allegra Raza | ECON | Unknown | | + + + + + | Emily Fuller | ECON | Unknown | | + + + + + Care Team Providers + +------+ + | Care Nutritionist Public Health Name | Role | Phone | + [...] | | | THERAPY [address] | [facility], | | | | | [address] [place], [place] | [place] [address] | | | | | [address] | [phone] | | | | | [phone] | | | +--------+ + + + [...] | | | | | | [place] [address] | | | | | | [phone] | | | | | | | | +--------+---------+ + + + | 01/21/ | Office | Neurology | Brock Hammond MD | | | 2020 | Visit | | [address] | | | | | | [place] | | | | | | [address] | | | | | | | | +--------+---------+ + + + documented as of this encounter Visit Diagnoses Not on filedocumented in this encounter"
--- OUTSIDE RECORDS SUMMARY | ~2020-05-20 | XMS | Encounter Summary ---
Demographics + + + | Address | [address] | | | [address] | | | [place] [address] | + + + | Home Phone [...] | | | | | [place] [address] | | + + + + + | Allegra Raza | ECON | Unknown | | + + + + + | Emily Fuller | ECON | Unknown | | + + + + + Care Team Providers + +------+ + | Care Program Control Analyst Name | Role | Phone | + +------+ + | No, Physician | PCP | Unavailable | + +------+ + Encounter Details +--------+ + + + + | Date | Type | Department | Care Team | Description | +--------+ + + + + | 03/07/ | Hospital | [facility] | Brock Hammond MD | Neck pain, bilateral | | 2019 | Encounter | HOSPITAL XRAY 900 | [address] | | | | | [address] [place] | [place] | | | | | [place] | [address] | | | | | [address] | | | | | | [phone] | | | +--------+ + + + [...] | | | | | | [place] [address] | | | | | | [phone] | | | | | | | | +--------+---------+ + + + | 01/21/ | Office | Neurology | Brock Hammond MD | | | 2020 | Visit | | [address] | | | | | | [place] | | | | | | [address] | | | | | | | | +--------+---------+ + + + documented as of this encounter Procedures + +--------+ + + + | Procedure Name | Priori | Date/Time | Associated Diagnosis | Comments | | | ty | | | | + +--------+ + + + | XR CERVICAL SPINE 2 | Routin | 03/07/2019 | Neck pain, | Results for this | | OR 3 VIEWS | e | 9:59 AM | bilateral | procedure are in the | | | | PDT | | results section. | + +--------+ + + + documented in this encounter Results XR Cervical Spine 2 or 3 Views (03/07/2019 9:59 AM PDT) + + | Specimen | + + | | + + + + + | Impressions | Performed At | + + + | IMPRESSION: No acute process. Prior C5-C7 anterior posterior | [facility] | | fusion. Age-indeterminate T5 compression. Dictated by: Sven Etienne | | | 11:37 AM | | [...] fusion.Age-indeterminate T5 | | compression.Dictated by: Sven FeltonamElectronically Signed by: Sven Etienne on | | [...] + | Diagnosis | + + | Neck pain, bilateral Cervicalgia | + + documented in this encounter"
--- OUTSIDE RECORDS SUMMARY | ~2020-05-20 | XMS | Encounter Summary ---
Demographics + + + | Address | [address] | | | [address] | | | [place] [address] | + + + | Home Phone | | + + + | Preferred Language | Unknown | + + + | Marital Status | Single | + + + | Restoration Affiliation | [id number] | + + + [...] | | | | | [place] [address] | | + + + + + | Allegra Raza | ECON | Unknown | | + + + + + | Emily Fuller | ECON | Unknown | | + + + + + Care Team Providers + +------+ + | Care Rf Manager Name | Role | Phone | + +------+ + PCP | Unavailable | + +------+ + Encounter Details +--------+ + + + + | Date | Type | Department | Care Team | Description | +--------+ + + + + | 01/03/ | Hospital | [facility] | Eliezer Ballesteros | | | 2010 | Encounter | HOSPITAL EMERGENCY | MD [address] | | | | | CENTER [address] | [address] | | | | | [place], [place] | [place], [place] [address] | | | | | [address] | [phone] | | | | | [phone] | | | +--------+ + + + [...] | | | | | | [place] [address] | | | | | | [phone] | | | | | | | | +--------+---------+ + + + | 01/21/ | Office | Neurology | Brock Hammond MD | | | 2020 | Visit | | [address] | | | | | | [place] | | | | | | [address] | | | | | | | | +--------+---------+ + + + documented as of this encounter Visit Diagnoses Not on filedocumented in this encounter"
--- OUTSIDE RECORDS SUMMARY | ~2020-05-20 | XMS | Encounter Summary ---
Demographics + + + | Address | [address] | | | [address] | | | [place] [address] | + + + | Home Phone [...] | | | | | [place] [address] | | + + + + + | Allegra Raza | ECON | Unknown | | + + + + + | Emily Fuller | ECON | Unknown | | + + + + + Care Team Providers + +------+ + | Care Technical Professional Name | Role | Phone | [...] | | [address] | [facility], | | | | | [facility], [place] | [place] [address] | | | | | [address] | [phone] | | | | | [phone] | | | +--------+ + + + [...] | | | | | | [place] [address] | | | | | | [phone] | | | | | | | | +--------+---------+ + + + | 01/21/ | Office | Neurology | Brock Hammond MD | | | 2020 | Visit | | [address] | | | | | | [place] | | | | | | [address] | | | | | | | | +--------+---------+ + + + documented as of this encounter Visit Diagnoses Not on filedocumented in this encounter"
--- OUTSIDE RECORDS SUMMARY | ~2020-05-20 | XMS | Encounter Summary ---
Demographics + + + | Address | [address] | | | [address] | | | [place] [address] | + + + | Home Phone [...] | | | | | [place] [address] | | + + + + + | Allegra Raza | ECON | Unknown | | + + + + + | Emily Fuller | ECON | Unknown | | + + + + + Care Team Providers + +------+ + | Care Global Coordinator Name | Role | Phone | [...] [address] | | | | | [place] [address] | | | | | | [phone] | | | +--------+--------+ + + + [...] | | | | | | [place] [address] | | | | | | [phone] | | | | | | | | +--------+---------+ + + + | 01/21/ | Office | Neurology | Brock Hammond MD | | | 2020 | Visit | | [address] | | | | | | [place] | | | | | | [id number] | | | | | | | | +--------+---------+ + + + documented as of this encounter Visit Diagnoses Not on filedocumented in this encounter"
--- OUTSIDE RECORDS SUMMARY | ~2020-05-20 | XMS | Encounter Summary ---
Demographics + + + | Address | [address] | | | [address] | | | [place] [address] | + + + | Home Phone [...] + + + | Author | [facility] | | | and Danielana | + + + | Organization | [facility] | | [...] [address] | | | | | [place] [address] | | + + + + + | Allegra Raza | ECON | Unknown | | + + + + + | Emily Fuller | ECON | Unknown | | + + + + + Care Team Providers + +------+ + | Care Finishing Supervisor Plastic Sheets Name | Role | Phone | + +------+ + PCP | Unavailable | + +------+ + Encounter Details +--------+ + + + + | Date | Type | Department | Care Team | Description | +--------+ + + + + | 02/26/ | Hospital | [facility] | Ruel Junior, | | | 2010 | Encounter | HOSPITAL LABORATORY | MD Jameson Ricardo | | | | | [address] | [address] | | | | | [facility], [place] | [place] [address] | | | | | [address] | [phone] | | | | | [phone] | | | +--------+ + + + [...] | | | | | | [place] [address] | | | | | | [phone] | | | | | | | | +--------+---------+ + + + | 01/21/ | Office | Neurology | Brock Hammond MD | | | 2020 | Visit | | [address] | | | | | | [place], [place] | | | | | | [address] | | | | | | | | +--------+---------+ + + + documented as of this encounter Visit Diagnoses Not on filedocumented in this encounter"
--- OUTSIDE RECORDS SUMMARY | ~2020-05-20 | XMS | Encounter Summary ---
Demographics + + + | Address | [address] | | | [address] | | | [place] [address] | + + + | Home Phone [...] | | | | | [place] [address] | | + + + + + | Allegra Raza | ECON | Unknown | | + + + + + | Emily Fuller | ECON | Unknown | | + + + + + Care Team Providers + +------+ + | Care Field Marketing Specialist Name | Role | Phone | + +------+ + | No, Physician | PCP | Unavailable | + +------+ + Reason for Visit + +--------+ + | Reason | Onset | Comments | | | Date | | + +--------+ + | Treatment Order | 04/25/ | Physical Therapy | | | 2018 | | + +--------+ + Encounter Details +--------+ + + + + | Date | Type | Department | Care Team | Description | +--------+ + + + + | 04/25/ | Telephone | [facility] | Kristen Rodriguez RN | Treatment Order | | 2018 | | [facility] | | (Physical Therapy) | | | | CLINIC [address] | | | | | | [address] [place], | | | | | | [place] [address] | | | | | | [phone] | | | +--------+ + + + [...] this encounter Miscellaneous Notes Telephone Encounter - Claudia Elliott - 04/26/2019 1:00 PM PDTPatient called and said rob mas is all worked out and her first Physical therapy appointment is on the 17thElectro nically signed by Claudia Elloitt at 04/26/2019 1:01 PM PDTTelephone Encounter - Julia Rodriguez RN - 04/25/2019 4:19 PM PDTSpoke with pt and she states she has not reicieved any p natty calls regarding scheduling PT at [facility]. I asked her to call them to schedule appt, s he stated she would tomorrow. I also made sure with [facility] that they still had order and t fidel stated they did and would wait for her call./ELOINA Jones elephone Encounter - Kristen Rodriguez RN - 04/25/2019 11 :12 AM PDTCalled and left message for pt, to discuss Physical Therapy orders. Note sent to Harjeet Hammond stating, pt has not return call to [facility] PT department to schedule appointmen t, and referral over 30 days. /ELOINA JonesElectronically signed by Kristen Rodriguez RN at 04/25 11:15 AM PDTdocumented in this encounter Plan of Treatment +--------+---------+ + + + | Date | Type | Specialty | Care Team | Description | +--------+---------+ + + + | 05/22/ | Office | Neurology | Romeo, | | | 2019 | Visit | | [address] | | | | | [address] [place], | | | | | | [place] [address] | | | | | | [phone] | | | | | | | | +--------+---------+ + + + | 01/21/ | Office | Neurology | Brock Hammond MD | | | 2020 | Visit | | [address] | | | | | | [place] | | | | | | [address] | | | | | | | | +--------+---------+ + + + documented as of this encounter Visit Diagnoses Not on filedocumented in this encounter"
--- OUTSIDE RECORDS SUMMARY | ~2020-05-20 | XMS | Encounter Summary ---
Demographics + + + | Address | [address] | | | [address] | | | [place] [address] | + + + | Home Phone [...] | | | | | [place] [address] | | + + + + + | Allegra Raza | ECON | Unknown | | + + + + + | Emily Fuller | ECON | Unknown | | + + + + + Care Team Providers + +------+ + | Care Jewelry Inspector Name | Role | Phone | + +------+ + PCP | Unavailable | + +------+ + Encounter Details +--------+ + + + + | Date | Type | Department | Care Team | Description | +--------+ + + + + | 03/23/ | Hospital | [facility] | Blessing Mccoy | | | 2017 | Encounter | [facility] | G, MANAGEMENT INSTRUCTOR | | | | | [facility]ICAL CL[facility] [address] | | | | | | [address] [facility], | | | | | | [place] [address] | | | | | | [phone] | | | +--------+ + + + [...] | | | | | | [place] [address] | | | | | | [phone] | | | | | | | | +--------+---------+ + + + | 01/21/ | Office | Neurology | Brcok Hammond MD | | | 2020 | Visit | | [address] | | | | | | [place] | | | | | | [address] | | | | | | | | +--------+---------+ + + + documented as of this encounter Visit Diagnoses Not on filedocumented in this encounter"
--- OUTSIDE RECORDS SUMMARY | ~2020-05-20 | XMS | Encounter Summary ---
Demographics + + + | Address | [address] | | | [address] | | | [place] [address] | + + + | Home Phone [...] | | | | | [place] [address] | | + + + + + | Allegra Raza | ECON | Unknown | | + + + + + | Emliy Fuller | ECON | Unknown | | + + + + + Care Team Providers + +------+ + | Care Locomotive Lubricating Systems Clerk Name | Role | Phone | + +------+ + PCP | Unavailable | + +------+ + Encounter Details +--------+ + + + + | Date | Type | Department | Care Team | Description | +--------+ + + + + | 01/05/ | Hospital | [facility] | Brock Hammond MD | | | 2010 | Encounter | HOSPITAL RESPIRATORY | [address] | | | | | THERAPY [address] | [place] | | | | | [place] | [id number] | | | | | [address] | | | | | | [phone] | | | +--------+ + + + [...] as of this encounter Progress Notes Brock Hammond MD - 01/05/2011 8:18 AM [facility] Dictating Practitioner: BROCK HAMMOND MD Patient Name: KOKI RAZA Patient Date of : 1965 Visit Number: [id number] PROGRESS NOTE/DISCHARGE SUMMARY DATE OF SERVICE:January 04, 2011 HISTORY OF PRESENT ILLNESS: Ms. Raza was seen for neurologic evaluation and followup and to be discharged today with significant history of seizures with onset of confusional state postictally with evidence of tongue biting and myalgias. The patient this morning is back to her baseline. Oriented to time, place, and person. Alert, pleasant. She was aware that she was unable to sleep for at least a day or two, a little bit of insomnia with significant history of psychiatric disorder. Despite taking the sleeping pills the patient was thrashing and turning most of the time. She had a little bit of mild sore throat, but otherwise is nonspecific. REVIEW OF SYSTEMS: She did not complain of any headaches, blurring vision, dysphagia, odynophagia, earache, or hearing loss, nasal catarrh, chest pains, and palpitations. She just has a little bit of pain on her tongue: she has evidence of tongue biting. HOSPITAL COURSE: Work up consisted of an MRI of the brain which was negative along with CT scan of the head, and she had mildly low potassium of 2.7 (this morning it was 2.1), we will keep correcting the sodium with patient given orally 20 mEq of potassium twice a day for the next 5 days and was given prescription for this. In addition, ZONISAMIDE was increased from 50 to 100 mg p.o. twice a day. She will be scheduled for an EGD for tomorrow morning expecting discharge today. The patient was advised in the event that she has any evidence of insomnia once again to take an extra pill of ZONISAMIDE for at least a couple of days and to give me a call. Otherwise the patient is neurologic stable, back to her baseline and could be discharged today. NEUROLOGIC EXAMINATION: VITAL SIGNS:BP: 120/80 mmHg. HR: 7/min RR: 18 per minute. MENTAL STATUS: Alert, pleasant. Oriented to time, place, and person. Speech is fluent. Able to repeat. Able to follow 3 to 4-step commands without difficulty. CRANIAL NERVES II-XII: Pupils are 4 mm. Equally reactive to light and accommodation. Funduscopy shows sharp disks. No visual field cut on confrontation. No facial asymmetry. Tongue and palate are midline. MOTOR EXAMINATION: Shows 5+ strength with no atrophy or fasciculations. No cogwheel rigidity. CEREBELLAR EXAMINATION: Able to perform [id number] without difficulty or decompensation. SENSORY: Intact. Withdraws to painful stimuli symmetrically. REFLEXES: 1 to 2+ and symmetrical. No pathologic reflexes. PLANTARS: Downgoing bilaterally. GAIT: The patient ambulates without difficulty. Able to tandem gait. MISCELLANEOUS: No evidence of any nuchal rigidity. No evidence of best sign or raccoons eyes. No tonsillopharyngeal congestion. There is evidence of tongue biting bilaterally. There is no abdominal pain. CLINICAL IMPRESSION: 1. Breakthrough seizures with significant post ictal confusion, but the patient is back to her baseline on discharge. 2. Diabetes mellitus. 3.Hypokalemia, slowly improving. RECOMMENDATION: 1. The patient was to increase ZONISAMIDE from 50 to 100 mg p.o. twice daily and will await the zonisamide level. 2. EEG to be performed in the morning, but can be discharged. 3. Potassium chloride 20 mg p.o. twice daily for the next 5 days. 4. The patient is to have an EEG in the morning and the patient is neurologically stable to be discharged and to followup. 5. The patient is aware of the above findings of the MRI along with the CAT scan of the head. 6. The patient is to followup in the [facility] in about 2 to 3 weeks. [id number] / [id number] Dictation Date/Time: January 04, 2011 08:55AM Lead Care Manager Date/Time: January 06, 2011 08:32AM Authenticated and Edited by Brock Hammond MD On 01/06/11 7:25:42 PM IF Signed and Approved by: BROCK HAMMOND MD 01/06/2011 19:25:00 [facility], Brock Dumont MD - 0 01/05/2011 8:18 AM [facility] Dictating Practitioner: BROCK HAMMOND MD Patient Name: KOKI RAZA Patient Date of : 1965 Visit Number: [id number] ELECTROENCEPHALOGRAM Date of Service: 01/05/11. Ms. Raza was seen for neurologic evaluation with history of seizures. The background rhythm consists of 7 to 8 hertz of moderate to high voltage activity consisting mostly of theta rhythm seen posteriorly. There were some amount of muscle and eye movement artifact noted throughout the EEG. There were occasional spike and slow wave pattern noted in the bitemporal parietal region becoming generalized suggestive of epileptiform discharges. Drowsiness produced some generalized slowing consisting mostly of 4 to 5 hertz. Photic stimulation was performed showing no significant abnormalities. IMPRESSION: Abnormal EEG. There were electrographic evidence of seizure pattern during the EEG recording. Clinical correlation is recommended. CC:Emmanuelle Frank MD [id number] / [id number] Dictation Date/Time: January 05, 2011 07:19PM Lead Care Manager Date/Time: January 06, 2011 11:11AM Authenticated and Edited by Brock Hammond MD On 01/06/11 7:26:08 PM IF Signed and Approved by: BROCK HAMMOND MD 01/06/2011 19:26:00 documented in this enc ounter Plan of [...] | | | | | | [place] [address] | | | | | | [phone] | | | | | | | | +--------+---------+ + + + | 01/21/ | Office | Neurology | Brock Hammond MD | | | 2020 | Visit | | [address] | | | | | | [place] | | | | | | [address] | | | | | | | | +--------+---------+ + + + documented as of this encounter Visit Diagnoses Not on filedocumented in this encounter"
--- OUTSIDE RECORDS SUMMARY | ~2020-05-20 | XMS | Encounter Summary ---
Demographics + + + | Address | [address] | | | [address] | | | [place] [address] | + + + | Home Phone [...] Author + + + | Author | [facility] | | | and Danielana | + + + | Organization | [facility] | | | [...] | | | | | [place] [address] | | + + + + + | Allegra Raza | ECON | Unknown | | + + + + + | Emily Fuller | ECON | Unknown | | + + + + + Care Team Providers + +------+ + | Care Compliance Representative Dealer Name | Role | Phone | [...] | | [address] | [facility], | | | | | [facility], [place] | [place] [address] | | | | | [address] | [phone] | | | | | [phone] | | | +--------+ + + + [...] | | | | | | [place] [address] | | | | | | [phone] | | | | | | | | +--------+---------+ + + + | 01/21/ | Office | Neurology | Brock Hammond MD | | | 2020 | Visit | | [address] | | | | | | [place] | | | | | | [address] | | | | | | | | +--------+---------+ + + + documented as of this encounter Visit Diagnoses Not on filedocumented in this encounter"
--- OUTSIDE RECORDS SUMMARY | ~2020-05-20 | XMS | Encounter Summary ---
Demographics + + + | Address | [address] | | | [address] | | | [place] [address] | + + + | Home Phone [...] | | | | | [place] [address] | | + + + + + | Allegra Raza | ECON | Unknown | | + + + + + | Emily Fuller | ECON | Unknown | | + + + + + Care Team Providers + +------+ + | Care Business Development Officer Name | Role | Phone | + +------+ + PCP | Unavailable | + +------+ + Encounter Details +--------+ + + + + | Date | Type | Department | Care Team | Description | +--------+ + + + + | 07/30/ | Hospital | [facility] | John Saeed | | | 2010 | Encounter | HOSPITAL EMERGENCY | MD [address] | | | | | CENTER [address] | [facility] | | | | | [address] [place], [place] | [place], [place] [address] | | | | | [address] | [phone] | | | | | [phone] | | | +--------+ + + + [...] | | | | | | [place] [address] | | | | | | [phone] | | | | | | | | +--------+---------+ + + + | 01/21/ | Office | Neurology | Brock Hammond MD | | | 2020 | Visit | | [address] | | | | | | [place] | | | | | | [address] | | | | | | | | +--------+---------+ + + + documented as of this encounter Visit Diagnoses Not on filedocumented in this encounter"
--- OUTSIDE RECORDS SUMMARY | ~2020-05-20 | XMS | Encounter Summary ---
Demographics + + + | Address | [address] | | | [address] | | | [place] [address] | + + + | Home Phone [...] | | | | | [place] [address] | | + + + + + | Allegra Raza | ECON | Unknown | | + + + + + | Emily Fuller | ECON | Unknown | | + + + + + Care Team Providers + +------+ + | Care Vending Machine Repairer Name | Role | Phone | + +------+ + PCP | Unavailable | + +------+ + Encounter Details +--------+ + + + + | Date | Type | Department | Care Team | Description | +--------+ + + + + | 03/03/ | Hospital | [facility] | Aisha Carrington, | | | 2016 | Encounter | HOSPITAL XRAY [address] | DO [address] | | | | | [address] | [place] [address] | | | | | [place], [place] | [phone] | | | | | [address] | | | | | | [phone] | | | +--------+ + + + [...] | | | | | | [place] [address] | | | | | | [phone] | | | | | | | [...] | + +--------+ + + + | CRISTO DIGITAL | Routin | 03/03/2017 | | Results for this | | SCREENING BILATERAL | e | 3:19 PM | | procedure are in the | | | | PDT | | results section. | + +--------+ + + + documented in this encounter Results CRISTO Digital Screening Bilateral (03/03/2017 3:19 PM PDT) + + | Specimen | + + | | + + + + + | Narrative | Performed At | + + + | EXAMINATION: CRISTO SCREEN OUTPATIENT HISTORY: screen | | | COMPARISON STUDY: February 15, 2004 TECHNIQUE: Synthesized 2D and | | | tomographic images were evaluated. Computer-aided detection | | | analysis was performed and included in the interpretation of this | | | study. FINDINGS: Breast parenchyma has scattered fibroglandular | | | elements. No dominant mass, architectural distortion or new | | | suspicious cluster of microcalcification is seen. IMPRESSION: | | | BIRADS Category 1. Negative mammogram. Screening mammogram is | | | recommended 1 year. COMMENT: 1. A negative or "no | | | suspicious findings" mammogram report should not delay biopsy if | | | clinical suspicious findings are present. 2. About 7% of | | | breast cancers are not visible on mammogram. 3. Dense | | | breasts can obscure significant breast masses. COMMENT: BIRADS | | | category 0 Incomplete: Needs additional imaging evaluation. BIRADS | | | category 1 Negative mammogram. BIRADS category 2 Benign findings. | | | BIRADS category 3 Probably benign finding, short interval follow-up | | | suggested. BIRADS category 4 Suspicious for/of malignancy. BIRADS | | | category 5 Highly suggestive for/of malignancy. JOB #: [id number] | | | Digitally Released by: Sven Bello Read By: SVEN Dunn | | | MD EUGENIA Date: 03/03/2017 17:32 | | + + + + + | Procedure Note | + + | Leandro, Rad Results In - 11/04/2017 12:26 PM PST EXAMINATION: | | CRISTO SCREEN OUTPATIENT | | | | HISTORY: | | screen | | | | COMPARISON STUDY: | | February 15, 2004 | | | | TECHNIQUE: | | Synthesized 2D and tomographic images were evaluated. Computer-aided | | detection analysis was performed and included in the interpretation of this | | study. | | | | FINDINGS: | | Breast parenchyma has scattered fibroglandular elements. No dominant mass, | | architectural distortion or new suspicious cluster of microcalcification is | | seen. | | | | | | IMPRESSION: | | BIRADS Category 1. Negative mammogram. Screening mammogram is recommended 1 | | year. | | | | COMMENT: | | 1. A negative or "no suspicious findings" mammogram report should not | | delay biopsy if clinical suspicious findings are present. | | 2. About 7% of breast cancers are not visible on mammogram. | | 3. Dense breasts can obscure significant breast masses. | | | | COMMENT: | | BIRADS category 0 Incomplete: Needs additional imaging evaluation. | | BIRADS category 1 Negative mammogram. | | BIRADS category 2 Benign findings. | | BIRADS category 3 Probably benign finding, short interval follow-up suggested. | | BIRADS category 4 Suspicious for/of malignancy. | | BIRADS category 5 Highly suggestive for/of malignancy. | | | | | | | | JOB #: [id number] | | Digitally Released by: Sven Bello | | | | | | Read By: SVEN BELLO MD | | Date: 03/03/2017 17:32 | | | + + documented in this encounter Visit Diagnoses Not on filedocumented in this encounter
--- OUTSIDE RECORDS SUMMARY | ~2020-05-20 | XMS | Encounter Summary ---
Demographics + + + | Address | [address] | | | [address] | | | [place] [address] | + + + | Home Phone [...] | | | | | [place] [address] | | + + + + + | Allegra Raza | ECON | Unknown | | + + + + + | Emily Fuller | ECON | Unknown | | + + + + + Care Team Providers + +------+ + | Care Spring Upholsterer Name | Role | Phone | + [...] Medication Refill | | 2017 | | [facility] | Goins, STROKE PROGRAM COORDINATOR [address] | | | | | CL[address] [place], [place] | | | | | [address] [place], | [address] | | | | | [place] [address] | | | | | | [phone] | | | +--------+--------+ + + + [...] | | | | | | [place] [address] | | | | | | [phone] | | | | | | | | +--------+---------+ + + + | 01/21/ | Office | Neurology | Brock Hammond MD | | | 2020 | Visit | | [address] | | | | | | [place] | | | | | | [address] | | | | | | | | +--------+---------+ + + + documented as of this encounter Visit Diagnoses Not on filedocumented in this encounter"
--- OUTSIDE RECORDS SUMMARY | ~2020-05-20 | XMS | Encounter Summary ---
Demographics + + + | Address | [address] | | | [address] | | | [place] [address] | + + + | Home Phone [...] | | | | | [place] [address] | | + + + + + | Allegra Raza | ECON | Unknown | | + + + + + | Emily Fuller | ECON | Unknown | | + + + + + Care Team Providers + +------+ + | Care Vault Attendant Name | Role | Phone | [...] Medication Refill | | 2016 | | [facility] | [address] [facility] [address] MD | | | | | MEDICAL CL[facility] [address] | [facility], [place] | | | | | [address] [facility], | [address] | | | | | [place] [address] | [phone] | | | | | [phone] | | | +--------+--------+ + + + [...] | | | | | | [place] [address] | | | | | | [phone] | | | | | | | [...]
--- OUTSIDE RECORDS SUMMARY | ~2020-05-20 | XMS | Encounter Summary ---
Demographics + + + | Address | [address] | | | [address] | | | [place] [address] | + + + | Home Phone [...] | | | | | [place] [address] | | + + + + + | Allegra Raza | ECON | Unknown | | + + + + + | Emily Fuller | ECON | Unknown | | + + + + + Care Team Providers + +------+ + | Care Soda Dialyzer Name | Role | Phone | + [...] [facility] | Goins, ANIMAL HUSBANDRY WORKER [address] | | | | | CLIN[address] [place], [place] | | | | | [address] [place] [place], | [address] | | | | | [place] [address] | | | | | | [phone] | | | +--------+--------+ + + + [...] | | | | | | [place] [address] | | | | | | [phone] | | | | | | | | +--------+---------+ + + + | 01/21/ | Office | Neurology | Brock Hammond MD | | | 2020 | Visit | | [address] | | | | | | [place] | | | | | | [address] | | | | | | | | +--------+---------+ + + + documented as of this encounter Visit Diagnoses Not on filedocumented in this encounter"
--- OUTSIDE RECORDS SUMMARY | ~2020-05-20 | XMS | Encounter Summary ---
Demographics + + + | Address | [address] | | | [address] | | | [place] [address] | + + + | Home Phone [...] | | | | | [place] [address] | | + + + + + | Allegra Raza | ECON | Unknown | | + + + + + | Emily Fuller | ECON | Unknown | | + + + + + Care Team Providers + +------+ + | Care Teacher Visually Impaired Name | Role | Phone | + [...] | | [address] | [facility], | | | | | [facility], [place] | [place] [address] | | | | | [address] | [phone] | | | | | [phone] | | | +--------+ + + + [...] | | | | | | [place] [address] | | | | | | [phone] | | | | | | | | +--------+---------+ + + + | 01/21/ | Office | Neurology | Brock Hammond MD | | | 2020 | Visit | | [address] | | | | | | [place] | | | | | | [address] | | | | | | | | +--------+---------+ + + + documented as of this encounter Visit Diagnoses Not on filedocumented in this encounter"
--- OUTSIDE RECORDS SUMMARY | ~2020-05-20 | XMS | Encounter Summary ---
Demographics + + + | Address | [address] | | | [address] | | | [place] [address] | + + + | Home Phone [...] | | | | | [place] [address] | | + + + + + | Allegra Raza | ECON | Unknown | | + + + + + | Emily Fuller | ECON | Unknown | | + + + + + Care Team Providers + +------+ + | Care General Office Associate Name | Role | Phone | + +------+ + PCP | Unavailable | + +------+ + Encounter Details +--------+ + + + + | Date | Type | Department | Care Team | Description | +--------+ + + + + | 12/09/ | Hospital | [facility] | Brock Hammond MD | | | 2011 | Encounter | HOSPITAL LABORATORY | [address] | | | | | [address] | [place] | | | | | [place] | [address] | | | | | [address] | | | | | | [phone] | | | +--------+ + + + [...] | | | | | | [place] [address] | | | | | | [phone] | | | | | | | | +--------+---------+ + + + | 01/21/ | Office | Neurology | Brock Hammond MD | | | 2020 | Visit | | [address] | | | | | | [place], [place] | | | | | | [address] | | | | | | | | +--------+---------+ + + + documented as of this encounter Visit Diagnoses Not on filedocumented in this encounter"
--- OUTSIDE RECORDS SUMMARY | ~2020-05-20 | XMS | Encounter Summary ---
Demographics + + + | Address | [address] | | | [address] | | | [place] [address] | + + + | Home Phone [...] | | | | | [place] [address] | | + + + + + | Allegra Raza | ECON | Unknown | | + + + + + | Emily Fuller | ECON | Unknown | | + + + + + Care Team Providers + +------+ + | Care Coal Briquette Machine Operator Name | Role | Phone | + +------+ + PCP | Unavailable | + +------+ + Encounter Details +--------+ + + + + | Date | Type | Department | Care Team | Description | +--------+ + + + + | 07/24/ | Hospital | [facility] | Regina Zarate | | | 2008 | Encounter | HOSPITAL MED SURG | [address] | | | | | [address] | [facility], | | | | | [facility] [place] | [place] [address] | | | | | [address] | [phone] | | | | | [phone] | | | +--------+ + + + [...] documented as of this encounter Miscellaneous Notes Op Note - Tessa Regina Riley - 07/24/2009 12:09 PM PDTDictating Practitioner: Carlo Riley MD Cc: Emmanuelle Frank MD OPERATIVE REPORT DATE OF SURGERY: July 24, 2009. PREOPERATIVE DIAGNOSIS: Bleeding per rectum. POSTOPERATIVE DIAGNOSIS: Bleeding per rectum. PROCEDURE: Colonoscopy. SURGEON: Mel Riley MD ANESTHESIA: IV sedation. INDICATIONS: The patient is a 44-year-old female with episodes of bleeding per rectum, also had positive heme-occult stools. At this time she is scheduled to undergo colonoscopy to rule out any s erious colonic pathology responsible for her blood loss in the stool. Proper consent was obtained from the patient after describing all the risks and benefits of the procedure and she was scheduled for a colonoscopy. DESCRIPTION OF PROCEDURE: Proper consent was obtained from the patient after describing all the risks and benefits of the procedure and she was scheduled for a colonoscopy. The patient was taken to the endoscopy suite and laid supine on the gurney. She was given s upplemental oxygen through a nasal cannula and connected to appropriate monitoring device. Next, the patient was placed in the left lateral decubitus position and given IV sedation. Once she was adequately sedated we started with the procedure. We started by introducing fiberoptic endoscope into the rectum which was maneuvered into th e sigmoid colon to the descending colon. The scope was then passed around the splenic flexur e into the ascending colon into the transverse colon and continued to be advanced through the hepatic flexure to the ascending colon up to the level of the cecum. The ileal cecal valve and appendiceal lumen was visualized. Irrigation was performed at thi s spot to flush a film of liquid stool to facilitate better visualization. No masses or polyps were seen here. The scope was slowly withdrawn while ins pecting circumferential mucosa of the colon. Irrigations were performed with saline solutio n at different areas to facilitate better visualization. However, no masses, polyps, or other lesions were noted in the ascending, transverse, or descending col on. As the scope was withdrawn the colon was desufflated in the rectum. No masses, polyps, lesions were noted in the anorectal area including the hemorrhoids appear normal. The rectum was desufflated before removing the scope from the rectum conclu ding the procedure. The patient tolerated the procedure well and was taken to the recovery room in stable condition. [facility] Signed and Approved by: MEL RILEY MD 08/15/2009 11:54:00 documented in this encounter Plan of Treatment +--------+---------+ + + + | Date | Type | Specialty | Care Team | Description | +--------+---------+ + + + | 05/22/ | Office | Neurology | Romeo, | | | 2019 | Visit | | [address] | | | | | | [address] [facility], | | | | | | [place] [address] | | | | | | [phone] | | | | | | | | +--------+---------+ + + + | 01/21/ | Office | Neurology | Brock Hammond MD | | | 2020 | Visit | | [address] | | | | | | [place] | | | | | | [id number] | | | | | | | | +--------+---------+ + + + documented as of this encounter Visit Diagnoses Not on filedocumented in this encounter"
--- OUTSIDE RECORDS SUMMARY | ~2020-05-20 | XMS | Encounter Summary ---
Demographics + + + | Address | [address] | | | [address] | | | [place] [address] | + + + | Home Phone [...] | | | | | [place] [address] | | + + + + + | Allegra Raza | ECON | Unknown | | + + + + + | Emily Fuller | ECON | Unknown | | + + + + + Care Team Providers + +------+ + | Care Earth Science Technical Officer Name | Role | Phone | [...] [place] | | | | | | [address] | [address] | | | | | | Phone: | Phone: | | | | | | [phone] | [phone] | | | | | | Fax: | Fax: | | | | | | [phone] | [phone] | +--------+ + + + + + [...] status migrainosus, | | | | [place] [address] | | not intractable; | | | | [phone] | | Chronic midline low | | | | | | back pain without | | | | | | sciatica; Myalgia; | | | | | | Neck pain, | | | | | | bilateral; Seizure | | | | | | ([facility]); Chronic pain | | | | | [...] be different from the original. Patient Instructions [facility] Neurology Clinic Dr. Brock Hammond, Neurologist Date:03/07/2019 [...] with Differential Comprehensive Metabolic Panel Levetiracetam Level [facility] Physical Therapy, External - AMB Referral Treatment Option- massage, Acupuncture, Over the counter heat patches (icy hot, thermacare, salonpas) , over the counter creams (aspercream, bengay cream, emu oi l), Relaxation therapy, Water therapy, Cortisone shots, Toradol Injections Suggest reading newspapers. magazines, perform word find exercises such as cross word puzz le, and scrabble, other puzzle games like Q-Sensei, [employer]. Play computer/mobile applications such as [employer] Toradol 60 mg IM for intractable neck and low back pain, bilateral shoulder pain Tizanidine 4 mg twice a day for spasms Continue Keprra 500 mg twice a day Any Questions please call ELOINA Peterson or Dr. Hammond at [facility] Neurology Clinic General Neck and Back Pain [...] are taking other medicines. You may use rpiq-mrh-eztycfq medicine to control pain, unless another pain [...] by your healthcare provider Date Last Reviewed: 04/24/201619991943-4414 The [employer]. [address] [place] [address], [place] [address]. All righ ts reserved. This information is [...] teens without first discussing it with your [facility]'s healthcare provider. Ice Ice reduces muscle pain [...] use ice several times a day. Medicines Cynz-sma-leykere pain relieversincludeacetaminophen and anti-inflammatory medicines, wh ich [...] heating p ad. Date Last Reviewed: 03/25/2018 [employer]. [address] [place] [address], [place] [address]. All [facility] ts reserved. This information is not intended [...] medicines for your pain. You may use ulap-wgu-kxkjoqu or prescription medici tracie. You may need [...] your needs. This may include: Stretching and yuevs-gr-ikfxmm exercises Low-impact exercise such as walking, biking, [...] more support and information, contact these groups: Mexican Academy of Pain Management, www.aapainmanage.org Mexican Academy of Pain Medicine, www.painmed.org Mexican Chronic Pain Association, www.theacpa.org National Pain Foundation, www.thenationalpainfoundation.org Date Last Reviewed: 09/24/201719992229-6773 [employer]. [address] [id number]. All righ ts reserved. This information is [...] early if it happens. Date Last Reviewed: 02/22/201819999688-6784 [employer]. [address] [place] [address]. All righ ts reserved. This information is [...] Nonsteroidal anti-inflammatory drugs (such as ibuprofen, available ozye-yej-uuyxocj) ? Beta-blockers ? Anticonvulsants ? Tricyclic antidepressants [...] of caffeine you consume. Date Last Reviewed: 02/22/201819990534-6137 [employer]. [address] [place] [address]. All righ ts reserved. This information is [...] unless you ve been trained by a [facility] provider. Speak quietly to the person as [...] Alcohol or drug withdrawal Date Last Reviewed: 08/25/201719997026-9348 [employer]. [address] [place] [address]. All righ ts reserved. This information is not intended as a substitute for professional medical care. Always follow your healthcare professional's instructions. documented in this encounter Progress Notes Zenon Garcia [facility] - 03/07/2019 8:30 AM PDTToradol injection given 60 mg IM left ve ntrogluteal muscle, no adverse reactions noted, per pt has had medication before. Electronically signed by: MAR Morse CMA 03/07/2019 9:19 Brock Izquierdo MD - 0 03/07/2019 8:30 AM PDT Patient: Koki Raza Medical Record: [id number] Date of Services: 03/07/2019 Referring Doctor: Aisha [...] acupuncture treatments, massage therapy, relaxation t herapy, snyt-fuc-lsfwygz creams and patches, CBD, and cortisone shots. She elected to under go PT/OT in [facility] in [place]. In the meantime, we will perform x-rays [...] CEREBELLAR EXAMINATION: There is no dysmetria on rwokar-pu-cjir test. MISCELLANEOUS EXAM: Atraumatic, no evidence of [...] migranous Chronic pain syndrome Plan: Patient Instructions [facility] Neurology Clinic Dr. Brock Hammond, Neurologist Date:03/07/2019 [...] with Differential Comprehensive Metabolic Panel Levetiracetam Level [facility] Physical Therapy, External - AMB Referral Treatment Option- massage, Acupuncture, Over the counter heat patches (icy hot, thermacare, salonpas) , over the counter creams (aspercream, bengay cream, emu oi l), Relaxation therapy, Water therapy, Cortisone shots, Toradol Injections Suggest reading newspapers. magazines, perform word find exercises such as cross word puzz le, and scrabble, other puzzle games like [employer]ensei, [employer]. Play computer/mobile applications such as [employer] (formerly [employer]) and [employer] GAMES Toradol 60 mg IM for intractable neck and low back pain, bilateral shoulder pain Tizanidine 4 mg twice a day for spasms Continue Keprra 500 mg twice a day Any Questions please call ELOINA Peterson or Dr. Hammond at [facility] Neurology Clinic General Neck and Back Pain [...] are taking other medicines. You may use iija-mgp-izteolc medicine to control pain, unless another pain [...] by your healthcare provider Date Last Reviewed: 04/24/201619997539-8178 [employer]. [address] [place] [address], [place] [address]. All righ ts reserved. This information is [...] teens without first discussing it with your [facility]'s healthcare provider. Ice Ice reduces muscle pain [...] use ice several times a day. Medicines Nsns-lef-vzxiarc pain relieversincludeacetaminophen and anti-inflammatory medicines, wh ich [...] a heating p ad. Date Last Reviewed: 03/25/201819999384-7475 The [employer]. [address] [place] [address]. All righ ts reserved. This information is [...] medicines for your pain. You may use jjtd-tfl-iqmnmhy or prescription medici tracie. You may need [...] your needs. This may include: Stretching and hzcjz-pm-akjfpo exercises Low-impact exercise such as walking, biking, [...] more support and information, contact these groups: Mexican Academy of Pain Management, www.aapainmanage.org Mexican Academy of Pain Medicine, www.painmed.org Mexican Chronic Pain Association, www.theacpa.org National Pain Foundation, www.thenationalpainfoundation.org Date Last Reviewed: 09/24/201719992809-9485 [employer]. [address] [place] [address], [place] [address]. All righ ts reserved. This information is [...] early if it happens. Date Last Reviewed: 02/22/201819993194-1978 The [employer]. [address] [place] [address]. All righ ts reserved. This information is [...] Nonsteroidal anti-inflammatory drugs (such as ibuprofen, available mctp-bql-gdlruoi) ? Beta-blockers ? Anticonvulsants ? Tricyclic antidepressants [...] of caffeine you consume. Date Last Reviewed: 02/22/201819994613-9770 The [employer]. [address] [place] [address], [place] [address]. All righ ts reserved. This information is [...] unless you ve been trained by a [facility] provider. Speak quietly to the person as [...] Alcohol or drug withdrawal Date Last Reviewed: 08/25/201719992389-6480 The [employer]. [address] [place] [address], [place] [address]. All righ ts reserved. This information is not intended as a substitute for professional medical care. Always follow your healthcare professional's instructions. Brock [place] MD03/07/20199:14 Electronically signed NOTE: Part of this report was transcribed using voice recognition software. Every effort was made to ensure accuracy. However, inadvertent computerize mixing machine tender cork gasket errors may be present documented in this [...] | | | | | | [place] [address] | | | | | | [phone] | | | | | | | | +--------+---------+ + + + | 01/21/ | Office | Neurology | Brock Hammond MD | | | 2020 | Visit | | [address] | | | | | | [place] | | | | | | [phone] | | | | | | | [...] to | | | | | | [email or web address] | | | | | | [email or web address] | | | | | | (This [...] Ph.D., | | | | | | Phlebotomy Tech | | | | | | [address] [facility] | | | | | | [place] [address] | | | | | | RADHA #[id number] | | | | + + + + + + + + | Specimen | + + | Blood | + + + + + + + | Performing | Address | City/State/Zipcode | Phone Number | | Organization | | | | + + + + + | REFERENCE LAB | [address] [facility] | [place] | | | [facility] - | | [address] | | | [place] | | [...] | mL/min/1.73m2 | [facility] | | | [facility]EL[facility] | RATE,ESTIMATED | | HOSPITAL | | | | mL/min/1.24d6Lqdo than | | LABORATORY | | | [...] + + | [facility] | [address] | [place], [place] | [phone] | | HOSPITAL LABORATORY | | [address] | | + + + + + [...] + + | [facility] | [address] | [place] | [phone] | | HOSPITAL LABORATORY | | [address] | | + + + + + [...] posterior fusion.Age-indeterminate T5 | | compression.Dictated by: Svne Ogdenectronically Signed by: Sven Etienne on | [...]
--- OUTSIDE RECORDS SUMMARY | ~2020-05-20 | XMS | Encounter Summary ---
Demographics + + + | Address | [address] | | | [address] | | | [place] [address] | + + + | Home Phone [...] | | | | | [place] [address] | | + + + + + | Allegra Raza | ECON | Unknown | | + + + + + | Emily Fuller | ECON | Unknown | | + + + + + Care Team Providers + +------+ + | Care Business Intelligence Engineer Name | Role | Phone | [...] 2017 | | [facility] | MD Ayesha [address] | | | | | CLIN[address] | [place] | | | | | [address], | [place] [address] | | | | | [place] [address] | [phone] | | | | | [phone] | | | +--------+--------+ + + + [...] | | | | | | [place] [address] | | | | | | [phone] | | | | | | | | +--------+---------+ + + + | 01/21/ | Office | Neurology | Brock Hammond MD | | | 2020 | Visit | | [address] | | | | | | [place] | | | | | | [address] | | | | | | | | +--------+---------+ + + + documented as of this encounter Visit Diagnoses Not on filedocumented in this encounter"
--- OUTSIDE RECORDS SUMMARY | ~2020-05-20 | XMS | Encounter Summary ---
Demographics + + + | Address | [address] | | | [address] | | | [place] [address] | + + + | Home Phone [...] | | | | | [place] [address] | | + + + + + | Allegra Raza | ECON | Unknown | | + + + + + | Emily Fuller | ECON | Unknown | | + + + + + Care Team Providers + +------+ + | Care Fish Receiver Name | Role | Phone | + [...] [address] [place] | [facility], | | | | | [place], [place] | [place] [address] | | | | | [address] | [phone] | | | | | [phone] | | | +--------+ + + + [...] | | | | | | [place] [address] | | | | | | [phone] | | | | | | | | +--------+---------+ + + + | 01/21/ | Office | Neurology | Brock Hammond MD | | | 2020 | Visit | | [address] | | | | | | [place] | | | | | | [address] | | | | | | | | +--------+---------+ + + + documented as of this encounter Visit Diagnoses Not on filedocumented in this encounter"
--- OUTSIDE RECORDS SUMMARY | ~2020-05-20 | XMS | Clinical Summary ---
Demographics + + + | Address | [address] | | | [address] | | | [place] [address] | + + + | Home Phone [...] | | | | | [place] [address] | | + + + + + | Allegra Raza | ECON | Unknown | | + + + + + | Emily Fuller | ECON | Unknown | | + + + + + Care Team Providers + +------+ + | Care Supervisor Word Processing Name | Role | Phone | + +------+ + | Luna Cyr | PIERRE | | + +------+ + Allergies + + + + + + | Active Allergy | Reactions | Severity | Noted | Comments | | | | | Date | | + + + + + + | Adhesive & Tape | Rash | Low | 03/07/20 | | | | | | 19 | | + + + + + + | Ciprofloxacin | Other (See Comments) | Medium | 03/17/20 | Angry | | | | | 16 | | + + + + + + | Peanut Butter | Photosensitivity | | 11/15/19 | | | | | | 18 | | + + + + + + | Prochlorperazine | Other (See | High | 08/01/20 | | | | Comments), Anxiety, | | 08 | | | | Hallucination | | | | + + + + + + Medications + + + +---------+------+------+-------+ | Medication | Sig | Dispensed | Refills | Star | End | Statu | | | | | | t | Date | s | | | | | | Date | | | + + + +---------+------+------+-------+ | VENTOLIN HFA 108 | inhale 2 puffs by | 18 g | 11 | 03/2 | | Activ | | (90 Base) MCG/ACT | mouth every 4 to 6 | | | 9/20 | | e | | inhalerIndications: | hours if needed for | | | 18 | | | | Asthma, unspecified | cough and shortness | | | | | | | asthma severity, | of breath | | | | | | | unspecified whether | | | | | | | | complicated, | | | | | | | | unspecified whether | | | | | | | | persistent | | | | | | | + + + +---------+------+------+-------+ | ondansetron | | | 0 | 02/1 | | Activ | | (ZOFRAN) 4 mg tablet | | | | 11/13 | | e | | | | | | 19 | | | + + + +---------+------+------+-------+ | SUMAtriptan | take 1 tablet by | 12 | 5 | 07/2 | | Activ | | (IMITREX) 100 mg | mouth AT ONSET OF | tablet | | 07/14 | | e | | tablet | HEADACHE MAY REPEAT | | | 19 | | | | | ONCE AFTER 45 | | | | | | | | MINUTES; NOT MORE | | | | | | | | THAN 2 TABLETS DAILY | | | | | | + + + +---------+------+------+-------+ | ondansetron | take 1 tablet by | 30 | 2 | 10/0 | | Activ | | (ZOFRAN) 4 mg tablet | mouth every 8 hours | tablet | | /20 | | e | | | if needed for nausea | | | 19 | | | | | for UP TO 30 DAYS | | | | | | + + + +---------+------+------+-------+ | diclofenac | take 1 tablet by | | 0 | 03/1 | | Activ | | (CATAFLAM) 50 MG | mouth three times a | | | 2/20 | | e | | tablet | day if needed for | | | 20 | | | | | pain | | | | | | + + + +---------+------+------+-------+ | docusate sodium | Take 100 mg by mouth | | 0 | | | Activ | | (COLACE) 100 mg | 2 times daily. | | | | | e | | capsule | | | | | | | + + + +---------+------+------+-------+ | DULoxetine | take 1 capsule by | | 0 | 03/2 | | Activ | | (CYMBALTA) [address] | mouth twice a day | | | 4/20 | | e | | capsule | | | | 20 | | | + + + +---------+------+------+-------+ | levothyroxine | take 1 tablet by | | 0 | 03/2 | | Activ | | (SYNTHROID) 50 mcg | mouth once daily | | | 4/20 | | e | | tablet | WITHOUT FOOD | | | 20 | | | + + + +---------+------+------+-------+ | lidocaine | apply 1 to 2 patches | | 0 | 02/1 | | Activ | | (LIDODERM) 5% patch | topically to | | | 0/20 | | e | | | affected area AND | | | 20 | | | | | WEAR FOR 12 H... | | | | | | | | (REFER TO | | | | | | | | PRESCRIPTION NOTES). | | | | | | + + + +---------+------+------+-------+ | losartan (COZAAR) | take 1 tablet by | | 0 | 03/1 | | Activ | | 50 mg tablet | mouth once daily | | | 2/20 | | e | | | | | | 20 | | | + + + +---------+------+------+-------+ | levETIRAcetam | Take 1 tablet by | 60 | 11 | 03/3 | | Activ | | (KEPPRA) 750 MG | mouth 2 times daily. | tablet | | 0/20 | | e | | tabletIndications: | | | | 20 | | | | Complex partial | | | | | | | | seizures with | | | | | | | | consciousness | | | | | | | | impaired (HCC) | | | | | | | + + + +---------+------+------+-------+ | tiZANidine | take 1 tablet by | 60 | 4 | 05/0 | | Activ | | (ZANAFLEX) 4 mg | mouth twice a day if | tablet | | 7/20 | | e | | tablet | needed for UP TO 30 | | | 20 | | | | | DAYS | | | | | | + + + +---------+------+------+-------+ | gabapentin | take 1 tablet by | 90 | 11 | 06/2 | 07/2 | Expir | | (NEURONTIN) 600 MG | mouth three times a | tablet | | 2/20 | 2/20 | ed | | tablet | day | | | 20 | 20 | | + + + +---------+------+------+-------+ Active Problems + + + | Problem | Noted Date | + + + | Chronic neck and back pain | 01/18/2020 | + + + + + | Overview: Current Treatment: PT/OT in [facility] | | [facility] 03/07/19 Cervical XR:No acute | | process.Prior C5-C7 anterior posterior fusion.Age-indeterminate | | T5 compression. | + + + + + | Neck pain, bilateral | 03/07/2019 | + + + | Chronic anemia | 02/05/2017 | + + + | Compression fracture of thoracic vertebra | 11/11/2015 | + + + + + | Overview: T3, T5 | + + + + + | Carpal tunnel syndrome | 10/28/2015 | + + + + + | Overview: 04/12/18: bilateral- persistent symptoms. | | Recommend wearing night wrist splints at this time. | + + + + + | Radiculopathy, lumbosacral region | 10/28/2015 | + + + | Myalgia | 07/26/2012 | + + + + + | Overview: Overview: | | update by system | + + + + + | Osteoarthrosis | 07/26/2012 | + + + + + | Overview: Overview: | | IMO Problem List Replacement - 2016_Regulatory_1 | + + + + + | Hypothyroidism | 07/26/2012 | + + + + + | Overview: Overview: | | On levothyroxin 50mcg daily | | | | Dx Name changed by system update on 08/06/2017 | + + + + + | Sprain of right coracohumeral ligament | 07/01/2011 | + + + | Essential hypertension | 06/24/2011 | + + + | Arthritis | 03/25/2011 | + + + | Bipolar disorder | 03/25/2011 | + + + | Cervical radiculopathy | 03/25/2011 | + + + + + | Overview: cervical fusion, 2009, surgery X3 04/12/18: | | PT/OT ordered, cervical trigger point injection recommended. | + + + + + | Complex partial seizures with consciousness impaired | 03/25/2011 | + + + + + | Overview: Seizures, complex partial with secondary | | generalization 04/12/17: Currently on Keppra 500 mg BID. She | | has been seizure free x 3 year. | + + + + + | GERD (gastroesophageal reflux disease) | 03/25/2011 | + + + | Hypothyroid | 03/25/2011 | + + + | Migraine | 03/25/2011 | + + + + + | Overview: Current Treatment: sumatriptan, gabapentin, | | Cymbalta | + + + + + | Unspecified hearing loss, unspecified ear | 03/25/2011 | + + + | Depression with anxiety | 09/12/2009 | + + + | Chronic low back pain without sciatica | 08/31/2008 | + + + Encounters +--------+ + + + + | Date | Type | Specialty | Care Team | Description | +--------+ + + + + | 04/26/ | Refill | Neurology | Aisha Carrington, | Medication Refill | | 2019 | | | DO | | +--------+ + + + + | 04/15/ | Refill | Neurology | Brock Hammond MD | Medication Refill | | 2019 | | | | | +--------+ + + + + | 04/15/ | Refill | Neurology Aisha Arreola, | Medication Refill | | 2019 | | | DO | | +--------+ + + + + | 03/06/ | Telephone | Neurology | Brock Hammond MD | Medication Question | | 2019 | | | | | +--------+ + + + + | 02/27/ | Refill | Neurology | Brock Hammond MD | Medication Refill | | 2019 | | | | | +--------+ + + + + from Last 3 Months Immunizations + + + + | Name | Administration Dates | Next Due | + + + + | INFLUENZA PF | 10/08/2010, 08/01/2008 | | | TRIVALENT(PED/ADOL/A | | | | JULIANA)CECY | | | + + + + | TDAP, (ADOL/ADULT) | 08/01/2008 | | + + + + Social History + [...] | | + + + + + Plan of Treatment +--------+---------+ + + + | Date | Type | Specialty | Care Team | Description | +--------+---------+ + + + | 05/22/ | Office | Neurology | [place]o, | | | 2019 | Visit | | [address] | | | | | [address] [place], | | | | | | [place] [address] | | | | | | [phone] | | | | | | | | +--------+---------+ + + + | 01/21/ | Office | Neurology | Brock Hammond MD | | | 2020 | Visit | | [address] | | | | | | [place] | | | | | | [address] | | | | | | | | +--------+---------+ + + + + + + + + | Health Maintenance | Due Date | Last | Comments | | | | Done | | + + + + + | Hepatitis C | | | | | Screening | 3 | | | + + + + + | Medication | | | | | Management | 3 | | | + + + + + | Cervical Cancer | | | | | Screening (Pap) | 3 | | | + + + + + | Colorectal Cancer | | | | | Screening | 3 | | | | (Colonoscopy) | | | | + + + + + | Vaccine: Zoster (1 | | | | | of 2) | 3 | | | + + + + + | Med Mgmt: TSH | | 07/21/20 | | | | 8 | 17, | | | | | 02/06/20 | | | | | 17, | | | | | 02/21/20 | | | | | 14 | | + + + + + | Breast Cancer | | 03/03/20 | | | Screening | 9 | 17 | | + + + + + | Primary Care | | 01/22/20 | | | Outreach (Intense | 0 | 20, | | | Risk) | | 03/07/20 | | | | | 19 | | + + + + + | Vaccine: Influenza | | 07/11/20 | | | (#1) | 0 | 16, | | | | | 07/30/20 | | | | | 12, | | | | | 08/06/20 | | | | | 11, | | | | | Addition | | | | | al | | | | | history | | | | | exists | | + + + + + | Med Mgmt: BUN | | 01/22/20 | | | | 1 | 20, | | | | | 03/07/20 | | | | | 19, | | | | | 03/23/20 | | | | | 17, | | | | | Addition | | | | | al | | | | | history | | | | | exists | | + + + + + | Med Mgmt: Cr | | 01/22/20 | | | | 1 | 20, | | | | | 03/07/20 | | | | | 19, | | | | | 03/23/20 | | | | | 17, | | | | | Addition | | | | | al | | | | | history | | | | | exists | | + + + + + | Med Mgmt: K | | 01/22/20 | | | | 1 | 20, | | | | | 03/07/20 | | | | | 19, | | | | | 03/23/20 | | | | | 17, | | | | | Addition | | | | | al | | | | | history | | | | | exists | | + + + + + | Med Mgmt: eGFR | | 01/22/20 | | | | 1 | 20, | | | | | 03/07/20 | | | | | 19, | | | | | 03/23/20 | | | | | 17, | | | | | Addition | | | | | al | | | | | history | | | | | exists | | + + + + + | Vaccine: | | 07/11/20 | | | Dtap/Tdap/Td (4 - | 6 | 16, | | | Td) | | 08/06/20 | | | | | 11, | | | | | 08/01/20 | | | | | 08 | | + + + + + Results Not on filefrom Last 3 Months Insurance +-------+--------+ +--------+-------+---------+------+ | Payer | Benefi | Subscriber | Effect | Phone | Address | Type | | | t Plan | ID | lio | | | | | | / | | Dates | | | | | | Group | | | | | | +-------+--------+ +--------+-------+---------+------+ | BCBS | BCBS | [id number] | 10/25/19 | | | PPO | | | FEDERA | | 17-Pre | | | | | | L FEP | | sent | | | | +-------+--------+ +--------+-------+---------+------+ + +--------+ +--------+ + + | Guarantor Name | Accoun | Relation to | Date | Phone | Billing Address | | | t Type | Patient | of | | | | | | | | | | + +--------+ +--------+ + + | Koki Raza | Person | Self | [birth year] | [address] | | | al/Fam | | 1965 | [phone] | [address] | | | juliet | | | [address] (Home) | [place] [address] | + +--------+ +--------+ + + Advance Directives + + + + + | Type | Date Recorded | Patient | Explanation | | | | Socket Welder Helper | | + + + + + | Power of | | | | | Lens Shaper Grinder | | | | + + + + + | Advance | 01/22/2020 2:46 | | | | Directive | PM | | | + + + + +
--- OUTSIDE RECORDS SUMMARY | ~2020-05-20 | XMS | Encounter Summary ---
Demographics + + + | Address | [address] | | | [address] | | | [place] [address] | + + + | Home Phone [...] | | | | | [place] [address] | | + + + + + | Allegra Raza | ECON | Unknown | | + + + + + | Emily Fuller | ECON | Unknown | | + + + + + Care Team Providers + +------+ + | Care Grinder Operator Automatic Name | Role | Phone | + +------+ + PCP | Unavailable | + +------+ + Encounter Details +--------+ + + + + | Date | Type | Department | Care Team | Description | +--------+ + + + + | 04/20/ | Hospital | [facility] | Brock Hammond MD | | | 2016 | Encounter | [facility] | [address] | | | | | [facility] [address] | [place], [place] | | | | | [address] [facility], | [address] | | | | | [place] [address] | | | | | | [phone] | | | +--------+ + + + [...] | | | | | | [place] [address] | | | | | | [phone] | | | | | | | | +--------+---------+ + + + | 01/21/ | Office | Neurology | Brock Hammond MD | | | 2020 | Visit | | [address] | | | | | | [place], [place] | | | | | | [address] | | | | | | | | +--------+---------+ + + + documented as of this encounter Visit Diagnoses Not on filedocumented in this encounter"
--- OUTSIDE RECORDS SUMMARY | ~2020-05-20 | XMS | Encounter Summary ---
Demographics + + + | Address | [address] | | | [address] | | | [place] [address] | + + + | Home Phone [...] | | | | | [place] [address] | | + + + + + | Allegra Raza | ECON | Unknown | | + + + + + | Emily Fuller | ECON | Unknown | | + + + + + Care Team Providers + +------+ + | Care Security Systems Sales Representative Name | Role | Phone | + +------+ + PCP | Unavailable | + +------+ + Encounter Details +--------+ + + + + | Date | Type | Department | Care Team | Description | +--------+ + + + + | 04/24/ | Hospital | [facility] | | | | 2002 | Encounter | MED CTR XRAY [address] | | | | | | [place] | | | | | | [place] [address] | | | | | | [phone] | | | +--------+ + + + [...] | | | | | | [place] [address] | | | | | | [phone] | | | | | | | [...]
--- OUTSIDE RECORDS SUMMARY | ~2020-05-20 | XMS | Encounter Summary ---
Demographics + + + | Address | [address] | | | [address] | | | [place] [address] | + + + | Home Phone [...] | | | | | [place] [address] | | + + + + + | Allegra Raza | ECON | Unknown | | + + + + + | Emily Fuller | ECON | Unknown | | + + + + + Care Team Providers + +------+ + | Care Travel Cota Name | Role | Phone | + +------+ + | Aisha Carrington DO | PCP | | + +------+ + Reason for Visit +--------+--------+ + | Reason | Onset | Comments | | | Date | | +--------+--------+ + | Other | 11/15/ | Please advise | | | 2018 | | +--------+--------+ + Encounter Details +--------+ + + + + | Date | Type | Department | Care Team | Description | +--------+ + + + + | 11/15/ | Telephone | [facility] | Brock Hammond MD | Other (Please | | 2018 | | HOSPITAL [facility] | [address] | advise) | | | | CLINIC [address] | [place] | | | | | [address] [place], | [phone] | | | | | [place] [address] | | | | | | [phone] | | | +--------+ + + + [...] Telephone Encounter - Brock Hammond MD - 11/15/2017 12:26 PM PSTCalled patient and appare ntly any type and not selected and even peanut butter worsens a migraine headachesElectronic ally signed by Brock Hammond MD at 11/15/2017 12:26 PM PSTTelephone Encounter - Antonio Elliott - 11/15/2017 9:07 AM PSTSaadina called and wants Dr. Hammond to know she thinks nuts are the contributing factor of her migraines. She asked to speak to Dr. Hammond about this. If he w ants to speak to her she will be available until noon today. Thanks Brenda documente d in this encounter Plan of [...] | | | | | | [place] [address] | | | | | | [phone] | | | | | | | | +--------+---------+ + + + | 01/21/ | Office | Neurology | Brock Hammond MD | | | 2020 | Visit | | [address] | | | | | | [place] | | | | | | [address] | | | | | | | | +--------+---------+ + + + documented as of this encounter Visit Diagnoses Not on filedocumented in this encounter"
--- OUTSIDE RECORDS SUMMARY | ~2020-05-20 | XMS | Encounter Summary ---
Demographics + + + | Address | [address] | | | [address] | | | [place] [address] | + + + | Home Phone [...] | | | | | [place] [address] | | + + + + + | Allegra Raza | ECON | Unknown | | + + + + + | Emily Fuller | ECON | Unknown | | + + + + + Care Team Providers + +------+ + | Care Colorman Name | Role | Phone | + [...] | | | | [place] | [address] | | | | | [address] | | | | | | [phone] | | | +--------+ + + + [...] | | | | | | [place] [address] | | | | | | [phone] | | | | | | | | +--------+---------+ + + + | 01/21/ | Office | Neurology | Brock Hammond MD | | | 2020 | Visit | | [address] | | | | | | [place], [place] | | | | | | [address] | | | | | | | | +--------+---------+ + + + documented as of this encounter Visit Diagnoses Not on filedocumented in this encounter"
--- OUTSIDE RECORDS SUMMARY | ~2020-05-20 | XMS | Encounter Summary ---
Demographics + + + | Address | [address] | | | [address] | | | [place] [address] | + + + | Home Phone | | + + + | Preferred Language | Unknown | + + + | Marital Status | Single | + + + | Adventist Affiliation | [id number] | + + + [...] | | | | | [place] [address] | | + + + + + | Allegra Raza | ECON | Unknown | | + + + + + | Emily Fuller | ECON | Unknown | | + + + + + Care Team Providers + +------+ + | Care Measurement Advisor Name | Role | Phone | [...] [address] | | | | | [place] [address] | | | | | | [phone] | | | +--------+--------+ + + + [...] | | | | | | [place] [address] | | | | | | [phone] | | | | | | | [...]
--- OUTSIDE RECORDS SUMMARY | ~2020-05-20 | XMS | Encounter Summary ---
Demographics + + + | Address | [address] | | | [address] | | | [place] [address] | + + + | Home Phone | | + + + | Preferred Language | Unknown | + + + | Marital Status | Single | + + + | Restoration Affiliation | 1009 | + + + | Race | Unknown | + + + | Ethnic Group | Unknown | + + + Author + + + | Author | [facility] | | | and Danielana | + + + | Organization | [facility] | [...] | | | | | [place] [address] | | + + + + + | Allegra Raza | ECON | Unknown | | + + + + + | Emily Fuller | ECON | Unknown | | + + + + + Care Team Providers + +------+ + | Care Glass Bulb Machine Adjuster Name | Role | Phone | + [...] | | | [place] | [place] [address] | | | | | [address] | [phone] | | | | | [phone] | (Fax) | | +--------+ + + [...] | | | | | | [place] [address] | | | | | | [phone] | | | | | | | | +--------+---------+ + + + | 01/21/ | Office | Neurology | Brock Hammond MD | | | 2020 | Visit | | [address] | | | | | | [place] | | | | | | [address] | | | | | | | | +--------+---------+ + + + documented as of this encounter Visit Diagnoses Not on filedocumented in this encounter"
--- OUTSIDE RECORDS SUMMARY | ~2020-05-20 | XMS | Encounter Summary ---
Demographics + + + | Address | [address] | | | [address] | | | [place] [address] | + + + | Home Phone [...] | | | | | [place] [address] | | + + + + + | Allegra Raza | ECON | Unknown | | + + + + + | Emily Fuller | ECON | Unknown | | + + + + + Care Team Providers + +------+ + | Care Chief Hydroelectric Station Operator Name | Role | Phone | [...] Medication Refill | | 2016 | | [facility] | Go[address], FEED CRUSHER OPERATOR [address] | | | | | CL[address] | [address] [place], [place] | | | | | [address] [place], | [address] | | | | | [place] [address] | | | | | | [phone] | | | +--------+--------+ + + + [...] | | | | | | [place] [address] | | | | | | [phone] | | | | | | | [...]
--- OUTSIDE RECORDS SUMMARY | ~2020-05-20 | XMS | Encounter Summary ---
Demographics + + + | Address | [address] | | | [address] | | | [place] [address] | + + + | Home Phone [...] | | | | | [place] [address] | | + + + + + | Allegra Raza | ECON | Unknown | | + + + + + | Emily Fuller | ECON | Unknown | | + + + + + Care Team Providers + +------+ + | Care Helicopter Crew Chief Name | Role | Phone | + +------+ + PCP | Unavailable | + +------+ + Encounter Details +--------+ + + + + | Date | Type | Department | Care Team | Description | +--------+ + + + + | 02/19/ | Hospital | [facility] | TashiLamonte cadena | | | 2014 | Encounter | [facility] | [facility] | | | | | MEDICAL CL[address] | [address] [place], [place] | | | | | [address] [facility], | [address] | | | | | [place] [address] | | | | | | [phone] | | | +--------+ + + + [...] | | | | | | [place] [address] | | | | | | [phone] | | | | | | | | +--------+---------+ + + + | 01/21/ | Office | Neurology | Brock Hammond MD | | | 2020 | Visit | | [address] | | | | | | [place] | | | | | | [address] | | | | | | | | +--------+---------+ + + + documented as of this encounter Visit Diagnoses Not on filedocumented in this encounter"
--- OUTSIDE RECORDS SUMMARY | ~2020-05-20 | XMS | Encounter Summary ---
Demographics + + + | Address | [address] | | | [address] | | | [place] [address] | + + + | Home Phone [...] | | | | | [place] [address] | | + + + + + | Allegra Raza | ECON | Unknown | | + + + + + | Emily Fuller | ECON | Unknown | | + + + + + Care Team Providers + +------+ + | Care Reconcilement Clerk Name | Role | Phone | [...] [address] | | | | | [place] [address] | | | | | | [phone] | | | +--------+--------+ + + + [...] | | | | | | [place] [address] | | | | | | [phone] | | | | | | | | +--------+---------+ + + + | 01/21/ | Office | Neurology | Brock Hammond MD | | | 2020 | Visit | | [address] | | | | | | [place] | | | | | | [address] | | | | | | | | +--------+---------+ + + + documented as of this encounter Visit Diagnoses Not on filedocumented in this encounter"
--- OUTSIDE RECORDS SUMMARY | ~2020-05-20 | XMS | Encounter Summary ---
Demographics + + + | Address | [address] | | | [address] | | | [place] [address] | + + + | Home Phone [...] | | | | | [place] [address] | | + + + + + | Allegra Raza | ECON | Unknown | | + + + + + | Emily Fuller | ECON | Unknown | | + + + + + Care Team Providers + +------+ + | Care Electrical Controls Designer Name | Role | Phone | + [...] | | | | [place] | [address] | | | | | [address] | | | | | | [phone] | | | +--------+ + + + [...] Notes Brock Fenton - 02/28/2013 12:[address] [facility] Dictating Practitioner: BROCK FENTON MD Patient Name: KOKI RAZA Patient Date of : 1965 Visit Number: [id number] ELECTROENCEPHALOGRAM Date of Service:02/28/2013 Ms. Raza was [...] epileptiform discharges. Clinical correlation indicated. [id number] / [id number] Dictation Date/Time: March 02, 2013 07:22AM Industrial Sales Engineer Date/Time: March 03, 2013 02:04PM Authenticated and Edited by Brock Fenton MD On 03/04/13 9:44:26 AM [facility] Signed and Approved by: BROCK FENTON MD 03/04/2013 09:44:00 documented in this [facility] Plan of Treatment +--------+---------+ + + + | Date | Type | Specialty | Care Team | Description | +--------+---------+ + + + | 05/22/ | Office | Neurology | [place], | | | 2019 | Visit | | [address] | | | | | | [address] [place], | | | | | | [place] [address] | | | | | | [phone] | | | | | | | [...]
--- OUTSIDE RECORDS SUMMARY | ~2020-05-20 | XMS | Encounter Summary ---
Demographics + + + | Address | [address] | | | [address] | | | [place] [address] | + + + | Home Phone [...] | | | | | [place] [address] | | + + + + + | Allegra Raza | ECON | Unknown | | + + + + + | Emily Fuller | ECON | Unknown | | + + + + + Care Team Providers + +------+ + | Care Corporate Sales Manager Name | Role | Phone | + +------+ + PCP | Unavailable | + +------+ + Encounter Details +--------+ + + + + | Date | Type | Department | Care Team | Description | +--------+ + + + + | 09/08/ | Hospital | [facility] | Lamonte Akins | | | 2016 | Encounter | [facility]PITAL [facility] | [address] | | | | | [address] | [address] [place], [place] | | | | | [place] | [address] | | | | | [address] | | | | | | [phone] | | | +--------+ + + + [...] | | | | | | [place] [address] | | | | | | [phone] | | | | | | | | +--------+---------+ + + + | 01/21/ | Office | Neurology | Brock Hammond MD | | | 2020 | Visit | | [address] | | | | | | [place] | | | | | | [address] | | | | | | | | +--------+---------+ + + + documented as of this encounter Visit Diagnoses Not on filedocumented in this encounter"
--- OUTSIDE RECORDS SUMMARY | ~2020-05-20 | XMS | Encounter Summary ---
Demographics + + + | Address | [address] | | | [address] | | | [place] [address] | + + + | Home Phone [...] | | | | | [place] [address] | | + + + + + | Allegra Raza | ECON | Unknown | | + + + + + | Emily Fuller | ECON | Unknown | | + + + + + Care Team Providers + +------+ + | Care Churn Tender Name | Role | Phone | [...] | [address] | [facility], | | | | | [place], [place] | [place] [address] | | | | | [address] | [phone] | | | | | [phone] | | | +--------+ + + + [...] | | | | | | [place] [address] | | | | | | [phone] | | | | | | | | +--------+---------+ + + + | 01/21/ | Office | Neurology | Brock Hammond MD | | | 2020 | Visit | | [address] | | | | | | [place] | | | | | | [address] | | | | | | | | +--------+---------+ + + + documented as of this encounter Visit Diagnoses Not on filedocumented in this encounter"
--- OUTSIDE RECORDS SUMMARY | ~2020-05-20 | XMS | Encounter Summary ---
Demographics + + + | Address | [address] | | | [address] | | | [place] [address] | + + + | Home Phone [...] | | | | | [place] [address] | | + + + + + | Allegra Raza | ECON | Unknown | | + + + + + | Emily Fuller | ECON | Unknown | | + + + + + Care Team Providers + +------+ + | Care Heddle Machine Operator Name | Role | Phone [...] | | | | [address] | [facility], | | | | | [facility], [place] | [place] [address] | | | | | [address] | [phone] | | | | | [phone] | | | +--------+ + + + [...] | | | | | | [place] [address] | | | | | | [phone] | | | | | | | | +--------+---------+ + + + | 01/21/ | Office | Neurology | Brock Hammond MD | | | 2020 | Visit | | [address] | | | | | | [place] | | | | | | [address] | | | | | | | | +--------+---------+ + + + documented as of this encounter Visit Diagnoses Not on filedocumented in this encounter"
--- OUTSIDE RECORDS SUMMARY | ~2020-05-20 | XMS | Encounter Summary ---
Demographics + + + | Address | [address] | | | [address] | | | [place] [address] | + + + | Home Phone [...] | | | | | [place] [address] | | + + + + + | Allegra Raza | ECON | Unknown | | + + + + + | Emily Fuller | ECON | Unknown | | + + + + + Care Team Providers + +------+ + | Care Crib Clerk Name | Role | Phone | [...] [facility] | | | | | [place], [place] | [place], [place] [address] | | | | | [address] | [phone] | | | | | [phone] | | | +--------+ + + + [...] | | | | | | [place] [address] | | | | | | [phone] | | | | | | | | +--------+---------+ + + + | 01/21/ | Office | Neurology | Brock Hammond MD | | | 2020 | Visit | | [address] | | | | | | [place] | | | | | | [address] | | | | | | | | +--------+---------+ + + + documented as of this encounter Visit Diagnoses Not on filedocumented in this encounter"
--- OUTSIDE RECORDS SUMMARY | ~2020-05-20 | XMS | Encounter Summary ---
Demographics + + + | Address | [address] | | | [address] | | | [place] [address] | + + + | Home Phone | | + + + | Preferred Language | Unknown | + + + | Marital Status | Single | + + + | Buddhist Affiliation | 1009 | + + + | Race | Unknown | + + + | Ethnic Group | Unknown | + + + Author + + + | Author | [facility] | | | and Danielana | + + + | Organization | [facility] | | | [...] | | | | | [place] [address] | | + + + + + | Allegra Raza | ECON | Unknown | | + + + + + | Emily Fuller | ECON | Unknown | | + + + + + Care Team Providers + +------+ + | Care Tail End Rider Name | Role | Phone | + [...] [address] | | | | | [place] [address] | | | | | | [phone] | | | +--------+ + + + [...] | | | | | | [place] [address] | | | | | | [phone] | | | | | | | | +--------+---------+ + + + | 01/21/ | Office | Neurology | Brock Hammond MD | | | 2020 | Visit | | [address] | | | | | | [place] | | | | | | [address] | | | | | | | | +--------+---------+ + + + documented as of this encounter Visit Diagnoses Not on filedocumented in this encounter"
--- OUTSIDE RECORDS SUMMARY | ~2020-05-20 | XMS | Encounter Summary ---
Demographics + + + | Address | [address] | | | [address] | | | [place] [address] | + + + | Home Phone [...] | | | | | [place] [address] | | + + + + + | Allegra Raza | ECON | Unknown | | + + + + + | Emily Fuller | ECON | Unknown | | + + + + + Care Team Providers + +------+ + | Care Svp Name | Role | Phone | + [...] | | | [place], [place] | [employer] [address] | | | | | [address] | [phone] | | | | | [phone] | | | +--------+ + + + [...] | | | | | | [place] [address] | | | | | | [phone] | | | | | | | | +--------+---------+ + + + | 01/21/ | Office | Neurology | Brock Hammond MD | | | 2020 | Visit | | [address] | | | | | | [place] | | | | | | [address] | | | | | | | | +--------+---------+ + + + documented as of this encounter Visit Diagnoses Not on filedocumented in this encounter"
--- OUTSIDE RECORDS SUMMARY | ~2020-05-20 | XMS | Encounter Summary ---
Demographics + + + | Address | [address] | | | [address] | | | [place] [address] | + + + | Home Phone [...] | | | | | [place] [address] | | + + + + + | Allegra Raza | ECON | Unknown | | + + + + + | Emily Fuller | ECON | Unknown | | + + + + + Care Team Providers + +------+ + | Care Sap Security Architect Name | Role | Phone | + +------+ + PCP | Unavailable | + +------+ + Encounter Details +--------+ + + + + | Date | Type | Department | Care Team | Description | +--------+ + + + + | 01/24/ | Hospital | [facility] | | | | 2002 | Encounter | MED CTR GENERIC IP | | | | | | CONV DEPT [address] | | | | | | [place], | | | | | | [place] [address] | | | | | | [phone] | | | +--------+ + + + [...] | | | | | | [place] [address] | | | | | | [phone] | | | | | | | | +--------+---------+ + + + | 01/21/ | Office | Neurology | Brock Hammond MD | | | 2020 | Visit | | [address] | | | | | | [place] | | | | | | [address] | | | | | | | | +--------+---------+ + + + documented as of this encounter Visit Diagnoses Not on filedocumented in this encounter"
--- OUTSIDE RECORDS SUMMARY | ~2020-05-20 | XMS | Encounter Summary ---
Demographics + + + | Address | [address] | | | [address] | | | [place] [address] | + + + | Home Phone [...] | | | | | [place] [address] | | + + + + + | Allegra Raza | ECON | Unknown | | + + + + + | Emily Fuller | ECON | Unknown | | + + + + + Care Team Providers + +------+ + | Care Manager Business Banking Name | Role | Phone | + [...] | | | | [place] | [address] | | | | | [address] | [phone] | | | | | [phone] | | | +--------+ + + + [...] | | | | | | [place] [address] | | | | | | [phone] | | | | | | | | +--------+---------+ + + + | 01/21/ | Office | Neurology | Brock Hammond MD | | | 2020 | Visit | | [address] | | | | | | [place], [place] | | | | | | [address] | | | | | | | | +--------+---------+ + + + documented as of this encounter Visit Diagnoses Not on filedocumented in this encounter"
--- OUTSIDE RECORDS SUMMARY | ~2020-05-20 | XMS | Encounter Summary ---
Demographics + + + | Address | [address] | | | [address] | | | [place] [address] | + + + | Home Phone | | + + + | Preferred Language | Unknown | + + + | Marital Status | Single | + + + | Orthodox Affiliation | 1009 | + + + | Race | Unknown | + + + | Ethnic Group | Unknown | + + + Author + + + | Author | [facility] | | | and Danielana | + + + | Organization | [facility] | | [...] | | | | | [place] [address] | | + + + + + | Allegra Raza | ECON | Unknown | | + + + + + | Emily Fuller | ECON | Unknown | | + + + + + Care Team Providers + +------+ + | Care Refinery Operator Alkylation Name | Role | Phone | + +------+ + | Aisah Carrington DO | PCP | | + [...] [address] | | | | | [place] [address] | | | | | | [phone] | | | +--------+--------+ + + + [...] | | | | | | [place] [address] | | | | | | [phone] | | | | | | | [...]
--- OUTSIDE RECORDS SUMMARY | ~2020-05-20 | XMS | Encounter Summary ---
Demographics + + + | Address | [address] | | | [address] | | | [place] [address] | + + + | Home Phone [...] | | | | | [place] [address] | | + + + + + | Allegra Raza | ECON | Unknown | | + + + + + | Emily Fuller | ECON | Unknown | | + + + + + Care Team Providers + +------+ + | Care Matching Machine Operator Name | Role | Phone | + +------+ + PCP | Unavailable | + +------+ + Encounter Details +--------+ + + + + | Date | Type | Department | Care Team | Description | +--------+ + + + + | 01/04/ | Hospital | [facility] | Brock Hammond MD | | | 2013 | Encounter | [facility] | [address] | | | | | [facility] [address] | [place], [place] | | | | | [address]TH [facility], | [address] | | | | | [place] [address] | | | | | | [phone] | | | +--------+ + + + [...] | | | | | | [place] [address] | | | | | | [phone] | | | | | | | | +--------+---------+ + + + | 01/21/ | Office | Neurology | Brock Hammond MD | | | 2020 | Visit | | [address] | | | | | | [place], [place] | | | | | | [address] | | | | | | | | +--------+---------+ + + + documented as of this encounter Visit Diagnoses Not on filedocumented in this encounter"
--- OUTSIDE RECORDS SUMMARY | ~2020-05-20 | XMS | Encounter Summary ---
Demographics + + + | Address | [address] | | | [address] | | | [place] [address] | + + + | Home Phone | | + + + | Preferred Language | Unknown | + + + | Marital Status | Single | + + + | Jainism Affiliation | 1009 | + + + | Race | Unknown | + + + | Ethnic Group | Unknown | + + + Author + + + | Author | [facility] | | | and Danielana | + + + | Organization | [facility] | | [...] | | | | | [place] [address] | | + + + + + | Allegra Raza | ECON | Unknown | | + + + + + | Emily Fuller | ECON | Unknown | | + + + + + Care Team Providers + +------+ + | Care Spinning Machine Operator Name | Role | Phone [...] | | [address] | [facility], | | | | | [facility] [place] | [place] [address] | | | | | [address] | [phone] | | | | | [phone] | | | +--------+ + + + [...] | | | | | | [place] [address] | | | | | | [phone] | | | | | | | | +--------+---------+ + + + | 01/21/ | Office | Neurology | Brock Hammond MD | | | 2020 | Visit | | [address] | | | | | | [place] | | | | | | [address] | | | | | | | | +--------+---------+ + + + documented as of this encounter Visit Diagnoses Not on filedocumented in this encounter"
--- OUTSIDE RECORDS SUMMARY | ~2020-05-20 | XMS | Encounter Summary ---
Demographics + + + | Address | [address] | | | [address] | | | [place] [address] | + + + | Home Phone [...] | | | | | [place] [address] | | + + + + + | Allegra Raza | ECON | Unknown | | + + + + + | Emily Fuller | ECON | Unknown | | + + + + + Care Team Providers + +------+ + | Care Woods Superintendent Name | Role | Phone | + +------+ + PCP | Unavailable | + +------+ + Encounter Details +--------+ + + + + | Date | Type | Department | Care Team | Description | +--------+ + + + + | 07/29/ | Hospital | [facility] | | | | 2002 | Encounter | MED CTR EMERGENCY | | | | | | CENTER [address] | | | | | | [place] | | | | | | [address] | | | | | | [phone] | | | +--------+ + + + [...] | | | | | | [place] [address] | | | | | | [phone] | | | | | | | [...]
--- OUTSIDE RECORDS SUMMARY | ~2020-05-20 | XMS | Encounter Summary ---
Demographics + + + | Address | [address] | | | [address] | | | [place] [address] | + + + | Home Phone [...] [address] | | | | | [place] [address] | | + + + + + | Allegra Raza | ECON | Unknown | | + + + + + | Emily Fuller | ECON | Unknown | | + + + + + Care Team Providers + +------+ + | Care Geotechnical Department Manager Name | Role | Phone | + +------+ + PCP | Unavailable | + +------+ + Encounter Details +--------+ + + + + | Date | Type | Department | Care Team | Description | +--------+ + + + + | 06/22/ | Hospital | [facility] | Yolanda Blum | | | 2010 | Encounter | HOSPITAL LAB[facility]ATORY | MD Deysi [address] | | | | | [address] | [place] | | | | | [place] | [address] | | | | | [address] | [phone] | | | | | [phone] | | | +--------+ + + + [...] | | | | | | [place] [address] | | | | | | [phone] | | | | | | | | +--------+---------+ + + + | 01/21/ | Office | Neurology | Brock Hammond MD | | | 2020 | Visit | | [address] | | | | | | [place] | | | | | | [address] | | | | | | | | +--------+---------+ + + + documented as of this encounter Visit Diagnoses Not on filedocumented in this encounter"
--- OUTSIDE RECORDS SUMMARY | ~2020-05-20 | XMS | Encounter Summary ---
Demographics + + + | Address | [address] | | | [address] | | | [place] [address] | + + + | Home Phone [...] | | | | | [place] [address] | | + + + + + | Allgera Raza | ECON | Unknown | | + + + + + | Emily Fuller | ECON | Unknown | | + + + + + Care Team Providers + +------+ + | Care Resident Services Director Name | Role | Phone | + +------+ + PCP | Unavailable | + +------+ + Encounter Details +--------+ + + + + | Date | Type | Department | Care Team | Description | +--------+ + + + + | 01/26/ | Hospital | [facility] | Lamonte Akins | | | 2016 | Encounter | [facility] | [facility] [address] | | | | | MEDICAL [facility] [address] | [address] [place], [place] | | | | | [address]TH [facility], | [address] | | | | | [place] [address] | | | | | | [phone] | | | +--------+ + + + [...] | | | | | | [place] [address] | | | | | | [phone] | | | | | | | | +--------+---------+ + + + | 01/21/ | Office | Neurology | Brock Hammond MD | | | 2020 | Visit | | [address] | | | | | | [place] | | | | | | [address] | | | | | | | | +--------+---------+ + + + documented as of this encounter Visit Diagnoses Not on filedocumented in this encounter"
--- OUTSIDE RECORDS SUMMARY | ~2020-05-20 | XMS | Encounter Summary ---
Demographics + + + | Address | [address] | | | [address] | | | [place] [address] | + + + | Home Phone [...] | | | | | [place] [address] | | + + + + + | Allegra Raza | ECON | Unknown | | + + + + + | Emily Fuller | ECON | Unknown | | + + + + + Care Team Providers + +------+ + | Care Kennel Manager Name | Role | Phone | + +------+ + PCP | Unavailable | + +------+ + Encounter Details +--------+ + + + + | Date | Type | Department | Care Team | Description | +--------+ + + + + | 02/22/ | Hospital | [facility] | | | | 2002 | Encounter | MED CTR XRAY [address] | | | | | | [address] | | | | | | [place] [address] | | | | | | [phone] | | | +--------+ + + + [...] | | | | | | [place] [address] | | | | | | [phone] | | | | | | | [...]
--- OUTSIDE RECORDS SUMMARY | ~2020-05-20 | XMS | Encounter Summary ---
Demographics + + + | Address | [address] | | | [address] | | | [place] [address] | + + + | Home Phone [...] | | | | | [place] [address] | | + + + + + | Allegra Raza | ECON | Unknown | | + + + + + | Emily Fuller | ECON | Unknown | | + + + + + Care Team Providers + +------+ + | Care Liner Checker Name | Role | Phone | [...] | [facility] [address] | [place] [address] | | | | | [address] [place], | [phone] | | | | | [place] [address] | | | | | | [phone] | | | +--------+ + + + [...] . Maria Quinonez LPN eleDipti Connors, CC [facility] - 10/01/2017 3:06 PM PSTPt. Was notified about going to the [facility] but can you please call her about [...] had an US done on 09-24-17 in [place] on her thyroid and pt was asking [...] | | | | | | [place] [address] | | | | | | [phone] | | | | | | | | +--------+---------+ + + + | 01/21/ | Office | Neurology | Brock Hammond MD | | | 2020 | Visit | | [address] | | | | | | [place] | | | | | | [id number] | | | | | | | | +--------+---------+ + + + documented as of this encounter Visit Diagnoses Not on filedocumented in this encounter"
--- OUTSIDE RECORDS SUMMARY | ~2020-05-20 | XMS | Encounter Summary ---
Demographics + + + | Address | [address] | | | [address] | | | [place] [address] | + + + | Home Phone [...] | | | | | [place] [address] | | + + + + + | Allegra Raza | ECON | Unknown | | + + + + + | Emily Fuller | ECON | Unknown | | + + + + + Care Team Providers + +------+ + | Care Clerical Stock Inspector Name | Role | Phone | [...] 2019 | | [facility] | [facility], INVENTORY REPRESENTATIVE [address] | | | | | CL[address] | [facility] | | | | | [address] [place], | [place] [address] | | | | | [place] [address] | [phone] | | | | | [phone] | | | +--------+--------+ + + + [...] | | | | | | [place] [address] | | | | | | [phone] | | | | | | | | +--------+---------+ + + + | 01/21/ | Office | Neurology | Brock Hammond MD | | | 2020 | Visit | | [address] | | | | | | [place] | | | | | | [address] | | | | | | | | +--------+---------+ + + + documented as of this encounter Visit Diagnoses Not on filedocumented in this encounter"
--- OUTSIDE RECORDS SUMMARY | ~2020-05-20 | XMS | Encounter Summary ---
Demographics + + + | Address | [address] | | | [address] | | | [place] [address] | + + + | Home Phone [...] | | | | | [place] [address] | | + + + + + | Allegra Raza | ECON | Unknown | | + + + + + | Emily Fuller | ECON | Unknown | | + + + + + Care Team Providers + +------+ + | Care Dat Instructor Name | Role | Phone | + [...] [address] | | | | | [place] [address] | | | | | | [phone] | | | +--------+--------+ + + + [...] encounter Miscellaneous Notes Telephone Encounter - Kristen Rodriguze RN - 03/06/2019 2:00 PM PDTLast filled [...] | | | | | | [place] [address] | | | | | | [phone] | | | | | | | | +--------+---------+ + + + | 01/21/ | Office | Neurology | Brock Hammond MD | | | 2020 | Visit | | [address] | | | | | | [place], [place] | | | | | | [address] | | | | | | | | +--------+---------+ + + + documented as of this encounter Visit Diagnoses Not on filedocumented in this encounter"
--- OUTSIDE RECORDS SUMMARY | ~2020-05-20 | XMS | Encounter Summary ---
Demographics + + + | Address | [address] | | | [address] | | | [place] [address] | + + + | Home Phone [...] | | | | | [place] [address] | | + + + + + | Allegra Raza | ECON | Unknown | | + + + + + | Emily Fuller | ECON | Unknown | | + + + + + Care Team Providers + +------+ + | Care Shearing Shed Hand Name | Role | Phone | [...] | [address] | [facility], | | | | | [facility], [place] | [place] [address] | | | | | [address] | [phone] | | | | | [phone] | | | +--------+ + + + [...] | | | | | | [place] [address] | | | | | | [phone] | | | | | | | | +--------+---------+ + + + | 01/21/ | Office | Neurology | Brock Hammond MD | | | 2020 | Visit | | [address] | | | | | | [place] | | | | | | [address] | | | | | | | | +--------+---------+ + + + documented as of this encounter Visit Diagnoses Not on filedocumented in this encounter"
--- OUTSIDE RECORDS SUMMARY | ~2020-05-20 | XMS | Encounter Summary ---
Demographics + + + | Address | [address] | | | [address] | | | [place] [address] | + + + | Home Phone [...] | | | | | [place] [address] | | + + + + + | Allegra Raza | ECON | Unknown | | + + + + + | Emily Fuller | ECON | Unknown | | + + + + + Care Team Providers + +------+ + | Care Switching Operator Name | Role | Phone | [...] | [address] | [facility], | | | | | [place], [place] | [place] [address] | | | | | [address] | [phone] | | | | | [phone] | | | +--------+ + + + [...] | | | | | | [place] [address] | | | | | | [phone] | | | | | | | | +--------+---------+ + + + | 01/21/ | Office | Neurology | Brock Hammond MD | | | 2020 | Visit | | [address] | | | | | | [place] | | | | | | [address] | | | | | | | | +--------+---------+ + + + documented as of this encounter Visit Diagnoses Not on filedocumented in this encounter"
--- OUTSIDE RECORDS SUMMARY | ~2020-05-20 | XMS | Encounter Summary ---
Demographics + + + | Address | [address] | | | [address] | | | [place] [address] | + + + | Home Phone [...] | | | | | [place] [address] | | + + + + + | Allegra Raza | ECON | Unknown | | + + + + + | Emily Fuller | ECON | Unknown | | + + + + + Care Team Providers + +------+ + | Care Principal Process Engineer Name | Role | Phone | [...] Medication Refill | | 2019 | | [facility] | [facility], QA SOFTWARE TESTER [address] | | | | | CLIN[address] | [facility] | | | | | [address] [place], | [place] [address] | | | | | [place] [address] | [phone] | | | | | [phone] | | | +--------+--------+ + + + [...] for reasons "Needs to contact provider". Thanks [facility] elepho ne Encounter - Marie Lorenzo LPN [...] before this runs out? Please advise. Thanks [facility] documented in this encounter Plan of Treatment +--------+---------+ + + + | Date | Type | Specialty | Care Team | Description | +--------+---------+ + + + | 05/22/ | Office | Neurology | Romeo, | | | 2019 | Visit | | [address] | | | | | | [address] [place], | | | | | | [place] [address] | | | | | | [phone] | | | | | | | [...]
--- OUTSIDE RECORDS SUMMARY | ~2020-05-20 | XMS | Encounter Summary ---
Demographics + + + | Address | [address] | | | [address] | | | [place] [address] | + + + | Home Phone [...] | | | | | [place] [address] | | + + + + + | Allegra Raza | ECON | Unknown | | + + + + + | Emily Fuller | ECON | Unknown | | + + + + + Care Team Providers + +------+ + | Care Hand Brush Filler Name | Role | Phone | + +------+ + PCP | Unavailable | + +------+ + Encounter Details +--------+ + + + + | Date | Type | Department | Care Team | Description | +--------+ + + + + | 04/25/ | Hospital | [place] [facility] | Jaime Gregorio | | | 2010 | Encounter | HOSPITAL EMERGENCY | MD [address] | | | | | CENTER [address] | Hernan Michelle | | | | | [address] [place] | [place] [address] | | | | | [address] | [phone] | | | | | [phone] | | | +--------+ + + + [...] | | | | | | [place] [address] | | | | | | [phone] | | | | | | | | +--------+---------+ + + + | 01/21/ | Office | Neurology | Brock Hammond MD | | | 2020 | Visit | | [address] | | | | | | [place] | | | | | | [address] | | | | | | | | +--------+---------+ + + + documented as of this encounter Visit Diagnoses Not on filedocumented in this encounter"
--- OUTSIDE RECORDS SUMMARY | ~2020-05-20 | XMS | Encounter Summary ---
Demographics + + + | Address | [address] | | | [address] | | | [place] [address] | + + + | Home Phone [...] | | | | | [place] [address] | | + + + + + | Allegra Raza | ECON | Unknown | | + + + + + | Emily Fuller | ECON | Unknown | | + + + + + Care Team Providers + +------+ + | Care Testing Specialist Name | Role | Phone | + +------+ + PCP | Unavailable | + +------+ + Encounter Details +--------+ + + + + | Date | Type | Department | Care Team | Description | +--------+ + + + + | 05/16/ | Hospital | [facility] | Ruel Junior, | | | 2008 | Encounter | HOSPITAL THERAPY PT | MD Barba E Davion | | | | | [address] [place] | [address] | | | | | [facility], [place] | [place] [address] | | | | | [address] | [phone] | | | | | [phone] | | | +--------+ + + + [...] | | | | | | [place] [address] | | | | | | [phone] | | | | | | | | +--------+---------+ + + + | 01/21/ | Office | Neurology | Brock Hammond MD | | | 2020 | Visit | | [address] | | | | | | [place], [place] | | | | | | [address] | | | | | | | | +--------+---------+ + + + documented as of this encounter Visit Diagnoses Not on filedocumented in this encounter"
--- OUTSIDE RECORDS SUMMARY | ~2020-05-20 | XMS | Encounter Summary ---
Demographics + + + | Address | [address] | | | [address] | | | [place] [address] | + + + | Home Phone [...] | | | | | [place] [address] | | + + + + + | Allegra Raza | ECON | Unknown | | + + + + + | Emily Fuller | ECON | Unknown | | + + + + + Care Team Providers + +------+ + | Care Industrial Technology Education Teacher Name | Role | Phone | + +------+ + PCP | Unavailable | + +------+ + Encounter Details +--------+ + + + + | Date | Type | Department | Care Team | Description | +--------+ + + + + | 11/28/ | Hospital | [facility] | Brock Hammond MD | | | 2009 | Encounter | H[facility]PITAL REG[facility] | [address] | | | | | MEDICAL CLIN[facility] [address] | [place], [place] | | | | | [address]TH [facility], | [address] | | | | | [place] [address] | | | | | | [phone] | | | +--------+ + + + [...] | | | | | | [place] [address] | | | | | | [phone] | | | | | | | | +--------+---------+ + + + | 01/21/ | Office | Neurology | Brock Hammond MD | | | 2020 | Visit | | [address] | | | | | | [place], [place] | | | | | | [address] | | | | | | | | +--------+---------+ + + + documented as of this encounter Visit Diagnoses Not on filedocumented in this encounter"
--- OUTSIDE RECORDS SUMMARY | ~2020-05-20 | XMS | Encounter Summary ---
Demographics + + + | Address | [address] | | | [address] | | | [place] [address] | + + + | Home Phone [...] | | | | | [place] [address] | | + + + + + | Allegra Raza | ECON | Unknown | | + + + + + | Emily Fuller | ECON | Unknown | | + + + + + Care Team Providers + +------+ + | Care Tub Washer Name | Role | Phone | + [...] Medication Refill | | 2017 | | [facility] | Goins, NATURALIZATION EXAMINER [address] | | | | | CLIN[address] | [address] [place], [place] | | | | | [address] [place], | [address] | | | | | [place] [address] | | | | | | [phone] | | | +--------+--------+ + + + [...] | | | | | | [place] [address] | | | | | | [phone] | | | | | | | [...]
--- OUTSIDE RECORDS SUMMARY | ~2020-05-20 | XMS | Encounter Summary ---
Demographics + + + | Address | [address] | | | [address] | | | [place] [address] | + + + | Home Phone [...] | | | | | [place] [address] | | + + + + + | Allegra Raza | ECON | Unknown | | + + + + + | Emily Fuller | ECON | Unknown | | + + + + + Care Team Providers + +------+ + | Care Wire Brusher Name | Role | Phone | + +------+ + PCP | Unavailable | + +------+ + Encounter Details +--------+ + + + + | Date | Type | Department | Care Team | Description | +--------+ + + + + | 12/15/ | Hospital | [facility] | Tashi Lamonte | | | 2017 | Encounter | [facility] | Goins [facility] [address] | | | | | MEDICAL CLINIC [address] | [address] [place], [place] | | | | | 4TH [facility], | [address] | | | | | [place] [address] | | | | | | [phone] | | | +--------+ + + + [...] | | | | | | [place] [address] | | | | | | [phone] | | | | | | | [...]
--- OUTSIDE RECORDS SUMMARY | ~2020-05-20 | XMS | Encounter Summary ---
Demographics + + + | Address | [address] | | | [address] | | | [place] [address] | + + + | Home Phone [...] | | | | | [place] [address] | | + + + + + | Allegra Raza | ECON | Unknown | | + + + + + | Emily Fuller | ECON | Unknown | | + + + + + Care Team Providers + +------+ + | Care Map Maker Name | Role | Phone | + +------+ + PCP | Unavailable | + +------+ + Encounter Details +--------+ + + + + | Date | Type | Department | Care Team | Description | +--------+ + + + + | 04/18/ | Hospital | [facility] | | | | 1998 | Encounter | MED CTR GENERIC OP | | | | | | CONV DEPT [address] | | | | | | [place], | | | | | | [place] [address] | | | | | | [phone] | | | +--------+ + + + [...] | | | | | | [place] [address] | | | | | | [phone] | | | | | | | | +--------+---------+ + + + | 01/21/ | Office | Neurology | Brock Hammond MD | | | 2020 | Visit | | [address] | | | | | | [place] | | | | | | [address] | | | | | | | | +--------+---------+ + + + documented as of this encounter Visit Diagnoses Not on filedocumented in this encounter"
--- OUTSIDE RECORDS SUMMARY | ~2020-05-20 | XMS | Encounter Summary ---
Demographics + + + | Address | [address] | | | [address] | | | [place] [address] | + + + | Home Phone [...] | | | | | [place] [address] | | + + + + + | Allegra Raza | ECON | Unknown | | + + + + + | Emily Fuller | ECON | Unknown | | + + + + + Care Team Providers + +------+ + | Care Charter Boat Operator Name | Role | Phone | [...] | | [address] [place] | [facility], | | | | | [facility], [place] | [place] [address] | | | | | [address] | [phone] | | | | | [phone] | | | +--------+ + + + [...] | | | | | | [place] [address] | | | | | | [phone] | | | | | | | | +--------+---------+ + + + | 01/21/ | Office | Neurology | Brock Hammond MD | | | 2020 | Visit | | [address] | | | | | | [place] | | | | | | [address] | | | | | | | | +--------+---------+ + + + documented as of this encounter Visit Diagnoses Not on filedocumented in this encounter"
--- OUTSIDE RECORDS SUMMARY | ~2020-05-20 | XMS | Encounter Summary ---
Demographics + + + | Address | [address] | | | [address] | | | [place] [address] | + + + | Home Phone [...] | | | | | [place] [address] | | + + + + + | Allegra Raza | ECON | Unknown | | + + + + + | Emily Fuller | ECON | Unknown | | + + + + + Care Team Providers + +------+ + | Care Res Counselor Name | Role | Phone | + +------+ + PCP | Unavailable | + +------+ + Encounter Details +--------+ + + + + | Date | Type | Department | Care Team | Description | +--------+ + + + + | 01/05/ | Hospital | [facility] | Mar Suarez | | | 2017 | Encounter | [facility] | [address] | | | | | WALK[facility]IN CLINIC [address] | [facility] [facility], | | | | | 4TH [facility], | [place] [address] | | | | | [place] [address] | [phone] | | | | | [phone] | | | +--------+ + + + [...] | | | | | | [place] [address] | | | | | | [phone] | | | | | | | | +--------+---------+ + + + | 01/21/ | Office | Neurology | Brock Hammond MD | | | 2020 | Visit | | [address] | | | | | | [place] | | | | | | [address] | | | | | | | | +--------+---------+ + + + documented as of this encounter Visit Diagnoses Not on filedocumented in this encounter"
--- OUTSIDE RECORDS SUMMARY | ~2020-05-20 | XMS | Encounter Summary ---
Demographics + + + | Address | [address] | | | [address] | | | [place] [address] | + + + | Home Phone [...] | | | | | [place] [address] | | + + + + + | Allegra Raza | ECON | Unknown | | + + + + + | Emily Fuller | ECON | Unknown | | + + + + + Care Team Providers + +------+ + | Care Environmental Programs Manager Name | Role | Phone | + +------+ + PCP | Unavailable | + +------+ + Encounter Details +--------+ + + + + | Date | Type | Department | Care Team | Description | +--------+ + + + + | 02/27/ | Hospital | [facility] | Ruel Junior, | | | 2010 | Encounter | HOSPITAL XRAY [address] | MD Jameson Ricardo | | | | | [address] | [address] | | | | | [facility], [place] | [place] [address] | | | | | [address] | [phone] | | | | | [phone] | | | +--------+ + + + [...] | | | | | | [place] [address] | | | | | | [phone] | | | | | | | | +--------+---------+ + + + | 01/21/ | Office | Neurology | Brock Hammond MD | | | 2020 | Visit | | [address] | | | | | | [place] | | | | | | [address] | | | | | | | | +--------+---------+ + + + documented as of this encounter Visit Diagnoses Not on filedocumented in this encounter"
--- OUTSIDE RECORDS SUMMARY | ~2020-05-20 | XMS | Encounter Summary ---
Demographics + + + | Address | [address] | | | [address] | | | [place] [address] | + + + | Home Phone [...] | | | | | [place] [address] | | + + + + + | Allegra Raza | ECON | Unknown | | + + + + + | Emily Fuller | ECON | Unknown | | + + + + + Care Team Providers + +------+ + | Care Airport Operations Officer Name | Role | Phone | [...] [address] | | | | | [place] [address] | | | | | | [phone] | | | +--------+ + + + [...] | | | | | | [place] [address] | | | | | | [phone] | | | | | | | | +--------+---------+ + + + | 01/21/ | Office | Neurology | Brock Hammond MD | | | 2020 | Visit | | [address] | | | | | | [place] | | | | | | [address] | | | | | | | | +--------+---------+ + + + documented as of this encounter Visit Diagnoses Not on filedocumented in this encounter"
--- OUTSIDE RECORDS SUMMARY | ~2020-05-20 | XMS | Encounter Summary ---
Demographics + + + | Address | [address] | | | [address] | | | [place] [address] | + + + | Home Phone [...] | | | | | [place] [address] | | + + + + + | Allegra Raza | ECON | Unknown | | + + + + + | Emily Fuller | ECON | Unknown | | + + + + + Care Team Providers + +------+ + | Care Senior Strategy Manager Name | Role | Phone | [...] Medication Refill | | 2019 | | [facility] | emani, [facility] [address] | | | | | CLINIC [address] | [facility] | | | | | [address] [place], | [place] [address] | | | | | [place] [address] | [phone] | | | | | [phone] | | | +--------+--------+ + + + [...] is? This refill has been sitting in [facility] [place] since yesterday. Thank you, MAR Monroe CMA documented in this encounter Plan of Treatment +--------+---------+ + + + | Date | Type | Specialty | Care Team | Description | +--------+---------+ + + + | 05/22/ | Office | Neurology | Romeo, | | | 2019 | Visit | | [address] | | | | | | [facility] | | | | | | [place] [address] | | | | | | [phone] | | | | | | | [...]
--- OUTSIDE RECORDS SUMMARY | ~2020-05-20 | XMS | Encounter Summary ---
Demographics + + + | Address | [address] | | | [address] | | | [place] [address] | + + + | Home Phone [...] | | | | | [place] [address] | | + + + + + | Allegra Raza | ECON | Unknown | | + + + + + | Emily Fuller | ECON | Unknown | | + + + + + Care Team Providers + +------+ + | Care Cemetery Keeper Name | Role | Phone | + +------+ + PCP | Unavailable | + +------+ + Encounter Details +--------+ + + + + | Date | Type | Department | Care Team | Description | +--------+ + + + + | 06/14/ | Hospital | [facility] | Nidia Diaz, | | | 2010 | Encounter | HOSPITAL EMERGENCY | STOCK SUPERVISOR [address] | | | | | CENTER [address] | [place] | | | | | [place] | [address] | | | | | [address] | | | | | | [phone] | | | +--------+ + + + [...] | | | | | | [place] [address] | | | | | | [phone] | | | | | | | | +--------+---------+ + + + | 01/21/ | Office | Neurology | Brock Hammond MD | | | 2020 | Visit | | [address] | | | | | | [place] | | | | | | [address] | | | | | | | | +--------+---------+ + + + documented as of this encounter Visit Diagnoses Not on filedocumented in this encounter"
--- OUTSIDE RECORDS SUMMARY | 2020-05-20 02:52 | XMS ---
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 Care History Medical/Surgical 12/02/2018 [facility] - PATIENT HAS AN APT TO ESTABLISH CARE ON 03/01/[address] JARRETT. - Patient is currently established with [facility]. If patient is seen in the ED during business hours. Please contact [facility]Ws at [facility]. Care Recommendation: This patient has had [...] known visits. ED/UCC VISIT TRACKING (12 MO.) 05/20/2020 02:50 [facility] [place] TYPE: Emergency COMPLAINT: - KNEE PAIN 05/02/2020 16:39 [facility] [place] TYPE: Emergency COMPLAINT: - PANIC ATTACK, CHEST PAIN DIAGNOSES: - Other nonmedicinal substance allergy status - Old myocardial infarction - Allergy status to other drugs, medicaments and biological sub - Anxiety disorder, unspecified - Hypothyroidism, unspecified - Allergy status to penicillin - Chronic obstructive pulmonary disease, unspecified - Migraine, unspecified, not intractable, without status migrai - Allergy status to other antibiotic agents status - Other watcher automat long goods (current) drug therapy - Gastro-esophageal reflux disease without esophagitis - Attention-deficit hyperactivity disorder, unspecified type 05/20/2019 22:19 [facility] [place] TYPE: Emergency COMPLAINT: - CHEST PAIN DIAGNOSES: - Other nonmedicinal substance allergy status - Allergy status to other drugs, medicaments and biological sub - Other fci (current) drug therapy - [...] visits to display in this time frame [email or web address]
[2020-05-20] MEDS ORDERED: COZAAR25 MG PO (03:10)
[2020-05-20] MEDS ORDERED: DICLOFENAC SODI75 MG PO (03:51)
== END 2020-05-20 04:01 | disposition home or self-care (01) ==
LOC: ED 02:49
DX: S83.91XA Sprain of unspecified site of right knee, initial encounter (principal); J44.9 Chronic obstructive pulmonary disease, unspecified; G43.909 Migraine, unspecified, not intractable, without status migrainosus; K21.9 Gastro-esophageal reflux disease without esophagitis; E03.9 Hypothyroidism, unspecified; I25.2 Old myocardial infarction; Z88.0 Allergy status to penicillin; Z88.8 Allergy status to other drugs, medicaments and biological substances; Z91.048 Other nonmedicinal substance allergy status; Z88.1 Allergy status to other antibiotic agents; Z79.899 Other long term (current) drug therapy; W06.XXXA Fall from bed, initial encounter
CPT/HCPCS: 73560; 99283-25

== ENCOUNTER 2020-11-22 14:10 | Emergency (ER) | payer BC ==
[~2020-11-22] VITALS: Ht 152.4 cm; Wt 59.0 kg
[~2020-11-22 14:10] MED LIST changes: +COZAAR25 MG PO
[2020-11-22] MEDS ORDERED: ZANAFLEX4 MG PO (14:39)
[2020-11-22] MEDS ORDERED: LOSARTAN POTAS100 MG PO (14:41)
[2020-11-22] MEDS ORDERED: LEVETIRACETAM750 MG PO (14:41)
[2020-11-22] MEDS ORDERED: ONDANSETRON ODT4 MG PO (14:42)
[2020-11-22] MEDS ORDERED: LEVOTHYROXINE50 MCG PO (14:44)
--- OUTSIDE RECORDS SUMMARY | 2020-11-22 15:44 | XMS ---
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 Security Cable Strander Events No recent Security Events currently on file CRITERIA MET - Group Notification CARE PROVIDERS DESTINEE LUGO Physician Director Of Student Affairs Current PHONE: [phone] KOLBY VOGEL Internal Medicine: Pulmonary Disease 08/15/2018-Current PHONE: Unknown QUITA MURPHY [facility] Medicine: Geriatric Medicine Current PHONE: Unknown Teofilo has no Care Guidelines for this patient. [place] VISIT COUNT (12 MO.) [address] [facility] [address] [facility] TOTAL 3 NOTE: Visits indicate total known visits. ED/UCC VISIT TRACKING (12 MO.) 11/22/2020 14:11 [facility] [place] TYPE: Emergency COMPLAINT: - DEHYDRATED 05/20/2020 02:50 [facility] [place] TYPE: Emergency COMPLAINT: - KNEE PAIN DIAGNOSES: - Old myocardial infarction - Migraine, unspecified, not intractable, without status migrainosus - Sprain of unspecified site of right knee, initial encounter - Fall from bed, initial encounter - Pain in right knee - Allergy status to other antibiotic agents - Chronic obstructive pulmonary disease, unspecified - Allergy status to other drugs, medicaments and biological substances - Other intermediate school teacher (current) drug therapy - Allergy status to penicillin - Gastro-esophageal reflux disease without esophagitis - Other nonmedicinal substance allergy status - Hypothyroidism, unspecified 05/02/2020 16:[address] [facility] [place] TYPE: Emergency COMPLAINT: - PANIC ATTACK, CHEST PAIN DIAGNOSES: - Other nonmedicinal substance allergy status - Old myocardial infarction - Allergy status to other drugs, medicaments and biological substances - Anxiety disorder, unspecified - Hypothyroidism, unspecified - Allergy status to penicillin - Chronic obstructive pulmonary disease, unspecified - Migraine, unspecified, not intractable, without status migrainosus - Allergy status to other antibiotic agents - Other long-term (current) drug therapy - Gastro-esophageal reflux disease without esophagitis - Attention-deficit hyperactivity disorder, unspecified type INPATIENT VISIT TRACKING (12 MO.) No inpatient visits to display in this time frame [email or web address]
== END 2020-11-22 14:50 | disposition home or self-care (01) ==
LOC: ED 14:10
DX: R11.2 Nausea with vomiting, unspecified (principal); G43.909 Migraine, unspecified, not intractable, without status migrainosus; K21.9 Gastro-esophageal reflux disease without esophagitis; E03.9 Hypothyroidism, unspecified; Z88.0 Allergy status to penicillin; Z88.1 Allergy status to other antibiotic agents; Z91.048 Other nonmedicinal substance allergy status; Z79.899 Other long term (current) drug therapy; Z88.8 Allergy status to other drugs, medicaments and biological substances
CPT/HCPCS: 99283

== ENCOUNTER 2021-01-18 21:17 | Emergency (ER) | payer BC ==
[~2021-01-18] VITALS: Ht 152.4 cm; Wt 59.0 kg
[~2021-01-18 21:17] MED LIST changes: +LEVETIRACETAM750 MG PO; +LEVOTHYROXINE50 MCG PO; +LOSARTAN POTAS100 MG PO; +ONDANSETRON ODT4 MG PO
--- OUTSIDE RECORDS SUMMARY | 2021-01-18 21:20 | XMS ---
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 Security Healthcare Network Consultant Events No recent Security Events currently on file CRITERIA MET - Group Notification CARE PROVIDERS DESTINEE LUGO Physician Waist Presser Current PHONE: [phone] KOLBY VOGEL Internal Medicine: Pulmonary Disease 08/15/2018-Current PHONE: Unknown QUITA MURPHY [facility] Medicine: Geriatric Medicine Current PHONE: Unknown Teofilo has no Care Guidelines for this patient. [place] VISIT COUNT (12 MO.) [address] [facility] TOTAL 4 NOTE: Visits indicate total known visits. ED/UCC VISIT TRACKING (12 MO.) 01/18/2021 21:17 [facility] [place] TYPE: Emergency COMPLAINT: - SHORTNESS OF BREATH 11/22/2020 14:11 [facility] [place] TYPE: Emergency COMPLAINT: - DEHYDRATED DIAGNOSES: - Nausea with vomiting, unspecified - Allergy status to other drugs, medicaments and biological substances - Hypothyroidism, unspecified - Dehydration - Gastro-esophageal reflux disease without esophagitis - Other long wall shear operator (current) drug therapy - Allergy status to other antibiotic agents - Other nonmedicinal substance allergy status - Allergy status to penicillin - Migraine, unspecified, not intractable, without status migrainosus 05/20/2020 02:50 [facility] [place] [...] drugs, medicaments and biological substances - Other long wall shear operator (current) drug therapy - Allergy status to penicillin - Gastro-esophageal reflux disease without esophagitis - Other nonmedicinal substance allergy status - Hypothyroidism, unspecified 05/02/2020 16:39 [facility] [place] [...] status to other antibiotic agents - Other residential (current) drug therapy - Gastro-esophageal reflux disease without esophagitis - Attention-deficit hyperactivity disorder, unspecified type INPATIENT VISIT TRACKING (12 MO.) No inpatient visits to display in this time frame [email or web address]
[2021-01-18] MEDS ORDERED: TESSALON PERLE100 MG PO (21:30)
--- NOTE | 2021-01-20 19:12 | EKG ---
[facility] [address] [facility] [place] [address] Signed Normal sinus rhythm Minimal voltage criteria for LVH, may be normal variant Borderline ECG No previous ECGs available Confirmed by FIFI IBRAHIM MD ([id number]) on 01/20/2021 7:12:35 PM Electronically Signed By: FIFI IBRAHIM MD 01/20/211911 PATIENT NAME: DOMINIQUE CARMICHAEL FLORENCIO Electrocardiogram DATE OF : 61 PHYSICIAN: FIFI IBRAHIM MD REPORT #: [id number] REPORT IS CONFIDENTIAL AND NOT TO BE RELEASED WITHOUT AUTHORIZATION
== END 2021-01-19 01:25 | disposition home or self-care (01) ==
LOC: ED 21:17
DX: R07.89 Other chest pain (principal); R06.02 Shortness of breath; J44.9 Chronic obstructive pulmonary disease, unspecified; G43.909 Migraine, unspecified, not intractable, without status migrainosus; K21.9 Gastro-esophageal reflux disease without esophagitis; E03.9 Hypothyroidism, unspecified; Z88.0 Allergy status to penicillin; Z88.8 Allergy status to other drugs, medicaments and biological substances; Z91.048 Other nonmedicinal substance allergy status; Z88.1 Allergy status to other antibiotic agents; Z79.899 Other long term (current) drug therapy
CPT/HCPCS: 71045; 80053; 83880; 84484; 85025; 93005; 93010; 99285-25

== ENCOUNTER 2021-03-15 21:30 | Emergency (ER) | payer BC ==
[~2021-03-15] VITALS: Ht 142.2 cm; Wt 60.8 kg
[~2021-03-15 21:30] MED LIST changes: +TESSALON PERLE100 MG PO
--- OUTSIDE RECORDS SUMMARY | 2021-03-15 21:32 | XMS ---
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 Security Immigration Guard Events No recent Security Events currently on file CRITERIA MET - Group Notification CARE PROVIDERS DESTINEE LUGO Physician Transformation Manager 02/14/2021-Current PHONE: [phone] KOLBY VOGEL Internal Medicine: Pulmonary Disease 08/15/2018-Current PHONE: Unknown QUITA MURPHY Family Medicine: Geriatric Medicine Current PHONE: Unknown Teofilo has no Care Guidelines for this patient. E.D. VISIT COUNT (12 MO.) 5 [facility] TOTAL 5 NOTE: Visits indicate total known visits. ED/UCC VISIT TRACKING (12 MO.) 03/15/2021 21:30 [facility] [place] [place] TYPE: Emergency COMPLAINT: - RT HAND LACERATION 01/18/2021 21:17 [facility] [place] [place] TYPE: Emergency COMPLAINT: - CP,SHORTNESS OF BREATH DIAGNOSES: - Shortness of breath - Chronic obstructive pulmonary disease, unspecified - Migraine, unspecified, not intractable, without status migrainosus - Other chest pain - Gastro-esophageal reflux disease without esophagitis - Allergy status to penicillin - Allergy status to other antibiotic agents - Hypothyroidism, unspecified - Allergy status to other drugs, medicaments and biological substances - Shortness of breath - Other chest pain - Other technician terminal and repeater (current) drug therapy - Other nonmedicinal substance allergy status 11/22/2020 14:11 [facility] [place] [place] TYPE: Emergency COMPLAINT: - DEHYDRATED DIAGNOSES: - Nausea with vomiting, unspecified - Allergy status to other drugs, medicaments and biological substances - Hypothyroidism, unspecified - Dehydration - Gastro-esophageal reflux disease without esophagitis - Other technician terminal and repeater (current) drug therapy - Allergy status to [...] drugs, medicaments and biological substances - Other technician terminal and repeater (current) drug therapy - Allergy status to [...] status to other antibiotic agents - Other technician terminal and repeater (current) drug therapy - Gastro-esophageal reflux disease without esophagitis - Attention-deficit hyperactivity disorder, unspecified type INPATIENT VISIT TRACKING (12 MO.) No inpatient visits to display in this time frame [email or web address]
[2021-03-15] MEDS ORDERED: HYDROXYZINE HCL25 MG PO (21:48)
[2021-03-15] MEDS ORDERED: NEURONTIN600 MG PO (21:48)
[2021-03-16] MEDS ORDERED: CEPHALEXIN500 MG PO (00:30)
[2021-03-17] MEDS ORDERED: BACTRIM DS TAB1 EACH PO (19:39)
== END 2021-03-16 00:43 | disposition home or self-care (01) ==
LOC: ED 21:30
DX: S61.431A Puncture wound without foreign body of right hand, initial encounter (principal); W26.0XXA Contact with knife, initial encounter; M19.90 Unspecified osteoarthritis, unspecified site; G43.909 Migraine, unspecified, not intractable, without status migrainosus; J44.9 Chronic obstructive pulmonary disease, unspecified; K21.9 Gastro-esophageal reflux disease without esophagitis; E03.9 Hypothyroidism, unspecified; Z88.0 Allergy status to penicillin; Z88.8 Allergy status to other drugs, medicaments and biological substances; Z91.040 Latex allergy status; Z88.1 Allergy status to other antibiotic agents; Z79.899 Other long term (current) drug therapy
CPT/HCPCS: 99283

== ENCOUNTER 2021-03-17 18:00 | Emergency (ER) | payer BC ==
[~2021-03-17] VITALS: Ht 142.2 cm; Wt 60.8 kg
[~2021-03-17 18:00] MED LIST changes: +CEPHALEXIN500 MG PO; +HYDROXYZINE HCL25 MG PO; +NEURONTIN600 MG PO
--- OUTSIDE RECORDS SUMMARY | 2021-03-17 18:02 | XMS ---
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 Security Machine Pecan Picker Events No recent Security Events currently on file CRITERIA MET - Group Notification - [facility] - 2 Visits in 30 Days CARE PROVIDERS DESTINEE LUGO Physician Claim Adjuster 02/14/2021-Current PHONE: [phone] KOLBY VOGEL Internal Medicine: Pulmonary Disease 08/15/2018-Current PHONE: Unknown QUITA MURPHY Family Medicine: Geriatric Medicine Current PHONE: Unknown Teofilo has no Care Guidelines for this patient. [place] VISIT COUNT (12 MO.) 6 [facility] TOTAL 6 NOTE: Visits indicate total known visits. ED/UCC VISIT TRACKING (12 MO.) 03/17/2021 18:01 [facility] [place] [place] TYPE: Emergency COMPLAINT: - R HAND SWELLING 03/15/2021 21:30 [facility] [place] [place] TYPE: Emergency COMPLAINT: - RT HAND LACERATION 01/18/2021 21:17 [facility] [place] TYPE: Emergency COMPLAINT: - CP,SHORTNESS OF [...] breath - Other chest pain - Other alf (current) drug therapy - Other nonmedicinal substance allergy status 11/22/2020 14:11 [facility] [place] [place] TYPE: Emergency COMPLAINT: - DEHYDRATED DIAGNOSES: - Nausea with vomiting, unspecified - Allergy status to other drugs, medicaments and biological substances - Hypothyroidism, unspecified - Dehydration - Gastro-esophageal reflux disease without esophagitis - Other termite treater helper (current) drug therapy - Allergy status to [...] drugs, medicaments and biological substances - Other termite treater helper (current) drug therapy - Allergy status to [...] status to other antibiotic agents - Other termite treater helper (current) drug therapy - Gastro-esophageal reflux disease without esophagitis - Attention-deficit hyperactivity disorder, unspecified type INPATIENT VISIT TRACKING (12 MO.) No inpatient visits to display in this time frame [email or web address]
[2021-03-17] MEDS ORDERED: BACTRIM DS TAB1 EACH PO (19:39)
== END 2021-03-17 20:40 | disposition home or self-care (01) ==
LOC: ED 18:00
DX: S61.431D Puncture wound without foreign body of right hand, subsequent encounter (principal); W26.0XXD Contact with knife, subsequent encounter; M19.90 Unspecified osteoarthritis, unspecified site; J44.9 Chronic obstructive pulmonary disease, unspecified; G43.909 Migraine, unspecified, not intractable, without status migrainosus; K21.9 Gastro-esophageal reflux disease without esophagitis; E03.9 Hypothyroidism, unspecified; Z88.0 Allergy status to penicillin; Z88.8 Allergy status to other drugs, medicaments and biological substances; Z88.1 Allergy status to other antibiotic agents; Z91.048 Other nonmedicinal substance allergy status; Z79.899 Other long term (current) drug therapy
CPT/HCPCS: 99283

== ENCOUNTER 2021-05-30 17:34 | Emergency (ER) | payer BC ==
[~2021-05-30] VITALS: Ht 142.2 cm; Wt 61.2 kg
[~2021-05-30 17:34] MED LIST changes: +BACTRIM DS TAB1 EACH PO
--- OUTSIDE RECORDS SUMMARY | 2021-05-30 17:38 | XMS ---
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 Security Gas Stove Servicer Helper Events No recent Security Events currently on file CRITERIA MET - Group Notification CARE PROVIDERS DESTINEE LUGO Physician B2B Sales Consultant 02/14/2021-Current PHONE: [phone] KOLBY VOGEL Internal Medicine: Pulmonary Disease 08/15/2018-Current PHONE: Unknown QUITA MURPHY Family Medicine: Geriatric Medicine Current PHONE: Unknown Teofilo has no Care Guidelines for this patient. E.D. VISIT COUNT (12 MO.) [address] [facility] TOTAL 5 NOTE: Visits indicate total known visits. ED/UCC VISIT TRACKING (12 MO.) 05/30/2021 17:35 [facility] [place] TYPE: Emergency COMPLAINT: - SHAKY, DIZZINESS, NAUSEA, FOG, EMOTIONAL 03/17/2021 18:01 [facility] [place] TYPE: Emergency COMPLAINT: - R HAND SWELLING DIAGNOSES: - Allergy status to other antibiotic agents - Allergy status to other drugs, medicaments and biological substances - Other nonmedicinal substance allergy status - Migraine, unspecified, not intractable, without status migrainosus - Chronic obstructive pulmonary disease, unspecified - Other nursing home (current) drug therapy - Contact with knife, subsequent encounter - Puncture wound without foreign body of right hand, subsequent encounter - Hypothyroidism, unspecified - Allergy status to penicillin - Gastro-esophageal reflux disease without esophagitis - Unspecified osteoarthritis, unspecified site 03/15/2021 21:30 [facility] [place] TYPE: Emergency COMPLAINT: - RT HAND LACERATION DIAGNOSES: - Latex allergy status - Allergy status to penicillin - Contact with knife, initial encounter - Other nursing home (current) drug therapy - Allergy status to other antibiotic agents - Gastro-esophageal reflux disease without esophagitis - Chronic obstructive pulmonary disease, unspecified - Allergy status to other drugs, medicaments and biological substances - Puncture wound without foreign body of right hand, initial encounter - Hypothyroidism, unspecified - Migraine, unspecified, not intractable, without status migrainosus - Unspecified osteoarthritis, unspecified site 01/18/2021 21:17 [facility] [...] breath - Other chest pain - Other nursing home (current) drug therapy - Other nonmedicinal substance allergy status 11/22/2020 14:[address] [facility] [place] TYPE: Emergency COMPLAINT: - DEHYDRATED DIAGNOSES: - Nausea with vomiting, unspecified - Allergy status to other drugs, medicaments and biological substances - Hypothyroidism, unspecified - Dehydration - Gastro-esophageal reflux disease without esophagitis - Other nursing home (current) drug therapy - Allergy status to other antibiotic agents - Other nonmedicinal substance allergy status - Allergy status to penicillin - Migraine, unspecified, not intractable, without status migrainosus INPATIENT VISIT TRACKING (12 MO.) No inpatient visits to display in this time frame [id number]
[2021-05-30] MEDS ORDERED: ONDANSETRON ODT4 MG PO (18:58)
== END 2021-05-30 22:47 | disposition home or self-care (01) ==
LOC: ED 17:34
DX: G43.909 Migraine, unspecified, not intractable, without status migrainosus (principal); M19.90 Unspecified osteoarthritis, unspecified site; J44.9 Chronic obstructive pulmonary disease, unspecified; K21.9 Gastro-esophageal reflux disease without esophagitis; E03.9 Hypothyroidism, unspecified; Z88.0 Allergy status to penicillin; Z88.1 Allergy status to other antibiotic agents; Z91.048 Other nonmedicinal substance allergy status; Z79.899 Other long term (current) drug therapy
CPT/HCPCS: 70450; 80053; 81001; 85025; 96374; 96375; 99284-25; J1200; J1885; J2765

== ENCOUNTER 2022-03-06 09:05 | Emergency (ER) | payer OTHER, BC ==
[~2022-03-06] VITALS: Ht 142.2 cm; Wt 65.0 kg
--- OUTSIDE RECORDS SUMMARY | 2022-03-06 09:08 | XMS ---
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 Security Billing Services Manager Events No recent Security Events currently on file CRITERIA MET - Group Notification - PDMP CARE PROVIDERS DESTINEE LUGO Physician Organ Pipe Maker Metal 02/14/2021-Current PHONE: [phone] KOLBY VOGEL Internal Medicine: Pulmonary Disease 08/15/2018-Current PHONE: Unknown QUITA MURPHY Family Medicine: Geriatric Medicine Current PHONE: Unknown Teofilo has no Care Guidelines for this patient. E.D. VISIT COUNT (12 MO.) [address] [facility] TOTAL 4 NOTE: Visits indicate total known visits. ED/UCC VISIT TRACKING (12 MO.) 03/06/2022 09:06 [facility] TYPE: Emergency COMPLAINT: - HEADACHE, NAUSEA 05/30/2021 17:35 [facility] TYPE: Emergency COMPLAINT: - SHAKY, DIZZINESS, NAUSEA, FOG, EMOTIONAL DIAGNOSES: - Migraine, unspecified, not intractable, without status migrainosus - Gastro-esophageal reflux disease without esophagitis - Allergy status to penicillin - Hypothyroidism, unspecified - Other retirement (current) drug therapy - Allergy status to other antibiotic agents - Headache, unspecified - Unspecified osteoarthritis, unspecified site - Chronic obstructive pulmonary disease, unspecified - Other nonmedicinal substance allergy status 03/17/2021 18:01 [facility] TYPE: Emergency COMPLAINT: - R HAND SWELLING DIAGNOSES: - Allergy status to other antibiotic agents - Allergy status to other drugs, medicaments and biological substances - Other nonmedicinal substance allergy status - Migraine, unspecified, not intractable, without status migrainosus - Chronic obstructive pulmonary disease, unspecified - Other retirement (current) drug therapy - Contact with knife, [...] Contact with knife, initial encounter - Other retirement (current) drug therapy - Allergy status to other antibiotic agents - Gastro-esophageal reflux disease without esophagitis - Chronic obstructive pulmonary disease, unspecified - Allergy status to other drugs, medicaments and biological substances - Puncture wound without foreign body of right hand, initial encounter - Hypothyroidism, unspecified - Migraine, unspecified, not intractable, without status migrainosus - Unspecified osteoarthritis, unspecified site INPATIENT VISIT TRACKING (12 MO.) No inpatient visits to display in this time frame [id number]
[2022-03-06] MEDS ORDERED: LEVOTHYROXINE75 MCG PO (09:26)
[2022-03-06] MEDS ORDERED: PANTOPRAZOLE SO20 MG PO (09:26)
== END 2022-03-06 11:13 | disposition home or self-care (01) ==
LOC: ED 09:05
DX: S09.90XA Unspecified injury of head, initial encounter (principal); W01.198A Fall on same level from slipping, tripping and stumbling with subsequent striking against other object, initial encounter; M19.90 Unspecified osteoarthritis, unspecified site; J44.9 Chronic obstructive pulmonary disease, unspecified; G43.909 Migraine, unspecified, not intractable, without status migrainosus; K21.9 Gastro-esophageal reflux disease without esophagitis; E03.9 Hypothyroidism, unspecified; I25.2 Old myocardial infarction; Z88.0 Allergy status to penicillin; Z88.8 Allergy status to other drugs, medicaments and biological substances; Z91.048 Other nonmedicinal substance allergy status; Z88.1 Allergy status to other antibiotic agents; Z79.899 Other long term (current) drug therapy
CPT/HCPCS: 70450; 99283-25

== ENCOUNTER 2022-10-20 16:34 | Emergency (ER) | payer BC ==
[~2022-10-20] VITALS: Ht 142.2 cm; Wt 63.0 kg
[~2022-10-20 16:34] MED LIST changes: +AZITHROMYCIN250 MG PO; +HYDROCODON-ACE1 EA10 PO; +LEVOTHYROXINE75 MCG PO; +MELOXICAM7.5 MG PO; +PANTOPRAZOLE SO20 MG PO; +PREDNISONE5 M1 PO
--- OUTSIDE RECORDS SUMMARY | 2022-10-20 16:38 | XMS ---
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 Security Pet Adoption Counselor Events No recent Security Events currently on file CRITERIA MET - PDMP - Group Notification CARE PROVIDERS DESTINEE LUGO Physician Rubber Stamp Maker 02/14/2021-Current PHONE: [phone] KOLBY VOGEL Internal Medicine: Pulmonary Disease 08/15/2018-Current PHONE: Unknown QUITA MURPHY Family Medicine: Geriatric Medicine Current PHONE: Unknown Teofilo has no Care Guidelines for this patient. E.D. VISIT COUNT (12 MO.) 4 [facility] TOTAL 4 NOTE: Visits indicate total known visits. ED/UCC VISIT TRACKING (12 MO.) 10/20/2022 16:34 [facility] TYPE[facility] Emergency COMPLAINT: - LT SIDED RIB PAIN 08/31/2022 21:40 [facility] TYPE: Emergency COMPLAINT: - LEFT SIDE RIB PAIN DIAGNOSES: - Other tank terminal gauger (current) drug therapy - Other nonmedicinal substance allergy status - Allergy status to penicillin - Gastro-esophageal reflux disease without esophagitis - Pleurodynia - Chronic obstructive pulmonary disease, unspecified - Hypothyroidism, unspecified - Allergy status to other drugs, medicaments and biological substances - Allergy status to other antibiotic agents 07/30/2022 04:12 [facility] TYPE: Emergency COMPLAINT: - L FOOT PAIN DIAGNOSES: - Allergy status to penicillin - Exposure to other specified factors, initial encounter - Unspecified sprain of left foot, initial encounter - Other tank terminal gauger (current) drug therapy - Allergy status to other antibiotic agents - Hypothyroidism, unspecified - Allergy status to other drugs, medicaments and biological substances - Pain in left foot - Gastro-esophageal reflux disease without esophagitis 03/06/2022 09:06 [facility] TYPE: Emergency COMPLAINT: - HEADACHE, NAUSEA DIAGNOSES: - Old myocardial infarction - Allergy status to other antibiotic agents - Other jail (current) drug therapy - Unspecified osteoarthritis, unspecified site - Fall on same level from slipping, tripping and stumbling with subsequent striking against other object, initial encounter - Chronic obstructive pulmonary disease, unspecified - Allergy status to penicillin - Other nonmedicinal substance allergy status - Unspecified injury of head, initial encounter - Headache, unspecified - Migraine, unspecified, not intractable, without status migrainosus - Gastro-esophageal reflux disease without esophagitis - Allergy status to other drugs, medicaments and biological substances - Hypothyroidism, unspecified INPATIENT VISIT TRACKING (12 MO.) No inpatient visits to display in this time frame [id number]
[2022-10-20] MEDS ORDERED: HYDROCODON-ACE1 EA10 PO (20:23)
== END 2022-10-20 20:35 | disposition home or self-care (01) ==
LOC: ED 16:34
DX: S22.42XA Multiple fractures of ribs, left side, initial encounter for closed fracture (principal); J11.1 Influenza due to unidentified influenza virus with other respiratory manifestations; M79.7 Fibromyalgia; G43.909 Migraine, unspecified, not intractable, without status migrainosus; K21.9 Gastro-esophageal reflux disease without esophagitis; E03.9 Hypothyroidism, unspecified; I25.2 Old myocardial infarction; Z88.0 Allergy status to penicillin; Z88.8 Allergy status to other drugs, medicaments and biological substances; Z88.1 Allergy status to other antibiotic agents; Z91.048 Other nonmedicinal substance allergy status; Z79.899 Other long term (current) drug therapy; X58.XXXA Exposure to other specified factors, initial encounter
CPT/HCPCS: 71046; 99283-25; A9270

== ENCOUNTER 2023-07-25 12:30 | Emergency (ER) | payer BC ==
[~2023-07-25] VITALS: Ht 144.8 cm; Wt 61.4 kg
--- OUTSIDE RECORDS SUMMARY | ~2023-07-25 | XMS | Continuity of Care Document ---
Demographics + + + | Address | [address] | | | [place] [address] | + + + | Preferred Language | Unknown | + + + | Marital Status | Never | + + + | Restorationist Affiliation | Unknown | + + + | Race | White | + + + | Ethnic Group | Not or | + + + Author + + + | Author | [facility] | + + + | Organization | [facility] | + + + | Address | [address] | | | [place] [address] | + + + | Phone | | + + + Care Team Providers + + + + | Care Plant Mechanic Name | Role | Phone | + + + + Unavailable | Unavailable | + + + + Allergies No information. Encounters No information. Functional Status No information. Immunizations No information. Medications No information. Problems + + + + | date | description | facility | + + + + | 2023-07-06 11:44 | HYPOTHYROIDISM, | [facility] | | | UNSPECIFIED | | + + + + | 2023-07-06 11:44 | ATTENTION-DEFICIT | [facility] | | | HYPERACTIVITY DISORDER, | | | | UNSPECIF | | + + + + | 2023-07-06 11:44 | MIGRAINE, UNSP, NOT | [facility] | | | INTRACTABLE, WITHOUT STATUS | | | | [place] | | + + + + | 2023-07-06 11:44 | OLD MYOCARDIAL INFARCTION | [facility] | + + + + | 2023-07-06 11:44 | IRRITABLE BOWEL SYNDROME | [facility] | | | WITHOUT DIARRHEA | | + + + + | 2023-07-06 11:44 | FIBROMYALGIA | [facility] | + + + + | 2023-07-06 11:44 | Dizziness and giddiness | [facility] | + + + + | 2023-07-06 11:44 | POISONING BY CANNABIS, | [facility] | | | ACCIDENTAL (UNINTENTIONAL), | | | | | | + + + + | 2023-07-06 11:44 | ADVERSE EFFECT OF | [facility] | | | CANNABIS, INITIAL ENCOUNTER | | | | | | + + + + | 2023-07-06 11:44 | COVID-19 | [facility] | + + + + | 2023-07-06 11:44 | HORMONE REPLACEMENT | [facility] | | | THERAPY | | + + + + | 2023-07-06 11:44 | OTHER JAIL (CURRENT) | [facility] | | | DRUG THERAPY | | + + + + | 2023-07-06 11:44 | ALLERGY STATUS TO | [facility] | | | PENICILLIN | | + + + + | 2023-07-06 11:44 | ALLERGY STATUS TO OTHER | [facility] | | | ANTIBIOTIC AGENTS STATUS | | + + + + | 2023-07-06 11:44 | ALLERGY STATUS TO OTH | [facility] | | | DRUG/MEDS/BIOL SUBST STATUS | | | | | | + + + + | 2023-07-06 11:44 | OTHER NONMEDICINAL | [facility] | | | SUBSTANCE ALLERGY STATUS | | + + + + Procedures No information. Results/Labs No information. Social History +--------+ + + | date | description | facility | +--------+ + + Vital Signs No information."
[~2023-07-25 12:30] MED LIST changes: +OXYBUTYNIN CHLOR5 M1 PO
--- OUTSIDE RECORDS SUMMARY | 2023-07-25 12:32 | XMS ---
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 Security Travertine Installer Events No recent Security Events currently on file CRITERIA MET - Group Notification - [facility] - 2 Visits in 30 Days CARE PROVIDERS DESTINEE LUGO Physician Ski Molder 02/14/2021-Current PHONE: [phone] KOLBY VOGEL Internal Medicine: Pulmonary Disease 08/15/2018-Current PHONE: Unknown QUITA MURPHY Family Medicine: Geriatric Medicine Current PHONE: Unknown Teofilo has no Care Guidelines for this patient. [place] VISIT COUNT (12 MO.) 5 [facility] TOTAL 5 NOTE: Visits indicate total known visits. ED/UCC VISIT TRACKING (12 MO.) 07/25/2023 12:30 [facility] TYPE: Emergency COMPLAINT: - HAND NUMBESS/ BACK PAIN 07/06/2023 11:44 [facility] TYPE: Emergency COMPLAINT: - WEAKNESS DIAGNOSES: - Adverse effect of cannabis, initial encounter - Allergy status to other antibiotic agents - Allergy status to other drugs, medicaments and biological substances - Allergy status to penicillin - Attention-deficit hyperactivity disorder, unspecified type - COVID-19 - Dizziness and giddiness - Fibromyalgia - Hormone replacement therapy - Hypothyroidism, unspecified - Irritable bowel syndrome without diarrhea - Migraine, unspecified, not intractable, without status migrainosus - Old myocardial infarction - Other intermediate designer (current) drug therapy - Other nonmedicinal substance allergy status - Poisoning by cannabis, accidental (unintentional), initial encounter 10/20/2022 16:34 [facility] TYPE: Emergency COMPLAINT: - LT SIDED RIB PAIN DIAGNOSES: - Allergy status to other antibiotic agents - Allergy status to other drugs, medicaments and biological substances - Allergy status to penicillin - Exposure to other specified factors, initial encounter - Fibromyalgia - Gastro-esophageal reflux disease without esophagitis - Hypothyroidism, unspecified - Influenza due to unidentified influenza virus with other respiratory manifestations - Migraine, unspecified, not intractable, without status migrainosus - Multiple fractures of ribs, left side, initial encounter for closed fracture - Old myocardial infarction - Other intermediate designer (current) drug therapy - Other nonmedicinal substance allergy status - Pleurodynia 08/31/2022 21:40 [facility] TYPE: Emergency COMPLAINT: - LEFT SIDE RIB PAIN DIAGNOSES: - Allergy status to other antibiotic agents - Allergy status to other drugs, medicaments and biological substances - Allergy status to penicillin - Chronic obstructive pulmonary disease, unspecified - Gastro-esophageal reflux disease without esophagitis - Hypothyroidism, unspecified - Other intermediate designer (current) drug therapy - Other nonmedicinal substance allergy status - Pleurodynia 07/30/2022 04:[address] [facility] [place] TYPE: Emergency COMPLAINT: - L FOOT PAIN DIAGNOSES: - Allergy status to other antibiotic agents - Allergy status to other drugs, medicaments and biological substances - Allergy status to penicillin - Exposure to other specified factors, initial encounter - Gastro-esophageal reflux disease without esophagitis - Hypothyroidism, unspecified - Other halfway (current) drug therapy - Pain in left foot - Unspecified sprain of left foot, initial encounter INPATIENT VISIT TRACKING (12 MO.) No inpatient visits to display in this time frame [id number]
[2023-07-25] MEDS ORDERED: PREDNISONE20 MG PO (18:27)
[2023-07-25 18:47] VITALS: BP 139/84
== END 2023-07-25 18:50 | disposition home or self-care (01) ==
LOC: ED 12:30
DX: M47.816 Spondylosis without myelopathy or radiculopathy, lumbar region (principal); J44.9 Chronic obstructive pulmonary disease, unspecified; I25.2 Old myocardial infarction; E03.9 Hypothyroidism, unspecified; Z79.890 Hormone replacement therapy; Z79.899 Other long term (current) drug therapy
CPT/HCPCS: 72100; 72131; 99284-25; A9270; J1100

== ENCOUNTER 2024-10-03 18:42 | Emergency (ER) | payer BC ==
[~2024-10-03] VITALS: Ht 144.8 cm; Wt 59.0 kg
[~2024-10-03 18:42] MED LIST changes: +LIDODERM1 EACH TOP; +OXYCODONE HCL5 MG PO
--- OUTSIDE RECORDS SUMMARY | 2024-10-03 18:49 | XMS ---
PreManage Notification: DOIMNIQUE CARMICHAEL Security Healthcare Recruiter Events No recent Security Events currently on file CRITERIA MET - Group Notification CARE PROVIDERS KOLBY VOGEL Internal Medicine: Pulmonary Disease 08/15/2018-Current PHONE: Unknown QUITA MURPHY Family Medicine: Geriatric Medicine Current PHONE: Unknown Teofilo has no Care Guidelines for this patient. Mary VISIT COUNT (12 MO.) Della [facility] TOTAL 4 NOTE: Visits indicate total known visits. ED/UCC VISIT TRACKING (12 MO.) 10/03/2024 18:43 [facility] TYPE: Emergency COMPLAINT: - HEADACHE/BALANCE ISSUES 04/29/2024 16:52 [facility] TYPE: Emergency COMPLAINT: - BACK PAIN DIAGNOSES: - Allergy status to other antibiotic agents - Allergy status to other drugs, medicaments and biological substances - Allergy status to penicillin - Chronic obstructive pulmonary disease, unspecified - Fracture of one rib, right side, initial encounter for closed fracture - Gastro-esophageal reflux disease without esophagitis - Hormone replacement therapy - Hypothyroidism, unspecified - Low back pain, unspecified - Old myocardial infarction - Other intermediate teacher (current) drug therapy - Other nonmedicinal substance allergy status - Striking against or struck by other objects, initial encounter 04/02/2024 21:20 [facility] TYPE: Emergency COMPLAINT: - RT HIP PAIN DIAGNOSES: - Allergy status to other antibiotic agents - Allergy status to other drugs, medicaments and biological substances - Allergy status to penicillin - Chronic obstructive pulmonary disease, unspecified - Gastro-esophageal reflux disease without esophagitis - Hormone replacement therapy - Hypothyroidism, unspecified - Low back pain, unspecified - Old myocardial infarction - Other intervertebral disc degeneration, lumbar region - Other intermediate teacher (current) drug therapy - Other nonmedicinal substance allergy status - Other specified disorders of bone density and structure, other site - Scoliosis, unspecified - Spondylosis without myelopathy or radiculopathy, lumbar region 04/01/2024 02:49 [facility] TYPE: Emergency COMPLAINT: - HIP PAIN DIAGNOSES: - Allergy status to other antibiotic agents - Allergy status to other drugs, medicaments and biological substances - Allergy status to penicillin - Chronic obstructive pulmonary disease, unspecified - Hormone replacement therapy - Hypothyroidism, unspecified - Lesion of sciatic nerve, right lower limb - Old myocardial infarction - Other penitentiary (current) drug therapy - Other nonmedicinal substance allergy status - Pain in right hip INPATIENT VISIT TRACKING (12 MO.) No inpatient visits to display in this time frame [email or web address]
[2024-10-03] MEDS ORDERED: METAXALONE800 MG PO (19:33)
[2024-10-03 19:57] LABS: BASOPHILS 0.4 % (0-2); EOSINOPHILS 0.6 % (0-6); HEMATOCRIT 38.5 % (35.0-50.0); HEMOGLOBIN 13.1 g/dL (12.0-18.0); LYMPHOCYTES 32.6 % (24-44); MCH 31.2 (27-36); MCHC 34.1 g/dl (30-36); MCV 91.6 fl (81-99); MONOCYTES 8.3 % (0-12); NEUTROPHILS 58.1 % (39-80); PLATELET COUNT 230 K/uL (140-440); RDW 13.7 (10.5-15.0)
[2024-10-03 20:03] LABS: BILIRUBIN, URINE NEGATIVE (negative); BLOOD/HGB, URINE NEGATIVE (Negative); KETONE, URINE NEGATIVE (Negative); LEUK ESTERASE, URINE NEGATIVE (negative); NITRITE, URINE NEGATIVE (negative)
[2024-10-03 20:11] LABS: ALBUMIN 4.1 g/dL (3.4-5.0); ALBUMIN/GLOBULIN RATIO 1.11 (1.1-2.4); ANION GAP 12.9 (7-21); BILIRUBIN, TOTAL 0.4 ng/dL (0.2-1.0); BUN/CREATININE RATIO 16.3 (6.0-28.6); CALCIUM 9.6 mg/dL (8.5-10.1); CREATININE, SERUM 0.92 mg/dL (0.55-1.02); MAGNESIUM 1.9 mg/dL (1.8-2.4); POTASSIUM 3.9 mmol/L (3.5-5.1); PROTEIN, TOTAL 7.8 g/dL (6.4-8.2)
[2024-10-03 20:55] LABS: INFLUENZA B NAA NEGATIVE (NEGATIVE); RESPIRATORY SYNCYTIAL VIR NAA NEGATIVE (NEGATIVE)
[2024-10-03] MEDS ORDERED: KETOROLAC TROMETHAMINE 30 MG/ML VIAL IV ONE (21:15)
[2024-10-03 21:51] VITALS: BP 144/104
--- NOTE | 2024-10-04 22:40 | EKG ---
[facility] [address] [place] [address] Signed Normal sinus rhythm Minimal voltage criteria for LVH, may be normal variant ( R in aVL ) Borderline ECG When compared with ECG of 06-JUL-2023 14:15, No significant change was found Confirmed by Adama Rudolph MD () on 10/04/2024 10:40:36 PM Electronically Signed By: ADAMA RUDOLPH MD 10/04/24 2240 PATIENT NAME: DOMINIQUE CARMICHAEL Electrocardiogram DATE OF : 61 PHYSICIAN: ADAMA RUDOLPH MD REPORT #: [id number] REPORT IS CONFIDENTIAL AND NOT TO BE RELEASED WITHOUT AUTHORIZATION
== END 2024-10-03 21:51 | disposition home or self-care (01) ==
LOC: ED 18:42
PROVIDERS: Family Medicine
DX: B34.9 Viral infection, unspecified (principal); F41.1 Generalized anxiety disorder; J44.9 Chronic obstructive pulmonary disease, unspecified; G43.909 Migraine, unspecified, not intractable, without status migrainosus; M41.9 Scoliosis, unspecified; I25.2 Old myocardial infarction; K21.9 Gastro-esophageal reflux disease without esophagitis; E03.9 Hypothyroidism, unspecified; Z88.0 Allergy status to penicillin; Z88.8 Allergy status to other drugs, medicaments and biological substances; Z91.048 Other nonmedicinal substance allergy status; Z88.1 Allergy status to other antibiotic agents; Z79.890 Hormone replacement therapy; Z79.899 Other long term (current) drug therapy
CPT/HCPCS: 36415; 71045; 80053; 81003; 83735; 84484; 85025; 87502; 93005; 93010; 96374; 99285-25; J1885; U0002

== ENCOUNTER 2024-11-01 22:33 | Emergency (ER) | payer BC ==
[~2024-11-01] VITALS: Ht 144.8 cm; Wt 59.9 kg
[~2024-11-01 22:33] MED LIST changes: +METAXALONE800 MG PO
--- OUTSIDE RECORDS SUMMARY | 2024-11-01 22:40 | XMS ---
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 Security Roller Gold Leaf Events No recent Security Events currently on file CRITERIA MET - Group Notification - [facility] - 2 Visits in 30 Days CARE PROVIDERS KOLBY VOGEL Internal Medicine: Pulmonary Disease 08/15/2018-Current PHONE: Unknown QUITA MURPHY Family Medicine: Geriatric Medicine Current PHONE: Unknown Teofilo has no Care Guidelines for this patient. Mary VISIT COUNT (12 MO.) [address] [place] [address] TOTAL 5 NOTE: Visits indicate total known visits. ED/UCC VISIT TRACKING (12 MO.) 11/01/2024 22:34 [facility] TYPE: Emergency COMPLAINT: - HEADACHE 10/03/2024 18:43 [facility] TYPE: Emergency COMPLAINT: - HEADACHE/BALANCE ISSUES DIAGNOSES: - Allergy status to other antibiotic agents - Allergy status to other drugs, medicaments and biological substances - Allergy status to penicillin - Chronic obstructive pulmonary disease, unspecified - Gastro-esophageal reflux disease without esophagitis - Generalized anxiety disorder - Hormone replacement therapy - Hypothyroidism, unspecified - Migraine, unspecified, not intractable, without status migrainosus - Old myocardial infarction - Other ferry terminal agent (current) drug therapy - Other nonmedicinal substance allergy status - Scoliosis, unspecified - Unspecified convulsions - Viral infection, unspecified 04/29/2024 16:52 [facility] [place] [...] unspecified - Old myocardial infarction - Other snf (current) drug therapy - Other nonmedicinal substance [...] intervertebral disc degeneration, lumbar region - Other ferry terminal agent (current) drug therapy - Other nonmedicinal substance allergy status - Other specified disorders of bone density and structure, other site - Scoliosis, unspecified - Spondylosis without myelopathy or radiculopathy, lumbar region 04/01/2024 02:[address] [facility] [place] TYPE[facility] Emergency COMPLAINT: - HIP PAIN DIAGNOSES: - Allergy status to other antibiotic agents - Allergy status to other drugs, medicaments and biological substances - Allergy status to penicillin - Chronic obstructive pulmonary disease, unspecified - Hormone replacement therapy - Hypothyroidism, unspecified - Lesion of sciatic nerve, right lower limb - Old myocardial infarction - Other snf (current) drug therapy - Other nonmedicinal substance allergy status - Pain in right hip INPATIENT VISIT TRACKING (12 MO.) No inpatient visits to display in this time frame [id number]
[2024-11-01] MEDS ORDERED: diphenhydrAMINE HCL 50 MG/ML VIAL IV ONE (23:00)
[2024-11-01] MEDS ORDERED: METOCLOPRAMIDE HCL 10 MG/2 ML SDV IV ONE (23:00)
[2024-11-01] MEDS ORDERED: SODIUM CHLORIDE 0.9% 500 ML IV PRN (23:00)
[2024-11-01] MEDS ORDERED: SUMAtriptan succinate 6 MG/0.5 ML VIAL SUB-Q ONE (23:00)
[2024-11-01 23:40] LABS: MCV 90.9 fl (81-99); RDW 13.1 (10.5-15.0)
[2024-11-01 23:42] LABS: HEMATOCRIT 36.8 % (35.0-50.0); HEMOGLOBIN 12.8 g/dL (12.0-18.0); MCH 31.5 (27-36); MCHC 34.7 g/dl (30-36); PLATELET COUNT 269 K/uL (140-440); RBC 4.05 M/ul (4.3-5.7)
[2024-11-01 23:55] LABS: ALBUMIN 3.9 g/dL (3.4-5.0); ALBUMIN/GLOBULIN RATIO 1.08 (1.1-2.4); ANION GAP 7.9 (7-21); BILIRUBIN, TOTAL 0.3 ng/dL (0.2-1.0); BUN/CREATININE RATIO 14.28 (6.0-28.6); CALCIUM 9.4 mg/dL (8.5-10.1); CREATININE, SERUM 1.12 mg/dL (0.55-1.02); POTASSIUM 3.9 mmol/L (3.5-5.1); PROTEIN, TOTAL 7.5 g/dL (6.4-8.2)
[2024-11-01 23:56] LABS: EOSINOPHILS, MANUAL DIFF 1; LYMPHOCYTES, MANUAL DIFF 39; NEUTROPHILS, MANUAL DIFF 60
[2024-11-02] MEDS ORDERED: BUTALB-ACETAMI1 EAC2 PO (00:59)
[2024-11-02] MEDS ORDERED: ONDANSETRON ODT8 MG PO (00:59)
[2024-11-02 01:07] VITALS: BP 136/99
== END 2024-11-02 01:06 | disposition home or self-care (01) ==
LOC: ED 22:33
PROVIDERS: Family Medicine
DX: G43.909 Migraine, unspecified, not intractable, without status migrainosus (principal); J44.9 Chronic obstructive pulmonary disease, unspecified; I25.2 Old myocardial infarction; Z88.0 Allergy status to penicillin; Z88.8 Allergy status to other drugs, medicaments and biological substances; Z88.1 Allergy status to other antibiotic agents; Z91.09 Other allergy status, other than to drugs and biological substances; Z79.890 Hormone replacement therapy; Z79.899 Other long term (current) drug therapy
CPT/HCPCS: 36415; 70450; 70496; 70498; 80053; 85025; 99284-25; J1200; J2765; J3030; J7040; Q9967

== ENCOUNTER 2025-01-18 13:59 | Emergency (ER) | payer BC ==
[~2025-01-18] VITALS: Ht 144.8 cm; Wt 59.9 kg
[~2025-01-18 13:59] MED LIST changes: +BUTALB-ACETAMI1 EAC2 PO; +ONDANSETRON ODT8 MG PO
--- OUTSIDE RECORDS SUMMARY | 2025-01-18 14:06 | XMS ---
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 Security Manager Financial Planning Events No recent Security Events currently on file CRITERIA MET - Group Notification CARE PROVIDERS KOLBY VOGEL Internal Medicine: Pulmonary Disease 08/15/2018-Current PHONE: Unknown QUITA MURPHY Family Medicine: Geriatric Medicine Current PHONE: Unknown Teofilo has no Care Guidelines for this patient. Mary VISIT COUNT (12 MO.) Harjinder Finch TOTAL 6 NOTE: Visits indicate total known visits. ED/UCC VISIT TRACKING (12 MO.) 01/18/2025 14:00 [facility] TYPE: Emergency COMPLAINT: - BACK PAIN 11/01/2024 22:34 [facility] TYPE: Emergency COMPLAINT: - HEADACHE DIAGNOSES: - Allergy status to other antibiotic agents - Allergy status to other drugs, medicaments and biological substances - Allergy status to penicillin - Anesthesia of skin - Chronic obstructive pulmonary disease, unspecified - Headache, unspecified - Hormone replacement therapy - Migraine, unspecified, not intractable, without status migrainosus - Old myocardial infarction - Other allergy status, other than to drugs and biological substances - Other residential (current) drug therapy - Paresthesia of skin 10/03/2024 18:43 [facility] [...] migrainosus - Old myocardial infarction - Other residential (current) drug therapy - Other nonmedicinal substance [...] unspecified - Old myocardial infarction - Other exterminator (current) drug therapy - Other nonmedicinal substance [...] intervertebral disc degeneration, lumbar region - Other residential (current) drug therapy - Other nonmedicinal substance allergy status - Other specified disorders of bone density and structure, other site - Scoliosis, unspecified - Spondylosis without myelopathy or radiculopathy, lumbar region 04/01/2024 02:[address] [facility] [place] TYPE: Emergency COMPLAINT: - HIP PAIN DIAGNOSES: - Allergy status to other antibiotic agents - Allergy status to other drugs, medicaments and biological substances - Allergy status to penicillin - Chronic obstructive pulmonary disease, unspecified - Hormone replacement therapy - Hypothyroidism, unspecified - Lesion of sciatic nerve, right lower limb - Old myocardial infarction - Other residential (current) drug therapy - Other nonmedicinal substance allergy status - Pain in right hip INPATIENT VISIT TRACKING (12 MO.) No inpatient visits to display in this time frame [id number]
[2025-01-18] MEDS ORDERED: CYMBALTA20 MG (20:25)
[2025-01-18] MEDS ORDERED: BACTRIM DS TAB1 EACH (20:25)
[2025-01-18] MEDS ORDERED: ACETAMINOPHEN 500 MG TAB PO ONE (21:30)
[2025-01-18] MEDS ORDERED: KETOROLAC TROMETHAMINE 30 MG/ML VIAL IM ONE (21:30)
[2025-01-18] MEDS ORDERED: METHYLPREDNISOLO4 M1 PO (22:41)
[2025-01-18] MEDS ORDERED: LIDODERM1 EACH TOP (22:41)
[2025-01-18] MEDS ORDERED: CYCLOBENZAPRINE10 MG PO (22:41)
[2025-01-18] MEDS ORDERED: HYDROCODONE BIT/ACETAMINOPHEN 5/325 MG 1 TAB HOME.PACK PO ONE (22:45)
[2025-01-18] MEDS ORDERED: CYCLOBENZAPRINE HCL 10 MG TAB PO ONE (22:45)
[2025-01-18] MEDS ORDERED: LIDOCAINE HCL 4% 1 EACH PATCH TD ONE (22:45)
[2025-01-18 23:07] VITALS: BP 120/83
== END 2025-01-18 23:09 | disposition home or self-care (01) ==
LOC: ED 13:59
DX: M54.30 Sciatica, unspecified side (principal); J44.9 Chronic obstructive pulmonary disease, unspecified; K21.9 Gastro-esophageal reflux disease without esophagitis
CPT/HCPCS: 96372; 99283; A9270; J1885

== ENCOUNTER 2025-01-30 22:29 | Emergency (ER) | payer BC ==
[~2025-01-30] VITALS: Ht 144.8 cm; Wt 60.0 kg
[~2025-01-30 22:29] MED LIST changes: +BACTRIM DS TAB1 EACH; +CYMBALTA20 MG
--- OUTSIDE RECORDS SUMMARY | 2025-01-30 22:36 | XMS ---
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 Security Lottery Manager Events No recent Security Events currently on file CRITERIA MET - Group Notification - [facility] - 2 Visits in 30 Days CARE PROVIDERS KOLBY VOGEL Internal Medicine: Pulmonary Disease 08/15/2018-Current PHONE: Unknown QUITA MURPHY Family Medicine: Geriatric Medicine Current PHONE: Unknown Teofilo has no Care Guidelines for this patient. Mary VISIT COUNT (12 MO.) [address] [place] [address] TOTAL 7 NOTE: Visits indicate total known visits. ED/UCC VISIT TRACKING (12 MO.) 01/30/2025 22:29 [facility] [place] TYPE: Emergency COMPLAINT: - NECK PAIN 01/18/2025 14:00 [facility] [place] TYPE: Emergency COMPLAINT: - BACK PAIN DIAGNOSES: - Chronic obstructive pulmonary disease, unspecified - Gastro-esophageal reflux disease without esophagitis - Sciatica, unspecified side 11/01/2024 22:34 [facility] [place] [...] to drugs and biological substances - Other mcc (current) drug therapy - Paresthesia of skin [...] migrainosus - Old myocardial infarction - Other mcc (current) drug therapy - Other nonmedicinal substance [...] unspecified - Old myocardial infarction - Other mcc (current) drug therapy - Other nonmedicinal substance [...] intervertebral disc degeneration, lumbar region - Other mcc (current) drug therapy - Other nonmedicinal substance [...] limb - Old myocardial infarction - Other petroleum terminal plant operator (current) drug therapy - Other nonmedicinal substance allergy status - Pain in right hip INPATIENT VISIT TRACKING (12 MO.) No inpatient visits to display in this time frame [email or web address]
[2025-01-30] MEDS ORDERED: KETOROLAC TROMETHAMINE 30 MG/ML VIAL IM ONE (23:00)
[2025-01-31 01:23] VITALS: BP 137/95
== END 2025-01-31 01:22 | disposition home or self-care (01) ==
LOC: ED 22:29
DX: S16.1XXA Strain of muscle, fascia and tendon at neck level, initial encounter (principal); J44.9 Chronic obstructive pulmonary disease, unspecified; G43.909 Migraine, unspecified, not intractable, without status migrainosus; M41.9 Scoliosis, unspecified; I25.2 Old myocardial infarction; K21.9 Gastro-esophageal reflux disease without esophagitis; E03.9 Hypothyroidism, unspecified; Z98.1 Arthrodesis status; Z88.0 Allergy status to penicillin; Z91.048 Other nonmedicinal substance allergy status; Z88.8 Allergy status to other drugs, medicaments and biological substances; Z88.1 Allergy status to other antibiotic agents; Z79.52 Long term (current) use of systemic steroids; Z79.890 Hormone replacement therapy; Z79.899 Other long term (current) drug therapy; X58.XXXA Exposure to other specified factors, initial encounter
CPT/HCPCS: 72125; 96372; 99283-25; J1885

== ENCOUNTER 2025-03-24 21:11 | Observation (INO) | payer BC ==
[~2025-03-24] VITALS: Ht 144.8 cm; Wt 59.9 kg
--- OUTSIDE RECORDS SUMMARY | 2025-03-24 21:13 | XMS ---
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 Security [employer] Events No recent Security Events currently on file CRITERIA MET - Group Notification CARE PROVIDERS KOLBY VOGEL Internal Medicine: Pulmonary Disease 08/15/2018-Current PHONE: Unknown QUITA MURPHY Family Medicine: Geriatric Medicine Current PHONE: Unknown Teofilo has no Care Guidelines for this patient. Mary VISIT COUNT (12 MO.) Mk Finch TOTAL 8 NOTE: Visits indicate total known visits. ED/UCC VISIT TRACKING (12 MO.) 03/24/2025 21:12 [facility] [place] TYPE: Emergency COMPLAINT: - RT RIBS PAIN,SOB 01/30/2025 22:29 [facility] [place] TYPE: Emergency COMPLAINT: - NECK PAIN DIAGNOSES: - Allergy status to other antibiotic agents - Allergy status to other drugs, medicaments and biological substances - Allergy status to penicillin - Arthrodesis status - Cervicalgia - Chronic obstructive pulmonary disease, unspecified - Exposure to other specified factors, initial encounter - Gastro-esophageal reflux disease without esophagitis - Hormone replacement therapy - Hypothyroidism, unspecified - longterm (current) use of systemic steroids - Migraine, unspecified, not intractable, without status migrainosus - Old myocardial infarction - Other detention (current) drug therapy - Other nonmedicinal substance allergy status - Scoliosis, unspecified - Strain of muscle, fascia and tendon at neck level, initial encounter 01/18/2025 14:00 [facility] [place] [...] to drugs and biological substances - Other detention (current) drug therapy - Paresthesia of skin [...] migrainosus - Old myocardial infarction - Other detention (current) drug therapy - Other nonmedicinal substance [...] unspecified - Old myocardial infarction - Other detention (current) drug therapy - Other nonmedicinal substance [...] intervertebral disc degeneration, lumbar region - Other detention (current) drug therapy - Other nonmedicinal substance [...] limb - Old myocardial infarction - Other manager intermediate (current) drug therapy - Other nonmedicinal substance allergy status - Pain in right hip INPATIENT VISIT TRACKING (12 MO.) No inpatient visits to display in this time frame [email or web address]
[2025-03-24 21:29] LABS: BASOPHILS 0.3 % (0.1-1.2); EOSINOPHILS 1.9 % (0.7-5.8); HEMATOCRIT 33.3 % (34.1-44.9); HEMOGLOBIN 11.5 g/dL (11.2-15.7); MCH 31.3 PG (25.6-32.2); MCHC 34.5 g/dL (32.2-35.5); MCV 90.5 fL (79.4-94.8); NEUTROPHILS 48.6 % (34.0-71.1); PLATELET COUNT 269 K/uL (182-369); RBC 3.68 M/uL (3.93-5.22)
[2025-03-24 21:45] LABS: ALBUMIN/GLOBULIN RATIO 1.29 (1.1-2.4); ANION GAP 8.9 (7-21); BILIRUBIN, TOTAL 0.3 mg/dL (0.2-1.0); BUN/CREATININE RATIO 14.85 (6.0-28.6); CALCIUM 9.6 mg/dL (8.5-10.1); CREATININE, SERUM 1.01 mg/dL (0.55-1.02); MAGNESIUM 1.9 mg/dL (1.8-2.4); POTASSIUM 3.9 mmol/L (3.5-5.1); PROTEIN, TOTAL 7.1 g/dL (6.4-8.2)
[2025-03-24] MEDS ORDERED: MORPHINE SULFATE 4 MG/ML VIAL IV ONE (21:45)
[2025-03-24] MEDS ORDERED: ondansetron HCL 4 MG/2 ML VIAL IV ONE (21:45)
[2025-03-24] MEDS ORDERED: FAMOTIDINE 20 MG/ 2 ML VIAL IV SCH (22:56)
[2025-03-24] MEDS ORDERED: levETIRAcetam 500 MG TAB PO SCH (22:59)
[2025-03-24] MEDS ORDERED: MORPHINE SULFATE 4 MG/ML VIAL IV PRN (23:00)
[2025-03-24] MEDS ORDERED: ACETAMINOPHEN 325 MG TAB PO PRN (23:00)
[2025-03-24] MEDS ORDERED: DEXTROSE 5% - LACTATED RINGERS 1,000 ML IV SCH (23:00)
[2025-03-24] MEDS ORDERED: metroNIDAZOLE/SODIUM CHLORIDE 500 MG/100 ML PIGGYBACK IV SCH (23:00)
[2025-03-24] MEDS ORDERED: CEFAZOLIN SODIUM 2 GM/20 ML SYR IV SCH (23:00)
[2025-03-24] MEDS ORDERED: ondansetron HCL 4 MG/2 ML VIAL IV PRN (23:00)
[2025-03-24 23:45] VITALS: BP 156/91
[2025-03-25] VITALS (12 sets, daily range): BP systolic 125–156; BP diastolic 65–94
[2025-03-25 05:21] LABS: BASOPHILS 0.5 % (0.1-1.2); EOSINOPHILS 2.1 % (0.7-5.8); HEMOGLOBIN 10.4 g/dL (11.2-15.7); LYMPHOCYTES 45.5 % (19.3-51.7); MCH 30.6 PG (25.6-32.2); MCHC 33.5 g/dL (32.2-35.5); MCV 91.2 fL (79.4-94.8); MONOCYTES 9.7 % (4.7-12.5); PLATELET COUNT 216 K/uL (182-369)
[2025-03-25 05:38] LABS: ALBUMIN 3.2 g/dL (3.4-5.0); ALBUMIN/GLOBULIN RATIO 1.19 (1.1-2.4); ANION GAP 8.6 (7-21); BILIRUBIN, TOTAL 0.2 mg/dL (0.2-1.0); BUN/CREATININE RATIO 11.57 (6.0-28.6); CALCIUM 8.8 mg/dL (8.5-10.1); CREATININE, SERUM 0.95 mg/dL (0.55-1.02); MAGNESIUM 1.8 mg/dL (1.8-2.4); POTASSIUM 3.6 mmol/L (3.5-5.1); PROTEIN, TOTAL 5.9 g/dL (6.4-8.2)
--- NOTE | 2025-03-25 11:36 | EKG ---
[facility] [address] [facility] [place] [address] Signed Normal sinus rhythm with sinus arrhythmia Minimal voltage criteria for LVH, may be normal variant ( R in aVL ) Borderline ECG When compared with ECG of 03-OCT-2024 20:19, No significant change was found Confirmed by Didier Phipps DO ([id number]) on 03/25/2025 11:36:37 AM Electronically Signed By: DIDIER PHIPPS DO 03/25/25 1136 PATIENT NAME: DOMINIQUE CARMICHAEL FLORENCIO Electrocardiogram DATE OF : 61 PHYSICIAN: DIDIER PHIPPS DO REPORT #: [id number] REPORT IS CONFIDENTIAL AND NOT TO BE RELEASED WITHOUT AUTHORIZATION
[2025-03-25] MEDS ORDERED: ROCURONIUM BROMIDE 50 MG/5 ML SYR ONE (12:23)
[2025-03-25] MEDS ORDERED: LIDOCAINE HCL 2% 5 ML SDV ONE (12:25)
[2025-03-25] MEDS ORDERED: ACETAMINOPHEN 1,000 MG/100 ML VIAL ONE (12:25)
[2025-03-25] MEDS ORDERED: fentaNYL citrate 100 MCG/2 ML VIAL ONE ×2 (12:25→13:26)
[2025-03-25] MEDS ORDERED: ondansetron HCL 4 MG/2 ML VIAL ONE (12:25)
[2025-03-25] MEDS ORDERED: DEXAMETHASONE SOD PHOS 4 MG/ML VIAL ONE (12:25)
[2025-03-25] MEDS ORDERED: propofoL 200 MG/20 ML VIAL ONE (12:25)
[2025-03-25] MEDS ORDERED: SODIUM CHLORIDE 0.9% 40 ML IV ONE (12:28)
[2025-03-25] MEDS ORDERED: iopamidoL 30 ML VIAL ONE (12:28)
[2025-03-25] MEDS ORDERED: ePHEDrine sulfate 50 MG/ML AMP ONE (12:56)
[2025-03-25] MEDS ORDERED: CEFAZOLIN SODIUM 2 GM/20 ML SYR ONE (12:59)
[2025-03-25] MEDS ORDERED: KETAMINE in NS 50 MG/5 ML SYR ONE (13:19)
[2025-03-25] MEDS ORDERED: SUGAMMADEX SODIUM 200 MG/2 ML ML ONE (13:36)
[2025-03-25] MEDS ORDERED: SEVOFLURANE 250 ML BTL INH ONE (13:41)
[2025-03-25] MEDS ORDERED: CEFAZOLIN SODIUM 2 GM/20 ML SYR IV ONE (13:45)
[2025-03-25] MEDS ORDERED: OXYCODON-ACETA1 EAC2 PO (14:12)
[2025-03-25] MEDS ORDERED: IBUPROFEN600 MG PO (14:12)
[2025-03-25] MEDS ORDERED: ACETAMINOPHEN500 MG PO (14:12)
[2025-03-25] MEDS ORDERED: ACETAMINOPHEN 500 MG TAB PO PRN (14:15)
[2025-03-25] MEDS ORDERED: OXYCODONE/APAP 7.5/325 TAB PO PRN (14:15)
[2025-03-25] MEDS ORDERED: KETOROLAC TROMETHAMINE 30 MG/ML VIAL IV PRN (14:15)
[2025-03-25] MEDS ORDERED: LACTATED RINGER'S 1,000 ML IV SCH (14:15)
[2025-03-25] MEDS ORDERED: HYDROmorphone HCL 1 MG/ML SYR IV PRN (14:15)
[2025-03-25] MEDS ORDERED: ondansetron HCL 4 MG/2 ML VIAL IV PRN (14:15)
[2025-03-25] MEDS ORDERED: IBUPROFEN 600 MG TAB PO PRN (14:15)
[2025-03-25] MEDS ORDERED: fentaNYL citrate 50 MCG/ML SDV ONE (14:17)
[2025-03-25] MEDS ORDERED: KETOROLAC TROMETHAMINE 15 MG/ML VIAL ONE (14:38)
[2025-03-25] MEDS ORDERED: ACETAMINOPHEN 500 MG TAB PO SCH (22:00)
[2025-03-25] MEDS ORDERED: SUMAtriptan succinate 50 MG TAB PO PRN (23:00)
[2025-03-26 05:32] VITALS: BP 153/94
[2025-03-26] MEDS ORDERED: PROTONIX20 MG PO (09:16)
[2025-03-26] MEDS ORDERED: [UNRECOGNIZED DRUG - OTHER] TOP (09:16)
[2025-03-26] MEDS ORDERED: CENTRUM SILVER1 EAC8 PO (09:17)
[2025-03-26] MEDS ORDERED: VENTOLIN HFA18 GM INH (09:17)
[2025-03-26] MEDS ORDERED: VITAMIN D21250 MCG PO (09:18)
[2025-03-26] MEDS ORDERED: ONDANSETRON ODT8 MG PO (09:18)
[2025-03-26] MEDS ORDERED: ZYRTEC10 MG PO (09:18)
[2025-03-26] MEDS ORDERED: IBU600 MG PO (09:19)
--- NOTE | 2025-03-26 09:24 | HP ---
[facility] [address] [place], [place] [address] Signed ADMISSION DATE: 03/24/2025 REASON FOR ADMISSION: Acute acalculous cholecystitis. HISTORY OF PRESENT ILLNESS: This 60-year-old white woman presented to the emergency room last night at approximately 11:00 p.m., was evaluated by Dr. Lewis with severe right upper abdominal pain and shortness of breath secondary to inability to respire deeply. The patient had eaten Spanish fries earlier in the evening and the pain occurred after that. She had no antecedent similar episodes. She knows of no family history of biliary disease. The patient was noted to have quite severe discomfort and evaluation was made for possible cardiac source. This included troponin enzymes which were essentially normal. EKG was also normal. Since hospitalization with IV fluids and IV antibiotics, she is feeling somewhat better, though still has persistent right upper abdominal pain. Imaging included a chest x-ray, which was normal and a gallbladder ultrasound, which showed no sign of stones, but did show distended gallbladder wall and thickening. A positive sonographic Gonzalez sign was reported. The common bile duct was 3.5 mm. Right kidney was normal. Her lab studies were essentially normal with a white count of only 5.85, hematocrit 33.3, and platelets of 269,000. Liver enzymes were also normal at that time and remained normal this morning. PAST MEDICAL HISTORY: Notable for a seizure history, fibromyalgia, osteoarthritis, episodic chronic cough, migraines, a myocardial infarction in 2010 with negative angiogram, gastroesophageal reflux disease, and hypothyroidism. PAST SURGICAL HISTORY: She has had three neck operations, (emergency), tubal ligation, right ankle surgery, left shoulder arthroscopy and left knee surgery. She has had right hand nerve and tendon repair also. ALLERGIES: Include penicillin, metformin, Cipro and Compazine. MEDICATIONS: She uses currently a Lidoderm patch for extremity pain and Zofran for nausea. She additionally takes Synthroid, metaxalone, duloxetine, sumatriptan for headaches, tizanidine for muscle spasm, losartan for hypertension, Keppra (levetiracetam), Tessalon Perles, and gabapentin. 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 She is not and never has been. She has two grown children. REVIEW OF SYSTEMS: She denies any chest pain or shortness of breath. She has mostly right upper abdominal pain. PHYSICAL EXAMINATION: GENERAL: Pleasant, relatively small white woman, who does not look toxic. VITAL SIGNS: BMI is 28.6. Temperature is 97.4, pulse 53, blood pressure 136/65. NECK: Trachea is midline. CHEST: Clear. HEART: Regular without murmur. ABDOMEN: Mildly obese, but soft. There is tenderness in the right upper abdomen. There is no palpable mass. She has no ascites. EXTREMITIES: Show no clubbing, cyanosis, or edema. LABORATORY DATA: Lab studies this morning show white count of 4.22, hematocrit 31.0, platelets 216,000. Chem profile normal though glucose elevated at 169. Liver enzymes normal. Bilirubin 0.2, lipase 32 last night. Review of her chest x-ray affirms the radiologist's interpretation of a clear chest without acute process. No effusion. No infiltrate. Ultrasound similarly reviewed normal right kidney. The gallbladder appears contracted, but thickened to a degree. It appears to me she may have sludge layering. ASSESSMENT: Most likely, she does have acalculous cholecystitis or possibly sludge related acute cholecystitis. She definitely has classic symptoms for it including her complaints of right upper abdominal pain now radiating to the subscapular area following a meal of high fat including Spanish fries as well as a persistent tenderness in right upper abdomen. I discussed with her in detail using illustrations, the pathophysiology of biliary disease and recommendation of treatment to include cholecystectomy preferred by laparoscopic approach. The risk of bleeding, infection, bile duct injury, need for open surgery and other unforeseen complications including need for other indicated procedures was reviewed in detail. She understands and wishes to proceed. We will make arrangements to do this today. Electronically Signed By: JOSE LAGUNA MD 03/26/25 0924 PATIENT NAME: DOMINIQUE CARMICHAEL HISTORY AND PHYSICAL DATE OF : 61 REPORT #: [id number] PHYSICIAN: JOSE LAGUNA MD PCP: DESTINEE LUGO PA-C REPORT IS CONFIDENTIAL AND NOT TO BE RELEASED WITHOUT AUTHORIZATION [address] [address] Signed Jose Laguna MD JM/MODL /[id number] cc: Dr. Debbie Mccarthy PA-C Copies: DESTINEE LUGO PA-C ~ Electronically Signed By: JOSE LAGUNA MD 03/26/25 0924 PATIENT NAME: DOMINIQUE CARMICHAEL HISTORY AND PHYSICAL DATE OF : 61 REPORT #: [id number] PHYSICIAN: JOSE LAGUNA MD PCP: DESTINEE LUGO PA-C REPORT IS CONFIDENTIAL AND NOT TO BE RELEASED WITHOUT AUTHORIZATION
--- NOTE | 2025-03-28 09:58 | OR ---
[facility] [address] [place], [place] [address] Signed DATE OF OPERATION: 03/25/2025 SURGEON: Jose Laguna MD PREOPERATIVE DIAGNOSIS: Acute acalculous cholecystitis. POSTOPERATIVE DIAGNOSIS: Acute calculous cholecystitis with cholesterolosis. PROCEDURES: 1. Laparoscopic cholecystectomy with intraoperative cholangiogram. 2. Surgeon-directed fluoroscopy. ANESTHESIA: General endotracheal; Qamar Patel CRNA, and local 10 mL of 0.25% Marcaine with epinephrine. INDICATION: This 60-year-old white woman presented to emergency room last night with significant right upper abdominal pain to the point that she had difficulty catching her breath. She has a distant history of myocardial infarction and rule out VT protocol was negative. It was found that she had marked tenderness in the right upper abdomen. Evaluation included a gallbladder ultrasound, which showed a distended gallbladder and gallbladder wall thickening and suggestion of acute acalculous cholecystitis as she had marked tenderness in the area. She has been fluid resuscitated, given intravenous antibiotic Ancef and now to undergo cholecystectomy preferred by laparoscopic approach. The risk of bleeding, infection, bile duct injury, need for open procedure, and importantly failure to cure her symptoms was all reviewed in detail. She understands and wished to proceed. FINDINGS: Indeed the gallbladder was distended and subacutely inflamed. There were adhesions of omentum to the undersurface. Transillumination did confirm cholesterolosis. The gallbladder once excised had tiny stone debris and small well-formed stones, but no sign of neoplasm. The mucosa showed profound cholesterolosis. Cholangiogram was normal. The liver was normal. DESCRIPTION OF PROCEDURE: Electronically Signed By: JOSE LAGUNA MD 03/28/25 0958 PATIENT NAME: DOMINIQUE CARMICHAEL OPERATIVE REPORT DATE OF : 61 REPORT #: [id number] PHYSICIAN: JOSE LAGUNA MD PCP: DESTINEE LUGO PA-C REPORT IS CONFIDENTIAL AND NOT TO BE RELEASED WITHOUT AUTHORIZATION [facility] [address] [place], [place] [address] Signed The patient was brought to the operating room, given a general endotracheal anesthetic. Preoperative antibiotic Ancef was given. Sequential compression device stockings were used. The abdomen was prepared with chlorhexidine solution and draped sterilely after satisfactory general endotracheal anesthesia. An infraumbilical incision was made and using an open Dia cannula technique, pneumoperitoneum was achieved to a level of 14 mmHg of carbon dioxide gas. Intra-abdominal inspection showed the gallbladder to be obscured from view at that point. Three additional trocars were placed in usual configuration in the subxiphoid, right midclavicular, and right anterior axillary line. The gallbladder was ultimately revealed by withdrawing the omentum inferiorly, found to have omental adhesions. The apex of the gallbladder was elevated cephalad and omental adhesions were taken down with blunt and electrocautery dissection. This allowed for full elevation of the gallbladder. Position change of the bed to the head up left side down was helpful as well. Lateral retraction on the infundibulum was undertaken allowing for blunt dissection, the triangle of Calot freeing it entirely. A small rent was noted in the gallbladder, which was secured with a clip. Egress of clear bile was noted, but no egress of stones. Ultimately, the cystic duct was well identified as was the cystic artery, which was doubly clipped and later divided. A clip was applied across the gallbladder cystic duct junction and a transverse choledochotomy made in the cystic duct. Clear bile was noted. Using the Hartley type cholangiocatheter system, intraoperative cholangiography was undertaken showing free flow of contrast in biliary tree with prompt emptying into the duodenum. There was no sign of biliary anomaly. The catheter was removed. The cystic duct was triply clipped and divided. The gallbladder dissected free in a retrograde fashion using electrocautery. The gallbladder was placed in an endobag and extracted through the infraumbilical port site, opened on the back table and found to have profound cholesterolosis of mucosa and a few very small well-formed gallstones. They were yellow in color. Irrigation was undertaken in subhepatic space. Some Mary Alice was applied for hemostatic benefit in the apex of the liver. Excess irrigation fluid was suctioned free. The trocars were removed under direct visualization showing no sign of bleeding. The infraumbilical fascial incision was reapproximated with interrupted 0 Vicryl suture. The skin was then closed with interrupted 3-0 Vicryl after application of 10 mL of 0.25% Marcaine with epinephrine. Steri-Strips were applied. The patient was ultimately extubated and transferred to recovery room in good condition having suffered no complications. Sponge, needle, and instrument counts reported as correct x3. Electronically Signed By: JOSE LAGUNA MD 03/28/25 0958 PATIENT NAME: DOMINIQUE CARMICHAEL OPERATIVE REPORT DATE OF : 61 REPORT #: [id number] PHYSICIAN: JOSE LAGUNA MD PCP: DESTINEE LUGO PA-C REPORT IS CONFIDENTIAL AND NOT TO BE RELEASED WITHOUT AUTHORIZATION [address] [address] Signed MD ARIANA Castano/MODL /[id number] cc: Dr. Debbie Mccarthy PA-C Copies: DESTINEE LUGO PA-C ~ Electronically Signed By: JOSE LAGUNA MD 03/28/25 0958 PATIENT NAME: DOMINIQUE CARMICHAEL OPERATIVE REPORT DATE OF : 61 REPORT #: [id number] PHYSICIAN: JOSE LAGUNA MD PCP: DESTINEE LUGO PA-C REPORT IS CONFIDENTIAL AND NOT TO BE RELEASED WITHOUT AUTHORIZATION
--- NOTE | 2025-03-28 12:02 | PATH ---
[facility] [address] [facility] [place], [place] [address] Signed SPECIMEN(S): A GALLBLADDER SPECIMEN SOURCE: A. GALLBLADDER CLINICAL HISTORY: Cholecystitis FINAL PATHOLOGIC DIAGNOSIS: Gallbladder, cholecystectomy: - Benign gallbladder with focal chronic cholecystitis. - Negative for calculi. - Mucosal cholesterolosis. JVR:clv MICROSCOPIC EXAMINATION: Histologic sections of all submitted blocks are examined by light microscopy. These findings, together with the gross examination, support the pathologic diagnosis. GROSS DESCRIPTION: The specimen, labeled and designated "Ry gallbladder," is received in formalin and consists of Specimen: Previously opened gallbladder. Dimensions: 7.3 x 3.5 x 1.2 cm. Serosa: Yellow-afustin and smooth. Cystic Duct: Unobstructed, margin inked black and shaved. Calculi: Not grossly identified. Mucosa: Faustin-green and velvety with some yellow flecking. Wall thickness: 0.1-0.5 cm. Lymph node: No pericystic lymph nodes are grossly identified. Additional: None. Middle School English Teacher sections are submitted in (A1). VB (under the direct supervision of a pathologist) The Gross Description was prepared using a voice recognition system. The report was reviewed for accuracy; however, sound-alike word errors, addition and/or deletions may occur. If there is any question about this report, please contact Client Services. PERFORMING LABORATORY: Technical component was performed by [employer], Radha Valentino, PATIENT NAME: DOMINIQUE CARMCIHAEL PATHOLOGY DATE OF : 61 REPORT #: [id number] PHYSICIAN: [facility] PCP: DESTINEE LUGO PA-C REPORT IS CONFIDENTIAL AND NOT TO BE RELEASED WITHOUT AUTHORIZATION [address] [place] [address] [place] [address] (CLIA# [id number]). Professional interpretation was performed by [facility] - [address] [address] (CLIA#: [id number]). Diagnostician: Rivas Pacheco MD Pathologist Electronically Signed 03/28/2025 Copies: ~ PATIENT NAME: DOMINIQUE CARMICHAEL PATHOLOGY DATE OF : 61 REPORT #: [id number] PHYSICIAN: [facility] PCP: DESTINEE LUGO PA-C REPORT IS CONFIDENTIAL AND NOT TO BE RELEASED WITHOUT AUTHORIZATION
== END 2025-03-26 09:50 | disposition home or self-care (01) ==
LOC: ED 21:11 → MS 21:13
PROVIDERS: Family Medicine; ADMIT Surgery; ATTEND Surgery
PROC: BF13YZZ Fluoroscopy of Gallbladder and Bile Ducts using Other Contrast (ICD-10-PCS; 2025-03-25)
PROC: 0FT44ZZ Resection of Gallbladder, Percutaneous Endoscopic Approach (ICD-10-PCS; principal; 2025-03-25 12:24)
DX: K80.12 Calculus of gallbladder with acute and chronic cholecystitis without obstruction (principal); K66.0 Peritoneal adhesions (postprocedural) (postinfection); J44.9 Chronic obstructive pulmonary disease, unspecified; E03.9 Hypothyroidism, unspecified; I25.2 Old myocardial infarction; Z88.0 Allergy status to penicillin; Z88.8 Allergy status to other drugs, medicaments and biological substances; Z88.1 Allergy status to other antibiotic agents; Z91.048 Other nonmedicinal substance allergy status; Z79.899 Other long term (current) drug therapy; Z79.890 Hormone replacement therapy
CPT/HCPCS: 00790; 36415; 71045; 74300; 76705; 80053; 83690; 83735; 84484; 85025; 93005; 93010; 94762; 96365; 96374; 96375; 96376; 99285-25; A9270; G0378; J0131; J0690; J1100; J1171; J1885; J2003; J2270; J2405; J2704; J3010; J3490; J7121; Q9967

== ENCOUNTER 2025-05-11 19:16 | Emergency (ER) | payer BC ==
[~2025-05-11] VITALS: Ht 144.8 cm; Wt 62.1 kg
[~2025-05-11 19:16] MED LIST changes: +ACETAMINOPHEN500 MG PO; +CENTRUM SILVER1 EAC8 PO; +IBU600 MG PO; +OXYCODON-ACETA1 EAC2 PO; +PROTONIX20 MG PO; +VENTOLIN HFA18 GM INH; +VITAMIN D21250 MCG PO; +ZYRTEC10 MG PO; +[UNRECOGNIZED DRUG - OTHER] TOP
--- OUTSIDE RECORDS SUMMARY | 2025-05-11 19:24 | XMS ---
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 Mary VISIT COUNT (12 MO.) Harjinder Finch TOTAL 6 NOTE: Visits indicate total known visits. 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 - Paresthesia of skin [...] migrainosus - Old myocardial infarction - Other assisted (current) drug therapy - Other nonmedicinal substance allergy status - Scoliosis, unspecified - Unspecified convulsions - Viral infection, unspecified INPATIENT VISIT TRACKING (12 MO.) 03/24/2025 21:13 [facility] [place] TYPE: Observation COMPLAINT: - CHOLECYSTITIS DIAGNOSES: - Allergy status to other antibiotic agents - Allergy status to other drugs, medicaments and biological substances - Allergy status to penicillin - Calculus of gallbladder with acute and chronic cholecystitis without obstruction - Calculus of gallbladder with acute cholecystitis without obstruction - Chronic obstructive pulmonary disease, unspecified - Hormone replacement therapy - Hypothyroidism, unspecified - Old myocardial infarction - 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
[2025-05-11] MEDS ORDERED: KETOROLAC TROMETHAMINE 30 MG/ML VIAL IV ONE (20:30)
[2025-05-11 20:32] LABS: BASOPHILS 0.3 % (0.1-1.2); EOSINOPHILS 2.0 % (0.7-5.8); LYMPHOCYTES 30.1 % (19.3-51.7); MCH 31.1 PG (25.6-32.2); MCHC 34.1 g/dL (32.2-35.5); MCV 91.0 fL (79.4-94.8); MONOCYTES 8.2 % (4.7-12.5); NEUTROPHILS 59.1 % (34.0-71.1); RBC 3.67 M/uL (3.93-5.22)
[2025-05-11 20:48] LABS: ALT (SGPT) 27.0 U/L (14-59); AST (SGOT) 17.0 U/L (15-37); GLOMERULAR FILTRATION RATE,EST 64.0 mL/min (>60); PROTEIN, TOTAL 6.9 g/dL (6.4-8.2); UREA NITROGEN 13.0 mg/dL (7-18)
[2025-05-11] MEDS ORDERED: CYCLOBENZAPRINE10 MG PO (22:02)
[2025-05-11] MEDS ORDERED: CYCLOBENZAPRINE HCL 10 MG HOME.PACK PO ONE (22:15)
[2025-05-11 22:33] VITALS: BP 139/85
== END 2025-05-11 22:45 | disposition home or self-care (01) ==
LOC: ED 19:16
PROVIDERS: Family Medicine
DX: B34.9 Viral infection, unspecified (principal); E03.9 Hypothyroidism, unspecified; K21.9 Gastro-esophageal reflux disease without esophagitis; I25.2 Old myocardial infarction; Z79.899 Other long term (current) drug therapy; Z88.0 Allergy status to penicillin; Z88.8 Allergy status to other drugs, medicaments and biological substances; Z91.048 Other nonmedicinal substance allergy status; Z88.1 Allergy status to other antibiotic agents
CPT/HCPCS: 36415; 70450; 80053; 83735; 85025; 87651; 96374; 99284-25; J1885; U0002